=== PATIENT | male | born 1950 ===

== ENCOUNTER 2017-06-04 13:54 | Inpatient (IN) | payer MEDICARE ==
[~2017-06-04] VITALS: Ht 177.8 cm; Wt 95.0 kg
[2017-06-04] MEDS ORDERED: MAGNESIUM HYDROXIDE 2,400 MG/30 ML ORAL.SUSP. PO PRN (15:00)
[2017-06-04] MEDS ORDERED: METHYL SALICYLATE/MENTHOL TOPICAL OINTMENT 29GM TUBE. TP PRN (15:00)
[2017-06-04] MEDS ORDERED: FLU VACC QS2017-18 (36MOS+)/PF 0.5 ML SYRINGE. VAX IM ONE (15:30)
[2017-06-04 21:57] LABS: BASO % 1 % (0-3); EOS # 0.3 x10^3/uL (0.0-0.7); EOS % 4 % (0-3); HEMATOCRIT 42.6 % (39.0-53.0); HEMOGLOBIN 14.3 g/dL (13.0-17.5); LYMPH # 1.4 x10^3/uL (1.0-4.8); LYMPH % 17 % (24-48); MEAN CORPUSCULAR HEMOGLOBIN 28 pg (25-35); MEAN CORPUSCULAR HGB CONC 33 g/dL (31-37); MEAN CORPUSCULAR VOLUME 85 fL (79-100); MONO # 0.6 x10^3/uL (0.0-1.1); MONO % 7 % (0-9); NEUT # 6.2 x10^3uL (1.8-7.7); NEUT % 72 % (31-73); PLATELET COUNT 155 x10^3/uL (140-400); RED BLOOD COUNT 5.01 x10^6/uL (4.30-5.70); RED CELL DISTRIBUTION WIDTH 14.1 % (11.5-14.5); WHITE BLOOD COUNT 8.6 x10^3/uL (4.0-11.0)
[2017-06-04 22:10] LABS: ALBUMIN 3.3 g/dL (3.4-5.0); ALBUMIN/GLOBULIN RATIO 0.9 (1.0-1.7); CALCIUM 8.9 mg/dL (8.5-10.1); CREATININE 1.1 mg/dL (0.7-1.3); MAGNESIUM 1.7 mg/dL (1.8-2.4); POTASSIUM 4.5 mmol/L (3.5-5.1); TOTAL BILIRUBIN 0.5 mg/dL (0.2-1.0); TOTAL PROTEIN 6.8 g/dL (6.4-8.2)
[2017-06-04 23:14] VITALS: BP 139/57
[2017-06-05] MEDS ORDERED: OMEP20TA8 PO (00:52)
[2017-06-05] MEDS ORDERED: VERA240C2 PO (00:52)
[2017-06-05] MEDS ORDERED: ATORVASTATIN CA80 MG PO (00:52)
[2017-06-05] MEDS ORDERED: SAXA5TAB PO (00:52)
[2017-06-05] MEDS ORDERED: POTA10TA10 PO (00:52)
[2017-06-05] MEDS ORDERED: NICO1PAT21 TD (00:52)
[2017-06-05] MEDS ORDERED: ALBU2.5V14 NEB (00:52)
[2017-06-05] MEDS ORDERED: TAMS0.4C2 PO (00:52)
[2017-06-05] MEDS ORDERED: AMLO5TAB2 PO (00:52)
[2017-06-05] MEDS ORDERED: MEMA1CAP2 PO (00:52)
[2017-06-05] MEDS ORDERED: PARO40TA3 PO (00:52)
[2017-06-05] MEDS ORDERED: RAMI10CA PO (00:52)
[2017-06-05] MEDS ORDERED: [UNRECOGNIZED DRUG - OTHER] (00:52)
[2017-06-05] MEDS ORDERED: OXYB5TAB PO (00:52)
[2017-06-05] MEDS ORDERED: FLUT1DIS3 IH (00:52)
[2017-06-05] MEDS ORDERED: ASPI325T8 PO (00:52)
[2017-06-05] MEDS ORDERED: NON FORMULARY ITEM (Albuterol Sulfate (Albuterol Sulfate Conc Neb Soln) 2.5 MG) NEB PRN (01:00)
[2017-06-05] MEDS ORDERED: DEXTROSE 50% 25 GM / 50ML DISP.SYRIN. IV PRN (01:00)
[2017-06-05] MEDS ORDERED: DEXTROSE ORAL GEL 15 GM TUBE. PO PRN (01:00)
[2017-06-05] MEDS ORDERED: NICOTINE 21MG PATCH. TD PRN (01:00)
[2017-06-05] MEDS ORDERED: ALBUTEROL SULFATE 2.5 MG/3 ML NEBU. NEB PRN (01:45)
[2017-06-05 06:31] VITALS: BP_SYST 69
[2017-06-05 07:39] VITALS: BP 138/69
[2017-06-05] MEDS: ALBUTEROL SULFATE 2.5 MG/3 ML NEBU. NEB SCH ×4 (08:00→21:00)
[2017-06-05] MEDS: LINAGLIPTIN 5 MG TABLET PO SCH (08:50)
[2017-06-05] MEDS: PANTOPRAZOLE 40 MG TABLET. PO SCH (08:50)
[2017-06-05] MEDS: OXYBUTYNIN CHLORIDE 5 MG TABLET PO SCH (08:50)
[2017-06-05] MEDS: ASPIRIN 325 MG TABLET PO SCH ×2 (08:50→20:02)
[2017-06-05] MEDS: LISINOPRIL 20 MG TABLET PO SCH (08:50)
[2017-06-05] MEDS: TAMSULOSIN 0.4 MG CAP.ER.24H. PO SCH (08:51)
[2017-06-05] MEDS: MEMANTINE 5 MG TABLET. PO SCH ×2 (08:51→20:03)
[2017-06-05] MEDS: POTASSIUM CHLORIDE 10 MEQ TABLET.ER. PO SCH (08:51)
[2017-06-05] MEDS: DONEPEZIL HCL 5 MG TABLET. PO SCH ×2 (08:51→20:03)
[2017-06-05] MEDS: amLODIPine BESYLATE 5 MG TABLET PO SCH ×3 (08:52→20:06)
[2017-06-05] MEDS: VERAPAMIL SR 120 MG TABLET.ER. PO SCH (08:55)
[2017-06-05] MEDS ORDERED: NON FORMULARY ITEM (Fluticasone/Salmeterol (Advair 250-50 Diskus) 1 PUFF) IH SCH (09:00)
[2017-06-05] MEDS ORDERED: PARoxetine 20 MG TABLET PO SCH (09:00)
[2017-06-05] MEDS ORDERED: DONEPEZIL HCL PO SCH (09:00)
[2017-06-05] MEDS ORDERED: MEMANTINE HCL PO SCH (09:00)
[2017-06-05] MEDS ORDERED: NICOTINE 21MG PATCH. TD SCH (09:00)
[2017-06-05] MEDS: BUDESONIDE 0.5 MG/2 ML NEBU NEB SCH ×2 (11:11→21:00)
[2017-06-05 14:20] LABS: THYROID STIM HORMONE (TSH) 0.155 uIU/mL (0.358-3.740)
[2017-06-05 16:24] VITALS: BP 94/56
[2017-06-05 18:47] LABS: BACTERIA,URINE 0 /HPF (0-FEW); BILIRUBIN,URINE NEG (NEG); CLARITY,URINE CLEAR; COLOR,URINE AMBER; GLUCOSE,URINE NEG (NEG); HYALINE CASTS, URINE OCC /HPF; NITRITE,URINE NEG (NEG); RBC,URINE 0 /HPF (0-2); SQUAMOUS EPITHELIAL CELL,UR OCC /LPF; UROBILINOGEN,URINE 1 mg/dL (0.2 mg/dL)
--- NOTE | 2017-06-05 19:18 | PDOC ---
Exam Note: Hernandez Note: Please also refer to the separate dictated note~for this date of service dictated separately.~Patient seen individually. Discussed the patient with Nursing staff reviewed the chart.~Reviewed interim history and current functioning. Reviewed vital signs,~Labs/ Radiology~and current medications noted below. Continue current treatment with the changes noted in the dictated addendum note Assessment: Vital Signs: Vital Signs Date Time Temp Pulse Resp B/P (MAP) Pulse Ox O2 Delivery O2 Flow Rate FiO2 06/05/17 16:24 93 Room Air 06/05/17 16:24 97.9 78 20 94/56 (69) Labs: Laboratory Tests Test 06/04/17 21:46 06/05/17 07:54 06/05/17 18:10 White Blood Count 8.6 x10^3/uL (4.0-11.0) Red Blood Count 5.01 x10^6/uL (4.30-5.70) Hemoglobin 14.3 g/dL (13.0-17.5) Hematocrit 42.6 % (39.0-53.0) Mean Corpuscular Volume 85 fL (79-100) Mean Corpuscular Hemoglobin 28 pg (25-35) Mean Corpuscular Hemoglobin Concent 33 g/dL (31-37) Red Cell Distribution Width 14.1 % (11.5-14.5) Platelet Count 155 x10^3/uL (140-400) Neutrophils (%) (Auto) 72 % (31-73) Lymphocytes (%) (Auto) 17 % (24-48) L Monocytes (%) (Auto) 7 % (0-9) Eosinophils (%) (Auto) 4 % (0-3) H Basophils (%) (Auto) 1 % (0-3) Neutrophils # (Auto) 6.2 x10^3uL (1.8-7.7) Lymphocytes # (Auto) 1.4 x10^3/uL (1.0-4.8) Monocytes # (Auto) 0.6 x10^3/uL (0.0-1.1) Eosinophils # (Auto) 0.3 x10^3/uL (0.0-0.7) Basophils # (Auto) 0.0 x10^3/uL (0.0-0.2) Sodium Level 144 mmol/L (136-145) Potassium Level 4.5 mmol/L (3.5-5.1) Chloride Level 107 mmol/L (98-107) Carbon Dioxide Level 32 mmol/L (21-32) Anion Gap 5 (6-14) L Blood Urea Nitrogen 19 mg/dL (8-26) Creatinine 1.1 mg/dL (0.7-1.3) Estimated GFR (Cockcroft-Gault) 67.0 BUN/Creatinine Ratio 17 (6-20) Glucose Level 121 mg/dL (70-99) H Calcium Level 8.9 mg/dL (8.5-10.1) Magnesium Level 1.7 mg/dL (1.8-2.4) L Iron Level 38 ug/dL (65-175) L Total Iron Binding Capacity 239 ug/dL (250-450) L Iron Saturation 16 % (15-34) Total Bilirubin 0.5 mg/dL (0.2-1.0) Aspartate Amino Transferase (AST) 18 U/L (15-37) Alanine Aminotransferase (ALT) 25 U/L (16-63) Alkaline Phosphatase 84 U/L (46-116) Total Protein 6.8 g/dL (6.4-8.2) Albumin 3.3 g/dL (3.4-5.0) L Albumin/Globulin Ratio 0.9 (1.0-1.7) L Triglycerides Level 81 mg/dL (0-150) Cholesterol Level 112 mg/dL (0-200) LDL Cholesterol, Calculated 62 mg/dL (0-100) VLDL Cholesterol, Calculated 16 mg/dL (0-40) Non-HDL Cholesterol Calculated 78 mg/dL (0-129) HDL Cholesterol 34 mg/dL (40-60) L Cholesterol/HDL Ratio 3.0 Vitamin B12 Level 236 pg/mL (247-911) L 25-Hydroxy Vitamin D Total 6.6 ng/mL (30-100) L Thyroid Stimulating Hormone (TSH) 0.155 uIU/mL (0.358-3.740) Glucose (Fingerstick) 98 mg/dL (70-99) Urine Collection Type Unknown Urine Color [place] Urine Clarity Clear Urine pH 5.0 Urine Specific [place] >=1.030 Urine Protein 30 mg/dl (NEG-TRACE) Urine Glucose (UA) Neg mg/dL (NEG) Urine Ketones (Stick) 15 mg/dL (NEG) Urine Blood Neg (NEG) Urine Nitrite Neg (NEG) Urine Bilirubin Neg (NEG) Urine Urobilinogen Dipstick 1 mg/dL (0.2 mg/dL) Urine Leukocyte Esterase Neg (NEG) Urine RBC 0 /HPF (0-2) Urine WBC 1-4 /HPF (0-4) Urine Squamous Epithelial Cells Occ /LPF Urine Bacteria 0 /HPF (0-FEW) Urine Hyaline Casts Occ /HPF Urine Mucus Mod /LPF Current Medications: Meds: Current Medications Acetaminophen (Tylenol) 650 mg PRN Q6HRS PRN PO PAIN / TEMP; Start 06/04/17 at 15:00 Multi-Ingredient Ointment (Analgesic [place]) 1 any PRN QID PRN TP MUSCLE PAIN; Start 06/04/17 at 15:00 Al Hydroxide/Mg Hydroxide (Mylanta Plus Xs) 15 ml PRN AFTMEALHC PRN PO DYSPEPSIA; Start 06/04/17 at 15:00 Magnesium Hydroxide (Milk Of Magnesia) 2,400 mg PRN QHS PRN PO CONSTIPATION; Start 06/04/17 at 15:00 Nicotine (Nicoderm Cq 21mg) 1 patch DAILY TD ; Start 06/05/17 at 09:00; Stop at 09:00; Status DC Olanzapine (ZyPREXA ZYDIS) 2.5 mg PRN Q2HR PRN PO ANXIETY / AGITATION; Start at 15:30 Influenza Virus Vaccine Quadrival (Fluarix Quad 0319-6037 Syringe) 0.5 ml ONCE ONCE VAX IM Last administered on 06/05/17at 11:21; Start 06/04/17 at 15:30; Stop 06/04/17 at 15:36; Status DC Amlodipine Besylate (Norvasc) 5 mg DAILY PO Last administered on 06/05/17at 08: 52; Start 06/05/17 at 09:00 Aspirin (Siv[place]kmar Aspirin) 325 mg DAILY PO Last administered on 06/05/17at 08:50; Start 06/05/17 at 09:00 Nicotine (Nicoderm Cq 21mg) 1 patch PRN DAILY PRN TD NICOTINE W/D SYMPTOMS; Start 06/05/17 at 01:00 Tamsulosin HCl (Flomax) 0.4 mg DAILY PO Last administered on 06/05/17at 08:51; Start 06/05/17 at 09:00 Non-Formulary Medication 2.5 mg PRN Q12HR PRN NEB WHEEZING; Start 06/05/17 at 01:00; Status UNV Atorvastatin Calcium (Lipitor) 80 mg QHS PO ; Start 06/05/17 at 21:00 Non-Formulary Medication 1 puff BID IH ; Start 06/05/17 at 09:00; Status UNV Non-Formulary Medication 1 each DAILY PO ; Start 06/05/17 at 09:00; Stop at 09:00; Status DC Pantoprazole Sodium (Protonix) 40 mg DAILYAC PO Last administered on 06/05/17at 08:50; Start 06/05/17 at 07:30 Oxybutynin Chloride (Ditropan) 5 mg DAILY PO Last administered on 06/05/17at 08: 50; Start 06/05/17 at 09:00 Paroxetine HCl (Paxil) 40 mg DAILY PO Last administered on 06/05/17at 08:51; Start 06/05/17 at 09:00; Stop 06/05/17 at 18:43; Status DC Potassium Chloride (Klor-Con) 30 meq DAILY PO Last administered on 06/05/17at 08 :51; Start 06/05/17 at 09:00 Lisinopril (Prinivil) 20 mg DAILY PO Last administered on 06/05/17at 08:50; Start 06/05/17 at 09:00 Linagliptin (Tradjenta) 5 mg DAILY PO Last administered on 06/05/17at 08:50; Start 06/05/17 at 09:00 Verapamil HCl (Calan Sr) 120 mg DAILY PO Last administered on 06/05/17at 08:55; Start 06/05/17 at 09:00 Dextrose 12.5 gm PRN Q15MIN PRN IV hypoglycemia; Start 06/05/17 at 01:00 Glucose (Insta-Glucose) 15 gm PRN Q15MIN PRN PO LOW BLOOD SUGAR; Start at 01:00 Albuterol Sulfate (Ventolin) 2.5 mg PRN Q12HR PRN NEB WHEEZING; Start 06/05/17 at 01:45 Budesonide (Pulmicort) 0.5 mg RTBID NEB Last administered on 06/05/17at 11:11; Start 06/05/17 at 08:00 Albuterol Sulfate (Ventolin) 2.5 mg RTQID NEB Last administered on 06/05/17at 16 :24; Start 06/05/17 at 08:00 Memantine (Namenda) 5 mg BID PO Last administered on 06/05/17at 08:51; Start at 09:00 Donepezil HCl (Aricept) 5 mg BID PO Last administered on 06/05/17at 08:51; Start 06/05/17 at 09:00 Vitamin D (Vitamin D3) 50,000 unit WEEKLY PO ; Start 06/05/17 at 20:00 Cyanocobalamin (Vitamin B-12) 1,000 mcg WEEKLY IM ; Start 06/06/17 at 09:00 Quetiapine Fumarate (SEROquel) 25 mg QHS PO ; Start 06/05/17 at 21:00 Sertraline HCl (Zoloft) 50 mg DAILY PO ; Start 06/06/17 at 09:00 Active Scripts Active Reported Albuterol Sulfate Conc Neb Soln (Albuterol Sulfate) 2.5 Mg/0.5 Ml Vial.neb 2.5 Mg NEB PRN Q12HR PRN Namzaric 14 mg-10 mg Capsule (Memantine HCl/Donepezil HCl) 1 Each Cap.spr.24 1 Each PO DAILY [manzaric] Atorvastatin Calcium 80 Mg Tablet 80 Mg PO QHS NICODERM CQ 21mg (Nicotine) 1 Each Patch.td24 1 Patch TD PRN DAILY Omeprazole 20 Mg Tablet.dr 20 Mg PO DAILY Verapamil Er (Verapamil Hcl) 240 Mg Cap24h.pel 120 Mg PO DAILY Tamsulosin Hcl 0.4 Mg Cap.er.24h 0.4 Mg PO DAILY Onglyza (Saxagliptin Hcl) 5 Mg Tablet 2.5 Mg PO DAILY Ramipril 10 Mg Capsule 10 Mg PO DAILY Potassium Chloride 10 Meq Tablet.er 30 Meq PO DAILY Paroxetine Hcl 40 Mg Tablet 40 Mg PO DAILY Oxybutynin Chloride Er (Oxybutynin Chloride) 5 Mg Tab.er.24 5 Mg PO DAILY Advair 250-50 Diskus (Fluticasone/Salmeterol) 1 Each Disk.w.dev 1 Puff IH BID Aspirin 325 Mg Tablet 325 Mg PO Amlodipine Besylate 5 Mg Tablet 5 Mg PO DAILY I have reviewed the current psychotropics carefully including drug interactions. Risk benefit ratio favors no change other than as noted in my dictated progress note. BRAYAN GARNETT MD Jun 05, 2017 19:18
[2017-06-05] MEDS: CHOLECALCIFEROL (VITAMIN D3) 50,000 UNIT CAPSULE PO SCH (20:03)
[2017-06-05] MEDS: ATORVASTATIN CALCIUM 20 MG TABLET PO SCH (20:20)
[2017-06-05] MEDS ORDERED: QUEtiapine 25 MG TABLET. PO SCH (21:00)
[2017-06-05 21:11] LABS: T3 TOTAL 67 ng/dL (71-180); THYROXINE 4.5 ug/dL (4.5-12.0)
[2017-06-06 00:09] LABS: HEMOGLOBIN A1C 5.7 % (4.8-5.6)
[2017-06-06] MEDS: ALBUTEROL SULFATE 2.5 MG/3 ML NEBU. NEB SCH ×4 (06:00→20:00)
[2017-06-06 06:07] VITALS: BP 100/63
[2017-06-06] MEDS: LINAGLIPTIN 5 MG TABLET PO SCH (08:57)
[2017-06-06] MEDS: DONEPEZIL HCL 5 MG TABLET. PO SCH ×2 (08:57→19:40)
[2017-06-06] MEDS: POTASSIUM CHLORIDE 10 MEQ TABLET.ER. PO SCH (08:57)
[2017-06-06] MEDS: TAMSULOSIN 0.4 MG CAP.ER.24H. PO SCH (08:58)
[2017-06-06] MEDS: OXYBUTYNIN CHLORIDE 5 MG TABLET PO SCH (08:58)
[2017-06-06] MEDS: MEMANTINE 5 MG TABLET. PO SCH ×2 (08:58→19:40)
[2017-06-06] MEDS: PANTOPRAZOLE 40 MG TABLET. PO SCH (08:58)
[2017-06-06] MEDS: amLODIPine BESYLATE 5 MG TABLET PO SCH (09:00)
[2017-06-06] MEDS: LISINOPRIL 20 MG TABLET PO SCH (09:00)
[2017-06-06] MEDS: VERAPAMIL SR 120 MG TABLET.ER. PO SCH (09:00)
[2017-06-06 09:07] VITALS: BP 105/58
[2017-06-06] MEDS: SERTRALINE 50 MG TABLET. PO SCH (09:10)
[2017-06-06] MEDS: CYANOCOBALAMIN (VITAMIN B-12) 1,000 MCG/ML VIAL IM SCH (09:10)
--- NOTE | 2017-06-06 10:36 | PN ---
DATE: NO DICTATION MAN Lacho GARNETT MD DR: Braxton JOB#: [id number] / [id number]
[2017-06-06] MEDS: BUDESONIDE 0.5 MG/2 ML NEBU NEB SCH ×2 (11:38→20:00)
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
[2017-06-06 15:51] VITALS: BP 103/64
[2017-06-06] MEDS: ATORVASTATIN CALCIUM 20 MG TABLET PO SCH (19:42)
[2017-06-06] MEDS: QUEtiapine 50 MG TABLET. PO SCH (19:44)
--- NOTE | 2017-06-06 19:52 | PDOC ---
Exam Note: Hernandez Note: Please also refer to the separate dictated note~for this date of service dictated separately.~Patient seen individually. Discussed the patient with Nursing staff reviewed the chart.~Reviewed interim history and current functioning. Reviewed vital signs,~Labs/ Radiology~and current medications noted below. Continue current treatment with the changes noted in the dictated addendum note Assessment: Vital Signs: Vital Signs Date Time Temp Pulse Resp B/P (MAP) Pulse Ox O2 Delivery O2 Flow Rate FiO2 06/06/17 16:37 96 Room Air 06/06/17 15:51 98.8 67 16 103/64 (77) I&O Intake and Output 06/06/17 07:00 Intake Total 1900 ml Balance 1900 ml Intake Oral 1900 ml # Voids 2 Labs: Laboratory Tests Test 06/06/17 07:13 06/06/17 08:00 Free Thyroxine 0.85 ng/dL (0.76-1.46) Free Triiodothyronine (T3) pg/mL 2.17 pg/mL (2.18-3.98) L Glucose (Fingerstick) 93 mg/dL (70-99) Current Medications: Meds: Current Medications Acetaminophen (Tylenol) 650 mg PRN Q6HRS PRN PO PAIN / TEMP; Start 06/04/17 at 15:00 Multi-Ingredient Ointment (Analgesic [place]) 1 any PRN QID PRN TP MUSCLE PAIN; Start 06/04/17 at 15:00 Al Hydroxide/Mg Hydroxide (Mylanta Plus Xs) 15 ml PRN AFTMEALHC PRN PO DYSPEPSIA; Start 06/04/17 at 15:00 Magnesium Hydroxide (Milk Of Magnesia) 2,400 mg PRN QHS PRN PO CONSTIPATION; Start 06/04/17 at 15:00 Nicotine (Nicoderm Cq 21mg) 1 patch DAILY TD ; Start 06/05/17 at 09:00; Stop at 09:00; Status DC Olanzapine (ZyPREXA ZYDIS) 2.5 mg PRN Q2HR PRN PO ANXIETY / AGITATION Last administered on 06/06/17at 02:22; Start 06/04/17 at 15:30 Influenza Virus Vaccine Quadrival (Fluarix Quad [id number] Syringe) 0.5 ml ONCE ONCE VAX IM Last administered on 06/05/17at 11:21; Start 06/04/17 at 15:30; Stop 06/04/17 at 15:36; Status DC Amlodipine Besylate (Norvasc) 5 mg DAILY PO ; Start 06/05/17 at 09:00 Aspirin (Sivakumar Aspirin) 325 mg DAILY PO Last administered on 06/05/17at 20:02; Start 06/05/17 at 09:00 Nicotine (Nicoderm Cq 21mg) 1 patch PRN DAILY PRN TD NICOTINE W/D SYMPTOMS; Start 06/05/17 at 01:00 Tamsulosin HCl (Flomax) 0.4 mg DAILY PO Last administered on 06/06/17 08:58; Start 06/05/17 at 09:00 Non-Formulary Medication 2.5 mg PRN Q12HR PRN NEB WHEEZING; Start 06/05/17 at 01:00; Status UNV Atorvastatin Calcium (Lipitor) 80 mg QHS PO Last administered on 06/06/17at 19: 42; Start 06/05/17 at 21:00 Non-Formulary Medication 1 puff BID IH ; Start 06/05/17 at 09:00; Status UNV Non-Formulary Medication 1 each DAILY PO ; Start 06/05/17 at 09:00; Stop at 09:00; Status DC Pantoprazole Sodium (Protonix) 40 mg DAILYAC PO Last administered on 06/06/17 08:58; Start 06/05/17 at 07:30 Oxybutynin Chloride (Ditropan) 5 mg DAILY PO Last administered on 06/06/17 08: 58; Start 06/05/17 at 09:00 Paroxetine HCl (Paxil) 40 mg DAILY PO Last administered on 06/05/17at 08:51; Start 06/05/17 at 09:00; Stop 06/05/17 at 18:43; Status DC Potassium Chloride (Klor-Con) 30 meq DAILY PO Last administered on 06/06/17at 08 :57; Start 06/05/17 at 09:00 Lisinopril (Prinivil) 20 mg DAILY PO Last administered on 06/05/17at 08:50; Start 06/05/17 at 09:00 Linagliptin (Tradjenta) 5 mg DAILY PO Last administered on 06/06/17at 08:57; Start 06/05/17 at 09:00 Verapamil HCl (Calan Sr) 120 mg DAILY PO Last administered on 06/05/17at 08:55; Start 06/05/17 at 09:00 Dextrose 12.5 gm PRN Q15MIN PRN IV hypoglycemia; Start 06/05/17 at 01:00 Glucose (Insta-Glucose) 15 gm PRN Q15MIN PRN PO LOW BLOOD SUGAR; Start at 01:00 Albuterol Sulfate (Ventolin) 2.5 mg PRN Q12HR PRN NEB WHEEZING; Start 06/05/17 at 01:45 Budesonide (Pulmicort) 0.5 mg RTBID NEB Last administered on 06/06/17at 11:38; Start 06/05/17 at 08:00 Albuterol Sulfate (Ventolin) 2.5 mg RTQID NEB Last administered on 06/06/17at 16 :36; Start 06/05/17 at 08:00 Memantine (Namenda) 5 mg BID PO Last administered on 06/06/17at 19:40; Start at 09:00 Donepezil HCl (Aricept) 5 mg BID PO Last administered on 06/06/17 19:40; Start 06/05/17 at 09:00 Vitamin D (Vitamin D3) 50,000 unit WEEKLY PO Last administered on 06/05/17at 20: 03; Start 06/05/17 at 20:00 Cyanocobalamin (Vitamin B-12) 1,000 mcg WEEKLY IM Last administered on 09:10; Start 06/06/17 at 09:00 Quetiapine Fumarate (SEROquel) 25 mg QHS PO Last administered on 06/05/17at 20: 03; Start 06/05/17 at 21:00; Stop 06/06/17 at 18:42; Status DC Sertraline HCl (Zoloft) 50 mg DAILY PO Last administered on 06/06/17at 09:10; Start 06/06/17 at 09:00 Quetiapine Fumarate (SEROquel) 50 mg QHS PO Last administered on 06/06/17at 19: 44; Start 06/06/17 at 21:00 Active Scripts Active Reported Albuterol Sulfate Conc Neb Soln (Albuterol Sulfate) 2.5 Mg/0.5 Ml Vial.neb 2.5 Mg NEB PRN Q12HR PRN Namzaric 14 mg-10 mg Capsule (Memantine HCl/Donepezil HCl) 1 Each Cap.spr.24 1 Each PO DAILY [manzaric] Atorvastatin Calcium 80 Mg Tablet 80 Mg PO QHS NICODERM CQ 21mg (Nicotine) 1 Each Patch.td24 1 Patch TD PRN DAILY Omeprazole 20 Mg Tablet.dr 20 Mg PO DAILY Verapamil Er (Verapamil Hcl) 240 Mg Cap24h.pel 120 Mg PO DAILY Tamsulosin Hcl 0.4 Mg Cap.er.24h 0.4 Mg PO DAILY Onglyza (Saxagliptin Hcl) 5 Mg Tablet 2.5 Mg PO DAILY Ramipril 10 Mg Capsule 10 Mg PO DAILY Potassium Chloride 10 Meq Tablet.er 30 Meq PO DAILY Paroxetine Hcl 40 Mg Tablet 40 Mg PO DAILY Oxybutynin Chloride Er (Oxybutynin Chloride) 5 Mg Tab.er.24 5 Mg PO DAILY Advair 250-50 Diskus (Fluticasone/Salmeterol) 1 Each Disk.w.dev 1 Puff IH BID Aspirin 325 Mg Tablet 325 Mg PO Amlodipine Besylate 5 Mg Tablet 5 Mg PO DAILY I have reviewed the current psychotropics carefully including drug interactions. Risk benefit ratio favors no change other than as noted in my dictated progress note. Diagnosis: Problems: (1) Major neurocognitive disorder, due to vascular disease, with behavioral disturbance, mild (2) Impulse control disorder (3) Depression (4) Delusion (5) Anxiety disorder (6) Behavior problem BRAYAN GARNETT MD Jun 06, 2017 19:52
[2017-06-06 20:17] LABS: THYROXINE 4.9 ug/dL (4.5-12.0)
[2017-06-07 05:35] VITALS: BP 102/56
[2017-06-07] MEDS: ALBUTEROL SULFATE 2.5 MG/3 ML NEBU. NEB SCH ×4 (06:06→22:55)
[2017-06-07] MEDS: LINAGLIPTIN 5 MG TABLET PO SCH (08:44)
[2017-06-07] MEDS: DONEPEZIL HCL 5 MG TABLET. PO SCH ×2 (08:44→19:52)
[2017-06-07] MEDS: MEMANTINE 5 MG TABLET. PO SCH ×2 (08:44→19:52)
[2017-06-07] MEDS: POTASSIUM CHLORIDE 10 MEQ TABLET.ER. PO SCH (08:44)
[2017-06-07] MEDS: OXYBUTYNIN CHLORIDE 5 MG TABLET PO SCH (08:44)
[2017-06-07] MEDS: SERTRALINE 50 MG TABLET. PO SCH (08:45)
[2017-06-07] MEDS: PANTOPRAZOLE 40 MG TABLET. PO SCH (08:45)
[2017-06-07] MEDS: TAMSULOSIN 0.4 MG CAP.ER.24H. PO SCH (08:45)
[2017-06-07] MEDS: ASPIRIN 325 MG TABLET PO SCH (08:45)
[2017-06-07] MEDS: amLODIPine BESYLATE 5 MG TABLET PO SCH (08:46)
[2017-06-07] MEDS: LISINOPRIL 20 MG TABLET PO SCH (08:46)
[2017-06-07] MEDS: VERAPAMIL SR 120 MG TABLET.ER. PO SCH (08:46)
[2017-06-07] MEDS: BUDESONIDE 0.5 MG/2 ML NEBU NEB SCH ×2 (09:53→22:55)
[2017-06-07 15:40] VITALS: BP 106/65
[2017-06-07] MEDS: ATORVASTATIN CALCIUM 20 MG TABLET PO SCH (19:52)
[2017-06-07] MEDS: QUEtiapine 50 MG TABLET. PO SCH (19:52)
--- NOTE | 2017-06-07 20:04 | PDOC ---
Exam Note: Hernandez Note: Please also refer to the separate dictated note~for this date of service dictated separately.~Patient seen individually. Discussed the patient with Nursing staff reviewed the chart.~Reviewed interim history and current functioning. Reviewed vital signs,~Labs/ Radiology~and current medications noted below. Continue current treatment with the changes noted in the dictated addendum note Assessment: Vital Signs: Vital Signs Date Time Temp Pulse Resp B/P (MAP) Pulse Ox O2 Delivery O2 Flow Rate FiO2 06/07/17 15:48 93 Room Air 06/07/17 15:40 97.2 83 18 106/65 (79) I&O Intake and Output 06/07/17 07:00 Intake Total 720 ml Balance 720 ml Intake Oral 720 ml Labs: Laboratory Tests Test 06/07/17 07:15 Glucose (Fingerstick) 96 mg/dL (70-99) Current Medications: Meds: Current Medications Acetaminophen (Tylenol) 650 mg PRN Q6HRS PRN PO PAIN / TEMP; Start 06/04/17 at 15:00 Multi-Ingredient Ointment (Analgesic [place]) 1 any PRN QID PRN TP MUSCLE PAIN; Start 06/04/17 at 15:00 Al Hydroxide/Mg Hydroxide (Mylanta Plus Xs) 15 ml PRN AFTMEALHC PRN PO DYSPEPSIA; Start 06/04/17 at 15:00 Magnesium Hydroxide (Milk Of Magnesia) 2,400 mg PRN QHS PRN PO CONSTIPATION; Start 06/04/17 at 15:00 Nicotine (Nicoderm Cq 21mg) 1 patch DAILY TD ; Start 06/05/17 at 09:00; Stop at 09:00; Status DC Olanzapine (ZyPREXA ZYDIS) 2.5 mg PRN Q2HR PRN PO ANXIETY / AGITATION Last administered on 06/06/17at 02:22; Start 06/04/17 at 15:30 Influenza Virus Vaccine Quadrival (Fluarix Quad [id number] Syringe) 0.5 ml ONCE ONCE VAX IM Last administered on 06/05/17at 11:21; Start 06/04/17 at 15:30; Stop 06/04/17 at 15:36; Status DC Amlodipine Besylate (Norvasc) 5 mg DAILY PO ; Start 06/05/17 at 09:00 Aspirin (Sivakumar Aspirin) 325 mg DAILY PO Last administered on 06/07/17 08:45; Start 06/05/17 at 09:00 Nicotine (Nicoderm Cq 21mg) 1 patch PRN DAILY PRN TD NICOTINE W/D SYMPTOMS; Start 06/05/17 at 01:00 Tamsulosin HCl (Flomax) 0.4 mg DAILY PO Last administered on 06/07/17at 08:45; Start 06/05/17 at 09:00 Non-Formulary Medication 2.5 mg PRN Q12HR PRN NEB WHEEZING; Start 06/05/17 at 01:00; Status UNV Atorvastatin Calcium (Lipitor) 80 mg QHS PO Last administered on 06/07/17at 19:52 ; Start 06/05/17 at 21:00 Non-Formulary Medication 1 puff BID IH ; Start 06/05/17 at 09:00; Status UNV Non-Formulary Medication 1 each DAILY PO ; Start 06/05/17 at 09:00; Stop at 09:00; Status DC Pantoprazole Sodium (Protonix) 40 mg DAILYAC PO Last administered on 06/07/17at 08:45; Start 06/05/17 at 07:30 Oxybutynin Chloride (Ditropan) 5 mg DAILY PO Last administered on 06/07/17 08: 44; Start 06/05/17 at 09:00 Paroxetine HCl (Paxil) 40 mg DAILY PO Last administered on 06/05/17at 08:51; Start 06/05/17 at 09:00; Stop 06/05/17 at 18:43; Status DC Potassium Chloride (Klor-Con) 30 meq DAILY PO Last administered on 06/07/17at 08: 44; Start 06/05/17 at 09:00 Lisinopril (Prinivil) 20 mg DAILY PO Last administered on 06/05/17at 08:50; Start 06/05/17 at 09:00 Linagliptin (Tradjenta) 5 mg DAILY PO Last administered on 06/07/17 08:44; Start 06/05/17 at 09:00 Verapamil HCl (Calan Sr) 120 mg DAILY PO Last administered on 06/05/17at 08:55; Start 06/05/17 at 09:00 Dextrose 12.5 gm PRN Q15MIN PRN IV hypoglycemia; Start 06/05/17 at 01:00 Glucose (Insta-Glucose) 15 gm PRN Q15MIN PRN PO LOW BLOOD SUGAR; Start at 01:00 Albuterol Sulfate (Ventolin) 2.5 mg PRN Q12HR PRN NEB WHEEZING; Start 06/05/17 at 01:45 Budesonide (Pulmicort) 0.5 mg RTBID NEB Last administered on 06/07/17 09:53; Start 06/05/17 at 08:00 Albuterol Sulfate (Ventolin) 2.5 mg RTQID NEB Last administered on 06/07/17at 15: 47; Start 06/05/17 at 08:00 Memantine (Namenda) 5 mg BID PO Last administered on 06/07/17 19:52; Start at 09:00 Donepezil HCl (Aricept) 5 mg BID PO Last administered on 06/07/17 19:52; Start 06/05/17 at 09:00 Vitamin D (Vitamin D3) 50,000 unit WEEKLY PO Last administered on 06/05/17at 20: 03; Start 06/05/17 at 20:00 Cyanocobalamin (Vitamin B-12) 1,000 mcg WEEKLY IM Last administered on at 09:10; Start 06/06/17 at 09:00 Quetiapine Fumarate (SEROquel) 25 mg QHS PO Last administered on 06/05/17at 20: 03; Start 06/05/17 at 21:00; Stop 06/06/17 at 18:42; Status DC Sertraline HCl (Zoloft) 50 mg DAILY PO Last administered on 06/07/17at 08:45; Start 06/06/17 at 09:00 Quetiapine Fumarate (SEROquel) 50 mg QHS PO Last administered on 06/07/17 19:52 ; Start 06/06/17 at 21:00 Active Scripts Active Reported Albuterol Sulfate Conc Neb Soln (Albuterol Sulfate) 2.5 Mg/0.5 Ml Vial.neb 2.5 Mg NEB PRN Q12HR PRN Namzaric 14 mg-10 mg Capsule (Memantine HCl/Donepezil HCl) 1 Each Cap.spr.24 1 Each PO DAILY [manzaric] Atorvastatin Calcium 80 Mg Tablet 80 Mg PO QHS NICODERM CQ 21mg (Nicotine) 1 Each Patch.td24 1 Patch TD PRN DAILY Omeprazole 20 Mg Tablet.dr 20 Mg PO DAILY Verapamil Er (Verapamil Hcl) 240 Mg Cap24h.pel 120 Mg PO DAILY Tamsulosin Hcl 0.4 Mg Cap.er.24h 0.4 Mg PO DAILY Onglyza (Saxagliptin Hcl) 5 Mg Tablet 2.5 Mg PO DAILY Ramipril 10 Mg Capsule 10 Mg PO DAILY Potassium Chloride 10 Meq Tablet.er 30 Meq PO DAILY Paroxetine Hcl 40 Mg Tablet 40 Mg PO DAILY Oxybutynin Chloride Er (Oxybutynin Chloride) 5 Mg Tab.er.24 5 Mg PO DAILY Advair 250-50 Diskus (Fluticasone/Salmeterol) 1 Each Disk.w.dev 1 Puff IH BID Aspirin 325 Mg Tablet 325 Mg PO Amlodipine Besylate 5 Mg Tablet 5 Mg PO DAILY I have reviewed the current psychotropics carefully including drug interactions. Risk benefit ratio favors no change other than as noted in my dictated progress note. Diagnosis: Problems: (1) Major neurocognitive disorder, due to vascular disease, with behavioral disturbance, mild (2) Impulse control disorder (3) Depression (4) Delusion (5) Anxiety disorder (6) Behavior problem BRAYAN GARNETT MD Jun 07, 2017 20:04
[2017-06-08] MEDS: ALBUTEROL SULFATE 2.5 MG/3 ML NEBU. NEB SCH ×4 (05:51→20:22)
[2017-06-08 06:46] VITALS: BP 167/71
[2017-06-08] MEDS: DONEPEZIL HCL 5 MG TABLET. PO SCH ×2 (08:46→19:12)
[2017-06-08] MEDS: MEMANTINE 5 MG TABLET. PO SCH ×2 (08:46→19:12)
[2017-06-08] MEDS: POTASSIUM CHLORIDE 10 MEQ TABLET.ER. PO SCH (08:46)
[2017-06-08] MEDS: ASPIRIN 325 MG TABLET PO SCH (08:46)
[2017-06-08] MEDS: OXYBUTYNIN CHLORIDE 5 MG TABLET PO SCH (08:46)
[2017-06-08] MEDS: VERAPAMIL SR 120 MG TABLET.ER. PO SCH (08:47)
[2017-06-08] MEDS: LISINOPRIL 20 MG TABLET PO SCH (08:47)
[2017-06-08] MEDS: SERTRALINE 50 MG TABLET. PO SCH (08:47)
[2017-06-08] MEDS: PANTOPRAZOLE 40 MG TABLET. PO SCH (08:47)
[2017-06-08] MEDS: LINAGLIPTIN 5 MG TABLET PO SCH (08:47)
[2017-06-08] MEDS: amLODIPine BESYLATE 5 MG TABLET PO SCH (08:47)
[2017-06-08] MEDS: TAMSULOSIN 0.4 MG CAP.ER.24H. PO SCH (08:47)
[2017-06-08] MEDS: BUDESONIDE 0.5 MG/2 ML NEBU NEB SCH ×2 (10:17→20:22)
[2017-06-08 16:13] VITALS: BP 100/55
[2017-06-08] MEDS: ATORVASTATIN CALCIUM 20 MG TABLET PO SCH (19:11)
[2017-06-08] MEDS: QUEtiapine 50 MG TABLET. PO SCH (19:11)
[2017-06-08] MEDS: traZODone 50 MG TABLET. PO SCH (19:11)
[2017-06-08] MEDS: ACETAMINOPHEN 325 MG TABLET PO PRN (20:15)
[2017-06-08] MEDS: traZODone 50 MG TABLET. PO PRN (20:15)
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
--- NOTE | 2017-06-08 22:22 | PDOC ---
Exam Note: Hernandez Note: Please also refer to the separate dictated note~for this date of service dictated separately.~Patient seen individually. Discussed the patient with Nursing staff reviewed the chart.~Reviewed interim history and current functioning. Reviewed vital signs,~Labs/ Radiology~and current medications noted below. Continue current treatment with the changes noted in the dictated addendum note Assessment: Vital Signs: Vital Signs Date Time Temp Pulse Resp B/P (MAP) Pulse Ox O2 Delivery O2 Flow Rate FiO2 06/08/17 20:25 Room Air 06/08/17 20:20 95 06/08/17 16:13 98.6 83 20 100/55 (70) I&O Intake and Output 06/08/17 07:00 Intake Total 960 ml Balance 960 ml Intake Oral 960 ml Labs: Laboratory Tests Test 06/08/17 07:23 Glucose (Fingerstick) 97 mg/dL (70-99) Current Medications: Meds: Current Medications Acetaminophen (Tylenol) 650 mg PRN Q6HRS PRN PO PAIN / TEMP Last administered on 06/08/17at 20:15; Start 06/04/17 at 15:00 Multi-Ingredient Ointment (Analgesic [place]) 1 any PRN QID PRN TP MUSCLE PAIN; Start 06/04/17 at 15:00 Al Hydroxide/Mg Hydroxide (Mylanta Plus Xs) 15 ml PRN AFTMEALHC PRN PO DYSPEPSIA; Start 06/04/17 at 15:00 Magnesium Hydroxide (Milk Of Magnesia) 2,400 mg PRN QHS PRN PO CONSTIPATION; Start 06/04/17 at 15:00 Nicotine (Nicoderm Cq 21mg) 1 patch DAILY TD ; Start 06/05/17 at 09:00; Stop at 09:00; Status DC Olanzapine (ZyPREXA ZYDIS) 2.5 mg PRN Q2HR PRN PO ANXIETY / AGITATION Last administered on 06/08/17at 19:12; Start 06/04/17 at 15:30 Influenza Virus Vaccine Quadrival (Fluarix Quad [id number] Syringe) 0.5 ml ONCE ONCE VAX IM Last administered on 06/05/17at 11:21; Start 06/04/17 at 15:30; Stop 06/04/17 at 15:36; Status DC Amlodipine Besylate (Norvasc) 5 mg DAILY PO Last administered on 06/08/17 08:47 ; Start 06/05/17 at 09:00 Aspirin (Sivakumar Aspirin) 325 mg DAILY PO Last administered on 06/08/17 08:46; Start 06/05/17 at 09:00 Nicotine (Nicoderm Cq 21mg) 1 patch PRN DAILY PRN TD NICOTINE W/D SYMPTOMS; Start 06/05/17 at 01:00 Tamsulosin HCl (Flomax) 0.4 mg DAILY PO Last administered on 06/08/17 08:47; Start 06/05/17 at 09:00 Non-Formulary Medication 2.5 mg PRN Q12HR PRN NEB WHEEZING; Start 06/05/17 at 01:00; Status UNV Atorvastatin Calcium (Lipitor) 80 mg QHS PO Last administered on 06/08/17 19:11 ; Start 06/05/17 at 21:00 Non-Formulary Medication 1 puff BID IH ; Start 06/05/17 at 09:00; Status UNV Non-Formulary Medication 1 each DAILY PO ; Start 06/05/17 at 09:00; Stop at 09:00; Status DC Pantoprazole Sodium (Protonix) 40 mg DAILYAC PO Last administered on 06/08/17 08:47; Start 06/05/17 at 07:30 Oxybutynin Chloride (Ditropan) 5 mg DAILY PO Last administered on 06/08/17 08: 46; Start 06/05/17 at 09:00 Paroxetine HCl (Paxil) 40 mg DAILY PO Last administered on 06/05/17 08:51; Start 06/05/17 at 09:00; Stop 06/05/17 at 18:43; Status DC Potassium Chloride (Klor-Con) 30 meq DAILY PO Last administered on 06/08/17 08: 46; Start 06/05/17 at 09:00 Lisinopril (Prinivil) 20 mg DAILY PO Last administered on 06/08/17 08:47; Start 06/05/17 at 09:00 Linagliptin (Tradjenta) 5 mg DAILY PO Last administered on 06/08/17 08:47; Start 06/05/17 at 09:00 Verapamil HCl (Calan Sr) 120 mg DAILY PO Last administered on 06/08/17 08:47; Start 06/05/17 at 09:00 Dextrose 12.5 gm PRN Q15MIN PRN IV hypoglycemia; Start 06/05/17 at 01:00 Glucose (Insta-Glucose) 15 gm PRN Q15MIN PRN PO LOW BLOOD SUGAR; Start at 01:00 Albuterol Sulfate (Ventolin) 2.5 mg PRN Q12HR PRN NEB WHEEZING; Start 06/05/17 at 01:45 Budesonide (Pulmicort) 0.5 mg RTBID NEB Last administered on 06/08/17 20:22; Start 06/05/17 at 08:00 Albuterol Sulfate (Ventolin) 2.5 mg RTQID NEB Last administered on 06/08/17 20: 22; Start 06/05/17 at 08:00 Memantine (Namenda) 5 mg BID PO Last administered on 06/08/17 19:12; Start at 09:00 Donepezil HCl (Aricept) 5 mg BID PO Last administered on 06/08/17 19:12; Start 06/05/17 at 09:00 Vitamin D (Vitamin D3) 50,000 unit WEEKLY PO Last administered on 06/05/17 20: 03; Start 06/05/17 at 20:00 Cyanocobalamin (Vitamin B-12) 1,000 mcg WEEKLY IM Last administered on 09:10; Start 06/06/17 at 09:00 Quetiapine Fumarate (SEROquel) 25 mg QHS PO Last administered on 06/05/17at 20: 03; Start 06/05/17 at 21:00; Stop 06/06/17 at 18:42; Status DC Sertraline HCl (Zoloft) 50 mg DAILY PO Last administered on 06/08/17 08:47; Start 06/06/17 at 09:00 Quetiapine Fumarate (SEROquel) 50 mg QHS PO Last administered on 06/08/17 19:11 ; Start 06/06/17 at 21:00 Trazodone HCl (Desyrel) 50 mg QHS PO Last administered on 06/08/17 19:11; Start 06/08/17 at 21:00 Trazodone HCl (Desyrel) 50 mg PRN QHS PRN PO INSOMNIA Last administered on at 20:15; Start 06/08/17 at 18:45 Divalproex Sodium (Depakote Sprinkles) 125 mg TID@0900,1300,1700 PO ; Start 06/09 at 09:00 Active Scripts Active Reported Albuterol Sulfate Conc Neb Soln (Albuterol Sulfate) 2.5 Mg/0.5 Ml Vial.neb 2.5 Mg NEB PRN Q12HR PRN Namzaric 14 mg-10 mg Capsule (Memantine HCl/Donepezil HCl) 1 Each Cap.spr.24 1 Each PO DAILY [manzaric] Atorvastatin Calcium 80 Mg Tablet 80 Mg PO QHS NICODERM CQ 21mg (Nicotine) 1 Each Patch.td24 1 Patch TD PRN DAILY Omeprazole 20 Mg Tablet.dr 20 Mg PO DAILY Verapamil Er (Verapamil Hcl) 240 Mg Cap24h.pel 120 Mg PO DAILY Tamsulosin Hcl 0.4 Mg Cap.er.24h 0.4 Mg PO DAILY Onglyza (Saxagliptin Hcl) 5 Mg Tablet 2.5 Mg PO DAILY Ramipril 10 Mg Capsule 10 Mg PO DAILY Potassium Chloride 10 Meq Tablet.er 30 Meq PO DAILY Paroxetine Hcl 40 Mg Tablet 40 Mg PO DAILY Oxybutynin Chloride Er (Oxybutynin Chloride) 5 Mg Tab.er.24 5 Mg PO DAILY Advair 250-50 Diskus (Fluticasone/Salmeterol) 1 Each Disk.w.dev 1 Puff IH BID Aspirin 325 Mg Tablet 325 Mg PO Amlodipine Besylate 5 Mg Tablet 5 Mg PO DAILY I have reviewed the current psychotropics carefully including drug interactions. Risk benefit ratio favors no change other than as noted in my dictated progress note. Diagnosis: Problems: (1) Major neurocognitive disorder, due to vascular disease, with behavioral disturbance, mild (2) Impulse control disorder (3) Depression (4) Delusion (5) Anxiety disorder (6) Behavior problem BRAYAN GARNETT MD Jun 08, 2017 22:22
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
[2017-06-09] MEDS: ALBUTEROL SULFATE 2.5 MG/3 ML NEBU. NEB SCH ×4 (05:55→21:02)
[2017-06-09] MEDS: MEMANTINE 5 MG TABLET. PO SCH ×2 (08:03→20:25)
[2017-06-09] MEDS: TAMSULOSIN 0.4 MG CAP.ER.24H. PO SCH (08:04)
[2017-06-09] MEDS: LINAGLIPTIN 5 MG TABLET PO SCH (08:04)
[2017-06-09] MEDS: SERTRALINE 50 MG TABLET. PO SCH (08:05)
[2017-06-09] MEDS: POTASSIUM CHLORIDE 10 MEQ TABLET.ER. PO SCH (08:05)
[2017-06-09] MEDS: VERAPAMIL SR 120 MG TABLET.ER. PO SCH (08:05)
[2017-06-09] MEDS: ASPIRIN 325 MG TABLET PO SCH (08:05)
[2017-06-09] MEDS: amLODIPine BESYLATE 5 MG TABLET PO SCH ×2 (08:06→08:10)
[2017-06-09] MEDS: OXYBUTYNIN CHLORIDE 5 MG TABLET PO SCH (08:07)
[2017-06-09] MEDS: DONEPEZIL HCL 5 MG TABLET. PO SCH ×2 (08:07→20:25)
[2017-06-09] MEDS: PANTOPRAZOLE 40 MG TABLET. PO SCH (08:07)
[2017-06-09] MEDS: DIVALPROEX 125 MG CAP.SPRINK PO SCH ×4 (08:08→17:32)
[2017-06-09] MEDS: LISINOPRIL 20 MG TABLET PO SCH (08:11)
[2017-06-09 08:50] LABS: ALBUMIN 3.9 g/dL (3.4-5.0); CALCIUM 9.4 mg/dL (8.5-10.1); CREATININE 1.3 mg/dL (0.7-1.3); GFR 55.2; POTASSIUM 4.3 mmol/L (3.5-5.1); TOTAL BILIRUBIN 0.8 mg/dL (0.2-1.0); TOTAL PROTEIN 7.9 g/dL (6.4-8.2)
[2017-06-09 08:51] LABS: BASO % 0 % (0-3); EOS # 0.4 x10^3/uL (0.0-0.7); EOS % 5 % (0-3); HEMATOCRIT 45.7 % (39.0-53.0); HEMOGLOBIN 15.3 g/dL (13.0-17.5); LYMPH # 2.3 x10^3/uL (1.0-4.8); LYMPH % 26 % (24-48); MEAN CORPUSCULAR HEMOGLOBIN 29 pg (25-35); MEAN CORPUSCULAR HGB CONC 33 g/dL (31-37); MEAN CORPUSCULAR VOLUME 86 fL (79-100); MONO # 0.8 x10^3/uL (0.0-1.1); MONO % 9 % (0-9); NEUT # 5.5 x10^3uL (1.8-7.7); NEUT % 60 % (31-73); PLATELET COUNT 198 x10^3/uL (140-400); RED BLOOD COUNT 5.32 x10^6/uL (4.30-5.70); RED CELL DISTRIBUTION WIDTH 14.4 % (11.5-14.5); WHITE BLOOD COUNT 9.2 x10^3/uL (4.0-11.0)
[2017-06-09] MEDS: BUDESONIDE 0.5 MG/2 ML NEBU NEB SCH ×2 (10:15→21:02)
[2017-06-09 16:39] VITALS: BP 94/58
[2017-06-09] MEDS: ATORVASTATIN CALCIUM 20 MG TABLET PO SCH (20:25)
[2017-06-09] MEDS: traZODone 50 MG TABLET. PO SCH (20:25)
[2017-06-09] MEDS: QUEtiapine 50 MG TABLET. PO SCH (20:25)
--- NOTE | 2017-06-09 21:06 | PDOC ---
Exam Note: Hernandez Note: Please also refer to the separate dictated note~for this date of service dictated separately.~Patient seen individually. Discussed the patient with Nursing staff reviewed the chart.~Reviewed interim history and current functioning. Reviewed vital signs,~Labs/ Radiology~and current medications noted below. Continue current treatment with the changes noted in the dictated addendum note Assessment: Vital Signs: Vital Signs Date Time Temp Pulse Resp B/P (MAP) Pulse Ox O2 Delivery O2 Flow Rate FiO2 06/09/17 16:39 98.5 72 20 94/58 (70) 94 Room Air I&O Intake and Output 06/09/17 07:00 Intake Total 720 ml Balance 720 ml Intake Oral 720 ml Labs: Laboratory Tests Test 06/09/17 07:28 06/09/17 07:58 Glucose (Fingerstick) 97 mg/dL (70-99) White Blood Count 9.2 x10^3/uL (4.0-11.0) Red Blood Count 5.32 x10^6/uL (4.30-5.70) Hemoglobin 15.3 g/dL (13.0-17.5) Hematocrit 45.7 % (39.0-53.0) Mean Corpuscular Volume 86 fL (79-100) Mean Corpuscular Hemoglobin 29 pg (25-35) Mean Corpuscular Hemoglobin Concent 33 g/dL (31-37) Red Cell Distribution Width 14.4 % (11.5-14.5) Platelet Count 198 x10^3/uL (140-400) Neutrophils (%) (Auto) 60 % (31-73) Lymphocytes (%) (Auto) 26 % (24-48) Monocytes (%) (Auto) 9 % (0-9) Eosinophils (%) (Auto) 5 % (0-3) H Basophils (%) (Auto) 0 % (0-3) Neutrophils # (Auto) 5.5 x10^3uL (1.8-7.7) Lymphocytes # (Auto) 2.3 x10^3/uL (1.0-4.8) Monocytes # (Auto) 0.8 x10^3/uL (0.0-1.1) Eosinophils # (Auto) 0.4 x10^3/uL (0.0-0.7) Basophils # (Auto) 0.0 x10^3/uL (0.0-0.2) Sodium Level 143 mmol/L (136-145) Potassium Level 4.3 mmol/L (3.5-5.1) Chloride Level 105 mmol/L (98-107) Carbon Dioxide Level 30 mmol/L (21-32) Anion Gap 8 (6-14) Blood Urea Nitrogen 19 mg/dL (8-26) Creatinine 1.3 mg/dL (0.7-1.3) Estimated GFR (Cockcroft-Gault) 55.2 BUN/Creatinine Ratio 15 (6-20) Glucose Level 112 mg/dL (70-99) H Calcium Level 9.4 mg/dL (8.5-10.1) Magnesium Level 2.0 mg/dL (1.8-2.4) Total Bilirubin 0.8 mg/dL (0.2-1.0) Aspartate Amino Transferase (AST) 21 U/L (15-37) Alanine Aminotransferase (ALT) 27 U/L (16-63) Alkaline Phosphatase 90 U/L (46-116) Total Protein 7.9 g/dL (6.4-8.2) Albumin 3.9 g/dL (3.4-5.0) Albumin/Globulin Ratio 1.0 (1.0-1.7) Current Medications: Meds: Current Medications Acetaminophen (Tylenol) 650 mg PRN Q6HRS PRN PO PAIN / TEMP Last administered on 06/08/17at 20:15; Start 06/04/17 at 15:00 Multi-Ingredient Ointment (Analgesic [place]) 1 any PRN QID PRN TP MUSCLE PAIN; Start 06/04/17 at 15:00 Al Hydroxide/Mg Hydroxide (Mylanta Plus Xs) 15 ml PRN AFTMEALHC PRN PO DYSPEPSIA; Start 06/04/17 at 15:00 Magnesium Hydroxide (Milk Of Magnesia) 2,400 mg PRN QHS PRN PO CONSTIPATION; Start 06/04/17 at 15:00 Nicotine (Nicoderm Cq 21mg) 1 patch DAILY TD ; Start 06/05/17 at 09:00; Stop at 09:00; Status DC Olanzapine (ZyPREXA ZYDIS) 2.5 mg PRN Q2HR PRN PO ANXIETY / AGITATION Last administered on 06/08/17at 19:12; Start 06/04/17 at 15:30 Influenza Virus Vaccine Quadrival (Fluarix Quad [id number] Syringe) 0.5 ml ONCE ONCE VAX IM Last administered on 06/05/17at 11:21; Start 06/04/17 at 15:30; Stop 06/04/17 at 15:36; Status DC Amlodipine Besylate (Norvasc) 5 mg DAILY PO Last administered on 06/08/17 08:47 ; Start 06/05/17 at 09:00 Aspirin (Sivakumar Aspirin) 325 mg DAILY PO Last administered on 06/09/17 08:05; Start 06/05/17 at 09:00 Nicotine (Nicoderm Cq 21mg) 1 patch PRN DAILY PRN TD NICOTINE W/D SYMPTOMS; Start 06/05/17 at 01:00 Tamsulosin HCl (Flomax) 0.4 mg DAILY PO Last administered on 06/09/17 08:04; Start 06/05/17 at 09:00 Non-Formulary Medication 2.5 mg PRN Q12HR PRN NEB WHEEZING; Start 06/05/17 at 01:00; Status UNV Atorvastatin Calcium (Lipitor) 80 mg QHS PO Last administered on 06/09/17 20:25 ; Start 06/05/17 at 21:00 Non-Formulary Medication 1 puff BID IH ; Start 06/05/17 at 09:00; Status UNV Non-Formulary Medication 1 each DAILY PO ; Start 06/05/17 at 09:00; Stop at 09:00; Status DC Pantoprazole Sodium (Protonix) 40 mg DAILYAC PO Last administered on 06/09/17 08:07; Start 06/05/17 at 07:30 Oxybutynin Chloride (Ditropan) 5 mg DAILY PO Last administered on 06/09/17 08: 07; Start 06/05/17 at 09:00 Paroxetine HCl (Paxil) 40 mg DAILY PO Last administered on 06/05/17at 08:51; Start 06/05/17 at 09:00; Stop 06/05/17 at 18:43; Status DC Potassium Chloride (Klor-Con) 30 meq DAILY PO Last administered on 06/09/17 08: 05; Start 06/05/17 at 09:00 Lisinopril (Prinivil) 20 mg DAILY PO Last administered on 06/09/17 08:11; Start 06/05/17 at 09:00 Linagliptin (Tradjenta) 5 mg DAILY PO Last administered on 06/09/17 08:04; Start 06/05/17 at 09:00 Verapamil HCl (Calan Sr) 120 mg DAILY PO Last administered on 06/09/17at 08:05; Start 06/05/17 at 09:00 Dextrose 12.5 gm PRN Q15MIN PRN IV hypoglycemia; Start 06/05/17 at 01:00 Glucose (Insta-Glucose) 15 gm PRN Q15MIN PRN PO LOW BLOOD SUGAR; Start at 01:00 Albuterol Sulfate (Ventolin) 2.5 mg PRN Q12HR PRN NEB WHEEZING; Start 06/05/17 at 01:45 Budesonide (Pulmicort) 0.5 mg RTBID NEB Last administered on 06/09/17 10:15; Start 06/05/17 at 08:00 Albuterol Sulfate (Ventolin) 2.5 mg RTQID NEB Last administered on 06/09/17 15: 56; Start 06/05/17 at 08:00 Memantine (Namenda) 5 mg BID PO Last administered on 06/09/17 20:25; Start at 09:00 Donepezil HCl (Aricept) 5 mg BID PO Last administered on 06/09/17 20:25; Start 06/05/17 at 09:00 Vitamin D (Vitamin D3) 50,000 unit WEEKLY PO Last administered on 06/05/17at 20: 03; Start 06/05/17 at 20:00 Cyanocobalamin (Vitamin B-12) 1,000 mcg WEEKLY IM Last administered on at 09:10; Start 06/06/17 at 09:00 Quetiapine Fumarate (SEROquel) 25 mg QHS PO Last administered on 06/05/17at 20: 03; Start 06/05/17 at 21:00; Stop 06/06/17 at 18:42; Status DC Sertraline HCl (Zoloft) 50 mg DAILY PO Last administered on 06/09/17 08:05; Start 06/06/17 at 09:00 Quetiapine Fumarate (SEROquel) 50 mg QHS PO Last administered on 06/09/17at 20:25 ; Start 06/06/17 at 21:00 Trazodone HCl (Desyrel) 50 mg QHS PO Last administered on 06/09/17at 20:25; Start 06/08/17 at 21:00 Trazodone HCl (Desyrel) 50 mg PRN QHS PRN PO INSOMNIA Last administered on at 20:15; Start 06/08/17 at 18:45 Divalproex Sodium (Depakote Sprinkles) 125 mg TID@0900,1300,1700 PO Last administered on 06/09/17at 13:54; Start 06/09/17 at 09:00 Active Scripts Active Reported Albuterol Sulfate Conc Neb Soln (Albuterol Sulfate) 2.5 Mg/0.5 Ml Vial.neb 2.5 Mg NEB PRN Q12HR PRN Namzaric 14 mg-10 mg Capsule (Memantine HCl/Donepezil HCl) 1 Each Cap.spr.24 1 Each PO DAILY [manzaric] Atorvastatin Calcium 80 Mg Tablet 80 Mg PO QHS NICODERM CQ 21mg (Nicotine) 1 Each Patch.td24 1 Patch TD PRN DAILY Omeprazole 20 Mg Tablet.dr 20 Mg PO DAILY Verapamil Er (Verapamil Hcl) 240 Mg Cap24h.pel 120 Mg PO DAILY Tamsulosin Hcl 0.4 Mg Cap.er.24h 0.4 Mg PO DAILY Onglyza (Saxagliptin Hcl) 5 Mg Tablet 2.5 Mg PO DAILY Ramipril 10 Mg Capsule 10 Mg PO DAILY Potassium Chloride 10 Meq Tablet.er 30 Meq PO DAILY Paroxetine Hcl 40 Mg Tablet 40 Mg PO DAILY Oxybutynin Chloride Er (Oxybutynin Chloride) 5 Mg Tab.er.24 5 Mg PO DAILY Advair 250-50 Diskus (Fluticasone/Salmeterol) 1 Each Disk.w.dev 1 Puff IH BID Aspirin 325 Mg Tablet 325 Mg PO Amlodipine Besylate 5 Mg Tablet 5 Mg PO DAILY I have reviewed the current psychotropics carefully including drug interactions. Risk benefit ratio favors no change other than as noted in my dictated progress note. Diagnosis: Problems: (1) Major neurocognitive disorder, due to vascular disease, with behavioral disturbance, mild (2) Impulse control disorder (3) Depression (4) Delusion (5) Anxiety disorder (6) Behavior problem BRAYAN GARNETT MD Jun 09, 2017 21:06
[2017-06-10] MEDS: ALBUTEROL SULFATE 2.5 MG/3 ML NEBU. NEB SCH ×4 (06:01→21:09)
[2017-06-10 06:24] VITALS: BP 116/56
[2017-06-10] MEDS: ASPIRIN 325 MG TABLET PO SCH (07:35)
[2017-06-10] MEDS: PANTOPRAZOLE 40 MG TABLET. PO SCH (07:35)
[2017-06-10] MEDS: SERTRALINE 50 MG TABLET. PO SCH (07:35)
[2017-06-10] MEDS: LINAGLIPTIN 5 MG TABLET PO SCH (07:35)
[2017-06-10] MEDS: TAMSULOSIN 0.4 MG CAP.ER.24H. PO SCH (07:35)
[2017-06-10] MEDS: LISINOPRIL 20 MG TABLET PO SCH (07:35)
[2017-06-10] MEDS: VERAPAMIL SR 120 MG TABLET.ER. PO SCH (07:35)
[2017-06-10] MEDS: DONEPEZIL HCL 5 MG TABLET. PO SCH ×2 (07:36→19:58)
[2017-06-10] MEDS: MEMANTINE 5 MG TABLET. PO SCH ×2 (07:36→19:58)
[2017-06-10] MEDS: amLODIPine BESYLATE 5 MG TABLET PO SCH (07:36)
[2017-06-10] MEDS: DIVALPROEX 125 MG CAP.SPRINK PO SCH ×3 (07:36→16:59)
[2017-06-10] MEDS: POTASSIUM CHLORIDE 10 MEQ TABLET.ER. PO SCH (07:37)
[2017-06-10] MEDS: OXYBUTYNIN CHLORIDE 5 MG TABLET PO SCH (07:37)
[2017-06-10] MEDS: BUDESONIDE 0.5 MG/2 ML NEBU NEB SCH ×2 (10:13→21:09)
[2017-06-10 16:13] VITALS: BP 109/53
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
--- NOTE | 2017-06-10 18:48 | PN ---
DATE: 06/09/2017 PSYCHIATRIC PROGRESS NOTE This is a late entry for 06/09/2017, covers elements not covered in my initial note of 06/09/2017. SUBJECTIVE: I met with the patient the evening of 06/09/2017. The patient has been intermittently agitated, aggressive, posturing, threatening towards staff, compliant with medications on 06/09/2017, little bit calmer, slept in the day room. REVIEW OF SYSTEMS: No CV, , pulmonary, eye, ENT system symptoms on review. Reliability poor. MENTAL STATUS EXAM: Oriented to himself. Insight, judgment, recent and remote memory, attention, concentration, fund of knowledge poor, consistent with his diagnosis mentioned in my initial note. IMPRESSION: Major neurocognitive disorder, Alzheimer, vascular with depression, delusion, behavioral disturbance. Rest unchanged. PLAN: Continue psychotropics mentioned in my initial note. Check labs level on the Depakote. Adjust as clinically indicated. MAN Lacho GARNETT MD DR: LEROY/juliane JOB#: [id number] / [id number]
[2017-06-10] MEDS ORDERED: NICOTINE 14MG PATCH. TD ONE (19:15)
[2017-06-10] MEDS: QUEtiapine 50 MG TABLET. PO SCH (19:58)
[2017-06-10] MEDS: traZODone 50 MG TABLET. PO SCH ×2 (19:59→23:59)
[2017-06-10] MEDS: ATORVASTATIN CALCIUM 20 MG TABLET PO SCH (19:59)
--- NOTE | 2017-06-10 20:09 | PDOC ---
Exam Note: Hernandez Note: Please also refer to the separate dictated note~for this date of service dictated separately.~Patient seen individually. Discussed the patient with Nursing staff reviewed the chart.~Reviewed interim history and current functioning. Reviewed vital signs,~Labs/ Radiology~and current medications noted below. Continue current treatment with the changes noted in the dictated addendum note Assessment: Vital Signs: Vital Signs Date Time Temp Pulse Resp B/P (MAP) Pulse Ox O2 Delivery O2 Flow Rate FiO2 06/10/17 16:16 97 Room Air 06/10/17 16:13 97.2 68 20 109/53 (71) I&O Intake and Output 06/10/17 07:00 Intake Total 960 ml Balance 960 ml Intake Oral 960 ml # Bowel Movements 1 Labs: Laboratory Tests Test 06/10/17 07:58 Glucose (Fingerstick) 113 mg/dL (70-99) H Current Medications: Meds: Current Medications Acetaminophen (Tylenol) 650 mg PRN Q6HRS PRN PO PAIN / TEMP Last administered on 06/08/17at 20:15; Start 06/04/17 at 15:00 Multi-Ingredient Ointment (Analgesic [place]) 1 any PRN QID PRN TP MUSCLE PAIN; Start 06/04/17 at 15:00 Al Hydroxide/Mg Hydroxide (Mylanta Plus Xs) 15 ml PRN AFTMEALHC PRN PO DYSPEPSIA; Start 06/04/17 at 15:00 Magnesium Hydroxide (Milk Of Magnesia) 2,400 mg PRN QHS PRN PO CONSTIPATION; Start 06/04/17 at 15:00 Nicotine (Nicoderm Cq 21mg) 1 patch DAILY TD ; Start 06/05/17 at 09:00; Stop at 09:00; Status DC Olanzapine (ZyPREXA ZYDIS) 2.5 mg PRN Q2HR PRN PO ANXIETY / AGITATION Last administered on 06/08/17at 19:12; Start 06/04/17 at 15:30 Influenza Virus Vaccine Quadrival (Fluarix Quad [id number] Syringe) 0.5 ml ONCE ONCE VAX IM Last administered on 06/05/17at 11:21; Start 06/04/17 at 15:30; Stop 06/04/17 at 15:36; Status DC Amlodipine Besylate (Norvasc) 5 mg DAILY PO Last administered on 06/10/17 07:36 ; Start 06/05/17 at 09:00 Aspirin (Sivakumar Aspirin) 325 mg DAILY PO Last administered on 06/10/17 07:35; Start 06/05/17 at 09:00 Nicotine (Nicoderm Cq 21mg) 1 patch PRN DAILY PRN TD NICOTINE W/D SYMPTOMS; Start 06/05/17 at 01:00; Stop 06/10/17 at 19:12; Status DC Tamsulosin HCl (Flomax) 0.4 mg DAILY PO Last administered on 06/10/17 07:35; Start 06/05/17 at 09:00 Non-Formulary Medication 2.5 mg PRN Q12HR PRN NEB WHEEZING; Start 06/05/17 at 01:00; Status UNV Atorvastatin Calcium (Lipitor) 80 mg QHS PO Last administered on 06/10/17 19:59 ; Start 06/05/17 at 21:00 Non-Formulary Medication 1 puff BID IH ; Start 06/05/17 at 09:00; Status UNV Non-Formulary Medication 1 each DAILY PO ; Start 06/05/17 at 09:00; Stop at 09:00; Status DC Pantoprazole Sodium (Protonix) 40 mg DAILYAC PO Last administered on 06/10/17 07:35; Start 06/05/17 at 07:30 Oxybutynin Chloride (Ditropan) 5 mg DAILY PO Last administered on 06/10/17 07: 37; Start 06/05/17 at 09:00 Paroxetine HCl (Paxil) 40 mg DAILY PO Last administered on 06/05/17at 08:51; Start 06/05/17 at 09:00; Stop 06/05/17 at 18:43; Status DC Potassium Chloride (Klor-Con) 30 meq DAILY PO Last administered on 06/10/17 07: 37; Start 06/05/17 at 09:00 Lisinopril (Prinivil) 20 mg DAILY PO Last administered on 06/10/17 07:35; Start 06/05/17 at 09:00 Linagliptin (Tradjenta) 5 mg DAILY PO Last administered on 06/10/17 07:35; Start 06/05/17 at 09:00 Verapamil HCl (Calan Sr) 120 mg DAILY PO Last administered on 06/10/17 07:35; Start 06/05/17 at 09:00 Dextrose 12.5 gm PRN Q15MIN PRN IV hypoglycemia; Start 06/05/17 at 01:00 Glucose (Insta-Glucose) 15 gm PRN Q15MIN PRN PO LOW BLOOD SUGAR; Start at 01:00 Albuterol Sulfate (Ventolin) 2.5 mg PRN Q12HR PRN NEB WHEEZING; Start 06/05/17 at 01:45 Budesonide (Pulmicort) 0.5 mg RTBID NEB Last administered on 06/10/17 10:13; Start 06/05/17 at 08:00 Albuterol Sulfate (Ventolin) 2.5 mg RTQID NEB Last administered on 06/10/17 16: 16; Start 06/05/17 at 08:00 Memantine (Namenda) 5 mg BID PO Last administered on 06/10/17 19:58; Start at 09:00 Donepezil HCl (Aricept) 5 mg BID PO Last administered on 06/10/17 19:58; Start 06/05/17 at 09:00 Vitamin D (Vitamin D3) 50,000 unit WEEKLY PO Last administered on 06/05/17at 20: 03; Start 06/05/17 at 20:00 Cyanocobalamin (Vitamin B-12) 1,000 mcg WEEKLY IM Last administered on at 09:10; Start 06/06/17 at 09:00 Quetiapine Fumarate (SEROquel) 25 mg QHS PO Last administered on 06/05/17at 20: 03; Start 06/05/17 at 21:00; Stop 06/06/17 at 18:42; Status DC Sertraline HCl (Zoloft) 50 mg DAILY PO Last administered on 06/10/17 07:35; Start 06/06/17 at 09:00 Quetiapine Fumarate (SEROquel) 50 mg QHS PO Last administered on 06/10/17 19:58 ; Start 06/06/17 at 21:00 Trazodone HCl (Desyrel) 50 mg QHS PO Last administered on 06/10/17 19:59; Start 06/08/17 at 21:00 Trazodone HCl (Desyrel) 50 mg PRN QHS PRN PO INSOMNIA Last administered on at 20:15; Start 06/08/17 at 18:45 Divalproex Sodium (Depakote Sprinkles) 125 mg TID@0900,1300,1700 PO Last administered on 06/10/17at 16:59; Start 06/09/17 at 09:00 Nicotine (Nicoderm Cq 14mg) 1 patch DAILY TD ; Start 06/11/17 at 09:00 Nicotine (Nicoderm Cq 14mg) 1 patch ONCE ONCE TD Last administered on at 19:57; Start 06/10/17 at 19:15; Stop 06/10/17 at 19:26; Status DC Active Scripts Active Reported Albuterol Sulfate Conc Neb Soln (Albuterol Sulfate) 2.5 Mg/0.5 Ml Vial.neb 2.5 Mg NEB PRN Q12HR PRN Namzaric 14 mg-10 mg Capsule (Memantine HCl/Donepezil HCl) 1 Each Cap.spr.24 1 Each PO DAILY [manzaric] Atorvastatin Calcium 80 Mg Tablet 80 Mg PO QHS NICODERM CQ 21mg (Nicotine) 1 Each Patch.td24 1 Patch TD PRN DAILY Omeprazole 20 Mg Tablet.dr 20 Mg PO DAILY Verapamil Er (Verapamil Hcl) 240 Mg Cap24h.pel 120 Mg PO DAILY Tamsulosin Hcl 0.4 Mg Cap.er.24h 0.4 Mg PO DAILY Onglyza (Saxagliptin Hcl) 5 Mg Tablet 2.5 Mg PO DAILY Ramipril 10 Mg Capsule 10 Mg PO DAILY Potassium Chloride 10 Meq Tablet.er 30 Meq PO DAILY Paroxetine Hcl 40 Mg Tablet 40 Mg PO DAILY Oxybutynin Chloride Er (Oxybutynin Chloride) 5 Mg Tab.er.24 5 Mg PO DAILY Advair 250-50 Diskus (Fluticasone/Salmeterol) 1 Each Disk.w.dev 1 Puff IH BID Aspirin 325 Mg Tablet 325 Mg PO Amlodipine Besylate 5 Mg Tablet 5 Mg PO DAILY I have reviewed the current psychotropics carefully including drug interactions. Risk benefit ratio favors no change other than as noted in my dictated progress note. Diagnosis: Problems: (1) Major neurocognitive disorder, due to vascular disease, with behavioral disturbance, mild (2) Impulse control disorder (3) Depression (4) Delusion (5) Anxiety disorder (6) Behavior problem BRAYAN GARNETT MD Jun 10, 2017 20:09
[2017-06-11] MEDS: ALBUTEROL SULFATE 2.5 MG/3 ML NEBU. NEB SCH ×4 (05:31→21:20)
[2017-06-11 06:24] VITALS: BP 125/69
[2017-06-11] MEDS: OXYBUTYNIN CHLORIDE 5 MG TABLET PO SCH (07:57)
[2017-06-11] MEDS: LINAGLIPTIN 5 MG TABLET PO SCH (07:57)
[2017-06-11] MEDS: SERTRALINE 50 MG TABLET. PO SCH (07:57)
[2017-06-11] MEDS: DIVALPROEX 125 MG CAP.SPRINK PO SCH ×3 (07:58→16:48)
[2017-06-11] MEDS: PANTOPRAZOLE 40 MG TABLET. PO SCH (07:58)
[2017-06-11] MEDS: LISINOPRIL 20 MG TABLET PO SCH (07:58)
[2017-06-11] MEDS: MEMANTINE 5 MG TABLET. PO SCH ×2 (07:59→20:12)
[2017-06-11] MEDS: amLODIPine BESYLATE 5 MG TABLET PO SCH (07:59)
[2017-06-11] MEDS: DONEPEZIL HCL 5 MG TABLET. PO SCH ×2 (08:00→20:11)
[2017-06-11] MEDS: ASPIRIN 325 MG TABLET PO SCH (08:01)
[2017-06-11] MEDS: VERAPAMIL SR 120 MG TABLET.ER. PO SCH (08:01)
[2017-06-11] MEDS: POTASSIUM CHLORIDE 10 MEQ TABLET.ER. PO SCH (08:01)
[2017-06-11] MEDS: TAMSULOSIN 0.4 MG CAP.ER.24H. PO SCH (08:02)
[2017-06-11] MEDS: NICOTINE 14MG PATCH. TD SCH (08:02)
[2017-06-11 09:46] LABS: BASO # 0.1 x10^3/uL (0.0-0.2); BASO % 1 % (0-3); EOS # 0.4 x10^3/uL (0.0-0.7); EOS % 5 % (0-3); HEMATOCRIT 40.8 % (39.0-53.0); HEMOGLOBIN 13.4 g/dL (13.0-17.5); LYMPH # 1.9 x10^3/uL (1.0-4.8); LYMPH % 23 % (24-48); MEAN CORPUSCULAR HEMOGLOBIN 28 pg (25-35); MEAN CORPUSCULAR HGB CONC 33 g/dL (31-37); MEAN CORPUSCULAR VOLUME 86 fL (79-100); MONO # 0.6 x10^3/uL (0.0-1.1); MONO % 8 % (0-9); NEUT # 5.3 x10^3uL (1.8-7.7); NEUT % 64 % (31-73); PLATELET COUNT 172 x10^3/uL (140-400); RED BLOOD COUNT 4.77 x10^6/uL (4.30-5.70); RED CELL DISTRIBUTION WIDTH 14.3 % (11.5-14.5); WHITE BLOOD COUNT 8.3 x10^3/uL (4.0-11.0)
[2017-06-11 10:05] LABS: ALBUMIN 3.5 g/dL (3.4-5.0); ALBUMIN/GLOBULIN RATIO 0.9 (1.0-1.7); ALK PHOS 103 U/L (46-116); ALT (SGPT) 34 U/L (16-63); ANION GAP 7 (6-14); AST (SGOT) 21 U/L (15-37); BLOOD UREA NITROGEN 21 mg/dL (8-26); BUN/CREATININE RATIO 18 (6-20); CALCIUM 9.3 mg/dL (8.5-10.1); CARBON DIOXIDE 30 mmol/L (21-32); CHLORIDE 107 mmol/L (98-107); CREATININE 1.2 mg/dL (0.7-1.3); GFR 60.6; GLUCOSE 118 mg/dL (70-99); MAGNESIUM 1.8 mg/dL (1.8-2.4); POTASSIUM 4.7 mmol/L (3.5-5.1); SODIUM 144 mmol/L (136-145); TOTAL BILIRUBIN 0.4 mg/dL (0.2-1.0); TOTAL PROTEIN 7.3 g/dL (6.4-8.2); VAL ACID 17 mcg/mL (50-100)
[2017-06-11] MEDS: BUDESONIDE 0.5 MG/2 ML NEBU NEB SCH ×2 (11:54→21:19)
[2017-06-11] MEDS: MAG HYDROX/AL HYDROX/SIMETH 30 ML ORAL.SUSP PO PRN (12:03)
[2017-06-11 16:25] VITALS: BP 117/70
--- NOTE | 2017-06-11 19:58 | PDOC ---
Exam Note: Hernandez Note: Please also refer to the separate dictated note~for this date of service dictated separately.~Patient seen individually. Discussed the patient with Nursing staff reviewed the chart.~Reviewed interim history and current functioning. Reviewed vital signs,~Labs/ Radiology~and current medications noted below. Continue current treatment with the changes noted in the dictated addendum note Assessment: Vital Signs: Vital Signs Date Time Temp Pulse Resp B/P (MAP) Pulse Ox O2 Delivery O2 Flow Rate FiO2 06/11/17 16:25 98.4 88 17 117/70 (86) 94 06/11/17 16:22 Room Air I&O Intake and Output 06/11/17 07:00 Intake Total 1280 ml Balance 1280 ml Intake Oral 1280 ml # Voids 1 Labs: Laboratory Tests Test 06/11/17 07:32 06/11/17 09:15 Glucose (Fingerstick) 128 mg/dL (70-99) H White Blood Count 8.3 x10^3/uL (4.0-11.0) Red Blood Count 4.77 x10^6/uL (4.30-5.70) Hemoglobin 13.4 g/dL (13.0-17.5) Hematocrit 40.8 % (39.0-53.0) Mean Corpuscular Volume 86 fL (79-100) Mean Corpuscular Hemoglobin 28 pg (25-35) Mean Corpuscular Hemoglobin Concent 33 g/dL (31-37) Red Cell Distribution Width 14.3 % (11.5-14.5) Platelet Count 172 x10^3/uL (140-400) Neutrophils (%) (Auto) 64 % (31-73) Lymphocytes (%) (Auto) 23 % (24-48) L Monocytes (%) (Auto) 8 % (0-9) Eosinophils (%) (Auto) 5 % (0-3) H Basophils (%) (Auto) 1 % (0-3) Neutrophils # (Auto) 5.3 x10^3uL (1.8-7.7) Lymphocytes # (Auto) 1.9 x10^3/uL (1.0-4.8) Monocytes # (Auto) 0.6 x10^3/uL (0.0-1.1) Eosinophils # (Auto) 0.4 x10^3/uL (0.0-0.7) Basophils # (Auto) 0.1 x10^3/uL (0.0-0.2) Sodium Level 144 mmol/L (136-145) Potassium Level 4.7 mmol/L (3.5-5.1) Chloride Level 107 mmol/L (98-107) Carbon Dioxide Level 30 mmol/L (21-32) Anion Gap 7 (6-14) Blood Urea Nitrogen 21 mg/dL (8-26) Creatinine 1.2 mg/dL (0.7-1.3) Estimated GFR (Cockcroft-Gault) 60.6 BUN/Creatinine Ratio 18 (6-20) Glucose Level 118 mg/dL (70-99) H Calcium Level 9.3 mg/dL (8.5-10.1) Magnesium Level 1.8 mg/dL (1.8-2.4) Total Bilirubin 0.4 mg/dL (0.2-1.0) Aspartate Amino Transferase (AST) 21 U/L (15-37) Alanine Aminotransferase (ALT) 34 U/L (16-63) Alkaline Phosphatase 103 U/L (46-116) Total Protein 7.3 g/dL (6.4-8.2) Albumin 3.5 g/dL (3.4-5.0) Albumin/Globulin Ratio 0.9 (1.0-1.7) L Valproic Acid Level 17 mcg/mL (50-100) L Valproic Acid Last Dose Date 06/10/2017 Valproic Acid Last Dose Time 1700 Current Medications: Meds: Current Medications Acetaminophen (Tylenol) 650 mg PRN Q6HRS PRN PO PAIN / TEMP Last administered on 06/08/17at 20:15; Start 06/04/17 at 15:00 Multi-Ingredient Ointment (Analgesic [place]) 1 any PRN QID PRN TP MUSCLE PAIN; Start 06/04/17 at 15:00 Al Hydroxide/Mg Hydroxide (Mylanta Plus Xs) 15 ml PRN AFTMEALHC PRN PO DYSPEPSIA Last administered on 06/11/17at 12:03; Start 06/04/17 at 15:00 Magnesium Hydroxide (Milk Of Magnesia) 2,400 mg PRN QHS PRN PO CONSTIPATION; Start 06/04/17 at 15:00 Nicotine (Nicoderm Cq 21mg) 1 patch DAILY TD ; Start 06/05/17 at 09:00; Stop at 09:00; Status DC Olanzapine (ZyPREXA ZYDIS) 2.5 mg PRN Q2HR PRN PO ANXIETY / AGITATION Last administered on 06/11/17at 16:48; Start 06/04/17 at 15:30 Influenza Virus Vaccine Quadrival (Fluarix Quad [id number] Syringe) 0.5 ml ONCE ONCE VAX IM Last administered on 06/05/17at 11:21; Start 06/04/17 at 15:30; Stop 06/04/17 at 15:36; Status DC Amlodipine Besylate (Norvasc) 5 mg DAILY PO Last administered on 06/11/17at 07:59 ; Start 06/05/17 at 09:00 Aspirin (Sivakumar Aspirin) 325 mg DAILY PO Last administered on 06/11/17at 08:01; Start 06/05/17 at 09:00 Nicotine (Nicoderm Cq 21mg) 1 patch PRN DAILY PRN TD NICOTINE W/D SYMPTOMS; Start 06/05/17 at 01:00; Stop 06/10/17 at 19:12; Status DC Tamsulosin HCl (Flomax) 0.4 mg DAILY PO Last administered on 06/11/17at 08:02; Start 06/05/17 at 09:00 Non-Formulary Medication 2.5 mg PRN Q12HR PRN NEB WHEEZING; Start 06/05/17 at 01:00; Status UNV Atorvastatin Calcium (Lipitor) 80 mg QHS PO Last administered on 06/10/17at 19:59 ; Start 06/05/17 at 21:00 Non-Formulary Medication 1 puff BID IH ; Start 06/05/17 at 09:00; Status UNV Non-Formulary Medication 1 each DAILY PO ; Start 06/05/17 at 09:00; Stop at 09:00; Status DC Pantoprazole Sodium (Protonix) 40 mg DAILYAC PO Last administered on 06/11/17at 07:58; Start 06/05/17 at 07:30 Oxybutynin Chloride (Ditropan) 5 mg DAILY PO Last administered on 06/11/17at 07: 57; Start 06/05/17 at 09:00 Paroxetine HCl (Paxil) 40 mg DAILY PO Last administered on 06/05/17 08:51; Start 06/05/17 at 09:00; Stop 06/05/17 at 18:43; Status DC Potassium Chloride (Klor-Con) 30 meq DAILY PO Last administered on 06/11/17at 08: 01; Start 06/05/17 at 09:00 Lisinopril (Prinivil) 20 mg DAILY PO Last administered on 06/11/17 07:58; Start 06/05/17 at 09:00 Linagliptin (Tradjenta) 5 mg DAILY PO Last administered on 06/11/17 07:57; Start 06/05/17 at 09:00 Verapamil HCl (Calan Sr) 120 mg DAILY PO Last administered on 06/11/17 08:01; Start 06/05/17 at 09:00 Dextrose 12.5 gm PRN Q15MIN PRN IV hypoglycemia; Start 06/05/17 at 01:00 Glucose (Insta-Glucose) 15 gm PRN Q15MIN PRN PO LOW BLOOD SUGAR; Start at 01:00 Albuterol Sulfate (Ventolin) 2.5 mg PRN Q12HR PRN NEB WHEEZING; Start 06/05/17 at 01:45 Budesonide (Pulmicort) 0.5 mg RTBID NEB Last administered on 06/11/17 11:54; Start 06/05/17 at 08:00 Albuterol Sulfate (Ventolin) 2.5 mg RTQID NEB Last administered on 06/11/17 16: 22; Start 06/05/17 at 08:00 Memantine (Namenda) 5 mg BID PO Last administered on 06/11/17 07:59; Start at 09:00 Donepezil HCl (Aricept) 5 mg BID PO Last administered on 06/11/17 08:00; Start 06/05/17 at 09:00 Vitamin D (Vitamin D3) 50,000 unit WEEKLY PO Last administered on 06/05/17at 20: 03; Start 06/05/17 at 20:00 Cyanocobalamin (Vitamin B-12) 1,000 mcg WEEKLY IM Last administered on at 09:10; Start 06/06/17 at 09:00 Quetiapine Fumarate (SEROquel) 25 mg QHS PO Last administered on 06/05/17 20: 03; Start 06/05/17 at 21:00; Stop 06/06/17 at 18:42; Status DC Sertraline HCl (Zoloft) 50 mg DAILY PO Last administered on 06/11/17 07:57; Start 06/06/17 at 09:00 Quetiapine Fumarate (SEROquel) 50 mg QHS PO Last administered on 06/10/17 19:58 ; Start 06/06/17 at 21:00 Trazodone HCl (Desyrel) 50 mg QHS PO Last administered on 06/10/17 23:59; Start 06/08/17 at 21:00 Trazodone HCl (Desyrel) 50 mg PRN QHS PRN PO INSOMNIA Last administered on 20:15; Start 06/08/17 at 18:45 Divalproex Sodium (Depakote Sprinkles) 125 mg TID@0900,1300,1700 PO Last administered on 06/11/17 16:48; Start 06/09/17 at 09:00; Stop 06/11/17 at 18:15; Status DC Nicotine (Nicoderm Cq 14mg) 1 patch DAILY TD Last administered on 06/11/17 08: 02; Start 06/11/17 at 09:00 Nicotine (Nicoderm Cq 14mg) 1 patch ONCE ONCE TD Last administered on 19:57; Start 06/10/17 at 19:15; Stop 06/10/17 at 19:26; Status DC Divalproex Sodium (Depakote Sprinkles) 250 mg TID@0900,1300,1700 PO ; Start 06/12 at 09:00 Active Scripts Active Reported Albuterol Sulfate Conc Neb Soln (Albuterol Sulfate) 2.5 Mg/0.5 Ml Vial.neb 2.5 Mg NEB PRN Q12HR PRN Namzaric 14 mg-10 mg Capsule (Memantine HCl/Donepezil HCl) 1 Each Cap.spr.24 1 Each PO DAILY [manzaric] Atorvastatin Calcium 80 Mg Tablet 80 Mg PO QHS NICODERM CQ 21mg (Nicotine) 1 Each Patch.td24 1 Patch TD PRN DAILY Omeprazole 20 Mg Tablet.dr 20 Mg PO DAILY Verapamil Er (Verapamil Hcl) 240 Mg Cap24h.pel 120 Mg PO DAILY Tamsulosin Hcl 0.4 Mg Cap.er.24h 0.4 Mg PO DAILY Onglyza (Saxagliptin Hcl) 5 Mg Tablet 2.5 Mg PO DAILY Ramipril 10 Mg Capsule 10 Mg PO DAILY Potassium Chloride 10 Meq Tablet.er 30 Meq PO DAILY Paroxetine Hcl 40 Mg Tablet 40 Mg PO DAILY Oxybutynin Chloride Er (Oxybutynin Chloride) 5 Mg Tab.er.24 5 Mg PO DAILY Advair 250-50 Diskus (Fluticasone/Salmeterol) 1 Each Disk.w.dev 1 Puff IH BID Aspirin 325 Mg Tablet 325 Mg PO Amlodipine Besylate 5 Mg Tablet 5 Mg PO DAILY I have reviewed the current psychotropics carefully including drug interactions. Risk benefit ratio favors no change other than as noted in my dictated progress note. Diagnosis: Problems: (1) Major neurocognitive disorder, due to vascular disease, with behavioral disturbance, mild (2) Impulse control disorder (3) Depression (4) Delusion (5) Anxiety disorder (6) Behavior problem BRAYAN GARNETT MD Jun 11, 2017 19:58
[2017-06-11] MEDS: QUEtiapine 50 MG TABLET. PO SCH (20:11)
[2017-06-11] MEDS: ATORVASTATIN CALCIUM 20 MG TABLET PO SCH (20:11)
[2017-06-11] MEDS: traZODone 50 MG TABLET. PO PRN (20:16)
[2017-06-11] MEDS: ACETAMINOPHEN 325 MG TABLET PO PRN (20:35)
--- NOTE | 2017-06-12 00:38 | PN ---
DATE: 06/10/2017 PSYCHIATRIC PROGRESS NOTE This is a late entry for 06/10/2017, covers elements not covered in my initial note of 06/10/2017. SUBJECTIVE: I met with the patient evening of 06/10/2017. The patient has done reasonably well all day, but he gets very agitated when another demented patient is screaming on the unit then gets aggressive. He spent time in the dayroom, helpful with others. REVIEW OF SYSTEMS: No CV, , pulmonary, eye, ENT system symptoms on review. Reliability poor. MENTAL STATUS EXAM: Oriented to himself. Insight, judgment, recent and remote memory, attention, concentration, fund of knowledge poor, consistent with his diagnosis mentioned in my initial note. IMPRESSION: Major neurocognitive disorder, Alzheimer, vascular with depression, delusion, behavioral disturbance. PLAN: Check valproic acid level in the morning of 06/11/2017. Continue rest psychotropics per initial note. MAN Lacho GARNETT MD DR: LEROY/juliane JOB#: [id number] / [id number]
[2017-06-12] MEDS: ALBUTEROL SULFATE 2.5 MG/3 ML NEBU. NEB SCH ×4 (05:33→21:34)
[2017-06-12] MEDS: BUDESONIDE 0.5 MG/2 ML NEBU NEB SCH ×2 (08:00→21:34)
[2017-06-12] MEDS: DIVALPROEX 125 MG CAP.SPRINK PO SCH ×3 (09:00→17:06)
--- NOTE | 2017-06-12 09:22 | RAD ---
Thyroid sonography Clinical indications: Suppressed TSH and T3. Findings: The longitudinal and AP and transverse dimensions of the right lobe are 4.2 cm and 1.6 cm and 1.7 respectively. The longitudinal and AP and transverse dimensions of the left lobe are 3.9 cm and 1.2 cm and 1.7 cm respectively. The isthmus measures 0.6 cm in thickness. The thyroid gland is homogeneous. IMPRESSION: Normal thyroid sonogram.
[2017-06-12] MEDS: LINAGLIPTIN 5 MG TABLET PO SCH (12:07)
[2017-06-12] MEDS: PANTOPRAZOLE 40 MG TABLET. PO SCH (12:07)
[2017-06-12] MEDS: DONEPEZIL HCL 5 MG TABLET. PO SCH ×2 (12:07→20:09)
[2017-06-12] MEDS: MEMANTINE 5 MG TABLET. PO SCH ×2 (12:07→20:09)
[2017-06-12] MEDS: TAMSULOSIN 0.4 MG CAP.ER.24H. PO SCH (12:08)
[2017-06-12] MEDS: OXYBUTYNIN CHLORIDE 5 MG TABLET PO SCH (12:08)
[2017-06-12] MEDS: ASPIRIN 325 MG TABLET PO SCH (12:08)
[2017-06-12] MEDS: POTASSIUM CHLORIDE 10 MEQ TABLET.ER. PO SCH (12:08)
[2017-06-12] MEDS: NICOTINE 14MG PATCH. TD SCH (12:08)
[2017-06-12] MEDS: SERTRALINE 50 MG TABLET. PO SCH (12:09)
[2017-06-12] MEDS: CHOLECALCIFEROL (VITAMIN D3) 50,000 UNIT CAPSULE PO SCH (12:14)
[2017-06-12] MEDS: amLODIPine BESYLATE 5 MG TABLET PO SCH (12:19)
[2017-06-12] MEDS: LISINOPRIL 20 MG TABLET PO SCH (12:20)
[2017-06-12] MEDS: VERAPAMIL SR 120 MG TABLET.ER. PO SCH (12:21)
[2017-06-12 15:55] VITALS: BP 105/64
--- NOTE | 2017-06-12 19:54 | PDOC ---
Exam Note: Hernandez Note: Please also refer to the separate dictated note~for this date of service dictated separately.~Patient seen individually. Discussed the patient with Nursing staff reviewed the chart.~Reviewed interim history and current functioning. Reviewed vital signs,~Labs/ Radiology~and current medications noted below. Continue current treatment with the changes noted in the dictated addendum note Assessment: Vital Signs: Vital Signs Date Time Temp Pulse Resp B/P (MAP) Pulse Ox O2 Delivery O2 Flow Rate FiO2 06/12/17 15:55 97.7 69 16 105/64 (78) 95 06/12/17 15:52 Room Air I&O Intake and Output 06/12/17 07:00 Intake Total 1920 ml Balance 1920 ml Intake Oral 1920 ml # Voids 1 # Bowel Movements 2 Labs: Laboratory Tests Test 06/12/17 08:01 Glucose (Fingerstick) 106 mg/dL (70-99) H Current Medications: Meds: Current Medications Acetaminophen (Tylenol) 650 mg PRN Q6HRS PRN PO PAIN / TEMP Last administered on 06/08/17at 20:15; Start 06/04/17 at 15:00 Multi-Ingredient Ointment (Analgesic [place]) 1 any PRN QID PRN TP MUSCLE PAIN; Start 06/04/17 at 15:00 Al Hydroxide/Mg Hydroxide (Mylanta Plus Xs) 15 ml PRN AFTMEALHC PRN PO DYSPEPSIA Last administered on 06/11/17at 12:03; Start 06/04/17 at 15:00 Magnesium Hydroxide (Milk Of Magnesia) 2,400 mg PRN QHS PRN PO CONSTIPATION Last administered on 06/11/17at 20:27; Start 06/04/17 at 15:00 Nicotine (Nicoderm Cq 21mg) 1 patch DAILY TD ; Start 06/05/17 at 09:00; Stop at 09:00; Status DC Olanzapine (ZyPREXA ZYDIS) 2.5 mg PRN Q2HR PRN PO ANXIETY / AGITATION Last administered on 06/11/17at 20:42; Start 06/04/17 at 15:30 Influenza Virus Vaccine Quadrival (Fluarix Quad [id number] Syringe) 0.5 ml ONCE ONCE VAX IM Last administered on 06/05/17at 11:21; Start 06/04/17 at 15:30; Stop 06/04/17 at 15:36; Status DC Amlodipine Besylate (Norvasc) 5 mg DAILY PO Last administered on 06/12/17 12:19 ; Start 06/05/17 at 09:00 Aspirin (Sivakumar Aspirin) 325 mg DAILY PO Last administered on 06/12/17 12:08; Start 06/05/17 at 09:00 Nicotine (Nicoderm Cq 21mg) 1 patch PRN DAILY PRN TD NICOTINE W/D SYMPTOMS; Start 06/05/17 at 01:00; Stop 06/10/17 at 19:12; Status DC Tamsulosin HCl (Flomax) 0.4 mg DAILY PO Last administered on 06/12/17 12:08; Start 06/05/17 at 09:00 Non-Formulary Medication 2.5 mg PRN Q12HR PRN NEB WHEEZING; Start 06/05/17 at 01:00; Status UNV Atorvastatin Calcium (Lipitor) 80 mg QHS PO Last administered on 06/11/17at 20:11 ; Start 06/05/17 at 21:00 Non-Formulary Medication 1 puff BID IH ; Start 06/05/17 at 09:00; Status UNV Non-Formulary Medication 1 each DAILY PO ; Start 06/05/17 at 09:00; Stop at 09:00; Status DC Pantoprazole Sodium (Protonix) 40 mg DAILYAC PO Last administered on 06/12/17 12:07; Start 06/05/17 at 07:30 Oxybutynin Chloride (Ditropan) 5 mg DAILY PO Last administered on 06/12/17at 12: 08; Start 06/05/17 at 09:00 Paroxetine HCl (Paxil) 40 mg DAILY PO Last administered on 06/05/17at 08:51; Start 06/05/17 at 09:00; Stop 06/05/17 at 18:43; Status DC Potassium Chloride (Klor-Con) 30 meq DAILY PO Last administered on 06/12/17 12: 08; Start 06/05/17 at 09:00 Lisinopril (Prinivil) 20 mg DAILY PO Last administered on 06/12/17at 12:20; Start 06/05/17 at 09:00 Linagliptin (Tradjenta) 5 mg DAILY PO Last administered on 06/12/17 12:07; Start 06/05/17 at 09:00 Verapamil HCl (Calan Sr) 120 mg DAILY PO Last administered on 06/12/17 12:21; Start 06/05/17 at 09:00 Dextrose 12.5 gm PRN Q15MIN PRN IV hypoglycemia; Start 06/05/17 at 01:00 Glucose (Insta-Glucose) 15 gm PRN Q15MIN PRN PO LOW BLOOD SUGAR; Start at 01:00 Albuterol Sulfate (Ventolin) 2.5 mg PRN Q12HR PRN NEB WHEEZING; Start 06/05/17 at 01:45 Budesonide (Pulmicort) 0.5 mg RTBID NEB Last administered on 06/11/17 21:19; Start 06/05/17 at 08:00 Albuterol Sulfate (Ventolin) 2.5 mg RTQID NEB Last administered on 06/12/17 15: 50; Start 06/05/17 at 08:00 Memantine (Namenda) 5 mg BID PO Last administered on 06/12/17 12:07; Start at 09:00 Donepezil HCl (Aricept) 5 mg BID PO Last administered on 06/12/17 12:07; Start 06/05/17 at 09:00 Vitamin D (Vitamin D3) 50,000 unit WEEKLY PO Last administered on 06/12/17 12: 14; Start 06/05/17 at 20:00 Cyanocobalamin (Vitamin B-12) 1,000 mcg WEEKLY IM Last administered on at 09:10; Start 06/06/17 at 09:00 Quetiapine Fumarate (SEROquel) 25 mg QHS PO Last administered on 06/05/17at 20: 03; Start 06/05/17 at 21:00; Stop 06/06/17 at 18:42; Status DC Sertraline HCl (Zoloft) 50 mg DAILY PO Last administered on 06/12/17at 12:09; Start 06/06/17 at 09:00 Quetiapine Fumarate (SEROquel) 50 mg QHS PO Last administered on 06/11/17at 20:11 ; Start 06/06/17 at 21:00 Trazodone HCl (Desyrel) 50 mg QHS PO Last administered on 06/10/17at 23:59; Start 06/08/17 at 21:00 Trazodone HCl (Desyrel) 50 mg PRN QHS PRN PO INSOMNIA Last administered on at 20:16; Start 06/08/17 at 18:45 Divalproex Sodium (Depakote Sprinkles) 125 mg TID@0900,1300,1700 PO Last administered on 06/11/17at 16:48; Start 06/09/17 at 09:00; Stop 06/11/17 at 18:15; Status DC Nicotine (Nicoderm Cq 14mg) 1 patch DAILY TD Last administered on 06/12/17at 12: 08; Start 06/11/17 at 09:00 Nicotine (Nicoderm Cq 14mg) 1 patch ONCE ONCE TD Last administered on at 19:57; Start 06/10/17 at 19:15; Stop 06/10/17 at 19:26; Status DC Divalproex Sodium (Depakote Sprinkles) 250 mg TID@0900,1300,1700 PO Last administered on 06/12/17at 17:06; Start 06/12/17 at 09:00 Active Scripts Active Reported Albuterol Sulfate Conc Neb Soln (Albuterol Sulfate) 2.5 Mg/0.5 Ml Vial.neb 2.5 Mg NEB PRN Q12HR PRN Namzaric 14 mg-10 mg Capsule (Memantine HCl/Donepezil HCl) 1 Each Cap.spr.24 1 Each PO DAILY [manzaric] Atorvastatin Calcium 80 Mg Tablet 80 Mg PO QHS NICODERM CQ 21mg (Nicotine) 1 Each Patch.td24 1 Patch TD PRN DAILY Omeprazole 20 Mg Tablet.dr 20 Mg PO DAILY Verapamil Er (Verapamil Hcl) 240 Mg Cap24h.pel 120 Mg PO DAILY Tamsulosin Hcl 0.4 Mg Cap.er.24h 0.4 Mg PO DAILY Onglyza (Saxagliptin Hcl) 5 Mg Tablet 2.5 Mg PO DAILY Ramipril 10 Mg Capsule 10 Mg PO DAILY Potassium Chloride 10 Meq Tablet.er 30 Meq PO DAILY Paroxetine Hcl 40 Mg Tablet 40 Mg PO DAILY Oxybutynin Chloride Er (Oxybutynin Chloride) 5 Mg Tab.er.24 5 Mg PO DAILY Advair 250-50 Diskus (Fluticasone/Salmeterol) 1 Each Disk.w.dev 1 Puff IH BID Aspirin 325 Mg Tablet 325 Mg PO Amlodipine Besylate 5 Mg Tablet 5 Mg PO DAILY I have reviewed the current psychotropics carefully including drug interactions. Risk benefit ratio favors no change other than as noted in my dictated progress note. Diagnosis: Problems: (1) Major neurocognitive disorder, due to vascular disease, with behavioral disturbance, mild (2) Impulse control disorder (3) Depression (4) Delusion (5) Anxiety disorder (6) Behavior problem BRAYAN GARNETT MD Jun 12, 2017 19:54
[2017-06-12] MEDS: QUEtiapine 50 MG TABLET. PO SCH (20:09)
[2017-06-12] MEDS: ATORVASTATIN CALCIUM 20 MG TABLET PO SCH (20:09)
[2017-06-12] MEDS: traZODone 50 MG TABLET. PO SCH (20:09)
[2017-06-12] MEDS: ACETAMINOPHEN 325 MG TABLET PO PRN (20:13)
--- NOTE | 2017-06-12 20:55 | PN ---
DATE: 06/11/2017 PSYCHIATRIC PROGRESS NOTE This late entry 06/11/2017 covers elements not covered in my initial note 06/11/2017. SUBJECTIVE: Met with the patient in the evening of 06/11/2017. The patient remains confused, somewhat anxious, restless quarter p.r.n. at 5:00 p.m. Pacing back and forth in the day room, constantly asking why I am here. If there is loud noises or other demented patients, get loud and disruptive, he gets extremely angry and volatile. I met with him in his room. REVIEW OF SYSTEMS: No CV, , pulmonary, eye, ENT system symptoms on review. MENTAL STATUS EXAM: Oriented to himself. Insight, judgment, recent and remote memory, attention, concentration, fund of knowledge is poor, consistent with his diagnoses mentioned in my initial note. PLAN: Valproic acid level is subtherapeutic at 17. Increase Depakote from 125 three times a day to 250 three times a day. Check CBC, CMP, valproic acid level in 3 days. Attempt to reach a therapeutic level. Continue rest of the psychotropics mentioned in my initial note. MAN Lacho GARNETT MD DR: LEROY/juliane JOB#: [id number] / [id number]
[2017-06-13] MEDS: ALBUTEROL SULFATE 2.5 MG/3 ML NEBU. NEB SCH ×4 (05:46→21:32)
[2017-06-13 06:12] VITALS: BP 103/70
[2017-06-13] MEDS: NICOTINE 14MG PATCH. TD SCH (07:35)
[2017-06-13] MEDS: amLODIPine BESYLATE 5 MG TABLET PO SCH (07:35)
[2017-06-13] MEDS: DONEPEZIL HCL 5 MG TABLET. PO SCH ×2 (07:36→19:53)
[2017-06-13] MEDS: MEMANTINE 5 MG TABLET. PO SCH ×2 (07:36→19:53)
[2017-06-13] MEDS: LINAGLIPTIN 5 MG TABLET PO SCH (07:36)
[2017-06-13] MEDS: POTASSIUM CHLORIDE 10 MEQ TABLET.ER. PO SCH (07:36)
[2017-06-13] MEDS: TAMSULOSIN 0.4 MG CAP.ER.24H. PO SCH (07:36)
[2017-06-13] MEDS: PANTOPRAZOLE 40 MG TABLET. PO SCH (07:37)
[2017-06-13] MEDS: DIVALPROEX 125 MG CAP.SPRINK PO SCH ×3 (07:37→17:05)
[2017-06-13] MEDS: SERTRALINE 50 MG TABLET. PO SCH (07:37)
[2017-06-13] MEDS: ASPIRIN 325 MG TABLET PO SCH (07:37)
[2017-06-13] MEDS: LISINOPRIL 20 MG TABLET PO SCH (07:37)
[2017-06-13] MEDS: OXYBUTYNIN CHLORIDE 5 MG TABLET PO SCH (07:37)
[2017-06-13] MEDS: VERAPAMIL SR 120 MG TABLET.ER. PO SCH (07:39)
[2017-06-13] MEDS: CYANOCOBALAMIN (VITAMIN B-12) 1,000 MCG/ML VIAL IM SCH (07:40)
[2017-06-13] MEDS: BUDESONIDE 0.5 MG/2 ML NEBU NEB SCH ×2 (10:11→21:32)
[2017-06-13 16:21] VITALS: BP 94/59
--- NOTE | 2017-06-13 17:50 | PN ---
DATE: 06/12/2017 This is a late entry, 06/12/2017, covers the elements not covered in my initial note, 06/12/2017. SUBJECTIVE: I met with the patient in the evening of 06/12/2017. The patient slept 5-1/2 hours previous evening, somewhat withdrawn to the room, slept much of the day, not up till noon, more redirectable. REVIEW OF SYSTEMS: No CV, , pulmonary, eye, ENT system symptoms on review. Reliability poor. MENTAL STATUS EXAM: Oriented to himself. Insight, judgment, recent and remote memory, attention, concentration, fund of knowledge poor, consistent with his diagnosis mentioned in my initial note. IMPRESSION: Major neurocognitive disorder, Alzheimer, vascular with depression, delusion, behavioral disturbance. Rest unchanged. PLAN: Continue current psychotropics. Check valproic acid level 38, adjust to reach a therapeutic level. MAN Lacho GARNETT MD DR: LEROY/juliane JOB#: [id number] / [id number]
[2017-06-13] MEDS: ACETAMINOPHEN 325 MG TABLET PO PRN (17:51)
[2017-06-13] MEDS: QUEtiapine 50 MG TABLET. PO SCH (19:53)
[2017-06-13] MEDS: ATORVASTATIN CALCIUM 20 MG TABLET PO SCH (19:53)
[2017-06-13] MEDS: traZODone 50 MG TABLET. PO SCH (19:54)
--- NOTE | 2017-06-13 19:56 | PDOC ---
Exam Note: Hernandez Note: Please also refer to the separate dictated note~for this date of service dictated separately.~Patient seen individually. Discussed the patient with Nursing staff reviewed the chart.~Reviewed interim history and current functioning. Reviewed vital signs,~Labs/ Radiology~and current medications noted below. Continue current treatment with the changes noted in the dictated addendum note Assessment: Vital Signs: Vital Signs Date Time Temp Pulse Resp B/P (MAP) Pulse Ox O2 Delivery O2 Flow Rate FiO2 06/13/17 16:21 97.8 71 19 94/59 (71) 93 06/13/17 15:33 Room Air I&O Intake and Output 06/13/17 07:00 Intake Total 1080 ml Balance 1080 ml Intake Oral 1080 ml # Voids 2 Labs: Laboratory Tests Test 06/13/17 07:36 Glucose (Fingerstick) 94 mg/dL (70-99) Current Medications: Meds: Current Medications Acetaminophen (Tylenol) 650 mg PRN Q6HRS PRN PO PAIN / TEMP Last administered on 06/13/17at 17:51; Start 06/04/17 at 15:00 Multi-Ingredient Ointment (Analgesic [place]) 1 any PRN QID PRN TP MUSCLE PAIN; Start 06/04/17 at 15:00 Al Hydroxide/Mg Hydroxide (Mylanta Plus Xs) 15 ml PRN AFTMEALHC PRN PO DYSPEPSIA Last administered on 06/11/17at 12:03; Start 06/04/17 at 15:00 Magnesium Hydroxide (Milk Of Magnesia) 2,400 mg PRN QHS PRN PO CONSTIPATION Last administered on 06/11/17at 20:27; Start 06/04/17 at 15:00 Nicotine (Nicoderm Cq 21mg) 1 patch DAILY TD ; Start 06/05/17 at 09:00; Stop at 09:00; Status DC Olanzapine (ZyPREXA ZYDIS) 2.5 mg PRN Q2HR PRN PO ANXIETY / AGITATION Last administered on 06/13/17at 17:05; Start 06/04/17 at 15:30 Influenza Virus Vaccine Quadrival (Fluarix Quad [id number] Syringe) 0.5 ml ONCE ONCE VAX IM Last administered on 06/05/17at 11:21; Start 06/04/17 at 15:30; Stop 06/04/17 at 15:36; Status DC Amlodipine Besylate (Norvasc) 5 mg DAILY PO Last administered on 06/13/17 07:35 ; Start 06/05/17 at 09:00 Aspirin (Sivakumar Aspirin) 325 mg DAILY PO Last administered on 06/13/17 07:37; Start 06/05/17 at 09:00 Nicotine (Nicoderm Cq 21mg) 1 patch PRN DAILY PRN TD NICOTINE W/D SYMPTOMS; Start 06/05/17 at 01:00; Stop 06/10/17 at 19:12; Status DC Tamsulosin HCl (Flomax) 0.4 mg DAILY PO Last administered on 06/13/17 07:36; Start 06/05/17 at 09:00 Non-Formulary Medication 2.5 mg PRN Q12HR PRN NEB WHEEZING; Start 06/05/17 at 01:00; Status UNV Atorvastatin Calcium (Lipitor) 80 mg QHS PO Last administered on 06/13/17 19:53 ; Start 06/05/17 at 21:00 Non-Formulary Medication 1 puff BID IH ; Start 06/05/17 at 09:00; Status UNV Non-Formulary Medication 1 each DAILY PO ; Start 06/05/17 at 09:00; Stop at 09:00; Status DC Pantoprazole Sodium (Protonix) 40 mg DAILYAC PO Last administered on 06/13/17 07:37; Start 06/05/17 at 07:30 Oxybutynin Chloride (Ditropan) 5 mg DAILY PO Last administered on 06/13/17 07: 37; Start 06/05/17 at 09:00 Paroxetine HCl (Paxil) 40 mg DAILY PO Last administered on 06/05/17at 08:51; Start 06/05/17 at 09:00; Stop 06/05/17 at 18:43; Status DC Potassium Chloride (Klor-Con) 30 meq DAILY PO Last administered on 06/13/17 07: 36; Start 06/05/17 at 09:00 Lisinopril (Prinivil) 20 mg DAILY PO Last administered on 06/13/17 07:37; Start 06/05/17 at 09:00 Linagliptin (Tradjenta) 5 mg DAILY PO Last administered on 3/7/18at 07:36; Start 06/05/17 at 09:00 Verapamil HCl (Calan Sr) 120 mg DAILY PO Last administered on 06/13/17 07:39; Start 06/05/17 at 09:00 Dextrose 12.5 gm PRN Q15MIN PRN IV hypoglycemia; Start 06/05/17 at 01:00 Glucose (Insta-Glucose) 15 gm PRN Q15MIN PRN PO LOW BLOOD SUGAR; Start at 01:00 Albuterol Sulfate (Ventolin) 2.5 mg PRN Q12HR PRN NEB WHEEZING; Start 06/05/17 at 01:45 Budesonide (Pulmicort) 0.5 mg RTBID NEB Last administered on 06/13/17 10:11; Start 06/05/17 at 08:00 Albuterol Sulfate (Ventolin) 2.5 mg RTQID NEB Last administered on 06/13/17 15: 33; Start 06/05/17 at 08:00 Memantine (Namenda) 5 mg BID PO Last administered on 06/13/17 19:53; Start at 09:00 Donepezil HCl (Aricept) 5 mg BID PO Last administered on 06/13/17 19:53; Start 06/05/17 at 09:00 Vitamin D (Vitamin D3) 50,000 unit WEEKLY PO Last administered on 06/12/17 12: 14; Start 06/05/17 at 20:00 Cyanocobalamin (Vitamin B-12) 1,000 mcg WEEKLY IM Last administered on at 07:40; Start 06/06/17 at 09:00 Quetiapine Fumarate (SEROquel) 25 mg QHS PO Last administered on 06/05/17 20: 03; Start 06/05/17 at 21:00; Stop 06/06/17 at 18:42; Status DC Sertraline HCl (Zoloft) 50 mg DAILY PO Last administered on 06/13/17 07:37; Start 06/06/17 at 09:00 Quetiapine Fumarate (SEROquel) 50 mg QHS PO Last administered on 06/12/17 20:09 ; Start 06/06/17 at 21:00; Stop 06/13/17 at 18:45; Status DC Trazodone HCl (Desyrel) 50 mg QHS PO Last administered on 06/13/17 19:54; Start 06/08/17 at 21:00 Trazodone HCl (Desyrel) 50 mg PRN QHS PRN PO INSOMNIA Last administered on 20:16; Start 06/08/17 at 18:45 Divalproex Sodium (Depakote Sprinkles) 125 mg TID@0900,1300,1700 PO Last administered on 06/11/17 16:48; Start 06/09/17 at 09:00; Stop 06/11/17 at 18:15; Status DC Nicotine (Nicoderm Cq 14mg) 1 patch DAILY TD Last administered on 06/13/17at 07: 35; Start 06/11/17 at 09:00 Nicotine (Nicoderm Cq 14mg) 1 patch ONCE ONCE TD Last administered on at 19:57; Start 06/10/17 at 19:15; Stop 06/10/17 at 19:26; Status DC Divalproex Sodium (Depakote Sprinkles) 250 mg TID@0900,1300,1700 PO Last administered on 06/13/17at 17:05; Start 06/12/17 at 09:00 Quetiapine Fumarate (SEROquel) 75 mg QHS PO Last administered on 06/13/17at 19:53 ; Start 06/13/17 at 21:00 Active Scripts Active Reported Albuterol Sulfate Conc Neb Soln (Albuterol Sulfate) 2.5 Mg/0.5 Ml Vial.neb 2.5 Mg NEB PRN Q12HR PRN Namzaric 14 mg-10 mg Capsule (Memantine HCl/Donepezil HCl) 1 Each Cap.spr.24 1 Each PO DAILY [manzaric] Atorvastatin Calcium 80 Mg Tablet 80 Mg PO QHS NICODERM CQ 21mg (Nicotine) 1 Each Patch.td24 1 Patch TD PRN DAILY Omeprazole 20 Mg Tablet.dr 20 Mg PO DAILY Verapamil Er (Verapamil Hcl) 240 Mg Cap24h.pel 120 Mg PO DAILY Tamsulosin Hcl 0.4 Mg Cap.er.24h 0.4 Mg PO DAILY Onglyza (Saxagliptin Hcl) 5 Mg Tablet 2.5 Mg PO DAILY Ramipril 10 Mg Capsule 10 Mg PO DAILY Potassium Chloride 10 Meq Tablet.er 30 Meq PO DAILY Paroxetine Hcl 40 Mg Tablet 40 Mg PO DAILY Oxybutynin Chloride Er (Oxybutynin Chloride) 5 Mg Tab.er.24 5 Mg PO DAILY Advair 250-50 Diskus (Fluticasone/Salmeterol) 1 Each Disk.w.dev 1 Puff IH BID Aspirin 325 Mg Tablet 325 Mg PO Amlodipine Besylate 5 Mg Tablet 5 Mg PO DAILY I have reviewed the current psychotropics carefully including drug interactions. Risk benefit ratio favors no change other than as noted in my dictated progress note. Diagnosis: Problems: (1) Major neurocognitive disorder, due to vascular disease, with behavioral disturbance, mild (2) Impulse control disorder (3) Depression (4) Delusion (5) Anxiety disorder (6) Behavior problem BRAYAN GARNETT MD Jun 13, 2017 19:56
[2017-06-13] MEDS: traZODone 50 MG TABLET. PO PRN (21:30)
[2017-06-14] MEDS: ACETAMINOPHEN 325 MG TABLET PO PRN ×3 (01:34→18:50)
[2017-06-14 06:11] VITALS: BP 128/72
[2017-06-14] MEDS: ASPIRIN 325 MG TABLET PO SCH (07:44)
[2017-06-14] MEDS: NICOTINE 14MG PATCH. TD SCH (07:44)
[2017-06-14] MEDS: DIVALPROEX 125 MG CAP.SPRINK PO SCH ×3 (07:44→17:02)
[2017-06-14] MEDS: OXYBUTYNIN CHLORIDE 5 MG TABLET PO SCH (07:44)
[2017-06-14] MEDS: LINAGLIPTIN 5 MG TABLET PO SCH (07:44)
[2017-06-14] MEDS: POTASSIUM CHLORIDE 10 MEQ TABLET.ER. PO SCH (07:44)
[2017-06-14] MEDS: MEMANTINE 5 MG TABLET. PO SCH (07:45)
[2017-06-14] MEDS: SERTRALINE 50 MG TABLET. PO SCH (07:45)
[2017-06-14] MEDS: VERAPAMIL SR 120 MG TABLET.ER. PO SCH (07:45)
[2017-06-14] MEDS: amLODIPine BESYLATE 5 MG TABLET PO SCH (07:45)
[2017-06-14] MEDS: TAMSULOSIN 0.4 MG CAP.ER.24H. PO SCH (07:45)
[2017-06-14] MEDS: DONEPEZIL HCL 5 MG TABLET. PO SCH (07:45)
[2017-06-14] MEDS: PANTOPRAZOLE 40 MG TABLET. PO SCH (07:46)
[2017-06-14] MEDS: LISINOPRIL 20 MG TABLET PO SCH (07:46)
[2017-06-14 07:58] LABS: BASO % 1 % (0-3); EOS # 0.4 x10^3/uL (0.0-0.7); EOS % 5 % (0-3); HEMOGLOBIN 14.1 g/dL (13.0-17.5); LYMPH # 1.6 x10^3/uL (1.0-4.8); LYMPH % 20 % (24-48); MEAN CORPUSCULAR HEMOGLOBIN 29 pg (25-35); MEAN CORPUSCULAR HGB CONC 34 g/dL (31-37); MEAN CORPUSCULAR VOLUME 85 fL (79-100); MONO # 0.6 x10^3/uL (0.0-1.1); MONO % 8 % (0-9); NEUT # 5.4 x10^3uL (1.8-7.7); NEUT % 67 % (31-73); PLATELET COUNT 185 x10^3/uL (140-400); RED BLOOD COUNT 4.92 x10^6/uL (4.30-5.70); RED CELL DISTRIBUTION WIDTH 14.6 % (11.5-14.5); WHITE BLOOD COUNT 8.1 x10^3/uL (4.0-11.0)
[2017-06-14] MEDS: ALBUTEROL SULFATE 2.5 MG/3 ML NEBU. NEB SCH ×4 (08:00→21:14)
[2017-06-14 08:01] LABS: TOTAL PROTEIN 7.6 g/dL (6.4-8.2)
[2017-06-14 08:02] LABS: ALBUMIN 3.5 g/dL (3.4-5.0); ALBUMIN/GLOBULIN RATIO 0.9 (1.0-1.7); ALK PHOS 104 U/L (46-116); ALT (SGPT) 27 U/L (16-63); ANION GAP 5 (6-14); AST (SGOT) 15 U/L (15-37); BLOOD UREA NITROGEN 27 mg/dL (8-26); BUN/CREATININE RATIO 21 (6-20); CALCIUM 9.5 mg/dL (8.5-10.1); CARBON DIOXIDE 33 mmol/L (21-32); CHLORIDE 104 mmol/L (98-107); CREATININE 1.3 mg/dL (0.7-1.3); GFR 55.2; GLUCOSE 163 mg/dL (70-99); POTASSIUM 4.8 mmol/L (3.5-5.1); SODIUM 142 mmol/L (136-145); TOTAL BILIRUBIN 0.3 mg/dL (0.2-1.0); VAL ACID 35 mcg/mL (50-100)
[2017-06-14] MEDS: MAG HYDROX/AL HYDROX/SIMETH 30 ML ORAL.SUSP PO PRN (10:05)
[2017-06-14] MEDS: BUDESONIDE 0.5 MG/2 ML NEBU NEB SCH ×2 (11:23→21:14)
[2017-06-14] MEDS: QUEtiapine 25 MG TABLET. PO SCH (13:12)
[2017-06-14 16:18] VITALS: BP 97/63
[2017-06-14] MEDS: QUEtiapine 50 MG TABLET. PO SCH (19:55)
[2017-06-14] MEDS: ATORVASTATIN CALCIUM 20 MG TABLET PO SCH (19:55)
[2017-06-14] MEDS: traZODone 50 MG TABLET. PO SCH (19:56)
[2017-06-14] MEDS: MEMANTINE 10 MG TABLET. PO SCH (19:57)
--- NOTE | 2017-06-14 19:59 | PDOC ---
Exam Note: Hernandez Note: Please also refer to the separate dictated note~for this date of service dictated separately.~Patient seen individually. Discussed the patient with Nursing staff reviewed the chart.~Reviewed interim history and current functioning. Reviewed vital signs,~Labs/ Radiology~and current medications noted below. Continue current treatment with the changes noted in the dictated addendum note Assessment: Vital Signs: Vital Signs Date Time Temp Pulse Resp B/P (MAP) Pulse Ox O2 Delivery O2 Flow Rate FiO2 06/14/17 16:21 96 Room Air 06/14/17 16:18 97.3 111 20 97/63 (74) I&O Intake and Output 06/14/17 07:00 Intake Total 1320 ml Balance 1320 ml Intake Oral 1320 ml Labs: Laboratory Tests Test 06/14/17 07:07 06/14/17 07:26 Glucose (Fingerstick) 160 mg/dL (70-99) H White Blood Count 8.1 x10^3/uL (4.0-11.0) Red Blood Count 4.92 x10^6/uL (4.30-5.70) Hemoglobin 14.1 g/dL (13.0-17.5) Hematocrit 42.0 % (39.0-53.0) Mean Corpuscular Volume 85 fL (79-100) Mean Corpuscular Hemoglobin 29 pg (25-35) Mean Corpuscular Hemoglobin Concent 34 g/dL (31-37) Red Cell Distribution Width 14.6 % (11.5-14.5) H Platelet Count 185 x10^3/uL (140-400) Neutrophils (%) (Auto) 67 % (31-73) Lymphocytes (%) (Auto) 20 % (24-48) L Monocytes (%) (Auto) 8 % (0-9) Eosinophils (%) (Auto) 5 % (0-3) H Basophils (%) (Auto) 1 % (0-3) Neutrophils # (Auto) 5.4 x10^3uL (1.8-7.7) Lymphocytes # (Auto) 1.6 x10^3/uL (1.0-4.8) Monocytes # (Auto) 0.6 x10^3/uL (0.0-1.1) Eosinophils # (Auto) 0.4 x10^3/uL (0.0-0.7) Basophils # (Auto) 0.0 x10^3/uL (0.0-0.2) Sodium Level 142 mmol/L (136-145) Potassium Level 4.8 mmol/L (3.5-5.1) Chloride Level 104 mmol/L (98-107) Carbon Dioxide Level 33 mmol/L (21-32) H Anion Gap 5 (6-14) L Blood Urea Nitrogen 27 mg/dL (8-26) H Creatinine 1.3 mg/dL (0.7-1.3) Estimated GFR (Cockcroft-Gault) 55.2 BUN/Creatinine Ratio 21 (6-20) H Glucose Level 163 mg/dL (70-99) H Calcium Level 9.5 mg/dL (8.5-10.1) Total Bilirubin 0.3 mg/dL (0.2-1.0) Aspartate Amino Transferase (AST) 15 U/L (15-37) Alanine Aminotransferase (ALT) 27 U/L (16-63) Alkaline Phosphatase 104 U/L (46-116) Total Protein 7.6 g/dL (6.4-8.2) Albumin 3.5 g/dL (3.4-5.0) Albumin/Globulin Ratio 0.9 (1.0-1.7) L Valproic Acid Level 35 mcg/mL (50-100) L Valproic Acid Last Dose Date 06/13/2017 Valproic Acid Last Dose Time 2100 Current Medications: Meds: Current Medications Acetaminophen (Tylenol) 650 mg PRN Q6HRS PRN PO PAIN / TEMP Last administered on 06/14/17at 18:50; Start 06/04/17 at 15:00 Multi-Ingredient Ointment (Analgesic [place]) 1 any PRN QID PRN TP MUSCLE PAIN; Start 06/04/17 at 15:00 Al Hydroxide/Mg Hydroxide (Mylanta Plus Xs) 15 ml PRN AFTMEALHC PRN PO DYSPEPSIA Last administered on 06/14/17at 10:05; Start 06/04/17 at 15:00 Magnesium Hydroxide (Milk Of Magnesia) 2,400 mg PRN QHS PRN PO CONSTIPATION Last administered on 06/11/17at 20:27; Start 06/04/17 at 15:00 Nicotine (Nicoderm Cq 21mg) 1 patch DAILY TD ; Start 06/05/17 at 09:00; Stop at 09:00; Status DC Olanzapine (ZyPREXA ZYDIS) 2.5 mg PRN Q2HR PRN PO ANXIETY / AGITATION Last administered on 06/14/17 07:47; Start 06/04/17 at 15:30 Influenza Virus Vaccine Quadrival (Fluarix Quad [id number] Syringe) 0.5 ml ONCE ONCE VAX IM Last administered on 06/05/17at 11:21; Start 06/04/17 at 15:30; Stop 06/04/17 at 15:36; Status DC Amlodipine Besylate (Norvasc) 5 mg DAILY PO Last administered on 06/14/17 07:45 ; Start 06/05/17 at 09:00 Aspirin (Sivakumar Aspirin) 325 mg DAILY PO Last administered on 06/14/17 07:44; Start 06/05/17 at 09:00 Nicotine (Nicoderm Cq 21mg) 1 patch PRN DAILY PRN TD NICOTINE W/D SYMPTOMS; Start 06/05/17 at 01:00; Stop 06/10/17 at 19:12; Status DC Tamsulosin HCl (Flomax) 0.4 mg DAILY PO Last administered on 06/14/17 07:45; Start 06/05/17 at 09:00 Non-Formulary Medication 2.5 mg PRN Q12HR PRN NEB WHEEZING; Start 06/05/17 at 01:00; Status UNV Atorvastatin Calcium (Lipitor) 80 mg QHS PO Last administered on 06/13/17at 19:53 ; Start 06/05/17 at 21:00 Non-Formulary Medication 1 puff BID IH ; Start 06/05/17 at 09:00; Status UNV Non-Formulary Medication 1 each DAILY PO ; Start 06/05/17 at 09:00; Stop at 09:00; Status DC Pantoprazole Sodium (Protonix) 40 mg DAILYAC PO Last administered on 06/14/17 07:46; Start 06/05/17 at 07:30 Oxybutynin Chloride (Ditropan) 5 mg DAILY PO Last administered on 06/14/17at 07: 44; Start 06/05/17 at 09:00 Paroxetine HCl (Paxil) 40 mg DAILY PO Last administered on 06/05/17 08:51; Start 06/05/17 at 09:00; Stop 06/05/17 at 18:43; Status DC Potassium Chloride (Klor-Con) 30 meq DAILY PO Last administered on 06/14/17 07: 44; Start 06/05/17 at 09:00 Lisinopril (Prinivil) 20 mg DAILY PO Last administered on 06/14/17 07:46; Start 06/05/17 at 09:00 Linagliptin (Tradjenta) 5 mg DAILY PO Last administered on 06/14/17 07:44; Start 06/05/17 at 09:00 Verapamil HCl (Calan Sr) 120 mg DAILY PO Last administered on 06/14/17 07:45; Start 06/05/17 at 09:00 Dextrose 12.5 gm PRN Q15MIN PRN IV hypoglycemia; Start 06/05/17 at 01:00 Glucose (Insta-Glucose) 15 gm PRN Q15MIN PRN PO LOW BLOOD SUGAR; Start at 01:00 Albuterol Sulfate (Ventolin) 2.5 mg PRN Q12HR PRN NEB WHEEZING; Start 06/05/17 at 01:45 Budesonide (Pulmicort) 0.5 mg RTBID NEB Last administered on 06/14/17 11:23; Start 06/05/17 at 08:00 Albuterol Sulfate (Ventolin) 2.5 mg RTQID NEB Last administered on 06/14/17 16: 21; Start 06/05/17 at 08:00 Memantine (Namenda) 5 mg BID PO Last administered on 06/14/17 07:45; Start at 09:00; Stop 06/14/17 at 11:28; Status DC Donepezil HCl (Aricept) 5 mg BID PO Last administered on 06/14/17 07:45; Start 06/05/17 at 09:00; Stop 06/14/17 at 11:28; Status DC Vitamin D (Vitamin D3) 50,000 unit WEEKLY PO Last administered on 06/12/17 12: 14; Start 06/05/17 at 20:00 Cyanocobalamin (Vitamin B-12) 1,000 mcg WEEKLY IM Last administered on 07:40; Start 06/06/17 at 09:00 Quetiapine Fumarate (SEROquel) 25 mg QHS PO Last administered on 06/05/17 20: 03; Start 06/05/17 at 21:00; Stop 06/06/17 at 18:42; Status DC Sertraline HCl (Zoloft) 50 mg DAILY PO Last administered on 06/14/17 07:45; Start 06/06/17 at 09:00 Quetiapine Fumarate (SEROquel) 50 mg QHS PO Last administered on 06/12/17 20:09 ; Start 06/06/17 at 21:00; Stop 06/13/17 at 18:45; Status DC Trazodone HCl (Desyrel) 50 mg QHS PO Last administered on 06/13/17 19:54; Start 06/08/17 at 21:00 Trazodone HCl (Desyrel) 50 mg PRN QHS PRN PO INSOMNIA Last administered on 21:30; Start 06/08/17 at 18:45 Divalproex Sodium (Depakote Sprinkles) 125 mg TID@0900,1300,1700 PO Last administered on 06/11/17 16:48; Start 06/09/17 at 09:00; Stop 06/11/17 at 18:15; Status DC Nicotine (Nicoderm Cq 14mg) 1 patch DAILY TD Last administered on 06/14/17 07: 44; Start 06/11/17 at 09:00 Nicotine (Nicoderm Cq 14mg) 1 patch ONCE ONCE TD Last administered on 19:57; Start 06/10/17 at 19:15; Stop 06/10/17 at 19:26; Status DC Divalproex Sodium (Depakote Sprinkles) 250 mg TID@0900,1300,1700 PO Last administered on 06/14/17 07:44; Start 06/12/17 at 09:00; Stop 06/14/17 at 11:28; Status DC Quetiapine Fumarate (SEROquel) 75 mg QHS PO Last administered on 06/13/17 19:53 ; Start 06/13/17 at 21:00 Divalproex Sodium (Depakote Sprinkles) 375 mg TID@0900,1300,1700 PO Last administered on 06/14/17at 17:02; Start 06/14/17 at 13:00 Donepezil HCl (Aricept) 10 mg BID PO ; Start 06/14/17 at 21:00 Memantine (Namenda) 10 mg BID PO ; Start 06/14/17 at 21:00 Quetiapine Fumarate (SEROquel) 12.5 mg BID@0900,1300 PO Last administered on 06/14/17at 13:12; Start 06/14/17 at 13:00 Active Scripts Active Reported Albuterol Sulfate Conc Neb Soln (Albuterol Sulfate) 2.5 Mg/0.5 Ml Vial.neb 2.5 Mg NEB PRN Q12HR PRN Namzaric 14 mg-10 mg Capsule (Memantine HCl/Donepezil HCl) 1 Each Cap.spr.24 1 Each PO DAILY [manzaric] Atorvastatin Calcium 80 Mg Tablet 80 Mg PO QHS NICODERM CQ 21mg (Nicotine) 1 Each Patch.td24 1 Patch TD PRN DAILY Omeprazole 20 Mg Tablet.dr 20 Mg PO DAILY Verapamil Er (Verapamil Hcl) 240 Mg Cap24h.pel 120 Mg PO DAILY Tamsulosin Hcl 0.4 Mg Cap.er.24h 0.4 Mg PO DAILY Onglyza (Saxagliptin Hcl) 5 Mg Tablet 2.5 Mg PO DAILY Ramipril 10 Mg Capsule 10 Mg PO DAILY Potassium Chloride 10 Meq Tablet.er 30 Meq PO DAILY Paroxetine Hcl 40 Mg Tablet 40 Mg PO DAILY Oxybutynin Chloride Er (Oxybutynin Chloride) 5 Mg Tab.er.24 5 Mg PO DAILY Advair 250-50 Diskus (Fluticasone/Salmeterol) 1 Each Disk.w.dev 1 Puff IH BID Aspirin 325 Mg Tablet 325 Mg PO Amlodipine Besylate 5 Mg Tablet 5 Mg PO DAILY I have reviewed the current psychotropics carefully including drug interactions. Risk benefit ratio favors no change other than as noted in my dictated progress note. Diagnosis: Problems: (1) Major neurocognitive disorder, due to vascular disease, with behavioral disturbance, mild (2) Impulse control disorder (3) Depression (4) Delusion (5) Anxiety disorder (6) Behavior problem BRAYAN GARNETT MD Jun 14, 2017 19:59
[2017-06-14] MEDS: DONEPEZIL HCL 10 MG TABLET PO SCH (20:01)
[2017-06-14] MEDS: traZODone 50 MG TABLET. PO PRN (21:18)
[2017-06-15] MEDS: ALBUTEROL SULFATE 2.5 MG/3 ML NEBU. NEB SCH ×4 (05:52→21:11)
[2017-06-15 06:11] VITALS: BP 121/63
[2017-06-15] MEDS: QUEtiapine 25 MG TABLET. PO SCH ×2 (07:50→12:30)
[2017-06-15] MEDS: POTASSIUM CHLORIDE 10 MEQ TABLET.ER. PO SCH (07:51)
[2017-06-15] MEDS: VERAPAMIL SR 120 MG TABLET.ER. PO SCH (07:51)
[2017-06-15] MEDS: PANTOPRAZOLE 40 MG TABLET. PO SCH (07:52)
[2017-06-15] MEDS: amLODIPine BESYLATE 5 MG TABLET PO SCH (07:52)
[2017-06-15] MEDS: DONEPEZIL HCL 10 MG TABLET PO SCH ×2 (07:52→19:59)
[2017-06-15] MEDS: DIVALPROEX 125 MG CAP.SPRINK PO SCH ×3 (07:52→17:24)
[2017-06-15] MEDS: LINAGLIPTIN 5 MG TABLET PO SCH (07:53)
[2017-06-15] MEDS: OXYBUTYNIN CHLORIDE 5 MG TABLET PO SCH (07:53)
[2017-06-15] MEDS: SERTRALINE 50 MG TABLET. PO SCH (07:53)
[2017-06-15] MEDS: LISINOPRIL 20 MG TABLET PO SCH (07:53)
[2017-06-15] MEDS: MEMANTINE 10 MG TABLET. PO SCH ×2 (07:53→20:00)
[2017-06-15] MEDS: TAMSULOSIN 0.4 MG CAP.ER.24H. PO SCH (07:53)
[2017-06-15] MEDS: ASPIRIN 325 MG TABLET PO SCH (07:54)
[2017-06-15] MEDS: NICOTINE 14MG PATCH. TD SCH (07:54)
[2017-06-15] MEDS: BUDESONIDE 0.5 MG/2 ML NEBU NEB SCH ×2 (10:59→21:11)
[2017-06-15 16:28] VITALS: BP 130/60
--- NOTE | 2017-06-15 19:57 | PDOC ---
Exam Note: Hernandez Note: Please also refer to the separate dictated note~for this date of service dictated separately.~Patient seen individually. Discussed the patient with Nursing staff reviewed the chart.~Reviewed interim history and current functioning. Reviewed vital signs,~Labs/ Radiology~and current medications noted below. Continue current treatment with the changes noted in the dictated addendum note Assessment: Vital Signs: Vital Signs Date Time Temp Pulse Resp B/P (MAP) Pulse Ox O2 Delivery O2 Flow Rate FiO2 06/15/17 16:44 94 Room Air 06/15/17 16:28 97.3 103 19 130/60 (83) I&O Intake and Output 06/15/17 07:00 Intake Total 1560 ml Balance 1560 ml Intake Oral 1560 ml Labs: Laboratory Tests Test 06/15/17 07:29 Glucose (Fingerstick) 94 mg/dL (70-99) Current Medications: Meds: Current Medications Acetaminophen (Tylenol) 650 mg PRN Q6HRS PRN PO PAIN / TEMP Last administered on 06/14/17at 18:50; Start 06/04/17 at 15:00 Multi-Ingredient Ointment (Analgesic [place]) 1 any PRN QID PRN TP MUSCLE PAIN; Start 06/04/17 at 15:00 Al Hydroxide/Mg Hydroxide (Mylanta Plus Xs) 15 ml PRN AFTMEALHC PRN PO DYSPEPSIA Last administered on 06/14/17at 10:05; Start 06/04/17 at 15:00 Magnesium Hydroxide (Milk Of Magnesia) 2,400 mg PRN QHS PRN PO CONSTIPATION Last administered on 06/11/17at 20:27; Start 06/04/17 at 15:00 Nicotine (Nicoderm Cq 21mg) 1 patch DAILY TD ; Start 06/05/17 at 09:00; Stop at 09:00; Status DC Olanzapine (ZyPREXA ZYDIS) 2.5 mg PRN Q2HR PRN PO ANXIETY / AGITATION Last administered on 06/14/17at 21:18; Start 06/04/17 at 15:30 Influenza Virus Vaccine Quadrival (Fluarix Quad [id number] Syringe) 0.5 ml ONCE ONCE VAX IM Last administered on 06/05/17at 11:21; Start 06/04/17 at 15:30; Stop 06/04/17 at 15:36; Status DC Amlodipine Besylate (Norvasc) 5 mg DAILY PO Last administered on 06/15/17 07:52 ; Start 06/05/17 at 09:00 Aspirin (Sivakumar Aspirin) 325 mg DAILY PO Last administered on 06/15/17 07:54; Start 06/05/17 at 09:00 Nicotine (Nicoderm Cq 21mg) 1 patch PRN DAILY PRN TD NICOTINE W/D SYMPTOMS; Start 06/05/17 at 01:00; Stop 06/10/17 at 19:12; Status DC Tamsulosin HCl (Flomax) 0.4 mg DAILY PO Last administered on 06/15/17 07:53; Start 06/05/17 at 09:00 Non-Formulary Medication 2.5 mg PRN Q12HR PRN NEB WHEEZING; Start 06/05/17 at 01:00; Status UNV Atorvastatin Calcium (Lipitor) 80 mg QHS PO Last administered on 06/14/17 19:55 ; Start 06/05/17 at 21:00 Non-Formulary Medication 1 puff BID IH ; Start 06/05/17 at 09:00; Status UNV Non-Formulary Medication 1 each DAILY PO ; Start 06/05/17 at 09:00; Stop at 09:00; Status DC Pantoprazole Sodium (Protonix) 40 mg DAILYAC PO Last administered on 06/15/17 07:52; Start 06/05/17 at 07:30 Oxybutynin Chloride (Ditropan) 5 mg DAILY PO Last administered on 06/15/17 07: 53; Start 06/05/17 at 09:00 Paroxetine HCl (Paxil) 40 mg DAILY PO Last administered on 06/05/17at 08:51; Start 06/05/17 at 09:00; Stop 06/05/17 at 18:43; Status DC Potassium Chloride (Klor-Con) 30 meq DAILY PO Last administered on 06/15/17 07: 51; Start 06/05/17 at 09:00 Lisinopril (Prinivil) 20 mg DAILY PO Last administered on 06/15/17 07:53; Start 06/05/17 at 09:00 Linagliptin (Tradjenta) 5 mg DAILY PO Last administered on 3/9/18at 07:53; Start 06/05/17 at 09:00 Verapamil HCl (Calan Sr) 120 mg DAILY PO Last administered on 06/15/17 07:51; Start 06/05/17 at 09:00 Dextrose 12.5 gm PRN Q15MIN PRN IV hypoglycemia; Start 06/05/17 at 01:00 Glucose (Insta-Glucose) 15 gm PRN Q15MIN PRN PO LOW BLOOD SUGAR; Start at 01:00 Albuterol Sulfate (Ventolin) 2.5 mg PRN Q12HR PRN NEB WHEEZING; Start 06/05/17 at 01:45 Budesonide (Pulmicort) 0.5 mg RTBID NEB Last administered on 06/15/17 10:59; Start 06/05/17 at 08:00 Albuterol Sulfate (Ventolin) 2.5 mg RTQID NEB Last administered on 06/15/17 16: 44; Start 06/05/17 at 08:00 Memantine (Namenda) 5 mg BID PO Last administered on 06/14/17 07:45; Start at 09:00; Stop 06/14/17 at 11:28; Status DC Donepezil HCl (Aricept) 5 mg BID PO Last administered on 06/14/17 07:45; Start 06/05/17 at 09:00; Stop 06/14/17 at 11:28; Status DC Vitamin D (Vitamin D3) 50,000 unit WEEKLY PO Last administered on 06/12/17 12: 14; Start 06/05/17 at 20:00 Cyanocobalamin (Vitamin B-12) 1,000 mcg WEEKLY IM Last administered on 07:40; Start 06/06/17 at 09:00 Quetiapine Fumarate (SEROquel) 25 mg QHS PO Last administered on 06/05/17 20: 03; Start 06/05/17 at 21:00; Stop 06/06/17 at 18:42; Status DC Sertraline HCl (Zoloft) 50 mg DAILY PO Last administered on 06/15/17 07:53; Start 06/06/17 at 09:00 Quetiapine Fumarate (SEROquel) 50 mg QHS PO Last administered on 3/6/18at 20:09 ; Start 06/06/17 at 21:00; Stop 06/13/17 at 18:45; Status DC Trazodone HCl (Desyrel) 50 mg QHS PO Last administered on 06/14/17 19:56; Start 06/08/17 at 21:00 Trazodone HCl (Desyrel) 50 mg PRN QHS PRN PO INSOMNIA Last administered on 21:18; Start 06/08/17 at 18:45 Divalproex Sodium (Depakote Sprinkles) 125 mg TID@0900,1300,1700 PO Last administered on 06/11/17 16:48; Start 06/09/17 at 09:00; Stop 06/11/17 at 18:15; Status DC Nicotine (Nicoderm Cq 14mg) 1 patch DAILY TD Last administered on 06/15/17 07: 54; Start 06/11/17 at 09:00 Nicotine (Nicoderm Cq 14mg) 1 patch ONCE ONCE TD Last administered on 19:57; Start 06/10/17 at 19:15; Stop 06/10/17 at 19:26; Status DC Divalproex Sodium (Depakote Sprinkles) 250 mg TID@0900,1300,1700 PO Last administered on 06/14/17 07:44; Start 06/12/17 at 09:00; Stop 06/14/17 at 11:28; Status DC Quetiapine Fumarate (SEROquel) 75 mg QHS PO Last administered on 06/14/17 19:55 ; Start 06/13/17 at 21:00 Divalproex Sodium (Depakote Sprinkles) 375 mg TID@0900,1300,1700 PO Last administered on 06/15/17 17:24; Start 06/14/17 at 13:00 Donepezil HCl (Aricept) 10 mg BID PO Last administered on 06/15/17 07:52; Start 06/14/17 at 21:00 Memantine (Namenda) 10 mg BID PO Last administered on 06/15/17 07:53; Start 06/14/17 at 21:00 Quetiapine Fumarate (SEROquel) 12.5 mg BID@0900,1300 PO Last administered on 3/ 9/18at 12:30; Start 06/14/17 at 13:00; Stop 06/15/17 at 18:55; Status DC Quetiapine Fumarate (SEROquel) 25 mg BID@0900,1300 PO ; Start 06/16/17 at 09:00 Active Scripts Active Reported Albuterol Sulfate Conc Neb Soln (Albuterol Sulfate) 2.5 Mg/0.5 Ml Vial.neb 2.5 Mg NEB PRN Q12HR PRN Namzaric 14 mg-10 mg Capsule (Memantine HCl/Donepezil HCl) 1 Each Cap.spr.24 1 Each PO DAILY [manzaric] Atorvastatin Calcium 80 Mg Tablet 80 Mg PO QHS NICODERM CQ 21mg (Nicotine) 1 Each Patch.td24 1 Patch TD PRN DAILY Omeprazole 20 Mg Tablet.dr 20 Mg PO DAILY Verapamil Er (Verapamil Hcl) 240 Mg Cap24h.pel 120 Mg PO DAILY Tamsulosin Hcl 0.4 Mg Cap.er.24h 0.4 Mg PO DAILY Onglyza (Saxagliptin Hcl) 5 Mg Tablet 2.5 Mg PO DAILY Ramipril 10 Mg Capsule 10 Mg PO DAILY Potassium Chloride 10 Meq Tablet.er 30 Meq PO DAILY Paroxetine Hcl 40 Mg Tablet 40 Mg PO DAILY Oxybutynin Chloride Er (Oxybutynin Chloride) 5 Mg Tab.er.24 5 Mg PO DAILY Advair 250-50 Diskus (Fluticasone/Salmeterol) 1 Each Disk.w.dev 1 Puff IH BID Aspirin 325 Mg Tablet 325 Mg PO Amlodipine Besylate 5 Mg Tablet 5 Mg PO DAILY I have reviewed the current psychotropics carefully including drug interactions. Risk benefit ratio favors no change other than as noted in my dictated progress note. Diagnosis: Problems: (1) Major neurocognitive disorder, due to vascular disease, with behavioral disturbance, mild (2) Impulse control disorder (3) Depression (4) Delusion (5) Anxiety disorder (6) Behavior problem BRAYAN GARNETT MD Jun 15, 2017 19:57
[2017-06-15] MEDS: QUEtiapine 50 MG TABLET. PO SCH (19:59)
[2017-06-15] MEDS: traZODone 50 MG TABLET. PO SCH (19:59)
[2017-06-15] MEDS: ATORVASTATIN CALCIUM 20 MG TABLET PO SCH (20:00)
--- NOTE | 2017-06-15 20:44 | PN ---
DATE: 06/13/2017 PSYCHIATRIC PROGRESS NOTE This late entry 06/13/2017 covers elements, not covered in my initial note of 06/13/2017. I met with the patient evening of 06/13/2017. The patient slept 10 hours previous evening, remains confused, slept all the day previously, did spend more time in the day room on 06/13/2017. Around 2:00 p.m., he was getting agitated, obsessive, repetitive about wanting to go home, yelling at nursing staff, yelling at the window. Apparently, hallucinating, received Zyprexa p.r.n. with some help, quite obsessive. REVIEW OF SYSTEMS: No CV, , pulmonary, eye, ENT system symptoms on review. Reliability poor. MENTAL STATUS EXAM: Oriented to himself. Insight, judgment, recent and remote memory, attention, concentration, fund of knowledge poor, consistent with his diagnosis mentioned in my initial note. IMPRESSION: Major neurocognitive disorder, Alzheimer, vascular with depression, delusion, behavioral disturbance. Rest unchanged. PLAN: Increase Seroquel to 75 mg at bedtime. Continue rest unchanged. Valproic acid level is low. Depakote has been increased. Follow labs level. MAN Lacho GARNETT MD DR: LEROY/juliane JOB#: [id number] / [id number]
--- NOTE | 2017-06-15 23:16 | PN ---
DATE: 06/14/2017 This is a late entry for 06/14/2017 covers elements not covered in my initial note of 06/14/2017. SUBJECTIVE: I met with the patient in the evening of 06/14/2017 and staffed at treatment team meeting with the entire team in the morning of 06/14/2017. We reviewed the patient's history at length. Sleeping of average 5 hours, slept just one hour previous evening. Appetite 80%. We reviewed his history of aggression at home, prompting this admission where he injured the [id number] to where the [id number] dislocated his shoulder, gets agitated with loud peers, posturing towards staff members at times, agitated all day on 06/14/2017. Receives Zyprexa x 4 in 24 hours, rambling in his speech about beating up his , compliant with medications, in the evening more cooperative with this psychotropics. REVIEW OF SYSTEMS: No CV, , pulmonary, eye, ENT system symptoms on review. Reliability poor. MENTAL STATUS EXAM: Oriented to himself. Insight, judgment, recent and remote memory, attention, concentration, fund of knowledge poor, consistent with his diagnosis mentioned in my initial note. PLAN: Continue current psychotropics. He is quite noncompliant with meds and we will reduce the time it is administered. Change Aricept 5 b.i.d. to 10 mg a day, Namenda 5 mg b.i.d. to 10 mg twice a day, Seroquel 75 mg at bedtime. We will continue and we will add 12.5 mg at 09:00 a.m. and 01:00 p.m. Continue Zoloft. Change the Depakote from 250 mg t.i.d. to 375 mg t.i.d. since level is 35 on 06/14/2017, subtherapeutic. Adjust further as clinically indicated. BRAYAN GARNETT MD DR: LEROY/juliane JOB#: [id number] / [id number]
[2017-06-16] MEDS: ALBUTEROL SULFATE 2.5 MG/3 ML NEBU. NEB SCH ×4 (05:44→20:00)
[2017-06-16 07:06] VITALS: BP 94/55
[2017-06-16] MEDS: VERAPAMIL SR 120 MG TABLET.ER. PO SCH (09:00)
[2017-06-16] MEDS: amLODIPine BESYLATE 5 MG TABLET PO SCH (09:00)
[2017-06-16] MEDS: LISINOPRIL 20 MG TABLET PO SCH (09:00)
[2017-06-16] MEDS: TAMSULOSIN 0.4 MG CAP.ER.24H. PO SCH (09:09)
[2017-06-16] MEDS: OXYBUTYNIN CHLORIDE 5 MG TABLET PO SCH (09:09)
[2017-06-16] MEDS: LINAGLIPTIN 5 MG TABLET PO SCH (09:09)
[2017-06-16] MEDS: PANTOPRAZOLE 40 MG TABLET. PO SCH (09:09)
[2017-06-16] MEDS: DIVALPROEX 125 MG CAP.SPRINK PO SCH ×3 (09:10→16:32)
[2017-06-16] MEDS: DONEPEZIL HCL 10 MG TABLET PO SCH ×2 (09:10→19:11)
[2017-06-16] MEDS: NICOTINE 14MG PATCH. TD SCH (09:10)
[2017-06-16] MEDS: ASPIRIN 325 MG TABLET PO SCH (09:10)
[2017-06-16] MEDS: SERTRALINE 50 MG TABLET. PO SCH (09:10)
[2017-06-16] MEDS: POTASSIUM CHLORIDE 10 MEQ TABLET.ER. PO SCH (09:10)
[2017-06-16] MEDS: MEMANTINE 10 MG TABLET. PO SCH ×2 (09:10→19:11)
[2017-06-16] MEDS: QUEtiapine 25 MG TABLET. PO SCH ×2 (09:12→13:46)
[2017-06-16] MEDS: BUDESONIDE 0.5 MG/2 ML NEBU NEB SCH ×2 (10:19→20:00)
[2017-06-16 16:23] VITALS: BP 128/71
[2017-06-16] MEDS: ATORVASTATIN CALCIUM 20 MG TABLET PO SCH (19:10)
[2017-06-16] MEDS: traZODone 50 MG TABLET. PO SCH (19:11)
[2017-06-16] MEDS: QUEtiapine 50 MG TABLET. PO SCH (19:11)
--- NOTE | 2017-06-16 21:11 | PDOC ---
Exam Note: Hernandez Note: Please also refer to the separate dictated note~for this date of service dictated separately.~Patient seen individually. Discussed the patient with Nursing staff reviewed the chart.~Reviewed interim history and current functioning. Reviewed vital signs,~Labs/ Radiology~and current medications noted below. Continue current treatment with the changes noted in the dictated addendum note Assessment: Vital Signs: Vital Signs Date Time Temp Pulse Resp B/P (MAP) Pulse Ox O2 Delivery O2 Flow Rate FiO2 06/16/17 16:23 97.6 85 18 128/71 (90) 93 Room Air I&O Intake and Output 06/16/17 07:00 Intake Total 780 ml Balance 780 ml Intake Oral 780 ml # Bowel Movements 1 Labs: Laboratory Tests Test 06/16/17 08:03 Glucose (Fingerstick) 129 mg/dL (70-99) H Current Medications: Meds: Current Medications Acetaminophen (Tylenol) 650 mg PRN Q6HRS PRN PO PAIN / TEMP Last administered on 06/14/17at 18:50; Start 06/04/17 at 15:00 Multi-Ingredient Ointment (Analgesic [place]) 1 any PRN QID PRN TP MUSCLE PAIN; Start 06/04/17 at 15:00 Al Hydroxide/Mg Hydroxide (Mylanta Plus Xs) 15 ml PRN AFTMEALHC PRN PO DYSPEPSIA Last administered on 06/14/17at 10:05; Start 06/04/17 at 15:00 Magnesium Hydroxide (Milk Of Magnesia) 2,400 mg PRN QHS PRN PO CONSTIPATION Last administered on 06/11/17at 20:27; Start 06/04/17 at 15:00 Nicotine (Nicoderm Cq 21mg) 1 patch DAILY TD ; Start 06/05/17 at 09:00; Stop at 09:00; Status DC Olanzapine (ZyPREXA ZYDIS) 2.5 mg PRN Q2HR PRN PO ANXIETY / AGITATION Last administered on 06/16/17at 19:11; Start 06/04/17 at 15:30 Influenza Virus Vaccine Quadrival (Fluarix Quad [id number] Syringe) 0.5 ml ONCE ONCE VAX IM Last administered on 06/05/17at 11:21; Start 06/04/17 at 15:30; Stop 06/04/17 at 15:36; Status DC Amlodipine Besylate (Norvasc) 5 mg DAILY PO Last administered on 06/15/17 07:52 ; Start 06/05/17 at 09:00 Aspirin (Sivakumar Aspirin) 325 mg DAILY PO Last administered on 06/16/17 09:10; Start 06/05/17 at 09:00 Nicotine (Nicoderm Cq 21mg) 1 patch PRN DAILY PRN TD NICOTINE W/D SYMPTOMS; Start 06/05/17 at 01:00; Stop 06/10/17 at 19:12; Status DC Tamsulosin HCl (Flomax) 0.4 mg DAILY PO Last administered on 06/16/17 09:09; Start 06/05/17 at 09:00 Non-Formulary Medication 2.5 mg PRN Q12HR PRN NEB WHEEZING; Start 06/05/17 at 01:00; Status UNV Atorvastatin Calcium (Lipitor) 80 mg QHS PO Last administered on 06/16/17 19: 10; Start 06/05/17 at 21:00 Non-Formulary Medication 1 puff BID IH ; Start 06/05/17 at 09:00; Status UNV Non-Formulary Medication 1 each DAILY PO ; Start 06/05/17 at 09:00; Stop at 09:00; Status DC Pantoprazole Sodium (Protonix) 40 mg DAILYAC PO Last administered on 06/16/17 09:09; Start 06/05/17 at 07:30 Oxybutynin Chloride (Ditropan) 5 mg DAILY PO Last administered on 06/16/17 09: 09; Start 06/05/17 at 09:00 Paroxetine HCl (Paxil) 40 mg DAILY PO Last administered on 06/05/17at 08:51; Start 06/05/17 at 09:00; Stop 06/05/17 at 18:43; Status DC Potassium Chloride (Klor-Con) 30 meq DAILY PO Last administered on 06/16/17 09 :10; Start 06/05/17 at 09:00 Lisinopril (Prinivil) 20 mg DAILY PO Last administered on 06/15/17 07:53; Start 06/05/17 at 09:00 Linagliptin (Tradjenta) 5 mg DAILY PO Last administered on 06/16/17at 09:09; Start 06/05/17 at 09:00 Verapamil HCl (Calan Sr) 120 mg DAILY PO Last administered on 06/15/17 07:51; Start 06/05/17 at 09:00 Dextrose 12.5 gm PRN Q15MIN PRN IV hypoglycemia; Start 06/05/17 at 01:00 Glucose (Insta-Glucose) 15 gm PRN Q15MIN PRN PO LOW BLOOD SUGAR; Start at 01:00 Albuterol Sulfate (Ventolin) 2.5 mg PRN Q12HR PRN NEB WHEEZING; Start 06/05/17 at 01:45 Budesonide (Pulmicort) 0.5 mg RTBID NEB Last administered on 06/16/17 10:19; Start 06/05/17 at 08:00 Albuterol Sulfate (Ventolin) 2.5 mg RTQID NEB Last administered on 06/16/17 15 :33; Start 06/05/17 at 08:00 Memantine (Namenda) 5 mg BID PO Last administered on 06/14/17at 07:45; Start at 09:00; Stop 06/14/17 at 11:28; Status DC Donepezil HCl (Aricept) 5 mg BID PO Last administered on 06/14/17 07:45; Start 06/05/17 at 09:00; Stop 06/14/17 at 11:28; Status DC Vitamin D (Vitamin D3) 50,000 unit WEEKLY PO Last administered on 06/12/17 12: 14; Start 06/05/17 at 20:00 Cyanocobalamin (Vitamin B-12) 1,000 mcg WEEKLY IM Last administered on at 07:40; Start 06/06/17 at 09:00 Quetiapine Fumarate (SEROquel) 25 mg QHS PO Last administered on 06/05/17at 20: 03; Start 06/05/17 at 21:00; Stop 06/06/17 at 18:42; Status DC Sertraline HCl (Zoloft) 50 mg DAILY PO Last administered on 06/16/17 09:10; Start 06/06/17 at 09:00 Quetiapine Fumarate (SEROquel) 50 mg QHS PO Last administered on 06/12/17at 20:09 ; Start 06/06/17 at 21:00; Stop 06/13/17 at 18:45; Status DC Trazodone HCl (Desyrel) 50 mg QHS PO Last administered on 06/16/17 19:11; Start 06/08/17 at 21:00 Trazodone HCl (Desyrel) 50 mg PRN QHS PRN PO INSOMNIA Last administered on 21:18; Start 06/08/17 at 18:45 Divalproex Sodium (Depakote Sprinkles) 125 mg TID@0900,1300,1700 PO Last administered on 06/11/17 16:48; Start 06/09/17 at 09:00; Stop 06/11/17 at 18:15; Status DC Nicotine (Nicoderm Cq 14mg) 1 patch DAILY TD Last administered on 06/16/17 09: 10; Start 06/11/17 at 09:00 Nicotine (Nicoderm Cq 14mg) 1 patch ONCE ONCE TD Last administered on 19:57; Start 06/10/17 at 19:15; Stop 06/10/17 at 19:26; Status DC Divalproex Sodium (Depakote Sprinkles) 250 mg TID@0900,1300,1700 PO Last administered on 06/14/17 07:44; Start 06/12/17 at 09:00; Stop 06/14/17 at 11:28; Status DC Quetiapine Fumarate (SEROquel) 75 mg QHS PO Last administered on 06/16/17 19: 11; Start 06/13/17 at 21:00 Divalproex Sodium (Depakote Sprinkles) 375 mg TID@0900,1300,1700 PO Last administered on 06/16/17 16:32; Start 06/14/17 at 13:00 Donepezil HCl (Aricept) 10 mg BID PO Last administered on 06/16/17 19:11; Start 06/14/17 at 21:00 Memantine (Namenda) 10 mg BID PO Last administered on 06/16/17 19:11; Start at 21:00 Quetiapine Fumarate (SEROquel) 12.5 mg BID@0900,1300 PO Last administered on 3/ 9/18at 12:30; Start 06/14/17 at 13:00; Stop 06/15/17 at 18:55; Status DC Quetiapine Fumarate (SEROquel) 25 mg BID@0900,1300 PO Last administered on 06/16at 13:46; Start 06/16/17 at 09:00 Active Scripts Active Reported Albuterol Sulfate Conc Neb Soln (Albuterol Sulfate) 2.5 Mg/0.5 Ml Vial.neb 2.5 Mg NEB PRN Q12HR PRN Namzaric 14 mg-10 mg Capsule (Memantine HCl/Donepezil HCl) 1 Each Cap.spr.24 1 Each PO DAILY [manzaric] Atorvastatin Calcium 80 Mg Tablet 80 Mg PO QHS NICODERM CQ 21mg (Nicotine) 1 Each Patch.td24 1 Patch TD PRN DAILY Omeprazole 20 Mg Tablet.dr 20 Mg PO DAILY Verapamil Er (Verapamil Hcl) 240 Mg Cap24h.pel 120 Mg PO DAILY Tamsulosin Hcl 0.4 Mg Cap.er.24h 0.4 Mg PO DAILY Onglyza (Saxagliptin Hcl) 5 Mg Tablet 2.5 Mg PO DAILY Ramipril 10 Mg Capsule 10 Mg PO DAILY Potassium Chloride 10 Meq Tablet.er 30 Meq PO DAILY Paroxetine Hcl 40 Mg Tablet 40 Mg PO DAILY Oxybutynin Chloride Er (Oxybutynin Chloride) 5 Mg Tab.er.24 5 Mg PO DAILY Advair 250-50 Diskus (Fluticasone/Salmeterol) 1 Each Disk.w.dev 1 Puff IH BID Aspirin 325 Mg Tablet 325 Mg PO Amlodipine Besylate 5 Mg Tablet 5 Mg PO DAILY I have reviewed the current psychotropics carefully including drug interactions. Risk benefit ratio favors no change other than as noted in my dictated progress note. Diagnosis: Problems: (1) Major neurocognitive disorder, due to vascular disease, with behavioral disturbance, mild (2) Impulse control disorder (3) Depression (4) Delusion (5) Anxiety disorder (6) Behavior problem BRAYAN GARNETT MD Jun 16, 2017 21:11
[2017-06-16] MEDS: traZODone 50 MG TABLET. PO PRN (22:14)
[2017-06-16] MEDS: ACETAMINOPHEN 325 MG TABLET PO PRN (22:14)
[2017-06-17 07:28] LABS: BASO # 0.1 x10^3/uL (0.0-0.2); BASO % 1 % (0-3); EOS # 0.5 x10^3/uL (0.0-0.7); EOS % 7 % (0-3); HEMATOCRIT 40.6 % (39.0-53.0); HEMOGLOBIN 13.4 g/dL (13.0-17.5); LYMPH # 2.1 x10^3/uL (1.0-4.8); LYMPH % 29 % (24-48); MEAN CORPUSCULAR HEMOGLOBIN 29 pg (25-35); MEAN CORPUSCULAR HGB CONC 33 g/dL (31-37); MEAN CORPUSCULAR VOLUME 86 fL (79-100); MONO # 0.7 x10^3/uL (0.0-1.1); MONO % 10 % (0-9); NEUT % 54 % (31-73); PLATELET COUNT 171 x10^3/uL (140-400); RED CELL DISTRIBUTION WIDTH 14.6 % (11.5-14.5); WHITE BLOOD COUNT 7.4 x10^3/uL (4.0-11.0)
[2017-06-17 07:39] LABS: ALBUMIN/GLOBULIN RATIO 0.8 (1.0-1.7); ALK PHOS 87 U/L (46-116); ALT (SGPT) 25 U/L (16-63); ANION GAP 4 (6-14); AST (SGOT) 12 U/L (15-37); BLOOD UREA NITROGEN 22 mg/dL (8-26); BUN/CREATININE RATIO 17 (6-20); CALCIUM 8.9 mg/dL (8.5-10.1); CARBON DIOXIDE 31 mmol/L (21-32); CHLORIDE 106 mmol/L (98-107); CREATININE 1.3 mg/dL (0.7-1.3); GFR 55.2; GLUCOSE 206 mg/dL (70-99); POTASSIUM 5.5 mmol/L (3.5-5.1); SODIUM 141 mmol/L (136-145); TOTAL BILIRUBIN 0.3 mg/dL (0.2-1.0); TOTAL PROTEIN 6.6 g/dL (6.4-8.2)
[2017-06-17 07:41] LABS: VAL ACID 44 mcg/mL (50-100)
[2017-06-17] MEDS: NICOTINE 14MG PATCH. TD SCH (07:49)
[2017-06-17] MEDS: QUEtiapine 25 MG TABLET. PO SCH ×2 (07:49→13:56)
[2017-06-17] MEDS: LINAGLIPTIN 5 MG TABLET PO SCH (07:49)
[2017-06-17] MEDS: DONEPEZIL HCL 10 MG TABLET PO SCH ×2 (07:50→19:58)
[2017-06-17] MEDS: OXYBUTYNIN CHLORIDE 5 MG TABLET PO SCH (07:50)
[2017-06-17] MEDS: LISINOPRIL 20 MG TABLET PO SCH (07:50)
[2017-06-17] MEDS: TAMSULOSIN 0.4 MG CAP.ER.24H. PO SCH (07:51)
[2017-06-17] MEDS: amLODIPine BESYLATE 5 MG TABLET PO SCH (07:51)
[2017-06-17] MEDS: MEMANTINE 10 MG TABLET. PO SCH ×2 (07:51→19:59)
[2017-06-17] MEDS: DIVALPROEX 125 MG CAP.SPRINK PO SCH ×3 (07:51→17:07)
[2017-06-17] MEDS: ASPIRIN 325 MG TABLET PO SCH (07:51)
[2017-06-17] MEDS: VERAPAMIL SR 120 MG TABLET.ER. PO SCH (07:52)
[2017-06-17] MEDS: SERTRALINE 50 MG TABLET. PO SCH (07:52)
[2017-06-17] MEDS: PANTOPRAZOLE 40 MG TABLET. PO SCH (07:52)
[2017-06-17] MEDS: POTASSIUM CHLORIDE 10 MEQ TABLET.ER. PO SCH (07:55)
[2017-06-17] MEDS: BUDESONIDE 0.5 MG/2 ML NEBU NEB SCH ×2 (10:13→21:06)
[2017-06-17] MEDS: ALBUTEROL SULFATE 2.5 MG/3 ML NEBU. NEB SCH ×3 (10:14→21:05)
--- NOTE | 2017-06-17 14:36 | PN ---
DATE: 06/15/2017 This late entry, 06/15/2017, covers elements not covered in my initial note of 06/15/2017. SUBJECTIVE: I met with the patient the evening of 06/15/2017. The patient slept 7 hours previous evening, slept until 10:30 a.m. More agitated, anxious, talking about his , calmer during the day, then gets agitated in the evening. Continues to have mood lability and some paranoia. I met with him at length in his room. He is able to look out into surroundings, look out for the [facility], somewhat interactive. REVIEW OF SYSTEMS: No CV, , pulmonary, eye, ENT system symptoms on review. Reliability poor. MENTAL STATUS EXAM: Oriented to himself. Insight, judgment, recent and remote memory, attention, concentration, fund of knowledge poor, consistent with his diagnosis mentioned in my initial note. PLAN: Continue current psychotropics. Increase Seroquel from 12.5 mg b.i.d. to 25 mg b.i.d. Rest unchanged. MAN Lacho GARNETT MD DR: LEROY/juliane JOB#: [id number] / [id number]
[2017-06-17 16:18] VITALS: BP 100/64
--- NOTE | 2017-06-17 19:32 | PN ---
DATE: 06/16/2017 This late entry 06/16/2017 covers elements not covered in my initial note 06/16/2017. Met with the patient in the afternoon of 06/16/2017. Since this visit and prior to the dictation today, middle of last night, the patient became extremely agitated, aggressive, around midnight, security had to be called, a code brand was called. He was agitated, disruptive, aggressive. Received Zyprexa and then was better. Nursing staff report that he walks with the purpose, was making statements under his breath that he was going to "kill him." Nothing specific noted, then he was making rather profane statements "where is the M___ Fuck___" Very paranoid, psychotic per nursing observation. REVIEW OF SYSTEMS: No CV, , pulmonary, eye, ENT system symptoms on review. Reliability poor. MENTAL STATUS EXAM: Oriented to himself. Insight, judgment, recent and remote memory, attention, concentration, fund of knowledge poor, consistent with his diagnosis. IMPRESSION: Major neurocognitive disorder, Alzheimer, vascular with depression, delusion, behavioral disturbance. Rest unchanged. PLAN: Continue current psychotropics, Aricept, Namenda. Seroquel was increased along with Zoloft, Depakote, trazodone. Valproic acid level and labs to be repeated. Depakote adjusted thereafter to reach therapeutic. MAN Lacho GARNETT MD DR: LEROY/juliane JOB#: [id number] / [id number]
[2017-06-17] MEDS: ATORVASTATIN CALCIUM 20 MG TABLET PO SCH (19:58)
[2017-06-17] MEDS: traZODone 50 MG TABLET. PO SCH (19:59)
[2017-06-17] MEDS: QUEtiapine 50 MG TABLET. PO SCH (19:59)
--- NOTE | 2017-06-17 21:07 | PDOC ---
Exam Note: Hernandez Note: Please also refer to the separate dictated note~for this date of service dictated separately.~Patient seen individually. Discussed the patient with Nursing staff reviewed the chart.~Reviewed interim history and current functioning. Reviewed vital signs,~Labs/ Radiology~and current medications noted below. Continue current treatment with the changes noted in the dictated addendum note Assessment: Vital Signs: Vital Signs Date Time Temp Pulse Resp B/P (MAP) Pulse Ox O2 Delivery O2 Flow Rate FiO2 06/17/17 16:18 98.1 75 19 100/64 (76) 93 06/17/17 10:17 Room Air I&O Intake and Output 06/17/17 07:00 Intake Total 1120 ml Balance 1120 ml Intake Oral 1120 ml Labs: Laboratory Tests Test 06/17/17 06:37 06/17/17 08:01 White Blood Count 7.4 x10^3/uL (4.0-11.0) Red Blood Count 4.70 x10^6/uL (4.30-5.70) Hemoglobin 13.4 g/dL (13.0-17.5) Hematocrit 40.6 % (39.0-53.0) Mean Corpuscular Volume 86 fL (79-100) Mean Corpuscular Hemoglobin 29 pg (25-35) Mean Corpuscular Hemoglobin Concent 33 g/dL (31-37) Red Cell Distribution Width 14.6 % (11.5-14.5) H Platelet Count 171 x10^3/uL (140-400) Neutrophils (%) (Auto) 54 % (31-73) Lymphocytes (%) (Auto) 29 % (24-48) Monocytes (%) (Auto) 10 % (0-9) H Eosinophils (%) (Auto) 7 % (0-3) H Basophils (%) (Auto) 1 % (0-3) Neutrophils # (Auto) 4.0 x10^3uL (1.8-7.7) Lymphocytes # (Auto) 2.1 x10^3/uL (1.0-4.8) Monocytes # (Auto) 0.7 x10^3/uL (0.0-1.1) Eosinophils # (Auto) 0.5 x10^3/uL (0.0-0.7) Basophils # (Auto) 0.1 x10^3/uL (0.0-0.2) Sodium Level 141 mmol/L (136-145) Potassium Level 5.5 mmol/L (3.5-5.1) H Chloride Level 106 mmol/L (98-107) Carbon Dioxide Level 31 mmol/L (21-32) Anion Gap 4 (6-14) L Blood Urea Nitrogen 22 mg/dL (8-26) Creatinine 1.3 mg/dL (0.7-1.3) Estimated GFR (Cockcroft-Gault) 55.2 BUN/Creatinine Ratio 17 (6-20) Glucose Level 206 mg/dL (70-99) H Calcium Level 8.9 mg/dL (8.5-10.1) Total Bilirubin 0.3 mg/dL (0.2-1.0) Aspartate Amino Transferase (AST) 12 U/L (15-37) L Alanine Aminotransferase (ALT) 25 U/L (16-63) Alkaline Phosphatase 87 U/L (46-116) Total Protein 6.6 g/dL (6.4-8.2) Albumin 3.0 g/dL (3.4-5.0) L Albumin/Globulin Ratio 0.8 (1.0-1.7) L Valproic Acid Level 44 mcg/mL (50-100) L Valproic Acid Last Dose Date 06/16/17 Valproic Acid Last Dose Time 1700 Glucose (Fingerstick) 191 mg/dL (70-99) H Current Medications: Meds: Current Medications Acetaminophen (Tylenol) 650 mg PRN Q6HRS PRN PO PAIN / TEMP Last administered on 06/16/17at 22:14; Start 06/04/17 at 15:00 Multi-Ingredient Ointment (Analgesic [place]) 1 any PRN QID PRN TP MUSCLE PAIN; Start 06/04/17 at 15:00 Al Hydroxide/Mg Hydroxide (Mylanta Plus Xs) 15 ml PRN AFTMEALHC PRN PO DYSPEPSIA Last administered on 06/14/17at 10:05; Start 06/04/17 at 15:00 Magnesium Hydroxide (Milk Of Magnesia) 2,400 mg PRN QHS PRN PO CONSTIPATION Last administered on 06/11/17at 20:27; Start 06/04/17 at 15:00 Nicotine (Nicoderm Cq 21mg) 1 patch DAILY TD ; Start 06/05/17 at 09:00; Stop at 09:00; Status DC Olanzapine (ZyPREXA ZYDIS) 2.5 mg PRN Q2HR PRN PO ANXIETY / AGITATION Last administered on 06/16/17at 23:24; Start 06/04/17 at 15:30; Stop 06/17/17 at 18:20 ; Status DC Influenza Virus Vaccine Quadrival (Fluarix Quad [id number] Syringe) 0.5 ml ONCE ONCE VAX IM Last administered on 06/05/17at 11:21; Start 06/04/17 at 15:30; Stop 06/04/17 at 15:36; Status DC Amlodipine Besylate (Norvasc) 5 mg DAILY PO Last administered on 06/17/17at 07: 51; Start 06/05/17 at 09:00 Aspirin (Sivakumar Aspirin) 325 mg DAILY PO Last administered on 06/17/17at 07:51; Start 06/05/17 at 09:00 Nicotine (Nicoderm Cq 21mg) 1 patch PRN DAILY PRN TD NICOTINE W/D SYMPTOMS; Start 06/05/17 at 01:00; Stop 06/10/17 at 19:12; Status DC Tamsulosin HCl (Flomax) 0.4 mg DAILY PO Last administered on 06/17/17at 07:51; Start 06/05/17 at 09:00 Non-Formulary Medication 2.5 mg PRN Q12HR PRN NEB WHEEZING; Start 06/05/17 at 01:00; Status UNV Atorvastatin Calcium (Lipitor) 80 mg QHS PO Last administered on 06/17/17at 19: 58; Start 06/05/17 at 21:00 Non-Formulary Medication 1 puff BID IH ; Start 06/05/17 at 09:00; Status UNV Non-Formulary Medication 1 each DAILY PO ; Start 06/05/17 at 09:00; Stop at 09:00; Status DC Pantoprazole Sodium (Protonix) 40 mg DAILYAC PO Last administered on 06/17/17at 07:52; Start 06/05/17 at 07:30 Oxybutynin Chloride (Ditropan) 5 mg DAILY PO Last administered on 06/17/17at 07: 50; Start 06/05/17 at 09:00 Paroxetine HCl (Paxil) 40 mg DAILY PO Last administered on 06/05/17at 08:51; Start 06/05/17 at 09:00; Stop 06/05/17 at 18:43; Status DC Potassium Chloride (Klor-Con) 30 meq DAILY PO Last administered on 06/16/17at 09 :10; Start 06/05/17 at 09:00; Stop 06/17/17 at 10:10; Status DC Lisinopril (Prinivil) 20 mg DAILY PO Last administered on 06/17/17at 07:50; Start 06/05/17 at 09:00 Linagliptin (Tradjenta) 5 mg DAILY PO Last administered on 06/17/17 07:49; Start 06/05/17 at 09:00 Verapamil HCl (Calan Sr) 120 mg DAILY PO Last administered on 06/17/17at 07:52; Start 06/05/17 at 09:00 Dextrose 12.5 gm PRN Q15MIN PRN IV hypoglycemia; Start 06/05/17 at 01:00 Glucose (Insta-Glucose) 15 gm PRN Q15MIN PRN PO LOW BLOOD SUGAR; Start at 01:00 Albuterol Sulfate (Ventolin) 2.5 mg PRN Q12HR PRN NEB WHEEZING; Start 06/05/17 at 01:45 Budesonide (Pulmicort) 0.5 mg RTBID NEB Last administered on 06/17/17at 21:06; Start 06/05/17 at 08:00 Albuterol Sulfate (Ventolin) 2.5 mg RTQID NEB Last administered on 06/17/17at 21 :05; Start 06/05/17 at 08:00 Memantine (Namenda) 5 mg BID PO Last administered on 06/14/17at 07:45; Start at 09:00; Stop 06/14/17 at 11:28; Status DC Donepezil HCl (Aricept) 5 mg BID PO Last administered on 06/14/17at 07:45; Start 06/05/17 at 09:00; Stop 06/14/17 at 11:28; Status DC Vitamin D (Vitamin D3) 50,000 unit WEEKLY PO Last administered on 06/12/17at 12: 14; Start 06/05/17 at 20:00 Cyanocobalamin (Vitamin B-12) 1,000 mcg WEEKLY IM Last administered on 07:40; Start 06/06/17 at 09:00 Quetiapine Fumarate (SEROquel) 25 mg QHS PO Last administered on 06/05/17at 20: 03; Start 06/05/17 at 21:00; Stop 06/06/17 at 18:42; Status DC Sertraline HCl (Zoloft) 50 mg DAILY PO Last administered on 06/17/17 07:52; Start 06/06/17 at 09:00 Quetiapine Fumarate (SEROquel) 50 mg QHS PO Last administered on 06/12/17 20:09 ; Start 06/06/17 at 21:00; Stop 06/13/17 at 18:45; Status DC Trazodone HCl (Desyrel) 50 mg QHS PO Last administered on 06/17/17 19:59; Start 06/08/17 at 21:00 Trazodone HCl (Desyrel) 50 mg PRN QHS PRN PO INSOMNIA Last administered on 06/16 22:14; Start 06/08/17 at 18:45 Divalproex Sodium (Depakote Sprinkles) 125 mg TID@0900,1300,1700 PO Last administered on 06/11/17 16:48; Start 06/09/17 at 09:00; Stop 06/11/17 at 18:15; Status DC Nicotine (Nicoderm Cq 14mg) 1 patch DAILY TD Last administered on 06/17/17 07: 49; Start 06/11/17 at 09:00 Nicotine (Nicoderm Cq 14mg) 1 patch ONCE ONCE TD Last administered on 19:57; Start 06/10/17 at 19:15; Stop 06/10/17 at 19:26; Status DC Divalproex Sodium (Depakote Sprinkles) 250 mg TID@0900,1300,1700 PO Last administered on 06/14/17 07:44; Start 06/12/17 at 09:00; Stop 06/14/17 at 11:28; Status DC Quetiapine Fumarate (SEROquel) 75 mg QHS PO Last administered on 3/11/18at 19: 59; Start 06/13/17 at 21:00 Divalproex Sodium (Depakote Sprinkles) 375 mg TID@0900,1300,1700 PO Last administered on 06/17/17at 17:07; Start 06/14/17 at 13:00; Stop 06/17/17 at 18:20 ; Status DC Donepezil HCl (Aricept) 10 mg BID PO Last administered on 06/17/17at 19:58; Start 06/14/17 at 21:00 Memantine (Namenda) 10 mg BID PO Last administered on 06/17/17at 19:59; Start at 21:00 Quetiapine Fumarate (SEROquel) 12.5 mg BID@0900,1300 PO Last administered on 06/15/17at 12:30; Start 06/14/17 at 13:00; Stop 06/15/17 at 18:55; Status DC Quetiapine Fumarate (SEROquel) 25 mg BID@0900,1300 PO Last administered on 06/17at 13:56; Start 06/16/17 at 09:00 Divalproex Sodium (Depakote Sprinkles) 500 mg TID@0900,1300,1700 PO ; Start 03/26 at 09:00 Olanzapine (ZyPREXA ZYDIS) 5 mg PRN Q2HR PRN PO ANXIETY / AGITATION Last administered on 06/17/17at 20:14; Start 06/17/17 at 18:30 Hydroxyzine Pamoate (Vistaril) 25 mg PRN Q2HR PRN PO AGITATION/AGGRESSION; Start 06/17/17 at 19:15 Active Scripts Active Reported Albuterol Sulfate Conc Neb Soln (Albuterol Sulfate) 2.5 Mg/0.5 Ml Vial.neb 2.5 Mg NEB PRN Q12HR PRN Namzaric 14 mg-10 mg Capsule (Memantine HCl/Donepezil HCl) 1 Each Cap.spr.24 1 Each PO DAILY [manzaric] Atorvastatin Calcium 80 Mg Tablet 80 Mg PO QHS NICODERM CQ 21mg (Nicotine) 1 Each Patch.td24 1 Patch TD PRN DAILY Omeprazole 20 Mg Tablet.dr 20 Mg PO DAILY Verapamil Er (Verapamil Hcl) 240 Mg Cap24h.pel 120 Mg PO DAILY Tamsulosin Hcl 0.4 Mg Cap.er.24h 0.4 Mg PO DAILY Onglyza (Saxagliptin Hcl) 5 Mg Tablet 2.5 Mg PO DAILY Ramipril 10 Mg Capsule 10 Mg PO DAILY Potassium Chloride 10 Meq Tablet.er 30 Meq PO DAILY Paroxetine Hcl 40 Mg Tablet 40 Mg PO DAILY Oxybutynin Chloride Er (Oxybutynin Chloride) 5 Mg Tab.er.24 5 Mg PO DAILY Advair 250-50 Diskus (Fluticasone/Salmeterol) 1 Each Disk.w.dev 1 Puff IH BID Aspirin 325 Mg Tablet 325 Mg PO Amlodipine Besylate 5 Mg Tablet 5 Mg PO DAILY I have reviewed the current psychotropics carefully including drug interactions. Risk benefit ratio favors no change other than as noted in my dictated progress note. Diagnosis: Problems: (1) Major neurocognitive disorder, due to vascular disease, with behavioral disturbance, mild (2) Impulse control disorder (3) Depression (4) Delusion (5) Anxiety disorder (6) Behavior problem BRAYAN GARNETT MD Jun 17, 2017 21:07
[2017-06-18] MEDS: ALBUTEROL SULFATE 2.5 MG/3 ML NEBU. NEB SCH ×4 (05:57→20:31)
[2017-06-18 08:52] VITALS: BP 96/67
[2017-06-18] MEDS: ASPIRIN 325 MG TABLET PO SCH (08:53)
[2017-06-18] MEDS: MEMANTINE 10 MG TABLET. PO SCH ×2 (08:53→19:53)
[2017-06-18] MEDS: PANTOPRAZOLE 40 MG TABLET. PO SCH (08:53)
[2017-06-18] MEDS: OXYBUTYNIN CHLORIDE 5 MG TABLET PO SCH (08:53)
[2017-06-18] MEDS: TAMSULOSIN 0.4 MG CAP.ER.24H. PO SCH (08:53)
[2017-06-18] MEDS: QUEtiapine 25 MG TABLET. PO SCH ×2 (08:53→13:34)
[2017-06-18] MEDS: LINAGLIPTIN 5 MG TABLET PO SCH (08:53)
[2017-06-18] MEDS: SERTRALINE 50 MG TABLET. PO SCH (08:53)
[2017-06-18] MEDS: DONEPEZIL HCL 10 MG TABLET PO SCH ×2 (08:53→19:53)
[2017-06-18] MEDS: NICOTINE 14MG PATCH. TD SCH (08:54)
[2017-06-18] MEDS: amLODIPine BESYLATE 5 MG TABLET PO SCH (08:55)
[2017-06-18] MEDS: LISINOPRIL 20 MG TABLET PO SCH (08:55)
[2017-06-18] MEDS: VERAPAMIL SR 120 MG TABLET.ER. PO SCH (08:55)
[2017-06-18] MEDS: DIVALPROEX 125 MG CAP.SPRINK PO SCH ×3 (08:55→17:22)
[2017-06-18] MEDS: BUDESONIDE 0.5 MG/2 ML NEBU NEB SCH ×2 (11:35→20:31)
[2017-06-18 16:07] VITALS: BP 106/66
[2017-06-18] MEDS: QUEtiapine 50 MG TABLET. PO SCH (19:53)
[2017-06-18] MEDS: ATORVASTATIN CALCIUM 20 MG TABLET PO SCH (19:54)
[2017-06-18] MEDS: traZODone 50 MG TABLET. PO SCH (19:54)
[2017-06-18] MEDS: hydrOXYzine PAMOATE 25 MG CAPSULE PO PRN (19:55)
--- NOTE | 2017-06-18 20:31 | PDOC ---
Exam Note: Hernandez Note: Please also refer to the separate dictated note~for this date of service dictated separately.~Patient seen individually. Discussed the patient with Nursing staff reviewed the chart.~Reviewed interim history and current functioning. Reviewed vital signs,~Labs/ Radiology~and current medications noted below. Continue current treatment with the changes noted in the dictated addendum note Assessment: Vital Signs: Vital Signs Date Time Temp Pulse Resp B/P (MAP) Pulse Ox O2 Delivery O2 Flow Rate FiO2 06/18/17 16:26 95 Room Air 06/18/17 16:07 97.3 71 20 106/66 (79) I&O Intake and Output 06/18/17 07:00 Intake Total 960 ml Balance 960 ml Intake Oral 960 ml Labs: Laboratory Tests Test 06/18/17 07:34 Glucose (Fingerstick) 104 mg/dL (70-99) H Current Medications: Meds: Current Medications Acetaminophen (Tylenol) 650 mg PRN Q6HRS PRN PO PAIN / TEMP Last administered on 06/16/17at 22:14; Start 06/04/17 at 15:00 Multi-Ingredient Ointment (Analgesic [place]) 1 any PRN QID PRN TP MUSCLE PAIN; Start 06/04/17 at 15:00 Al Hydroxide/Mg Hydroxide (Mylanta Plus Xs) 15 ml PRN AFTMEALHC PRN PO DYSPEPSIA Last administered on 06/14/17at 10:05; Start 06/04/17 at 15:00 Magnesium Hydroxide (Milk Of Magnesia) 2,400 mg PRN QHS PRN PO CONSTIPATION Last administered on 06/11/17at 20:27; Start 06/04/17 at 15:00 Nicotine (Nicoderm Cq 21mg) 1 patch DAILY TD ; Start 06/05/17 at 09:00; Stop at 09:00; Status DC Olanzapine (ZyPREXA ZYDIS) 2.5 mg PRN Q2HR PRN PO ANXIETY / AGITATION Last administered on 06/16/17at 23:24; Start 06/04/17 at 15:30; Stop 06/17/17 at 18:20 ; Status DC Influenza Virus Vaccine Quadrival (Fluarix Quad 2983-2976 Syringe) 0.5 ml ONCE ONCE VAX IM Last administered on 06/05/17at 11:21; Start 06/04/17 at 15:30; Stop 06/04/17 at 15:36; Status DC Amlodipine Besylate (Norvasc) 5 mg DAILY PO Last administered on 06/17/17at 07: 51; Start 06/05/17 at 09:00 Aspirin (Sivakumar Aspirin) 325 mg DAILY PO Last administered on 06/18/17at 08:53; Start 06/05/17 at 09:00 Nicotine (Nicoderm Cq 21mg) 1 patch PRN DAILY PRN TD NICOTINE W/D SYMPTOMS; Start 06/05/17 at 01:00; Stop 06/10/17 at 19:12; Status DC Tamsulosin HCl (Flomax) 0.4 mg DAILY PO Last administered on 06/18/17 08:53; Start 06/05/17 at 09:00 Non-Formulary Medication 2.5 mg PRN Q12HR PRN NEB WHEEZING; Start 06/05/17 at 01:00; Status UNV Atorvastatin Calcium (Lipitor) 80 mg QHS PO Last administered on 06/18/17at 19: 54; Start 06/05/17 at 21:00 Non-Formulary Medication 1 puff BID IH ; Start 06/05/17 at 09:00; Status UNV Non-Formulary Medication 1 each DAILY PO ; Start 06/05/17 at 09:00; Stop at 09:00; Status DC Pantoprazole Sodium (Protonix) 40 mg DAILYAC PO Last administered on 06/18/17at 08:53; Start 06/05/17 at 07:30 Oxybutynin Chloride (Ditropan) 5 mg DAILY PO Last administered on 06/18/17at 08: 53; Start 06/05/17 at 09:00 Paroxetine HCl (Paxil) 40 mg DAILY PO Last administered on 06/05/17at 08:51; Start 06/05/17 at 09:00; Stop 06/05/17 at 18:43; Status DC Potassium Chloride (Klor-Con) 30 meq DAILY PO Last administered on 06/16/17at 09 :10; Start 06/05/17 at 09:00; Stop 06/17/17 at 10:10; Status DC Lisinopril (Prinivil) 20 mg DAILY PO Last administered on 06/17/17at 07:50; Start 06/05/17 at 09:00 Linagliptin (Tradjenta) 5 mg DAILY PO Last administered on 06/18/17 08:53; Start 06/05/17 at 09:00 Verapamil HCl (Calan Sr) 120 mg DAILY PO Last administered on 06/17/17at 07:52; Start 06/05/17 at 09:00 Dextrose 12.5 gm PRN Q15MIN PRN IV hypoglycemia; Start 06/05/17 at 01:00 Glucose (Insta-Glucose) 15 gm PRN Q15MIN PRN PO LOW BLOOD SUGAR; Start at 01:00 Albuterol Sulfate (Ventolin) 2.5 mg PRN Q12HR PRN NEB WHEEZING; Start 06/05/17 at 01:45 Budesonide (Pulmicort) 0.5 mg RTBID NEB Last administered on 06/18/17at 11:35; Start 06/05/17 at 08:00 Albuterol Sulfate (Ventolin) 2.5 mg RTQID NEB Last administered on 06/18/17 16 :26; Start 06/05/17 at 08:00 Memantine (Namenda) 5 mg BID PO Last administered on 06/14/17 07:45; Start at 09:00; Stop 06/14/17 at 11:28; Status DC Donepezil HCl (Aricept) 5 mg BID PO Last administered on 06/14/17 07:45; Start 06/05/17 at 09:00; Stop 06/14/17 at 11:28; Status DC Vitamin D (Vitamin D3) 50,000 unit WEEKLY PO Last administered on 06/12/17at 12: 14; Start 06/05/17 at 20:00 Cyanocobalamin (Vitamin B-12) 1,000 mcg WEEKLY IM Last administered on at 07:40; Start 06/06/17 at 09:00 Quetiapine Fumarate (SEROquel) 25 mg QHS PO Last administered on 06/05/17at 20: 03; Start 06/05/17 at 21:00; Stop 06/06/17 at 18:42; Status DC Sertraline HCl (Zoloft) 50 mg DAILY PO Last administered on 06/18/17 08:53; Start 06/06/17 at 09:00 Quetiapine Fumarate (SEROquel) 50 mg QHS PO Last administered on 06/12/17 20:09 ; Start 06/06/17 at 21:00; Stop 06/13/17 at 18:45; Status DC Trazodone HCl (Desyrel) 50 mg QHS PO Last administered on 06/18/17 19:54; Start 06/08/17 at 21:00 Trazodone HCl (Desyrel) 50 mg PRN QHS PRN PO INSOMNIA Last administered on 06/16 22:14; Start 06/08/17 at 18:45 Divalproex Sodium (Depakote Sprinkles) 125 mg TID@0900,1300,1700 PO Last administered on 06/11/17 16:48; Start 06/09/17 at 09:00; Stop 06/11/17 at 18:15; Status DC Nicotine (Nicoderm Cq 14mg) 1 patch DAILY TD Last administered on 06/18/17 08: 54; Start 06/11/17 at 09:00 Nicotine (Nicoderm Cq 14mg) 1 patch ONCE ONCE TD Last administered on 19:57; Start 06/10/17 at 19:15; Stop 06/10/17 at 19:26; Status DC Divalproex Sodium (Depakote Sprinkles) 250 mg TID@0900,1300,1700 PO Last administered on 06/14/17 07:44; Start 06/12/17 at 09:00; Stop 06/14/17 at 11:28; Status DC Quetiapine Fumarate (SEROquel) 75 mg QHS PO Last administered on 06/18/17 19: 53; Start 06/13/17 at 21:00 Divalproex Sodium (Depakote Sprinkles) 375 mg TID@0900,1300,1700 PO Last administered on 06/17/17 17:07; Start 06/14/17 at 13:00; Stop 06/17/17 at 18:20 ; Status DC Donepezil HCl (Aricept) 10 mg BID PO Last administered on 06/18/17 19:53; Start 06/14/17 at 21:00 Memantine (Namenda) 10 mg BID PO Last administered on 3/12/18at 19:53; Start at 21:00 Quetiapine Fumarate (SEROquel) 12.5 mg BID@0900,1300 PO Last administered on 06/15/17at 12:30; Start 06/14/17 at 13:00; Stop 06/15/17 at 18:55; Status DC Quetiapine Fumarate (SEROquel) 25 mg BID@0900,1300 PO Last administered on 06/18at 13:34; Start 06/16/17 at 09:00 Divalproex Sodium (Depakote Sprinkles) 500 mg TID@0900,1300,1700 PO Last administered on 06/18/17 17:22; Start 06/18/17 at 09:00 Olanzapine (ZyPREXA ZYDIS) 5 mg PRN Q2HR PRN PO ANXIETY / AGITATION Last administered on 06/18/17at 16:58; Start 06/17/17 at 18:30 Hydroxyzine Pamoate (Vistaril) 25 mg PRN Q2HR PRN PO AGITATION/AGGRESSION Last administered on 06/18/17at 19:55; Start 06/17/17 at 19:15 Active Scripts Active Reported Albuterol Sulfate Conc Neb Soln (Albuterol Sulfate) 2.5 Mg/0.5 Ml Vial.neb 2.5 Mg NEB PRN Q12HR PRN Namzaric 14 mg-10 mg Capsule (Memantine HCl/Donepezil HCl) 1 Each Cap.spr.24 1 Each PO DAILY [manzaric] Atorvastatin Calcium 80 Mg Tablet 80 Mg PO QHS NICODERM CQ 21mg (Nicotine) 1 Each Patch.td24 1 Patch TD PRN DAILY Omeprazole 20 Mg Tablet.dr 20 Mg PO DAILY Verapamil Er (Verapamil Hcl) 240 Mg Cap24h.pel 120 Mg PO DAILY Tamsulosin Hcl 0.4 Mg Cap.er.24h 0.4 Mg PO DAILY Onglyza (Saxagliptin Hcl) 5 Mg Tablet 2.5 Mg PO DAILY Ramipril 10 Mg Capsule 10 Mg PO DAILY Potassium Chloride 10 Meq Tablet.er 30 Meq PO DAILY Paroxetine Hcl 40 Mg Tablet 40 Mg PO DAILY Oxybutynin Chloride Er (Oxybutynin Chloride) 5 Mg Tab.er.24 5 Mg PO DAILY Advair 250-50 Diskus (Fluticasone/Salmeterol) 1 Each Disk.w.dev 1 Puff IH BID Aspirin 325 Mg Tablet 325 Mg PO Amlodipine Besylate 5 Mg Tablet 5 Mg PO DAILY I have reviewed the current psychotropics carefully including drug interactions. Risk benefit ratio favors no change other than as noted in my dictated progress note. Diagnosis: Problems: (1) Major neurocognitive disorder, due to vascular disease, with behavioral disturbance, mild (2) Impulse control disorder (3) Depression (4) Delusion (5) Anxiety disorder (6) Behavior problem BRAYAN GARNETT MD Jun 18, 2017 20:31
--- NOTE | 2017-06-18 21:52 | PN ---
DATE: 06/17/2017 PSYCHIATRIC PROGRESS NOTE This is a late entry for 06/17/2017, covers elements not covered in my initial note of 06/17/2017. SUBJECTIVE: I met with the patient the evening of 06/17/2017. Around 11:30 previous evening, [employer] was called since the patient was agitated, aggressive, quite volatile. Security had to be initiated. He is little better during the day. REVIEW OF SYSTEMS: No CV, , pulmonary, eye, ENT system symptoms on review. Reliability poor. MENTAL STATUS EXAM: Oriented to himself. Insight, judgment, recent and remote memory, attention, concentration, fund of knowledge poor, consistent with his diagnosis mentioned in my initial note. PLAN: Increase Zyprexa to 5 mg every 2 hours p.r.n. psychosis, agitation, max 20 mg in 24 hours. Start Atarax p.r.n. Valproic acid level subtherapeutic at 44. Increase Depakote to 500 mg 3 times a day. Check CBC, CMP, valproic acid level in 3 days. MAN Lacho GARNETT MD DR: LEROY/juliane JOB#: [id number] / [id number]
[2017-06-18] MEDS: traZODone 50 MG TABLET. PO PRN (22:14)
[2017-06-19] MEDS: ALBUTEROL SULFATE 2.5 MG/3 ML NEBU. NEB SCH ×4 (05:36→21:46)
[2017-06-19 06:01] VITALS: BP 107/67
[2017-06-19] MEDS: OXYBUTYNIN CHLORIDE 5 MG TABLET PO SCH (08:29)
[2017-06-19] MEDS: DONEPEZIL HCL 10 MG TABLET PO SCH ×2 (08:29→19:52)
[2017-06-19] MEDS: ASPIRIN 325 MG TABLET PO SCH (08:29)
[2017-06-19] MEDS: NICOTINE 14MG PATCH. TD SCH (08:29)
[2017-06-19] MEDS: LINAGLIPTIN 5 MG TABLET PO SCH (08:29)
[2017-06-19] MEDS: DIVALPROEX 125 MG CAP.SPRINK PO SCH ×3 (08:30→17:12)
[2017-06-19] MEDS: PANTOPRAZOLE 40 MG TABLET. PO SCH (08:30)
[2017-06-19] MEDS: MEMANTINE 10 MG TABLET. PO SCH ×2 (08:30→19:52)
[2017-06-19] MEDS: SERTRALINE 50 MG TABLET. PO SCH (08:30)
[2017-06-19] MEDS: QUEtiapine 25 MG TABLET. PO SCH ×2 (08:30→13:51)
[2017-06-19] MEDS: TAMSULOSIN 0.4 MG CAP.ER.24H. PO SCH (08:30)
[2017-06-19] MEDS: VERAPAMIL SR 120 MG TABLET.ER. PO SCH (08:34)
[2017-06-19] MEDS: amLODIPine BESYLATE 5 MG TABLET PO SCH (08:34)
[2017-06-19] MEDS: LISINOPRIL 20 MG TABLET PO SCH (08:35)
[2017-06-19] MEDS: CHOLECALCIFEROL (VITAMIN D3) 50,000 UNIT CAPSULE PO SCH (08:52)
[2017-06-19] MEDS: BUDESONIDE 0.5 MG/2 ML NEBU NEB SCH ×2 (09:55→21:46)
[2017-06-19 15:59] VITALS: BP 123/62
[2017-06-19] MEDS: traZODone 50 MG TABLET. PO SCH (19:52)
[2017-06-19] MEDS: ATORVASTATIN CALCIUM 20 MG TABLET PO SCH (19:52)
[2017-06-19] MEDS: QUEtiapine 50 MG TABLET. PO SCH (19:53)
--- NOTE | 2017-06-19 22:24 | PDOC ---
Exam Note: Hernandez Note: Please also refer to the separate dictated note~for this date of service dictated separately.~Patient seen individually. Discussed the patient with Nursing staff reviewed the chart.~Reviewed interim history and current functioning. Reviewed vital signs,~Labs/ Radiology~and current medications noted below. Continue current treatment with the changes noted in the dictated addendum note Assessment: Vital Signs: Vital Signs Date Time Temp Pulse Resp B/P (MAP) Pulse Ox O2 Delivery O2 Flow Rate FiO2 06/19/17 21:49 95 Room Air 06/19/17 15:59 97.3 80 18 123/62 (82) I&O Intake and Output 06/19/17 07:00 Intake Total 1560 ml Balance 1560 ml Intake Oral 1560 ml # Voids 2 # Bowel Movements 1 Current Medications: Meds: Current Medications Acetaminophen (Tylenol) 650 mg PRN Q6HRS PRN PO PAIN / TEMP Last administered on 06/16/17at 22:14; Start 06/04/17 at 15:00 Multi-Ingredient Ointment (Analgesic [place]) 1 any PRN QID PRN TP MUSCLE PAIN; Start 06/04/17 at 15:00 Al Hydroxide/Mg Hydroxide (Mylanta Plus Xs) 15 ml PRN AFTMEALHC PRN PO DYSPEPSIA Last administered on 06/14/17at 10:05; Start 06/04/17 at 15:00 Magnesium Hydroxide (Milk Of Magnesia) 2,400 mg PRN QHS PRN PO CONSTIPATION Last administered on 06/11/17at 20:27; Start 06/04/17 at 15:00 Nicotine (Nicoderm Cq 21mg) 1 patch DAILY TD ; Start 06/05/17 at 09:00; Stop at 09:00; Status DC Olanzapine (ZyPREXA ZYDIS) 2.5 mg PRN Q2HR PRN PO ANXIETY / AGITATION Last administered on 06/16/17at 23:24; Start 06/04/17 at 15:30; Stop 06/17/17 at 18:20 ; Status DC Influenza Virus Vaccine Quadrival (Fluarix Quad [id number] Syringe) 0.5 ml ONCE ONCE VAX IM Last administered on 06/05/17at 11:21; Start 06/04/17 at 15:30; Stop 06/04/17 at 15:36; Status DC Amlodipine Besylate (Norvasc) 5 mg DAILY PO Last administered on 06/19/17 08: 34; Start 06/05/17 at 09:00 Aspirin (Sivakumar Aspirin) 325 mg DAILY PO Last administered on 06/19/17at 08:29; Start 06/05/17 at 09:00 Nicotine (Nicoderm Cq 21mg) 1 patch PRN DAILY PRN TD NICOTINE W/D SYMPTOMS; Start 06/05/17 at 01:00; Stop 06/10/17 at 19:12; Status DC Tamsulosin HCl (Flomax) 0.4 mg DAILY PO Last administered on 06/19/17 08:30; Start 06/05/17 at 09:00 Non-Formulary Medication 2.5 mg PRN Q12HR PRN NEB WHEEZING; Start 06/05/17 at 01:00; Status UNV Atorvastatin Calcium (Lipitor) 80 mg QHS PO Last administered on 06/19/17at 19: 52; Start 06/05/17 at 21:00 Non-Formulary Medication 1 puff BID IH ; Start 06/05/17 at 09:00; Status UNV Non-Formulary Medication 1 each DAILY PO ; Start 06/05/17 at 09:00; Stop at 09:00; Status DC Pantoprazole Sodium (Protonix) 40 mg DAILYAC PO Last administered on 06/19/17 08:30; Start 06/05/17 at 07:30 Oxybutynin Chloride (Ditropan) 5 mg DAILY PO Last administered on 06/19/17at 08: 29; Start 06/05/17 at 09:00 Paroxetine HCl (Paxil) 40 mg DAILY PO Last administered on 06/05/17at 08:51; Start 06/05/17 at 09:00; Stop 06/05/17 at 18:43; Status DC Potassium Chloride (Klor-Con) 30 meq DAILY PO Last administered on 06/16/17at 09 :10; Start 06/05/17 at 09:00; Stop 06/17/17 at 10:10; Status DC Lisinopril (Prinivil) 20 mg DAILY PO Last administered on 06/19/17at 08:35; Start 06/05/17 at 09:00 Linagliptin (Tradjenta) 5 mg DAILY PO Last administered on 06/19/17 08:29; Start 06/05/17 at 09:00 Verapamil HCl (Calan Sr) 120 mg DAILY PO Last administered on 06/19/17 08:34; Start 06/05/17 at 09:00 Dextrose 12.5 gm PRN Q15MIN PRN IV hypoglycemia; Start 06/05/17 at 01:00 Glucose (Insta-Glucose) 15 gm PRN Q15MIN PRN PO LOW BLOOD SUGAR; Start at 01:00 Albuterol Sulfate (Ventolin) 2.5 mg PRN Q12HR PRN NEB WHEEZING; Start 06/05/17 at 01:45 Budesonide (Pulmicort) 0.5 mg RTBID NEB Last administered on 06/19/17 21:46; Start 06/05/17 at 08:00 Albuterol Sulfate (Ventolin) 2.5 mg RTQID NEB Last administered on 06/19/17 21 :46; Start 06/05/17 at 08:00 Memantine (Namenda) 5 mg BID PO Last administered on 06/14/17 07:45; Start at 09:00; Stop 06/14/17 at 11:28; Status DC Donepezil HCl (Aricept) 5 mg BID PO Last administered on 06/14/17 07:45; Start 06/05/17 at 09:00; Stop 06/14/17 at 11:28; Status DC Vitamin D (Vitamin D3) 50,000 unit WEEKLY PO Last administered on 06/19/17 08: 52; Start 06/05/17 at 20:00 Cyanocobalamin (Vitamin B-12) 1,000 mcg WEEKLY IM Last administered on 07:40; Start 06/06/17 at 09:00 Quetiapine Fumarate (SEROquel) 25 mg QHS PO Last administered on 06/05/17 20: 03; Start 06/05/17 at 21:00; Stop 06/06/17 at 18:42; Status DC Sertraline HCl (Zoloft) 50 mg DAILY PO Last administered on 06/19/17 08:30; Start 06/06/17 at 09:00 Quetiapine Fumarate (SEROquel) 50 mg QHS PO Last administered on 06/12/17 20:09 ; Start 06/06/17 at 21:00; Stop 06/13/17 at 18:45; Status DC Trazodone HCl (Desyrel) 50 mg QHS PO Last administered on 06/19/17 19:52; Start 06/08/17 at 21:00 Trazodone HCl (Desyrel) 50 mg PRN QHS PRN PO INSOMNIA Last administered on 06/18 22:14; Start 06/08/17 at 18:45 Divalproex Sodium (Depakote Sprinkles) 125 mg TID@0900,1300,1700 PO Last administered on 06/11/17 16:48; Start 06/09/17 at 09:00; Stop 06/11/17 at 18:15; Status DC Nicotine (Nicoderm Cq 14mg) 1 patch DAILY TD Last administered on 06/19/17 08: 29; Start 06/11/17 at 09:00 Nicotine (Nicoderm Cq 14mg) 1 patch ONCE ONCE TD Last administered on 19:57; Start 06/10/17 at 19:15; Stop 06/10/17 at 19:26; Status DC Divalproex Sodium (Depakote Sprinkles) 250 mg TID@0900,1300,1700 PO Last administered on 06/14/17 07:44; Start 06/12/17 at 09:00; Stop 06/14/17 at 11:28; Status DC Quetiapine Fumarate (SEROquel) 75 mg QHS PO Last administered on 06/19/17 19: 53; Start 06/13/17 at 21:00 Divalproex Sodium (Depakote Sprinkles) 375 mg TID@0900,1300,1700 PO Last administered on 06/17/17 17:07; Start 06/14/17 at 13:00; Stop 06/17/17 at 18:20 ; Status DC Donepezil HCl (Aricept) 10 mg BID PO Last administered on 06/19/17 19:52; Start 06/14/17 at 21:00 Memantine (Namenda) 10 mg BID PO Last administered on 06/19/17 19:52; Start at 21:00 Quetiapine Fumarate (SEROquel) 12.5 mg BID@0900,1300 PO Last administered on 06/15/17at 12:30; Start 06/14/17 at 13:00; Stop 06/15/17 at 18:55; Status DC Quetiapine Fumarate (SEROquel) 25 mg BID@0900,1300 PO Last administered on 06/19at 13:51; Start 06/16/17 at 09:00 Divalproex Sodium (Depakote Sprinkles) 500 mg TID@0900,1300,1700 PO Last administered on 06/19/17at 17:12; Start 06/18/17 at 09:00 Olanzapine (ZyPREXA ZYDIS) 5 mg PRN Q2HR PRN PO ANXIETY / AGITATION Last administered on 06/19/17at 17:44; Start 06/17/17 at 18:30 Hydroxyzine Pamoate (Vistaril) 25 mg PRN Q2HR PRN PO AGITATION/AGGRESSION Last administered on 06/18/17at 19:55; Start 06/17/17 at 19:15 Active Scripts Active Reported Albuterol Sulfate Conc Neb Soln (Albuterol Sulfate) 2.5 Mg/0.5 Ml Vial.neb 2.5 Mg NEB PRN Q12HR PRN Namzaric 14 mg-10 mg Capsule (Memantine HCl/Donepezil HCl) 1 Each Cap.spr.24 1 Each PO DAILY [manzaric] Atorvastatin Calcium 80 Mg Tablet 80 Mg PO QHS NICODERM CQ 21mg (Nicotine) 1 Each Patch.td24 1 Patch TD PRN DAILY Omeprazole 20 Mg Tablet.dr 20 Mg PO DAILY Verapamil Er (Verapamil Hcl) 240 Mg Cap24h.pel 120 Mg PO DAILY Tamsulosin Hcl 0.4 Mg Cap.er.24h 0.4 Mg PO DAILY Onglyza (Saxagliptin Hcl) 5 Mg Tablet 2.5 Mg PO DAILY Ramipril 10 Mg Capsule 10 Mg PO DAILY Potassium Chloride 10 Meq Tablet.er 30 Meq PO DAILY Paroxetine Hcl 40 Mg Tablet 40 Mg PO DAILY Oxybutynin Chloride Er (Oxybutynin Chloride) 5 Mg Tab.er.24 5 Mg PO DAILY Advair 250-50 Diskus (Fluticasone/Salmeterol) 1 Each Disk.w.dev 1 Puff IH BID Aspirin 325 Mg Tablet 325 Mg PO Amlodipine Besylate 5 Mg Tablet 5 Mg PO DAILY I have reviewed the current psychotropics carefully including drug interactions. Risk benefit ratio favors no change other than as noted in my dictated progress note. Diagnosis: Problems: (1) Major neurocognitive disorder, due to vascular disease, with behavioral disturbance, mild (2) Impulse control disorder (3) Depression (4) Delusion (5) Anxiety disorder (6) Behavior problem BRAYAN GARNETT MD Jun 19, 2017 22:24
--- NOTE | 2017-06-19 22:31 | PN ---
DATE: 06/18/2017 PSYCHIATRIC PROGRESS NOTE This is a late entry for 06/18/2017, covers elements not covered in my initial note of 06/18/2017. SUBJECTIVE: I met with the patient in the evening of 06/18/2017. The patient slept 8-1/2 hours previous evening. He had an episode at 5:00 p.m. when he was yelling at another patient, was rather loud, using profanities. When staff intervened, he charged physically at the staff, received Zyprexa, staff had to hold him and then he was calmer later. REVIEW OF SYSTEMS: No CV, , pulmonary, eye, ENT system symptoms on review. Reliability poor. MENTAL STATUS EXAM: Oriented to himself. Insight, judgment, recent and remote memory, attention, concentration, fund of knowledge poor, consistent with his diagnosis mentioned in my initial note. PLAN: Continue current psychotropics. Adjustments have been made with the Depakote. We will await the level on 06/20/2017 and change thereafter. BRAYAN GARNETT MD DR: LEROY/juliane JOB#: [id number] / [id number]
[2017-06-20] MEDS: ALBUTEROL SULFATE 2.5 MG/3 ML NEBU. NEB SCH ×4 (05:46→21:19)
[2017-06-20 06:06] VITALS: BP 104/68
[2017-06-20] MEDS: DONEPEZIL HCL 10 MG TABLET PO SCH ×2 (08:09→19:36)
[2017-06-20] MEDS: SERTRALINE 50 MG TABLET. PO SCH (08:09)
[2017-06-20] MEDS: MEMANTINE 10 MG TABLET. PO SCH ×2 (08:10→19:37)
[2017-06-20] MEDS: TAMSULOSIN 0.4 MG CAP.ER.24H. PO SCH (08:10)
[2017-06-20] MEDS: LINAGLIPTIN 5 MG TABLET PO SCH (08:10)
[2017-06-20] MEDS: QUEtiapine 25 MG TABLET. PO SCH ×2 (08:10→13:35)
[2017-06-20] MEDS: PANTOPRAZOLE 40 MG TABLET. PO SCH (08:10)
[2017-06-20] MEDS: ASPIRIN 325 MG TABLET PO SCH (08:10)
[2017-06-20] MEDS: amLODIPine BESYLATE 5 MG TABLET PO SCH (08:10)
[2017-06-20] MEDS: OXYBUTYNIN CHLORIDE 5 MG TABLET PO SCH (08:10)
[2017-06-20] MEDS: DIVALPROEX 125 MG CAP.SPRINK PO SCH ×3 (08:11→16:33)
[2017-06-20] MEDS: LISINOPRIL 20 MG TABLET PO SCH (08:11)
[2017-06-20] MEDS: NICOTINE 14MG PATCH. TD SCH (08:11)
[2017-06-20] MEDS: VERAPAMIL SR 120 MG TABLET.ER. PO SCH (08:12)
[2017-06-20] MEDS: CYANOCOBALAMIN (VITAMIN B-12) 1,000 MCG/ML VIAL IM SCH (08:14)
[2017-06-20] MEDS: BUDESONIDE 0.5 MG/2 ML NEBU NEB SCH ×2 (09:30→21:19)
[2017-06-20 09:37] LABS: BASO # 0.1 x10^3/uL (0.0-0.2); BASO % 1 % (0-3); EOS # 0.5 x10^3/uL (0.0-0.7); EOS % 6 % (0-3); HEMATOCRIT 45.5 % (39.0-53.0); HEMOGLOBIN 14.9 g/dL (13.0-17.5); LYMPH # 2.1 x10^3/uL (1.0-4.8); LYMPH % 26 % (24-48); MEAN CORPUSCULAR HEMOGLOBIN 28 pg (25-35); MEAN CORPUSCULAR HGB CONC 33 g/dL (31-37); MEAN CORPUSCULAR VOLUME 86 fL (79-100); MONO # 0.5 x10^3/uL (0.0-1.1); MONO % 7 % (0-9); NEUT # 4.7 x10^3uL (1.8-7.7); NEUT % 60 % (31-73); PLATELET COUNT 190 x10^3/uL (140-400); RED CELL DISTRIBUTION WIDTH 14.5 % (11.5-14.5); WHITE BLOOD COUNT 7.9 x10^3/uL (4.0-11.0)
[2017-06-20 09:49] LABS: ALBUMIN 3.3 g/dL (3.4-5.0); ALBUMIN/GLOBULIN RATIO 0.8 (1.0-1.7); ALK PHOS 76 U/L (46-116); ALT (SGPT) 40 U/L (16-63); ANION GAP 7 (6-14); AST (SGOT) 22 U/L (15-37); BLOOD UREA NITROGEN 30 mg/dL (8-26); BUN/CREATININE RATIO 19 (6-20); CALCIUM 8.5 mg/dL (8.5-10.1); CARBON DIOXIDE 30 mmol/L (21-32); CHLORIDE 104 mmol/L (98-107); CREATININE 1.6 mg/dL (0.7-1.3); GFR 43.5; GLUCOSE 155 mg/dL (70-99); POTASSIUM 4.6 mmol/L (3.5-5.1); SODIUM 141 mmol/L (136-145); TOTAL BILIRUBIN 0.3 mg/dL (0.2-1.0); TOTAL PROTEIN 7.4 g/dL (6.4-8.2)
[2017-06-20 09:53] LABS: VAL ACID 59 mcg/mL (50-100)
[2017-06-20 16:29] VITALS: BP 118/67
[2017-06-20] MEDS: hydrOXYzine PAMOATE 25 MG CAPSULE PO PRN (18:02)
[2017-06-20] MEDS: QUEtiapine 50 MG TABLET. PO SCH (19:35)
[2017-06-20] MEDS: traZODone 50 MG TABLET. PO SCH (19:36)
[2017-06-20] MEDS: ATORVASTATIN CALCIUM 20 MG TABLET PO SCH (19:37)
--- NOTE | 2017-06-20 20:47 | PDOC ---
Exam Note: Hernandez Note: Please also refer to the separate dictated note~for this date of service dictated separately.~Patient seen individually. Discussed the patient with Nursing staff reviewed the chart.~Reviewed interim history and current functioning. Reviewed vital signs,~Labs/ Radiology~and current medications noted below. Continue current treatment with the changes noted in the dictated addendum note Assessment: Vital Signs: Vital Signs Date Time Temp Pulse Resp B/P (MAP) Pulse Ox O2 Delivery O2 Flow Rate FiO2 06/20/17 16:29 97.3 73 19 118/67 (84) 96 06/20/17 15:33 Room Air I&O Intake and Output 06/20/17 07:00 Intake Total 1200 ml Balance 1200 ml Intake Oral 1200 ml # Voids 2 Labs: Laboratory Tests Test 06/20/17 07:11 06/20/17 09:24 Glucose (Fingerstick) 101 mg/dL (70-99) H White Blood Count 7.9 x10^3/uL (4.0-11.0) Red Blood Count 5.30 x10^6/uL (4.30-5.70) Hemoglobin 14.9 g/dL (13.0-17.5) Hematocrit 45.5 % (39.0-53.0) Mean Corpuscular Volume 86 fL (79-100) Mean Corpuscular Hemoglobin 28 pg (25-35) Mean Corpuscular Hemoglobin Concent 33 g/dL (31-37) Red Cell Distribution Width 14.5 % (11.5-14.5) Platelet Count 190 x10^3/uL (140-400) Neutrophils (%) (Auto) 60 % (31-73) Lymphocytes (%) (Auto) 26 % (24-48) Monocytes (%) (Auto) 7 % (0-9) Eosinophils (%) (Auto) 6 % (0-3) H Basophils (%) (Auto) 1 % (0-3) Neutrophils # (Auto) 4.7 x10^3uL (1.8-7.7) Lymphocytes # (Auto) 2.1 x10^3/uL (1.0-4.8) Monocytes # (Auto) 0.5 x10^3/uL (0.0-1.1) Eosinophils # (Auto) 0.5 x10^3/uL (0.0-0.7) Basophils # (Auto) 0.1 x10^3/uL (0.0-0.2) Sodium Level 141 mmol/L (136-145) Potassium Level 4.6 mmol/L (3.5-5.1) Chloride Level 104 mmol/L (98-107) Carbon Dioxide Level 30 mmol/L (21-32) Anion Gap 7 (6-14) Blood Urea Nitrogen 30 mg/dL (8-26) H Creatinine 1.6 mg/dL (0.7-1.3) H Estimated GFR (Cockcroft-Gault) 43.5 BUN/Creatinine Ratio 19 (6-20) Glucose Level 155 mg/dL (70-99) H Calcium Level 8.5 mg/dL (8.5-10.1) Total Bilirubin 0.3 mg/dL (0.2-1.0) Aspartate Amino Transferase (AST) 22 U/L (15-37) Alanine Aminotransferase (ALT) 40 U/L (16-63) Alkaline Phosphatase 76 U/L (46-116) Total Protein 7.4 g/dL (6.4-8.2) Albumin 3.3 g/dL (3.4-5.0) L Albumin/Globulin Ratio 0.8 (1.0-1.7) L Valproic Acid Level 59 mcg/mL (50-100) Valproic Acid Last Dose Date 06/19/17 Valproic Acid Last Dose Time 2100 Current Medications: Meds: Current Medications Acetaminophen (Tylenol) 650 mg PRN Q6HRS PRN PO PAIN / TEMP Last administered on 06/16/17at 22:14; Start 06/04/17 at 15:00 Multi-Ingredient Ointment (Analgesic [place]) 1 any PRN QID PRN TP MUSCLE PAIN; Start 06/04/17 at 15:00 Al Hydroxide/Mg Hydroxide (Mylanta Plus Xs) 15 ml PRN AFTMEALHC PRN PO DYSPEPSIA Last administered on 06/14/17at 10:05; Start 06/04/17 at 15:00 Magnesium Hydroxide (Milk Of Magnesia) 2,400 mg PRN QHS PRN PO CONSTIPATION Last administered on 06/11/17at 20:27; Start 06/04/17 at 15:00 Nicotine (Nicoderm Cq 21mg) 1 patch DAILY TD ; Start 06/05/17 at 09:00; Stop at 09:00; Status DC Olanzapine (ZyPREXA ZYDIS) 2.5 mg PRN Q2HR PRN PO ANXIETY / AGITATION Last administered on 06/16/17at 23:24; Start 06/04/17 at 15:30; Stop 06/17/17 at 18:20 ; Status DC Influenza Virus Vaccine Quadrival (Fluarix Quad 2841-1946 Syringe) 0.5 ml ONCE ONCE VAX IM Last administered on 06/05/17at 11:21; Start 06/04/17 at 15:30; Stop 06/04/17 at 15:36; Status DC Amlodipine Besylate (Norvasc) 5 mg DAILY PO Last administered on 06/20/17at 08: 10; Start 06/05/17 at 09:00 Aspirin (Sivakumar Aspirin) 325 mg DAILY PO Last administered on 06/20/17at 08:10; Start 06/05/17 at 09:00 Nicotine (Nicoderm Cq 21mg) 1 patch PRN DAILY PRN TD NICOTINE W/D SYMPTOMS; Start 06/05/17 at 01:00; Stop 06/10/17 at 19:12; Status DC Tamsulosin HCl (Flomax) 0.4 mg DAILY PO Last administered on 06/20/17at 08:10; Start 06/05/17 at 09:00 Non-Formulary Medication 2.5 mg PRN Q12HR PRN NEB WHEEZING; Start 06/05/17 at 01:00; Status UNV Atorvastatin Calcium (Lipitor) 80 mg QHS PO Last administered on 06/20/17at 19: 37; Start 06/05/17 at 21:00 Non-Formulary Medication 1 puff BID IH ; Start 06/05/17 at 09:00; Status UNV Non-Formulary Medication 1 each DAILY PO ; Start 06/05/17 at 09:00; Stop at 09:00; Status DC Pantoprazole Sodium (Protonix) 40 mg DAILYAC PO Last administered on 06/20/17at 08:10; Start 06/05/17 at 07:30 Oxybutynin Chloride (Ditropan) 5 mg DAILY PO Last administered on 06/20/17at 08: 10; Start 06/05/17 at 09:00 Paroxetine HCl (Paxil) 40 mg DAILY PO Last administered on 06/05/17 08:51; Start 06/05/17 at 09:00; Stop 06/05/17 at 18:43; Status DC Potassium Chloride (Klor-Con) 30 meq DAILY PO Last administered on 06/16/17 09 :10; Start 06/05/17 at 09:00; Stop 06/17/17 at 10:10; Status DC Lisinopril (Prinivil) 20 mg DAILY PO Last administered on 06/19/17 08:35; Start 06/05/17 at 09:00 Linagliptin (Tradjenta) 5 mg DAILY PO Last administered on 06/20/17 08:10; Start 06/05/17 at 09:00 Verapamil HCl (Calan Sr) 120 mg DAILY PO Last administered on 06/19/17 08:34; Start 06/05/17 at 09:00 Dextrose 12.5 gm PRN Q15MIN PRN IV hypoglycemia; Start 06/05/17 at 01:00 Glucose (Insta-Glucose) 15 gm PRN Q15MIN PRN PO LOW BLOOD SUGAR; Start at 01:00 Albuterol Sulfate (Ventolin) 2.5 mg PRN Q12HR PRN NEB WHEEZING; Start 06/05/17 at 01:45 Budesonide (Pulmicort) 0.5 mg RTBID NEB Last administered on 06/20/17at 09:30; Start 06/05/17 at 08:00 Albuterol Sulfate (Ventolin) 2.5 mg RTQID NEB Last administered on 06/20/17at 15 :32; Start 06/05/17 at 08:00 Memantine (Namenda) 5 mg BID PO Last administered on 06/14/17 07:45; Start at 09:00; Stop 06/14/17 at 11:28; Status DC Donepezil HCl (Aricept) 5 mg BID PO Last administered on 06/14/17 07:45; Start 06/05/17 at 09:00; Stop 06/14/17 at 11:28; Status DC Vitamin D (Vitamin D3) 50,000 unit WEEKLY PO Last administered on 06/19/17 08: 52; Start 06/05/17 at 20:00 Cyanocobalamin (Vitamin B-12) 1,000 mcg WEEKLY IM Last administered on 08:14; Start 06/06/17 at 09:00 Quetiapine Fumarate (SEROquel) 25 mg QHS PO Last administered on 06/05/17at 20: 03; Start 06/05/17 at 21:00; Stop 06/06/17 at 18:42; Status DC Sertraline HCl (Zoloft) 50 mg DAILY PO Last administered on 06/20/17at 08:09; Start 06/06/17 at 09:00; Stop 06/20/17 at 14:20; Status DC Quetiapine Fumarate (SEROquel) 50 mg QHS PO Last administered on 06/12/17at 20:09 ; Start 06/06/17 at 21:00; Stop 06/13/17 at 18:45; Status DC Trazodone HCl (Desyrel) 50 mg QHS PO Last administered on 06/20/17at 19:36; Start 06/08/17 at 21:00 Trazodone HCl (Desyrel) 50 mg PRN QHS PRN PO INSOMNIA Last administered on 06/18 22:14; Start 06/08/17 at 18:45 Divalproex Sodium (Depakote Sprinkles) 125 mg TID@0900,1300,1700 PO Last administered on 06/11/17 16:48; Start 06/09/17 at 09:00; Stop 06/11/17 at 18:15; Status DC Nicotine (Nicoderm Cq 14mg) 1 patch DAILY TD Last administered on 06/20/17at 08: 11; Start 06/11/17 at 09:00 Nicotine (Nicoderm Cq 14mg) 1 patch ONCE ONCE TD Last administered on at 19:57; Start 06/10/17 at 19:15; Stop 06/10/17 at 19:26; Status DC Divalproex Sodium (Depakote Sprinkles) 250 mg TID@0900,1300,1700 PO Last administered on 06/14/17at 07:44; Start 06/12/17 at 09:00; Stop 06/14/17 at 11:28; Status DC Quetiapine Fumarate (SEROquel) 75 mg QHS PO Last administered on 06/20/17 19: 35; Start 06/13/17 at 21:00 Divalproex Sodium (Depakote Sprinkles) 375 mg TID@0900,1300,1700 PO Last administered on 06/17/17at 17:07; Start 06/14/17 at 13:00; Stop 06/17/17 at 18:20 ; Status DC Donepezil HCl (Aricept) 10 mg BID PO Last administered on 06/20/17 19:36; Start 06/14/17 at 21:00 Memantine (Namenda) 10 mg BID PO Last administered on 06/20/17 19:37; Start at 21:00 Quetiapine Fumarate (SEROquel) 12.5 mg BID@0900,1300 PO Last administered on 12:30; Start 06/14/17 at 13:00; Stop 06/15/17 at 18:55; Status DC Quetiapine Fumarate (SEROquel) 25 mg BID@0900,1300 PO Last administered on 06/20at 13:35; Start 06/16/17 at 09:00 Divalproex Sodium (Depakote Sprinkles) 500 mg TID@0900,1300,1700 PO Last administered on 06/20/17 16:33; Start 06/18/17 at 09:00 Olanzapine (ZyPREXA ZYDIS) 5 mg PRN Q2HR PRN PO ANXIETY / AGITATION Last administered on 06/20/17 19:37; Start 06/17/17 at 18:30 Hydroxyzine Pamoate (Vistaril) 25 mg PRN Q2HR PRN PO AGITATION/AGGRESSION Last administered on 06/20/17 18:02; Start 06/17/17 at 19:15 Sertraline HCl (Zoloft) 75 mg DAILY PO ; Start 06/21/17 at 09:00 Active Scripts Active Reported Albuterol Sulfate Conc Neb Soln (Albuterol Sulfate) 2.5 Mg/0.5 Ml Vial.neb 2.5 Mg NEB PRN Q12HR PRN Namzaric 14 mg-10 mg Capsule (Memantine HCl/Donepezil HCl) 1 Each Cap.spr.24 1 Each PO DAILY [manzaric] Atorvastatin Calcium 80 Mg Tablet 80 Mg PO QHS NICODERM CQ 21mg (Nicotine) 1 Each Patch.td24 1 Patch TD PRN DAILY Omeprazole 20 Mg Tablet.dr 20 Mg PO DAILY Verapamil Er (Verapamil Hcl) 240 Mg Cap24h.pel 120 Mg PO DAILY Tamsulosin Hcl 0.4 Mg Cap.er.24h 0.4 Mg PO DAILY Onglyza (Saxagliptin Hcl) 5 Mg Tablet 2.5 Mg PO DAILY Ramipril 10 Mg Capsule 10 Mg PO DAILY Potassium Chloride 10 Meq Tablet.er 30 Meq PO DAILY Paroxetine Hcl 40 Mg Tablet 40 Mg PO DAILY Oxybutynin Chloride Er (Oxybutynin Chloride) 5 Mg Tab.er.24 5 Mg PO DAILY Advair 250-50 Diskus (Fluticasone/Salmeterol) 1 Each Disk.w.dev 1 Puff IH BID Aspirin 325 Mg Tablet 325 Mg PO Amlodipine Besylate 5 Mg Tablet 5 Mg PO DAILY I have reviewed the current psychotropics carefully including drug interactions. Risk benefit ratio favors no change other than as noted in my dictated progress note. Diagnosis: Problems: (1) Major neurocognitive disorder, due to vascular disease, with behavioral disturbance, mild (2) Impulse control disorder (3) Depression (4) Delusion (5) Anxiety disorder (6) Behavior problem BRAYAN GARNETT MD Jun 20, 2017 20:47
[2017-06-21 06:18] VITALS: BP 145/82
[2017-06-21] MEDS: NICOTINE 14MG PATCH. TD SCH (08:08)
[2017-06-21] MEDS: OXYBUTYNIN CHLORIDE 5 MG TABLET PO SCH (08:09)
[2017-06-21] MEDS: QUEtiapine 25 MG TABLET. PO SCH ×2 (08:09→13:01)
[2017-06-21] MEDS: LINAGLIPTIN 5 MG TABLET PO SCH (08:09)
[2017-06-21] MEDS: VERAPAMIL SR 120 MG TABLET.ER. PO SCH (08:09)
[2017-06-21] MEDS: DONEPEZIL HCL 10 MG TABLET PO SCH ×2 (08:09→20:36)
[2017-06-21] MEDS: MEMANTINE 10 MG TABLET. PO SCH ×2 (08:09→20:36)
[2017-06-21] MEDS: amLODIPine BESYLATE 5 MG TABLET PO SCH (08:10)
[2017-06-21] MEDS: PANTOPRAZOLE 40 MG TABLET. PO SCH (08:10)
[2017-06-21] MEDS: TAMSULOSIN 0.4 MG CAP.ER.24H. PO SCH (08:10)
[2017-06-21] MEDS: LISINOPRIL 20 MG TABLET PO SCH (08:10)
[2017-06-21] MEDS: ASPIRIN 325 MG TABLET PO SCH (08:10)
[2017-06-21] MEDS: DIVALPROEX 125 MG CAP.SPRINK PO SCH ×3 (08:11→16:24)
[2017-06-21] MEDS: SERTRALINE 50 MG TABLET. PO SCH (08:12)
[2017-06-21] MEDS: BUDESONIDE 0.5 MG/2 ML NEBU NEB SCH ×2 (10:14→21:53)
[2017-06-21] MEDS: ALBUTEROL SULFATE 2.5 MG/3 ML NEBU. NEB SCH ×3 (10:14→21:52)
[2017-06-21 16:28] VITALS: BP 90/60
--- NOTE | 2017-06-21 20:31 | PDOC ---
Exam Note: Hernandez Note: Please also refer to the separate dictated note~for this date of service dictated separately.~Patient seen individually. Discussed the patient with Nursing staff reviewed the chart.~Reviewed interim history and current functioning. Reviewed vital signs,~Labs/ Radiology~and current medications noted below. Continue current treatment with the changes noted in the dictated addendum note Assessment: Vital Signs: Vital Signs Date Time Temp Pulse Resp B/P (MAP) Pulse Ox O2 Delivery O2 Flow Rate FiO2 06/21/17 16:28 97.6 98 18 90/60 (70) 95 Room Air I&O Intake and Output 06/21/17 07:00 Intake Total 1200 ml Balance 1200 ml Intake Oral 1200 ml # Voids 1 Labs: Laboratory Tests Test 06/21/17 07:16 Glucose (Fingerstick) 174 mg/dL (70-99) H Current Medications: Meds: Current Medications Acetaminophen (Tylenol) 650 mg PRN Q6HRS PRN PO PAIN / TEMP Last administered on 06/16/17at 22:14; Start 06/04/17 at 15:00 Multi-Ingredient Ointment (Analgesic [place]) 1 any PRN QID PRN TP MUSCLE PAIN; Start 06/04/17 at 15:00 Al Hydroxide/Mg Hydroxide (Mylanta Plus Xs) 15 ml PRN AFTMEALHC PRN PO DYSPEPSIA Last administered on 06/14/17at 10:05; Start 06/04/17 at 15:00 Magnesium Hydroxide (Milk Of Magnesia) 2,400 mg PRN QHS PRN PO CONSTIPATION Last administered on 06/11/17at 20:27; Start 06/04/17 at 15:00 Nicotine (Nicoderm Cq 21mg) 1 patch DAILY TD ; Start 06/05/17 at 09:00; Stop at 09:00; Status DC Olanzapine (ZyPREXA ZYDIS) 2.5 mg PRN Q2HR PRN PO ANXIETY / AGITATION Last administered on 06/16/17at 23:24; Start 06/04/17 at 15:30; Stop 06/17/17 at 18:20 ; Status DC Influenza Virus Vaccine Quadrival (Fluarix Quad 0800-2606 Syringe) 0.5 ml ONCE ONCE VAX IM Last administered on 06/05/17at 11:21; Start 06/04/17 at 15:30; Stop 06/04/17 at 15:36; Status DC Amlodipine Besylate (Norvasc) 5 mg DAILY PO Last administered on 06/21/17 08: 10; Start 06/05/17 at 09:00 Aspirin (Sivakumar Aspirin) 325 mg DAILY PO Last administered on 06/21/17 08:10; Start 06/05/17 at 09:00 Nicotine (Nicoderm Cq 21mg) 1 patch PRN DAILY PRN TD NICOTINE W/D SYMPTOMS; Start 06/05/17 at 01:00; Stop 06/10/17 at 19:12; Status DC Tamsulosin HCl (Flomax) 0.4 mg DAILY PO Last administered on 06/21/17 08:10; Start 06/05/17 at 09:00 Non-Formulary Medication 2.5 mg PRN Q12HR PRN NEB WHEEZING; Start 06/05/17 at 01:00; Status UNV Atorvastatin Calcium (Lipitor) 80 mg QHS PO Last administered on 06/20/17at 19: 37; Start 06/05/17 at 21:00 Non-Formulary Medication 1 puff BID IH ; Start 06/05/17 at 09:00; Status UNV Non-Formulary Medication 1 each DAILY PO ; Start 06/05/17 at 09:00; Stop at 09:00; Status DC Pantoprazole Sodium (Protonix) 40 mg DAILYAC PO Last administered on 06/21/17 08:10; Start 06/05/17 at 07:30 Oxybutynin Chloride (Ditropan) 5 mg DAILY PO Last administered on 06/21/17at 08: 09; Start 06/05/17 at 09:00 Paroxetine HCl (Paxil) 40 mg DAILY PO Last administered on 06/05/17at 08:51; Start 06/05/17 at 09:00; Stop 06/05/17 at 18:43; Status DC Potassium Chloride (Klor-Con) 30 meq DAILY PO Last administered on 06/16/17at 09 :10; Start 06/05/17 at 09:00; Stop 06/17/17 at 10:10; Status DC Lisinopril (Prinivil) 20 mg DAILY PO Last administered on 06/21/17at 08:10; Start 06/05/17 at 09:00 Linagliptin (Tradjenta) 5 mg DAILY PO Last administered on 06/21/17 08:09; Start 06/05/17 at 09:00 Verapamil HCl (Calan Sr) 120 mg DAILY PO Last administered on 06/21/17at 08:09; Start 06/05/17 at 09:00 Dextrose 12.5 gm PRN Q15MIN PRN IV hypoglycemia; Start 06/05/17 at 01:00 Glucose (Insta-Glucose) 15 gm PRN Q15MIN PRN PO LOW BLOOD SUGAR; Start at 01:00 Albuterol Sulfate (Ventolin) 2.5 mg PRN Q12HR PRN NEB WHEEZING; Start 06/05/17 at 01:45 Budesonide (Pulmicort) 0.5 mg RTBID NEB Last administered on 06/21/17at 10:14; Start 06/05/17 at 08:00 Albuterol Sulfate (Ventolin) 2.5 mg RTQID NEB Last administered on 06/21/17at 14 :45; Start 06/05/17 at 08:00 Memantine (Namenda) 5 mg BID PO Last administered on 06/14/17 07:45; Start at 09:00; Stop 06/14/17 at 11:28; Status DC Donepezil HCl (Aricept) 5 mg BID PO Last administered on 06/14/17 07:45; Start 06/05/17 at 09:00; Stop 06/14/17 at 11:28; Status DC Vitamin D (Vitamin D3) 50,000 unit WEEKLY PO Last administered on 06/19/17at 08: 52; Start 06/05/17 at 20:00 Cyanocobalamin (Vitamin B-12) 1,000 mcg WEEKLY IM Last administered on at 08:14; Start 06/06/17 at 09:00 Quetiapine Fumarate (SEROquel) 25 mg QHS PO Last administered on 06/05/17at 20: 03; Start 06/05/17 at 21:00; Stop 06/06/17 at 18:42; Status DC Sertraline HCl (Zoloft) 50 mg DAILY PO Last administered on 06/20/17 08:09; Start 06/06/17 at 09:00; Stop 06/20/17 at 14:20; Status DC Quetiapine Fumarate (SEROquel) 50 mg QHS PO Last administered on 06/12/17 20:09 ; Start 06/06/17 at 21:00; Stop 06/13/17 at 18:45; Status DC Trazodone HCl (Desyrel) 50 mg QHS PO Last administered on 06/20/17 19:36; Start 06/08/17 at 21:00 Trazodone HCl (Desyrel) 50 mg PRN QHS PRN PO INSOMNIA Last administered on 06/18 22:14; Start 06/08/17 at 18:45 Divalproex Sodium (Depakote Sprinkles) 125 mg TID@0900,1300,1700 PO Last administered on 06/11/17 16:48; Start 06/09/17 at 09:00; Stop 06/11/17 at 18:15; Status DC Nicotine (Nicoderm Cq 14mg) 1 patch DAILY TD Last administered on 06/21/17 08: 08; Start 06/11/17 at 09:00 Nicotine (Nicoderm Cq 14mg) 1 patch ONCE ONCE TD Last administered on 19:57; Start 06/10/17 at 19:15; Stop 06/10/17 at 19:26; Status DC Divalproex Sodium (Depakote Sprinkles) 250 mg TID@0900,1300,1700 PO Last administered on 06/14/17at 07:44; Start 06/12/17 at 09:00; Stop 06/14/17 at 11:28; Status DC Quetiapine Fumarate (SEROquel) 75 mg QHS PO Last administered on 06/20/17 19: 35; Start 06/13/17 at 21:00 Divalproex Sodium (Depakote Sprinkles) 375 mg TID@0900,1300,1700 PO Last administered on 06/17/17at 17:07; Start 06/14/17 at 13:00; Stop 06/17/17 at 18:20 ; Status DC Donepezil HCl (Aricept) 10 mg BID PO Last administered on 06/21/17 08:09; Start 06/14/17 at 21:00 Memantine (Namenda) 10 mg BID PO Last administered on 06/21/17 08:09; Start at 21:00 Quetiapine Fumarate (SEROquel) 12.5 mg BID@0900,1300 PO Last administered on 06/15/17at 12:30; Start 06/14/17 at 13:00; Stop 06/15/17 at 18:55; Status DC Quetiapine Fumarate (SEROquel) 25 mg BID@0900,1300 PO Last administered on 06/21at 13:01; Start 06/16/17 at 09:00 Divalproex Sodium (Depakote Sprinkles) 500 mg TID@0900,1300,1700 PO Last administered on 06/21/17 08:11; Start 06/18/17 at 09:00; Stop 06/21/17 at 10:46 ; Status DC Olanzapine (ZyPREXA ZYDIS) 5 mg PRN Q2HR PRN PO ANXIETY / AGITATION Last administered on 06/20/17at 19:37; Start 06/17/17 at 18:30 Hydroxyzine Pamoate (Vistaril) 25 mg PRN Q2HR PRN PO AGITATION/AGGRESSION Last administered on 06/20/17at 18:02; Start 06/17/17 at 19:15 Sertraline HCl (Zoloft) 75 mg DAILY PO Last administered on 06/21/17at 08:12; Start 06/21/17 at 09:00 Divalproex Sodium (Depakote Sprinkles) 500 mg BID@0900,1300 PO Last administered on 06/21/17at 13:01; Start 06/21/17 at 13:00 Divalproex Sodium (Depakote Sprinkles) 750 mg DAILY@1700 PO Last administered on 06/21/17at 16:24; Start 06/21/17 at 17:00 Active Scripts Active Reported Albuterol Sulfate Conc Neb Soln (Albuterol Sulfate) 2.5 Mg/0.5 Ml Vial.neb 2.5 Mg NEB PRN Q12HR PRN Namzaric 14 mg-10 mg Capsule (Memantine HCl/Donepezil HCl) 1 Each Cap.spr.24 1 Each PO DAILY [manzaric] Atorvastatin Calcium 80 Mg Tablet 80 Mg PO QHS NICODERM CQ 21mg (Nicotine) 1 Each Patch.td24 1 Patch TD PRN DAILY Omeprazole 20 Mg Tablet.dr 20 Mg PO DAILY Verapamil Er (Verapamil Hcl) 240 Mg Cap24h.pel 120 Mg PO DAILY Tamsulosin Hcl 0.4 Mg Cap.er.24h 0.4 Mg PO DAILY Onglyza (Saxagliptin Hcl) 5 Mg Tablet 2.5 Mg PO DAILY Ramipril 10 Mg Capsule 10 Mg PO DAILY Potassium Chloride 10 Meq Tablet.er 30 Meq PO DAILY Paroxetine Hcl 40 Mg Tablet 40 Mg PO DAILY Oxybutynin Chloride Er (Oxybutynin Chloride) 5 Mg Tab.er.24 5 Mg PO DAILY Advair 250-50 Diskus (Fluticasone/Salmeterol) 1 Each Disk.w.dev 1 Puff IH BID Aspirin 325 Mg Tablet 325 Mg PO Amlodipine Besylate 5 Mg Tablet 5 Mg PO DAILY I have reviewed the current psychotropics carefully including drug interactions. Risk benefit ratio favors no change other than as noted in my dictated progress note. Diagnosis: Problems: (1) Major neurocognitive disorder, due to vascular disease, with behavioral disturbance, mild (2) Impulse control disorder (3) Depression (4) Delusion (5) Anxiety disorder (6) Behavior problem BRAYAN GARNETT MD Jun 21, 2017 20:31
[2017-06-21] MEDS: ATORVASTATIN CALCIUM 20 MG TABLET PO SCH (20:36)
[2017-06-21] MEDS: traZODone 50 MG TABLET. PO SCH (20:36)
[2017-06-21] MEDS: QUEtiapine 50 MG TABLET. PO SCH (20:36)
[2017-06-21] MEDS: traZODone 50 MG TABLET. PO PRN (22:27)
[2017-06-22] MEDS: ALBUTEROL SULFATE 2.5 MG/3 ML NEBU. NEB SCH ×5 (05:57→20:01)
[2017-06-22 06:05] VITALS: BP 110/68
[2017-06-22] MEDS: ASPIRIN 325 MG TABLET PO SCH (08:31)
[2017-06-22] MEDS: SERTRALINE 50 MG TABLET. PO SCH (08:31)
[2017-06-22] MEDS: DIVALPROEX 125 MG CAP.SPRINK PO SCH ×3 (08:31→17:15)
[2017-06-22] MEDS: DONEPEZIL HCL 10 MG TABLET PO SCH ×2 (08:31→19:26)
[2017-06-22] MEDS: LISINOPRIL 20 MG TABLET PO SCH (08:32)
[2017-06-22] MEDS: LINAGLIPTIN 5 MG TABLET PO SCH (08:32)
[2017-06-22] MEDS: OXYBUTYNIN CHLORIDE 5 MG TABLET PO SCH (08:33)
[2017-06-22] MEDS: QUEtiapine 25 MG TABLET. PO SCH ×2 (08:33→12:55)
[2017-06-22] MEDS: MEMANTINE 10 MG TABLET. PO SCH ×2 (08:33→19:26)
[2017-06-22] MEDS: amLODIPine BESYLATE 5 MG TABLET PO SCH (08:33)
[2017-06-22] MEDS: TAMSULOSIN 0.4 MG CAP.ER.24H. PO SCH (08:33)
[2017-06-22] MEDS: PANTOPRAZOLE 40 MG TABLET. PO SCH (08:33)
[2017-06-22] MEDS: NICOTINE 14MG PATCH. TD SCH (08:34)
[2017-06-22] MEDS: BUDESONIDE 0.5 MG/2 ML NEBU NEB SCH ×2 (09:17→20:01)
[2017-06-22] MEDS: VERAPAMIL SR 120 MG TABLET.ER. PO SCH (09:20)
[2017-06-22 16:03] VITALS: BP 108/63
[2017-06-22] MEDS: ATORVASTATIN CALCIUM 20 MG TABLET PO SCH (19:26)
[2017-06-22] MEDS: traZODone 50 MG TABLET. PO SCH (19:26)
[2017-06-22] MEDS: QUEtiapine 50 MG TABLET. PO SCH (19:27)
--- NOTE | 2017-06-22 20:36 | PDOC ---
Exam Note: Hernandez Note: Please also refer to the separate dictated note~for this date of service dictated separately.~Patient seen individually. Discussed the patient with Nursing staff reviewed the chart.~Reviewed interim history and current functioning. Reviewed vital signs,~Labs/ Radiology~and current medications noted below. Continue current treatment with the changes noted in the dictated addendum note Assessment: Vital Signs: Vital Signs Date Time Temp Pulse Resp B/P (MAP) Pulse Ox O2 Delivery O2 Flow Rate FiO2 06/22/17 20:05 Room Air 06/22/17 20:00 96 06/22/17 16:03 97.6 80 18 108/63 (78) I&O Intake and Output 06/22/17 07:00 Intake Total 1560 ml Balance 1560 ml Intake Oral 1560 ml # Voids 1 Labs: Laboratory Tests Test 06/22/17 07:38 Glucose (Fingerstick) 133 mg/dL (70-99) H Current Medications: Meds: Current Medications Acetaminophen (Tylenol) 650 mg PRN Q6HRS PRN PO PAIN / TEMP Last administered on 06/16/17at 22:14; Start 06/04/17 at 15:00 Multi-Ingredient Ointment (Analgesic [place]) 1 any PRN QID PRN TP MUSCLE PAIN; Start 06/04/17 at 15:00 Al Hydroxide/Mg Hydroxide (Mylanta Plus Xs) 15 ml PRN AFTMEALHC PRN PO DYSPEPSIA Last administered on 06/14/17at 10:05; Start 06/04/17 at 15:00 Magnesium Hydroxide (Milk Of Magnesia) 2,400 mg PRN QHS PRN PO CONSTIPATION Last administered on 06/11/17at 20:27; Start 06/04/17 at 15:00 Nicotine (Nicoderm Cq 21mg) 1 patch DAILY TD ; Start 06/05/17 at 09:00; Stop at 09:00; Status DC Olanzapine (ZyPREXA ZYDIS) 2.5 mg PRN Q2HR PRN PO ANXIETY / AGITATION Last administered on 06/16/17at 23:24; Start 06/04/17 at 15:30; Stop 06/17/17 at 18:20 ; Status DC Influenza Virus Vaccine Quadrival (Fluarix Quad 7503-1782 Syringe) 0.5 ml ONCE ONCE VAX IM Last administered on 06/05/17 11:21; Start 06/04/17 at 15:30; Stop 06/04/17 at 15:36; Status DC Amlodipine Besylate (Norvasc) 5 mg DAILY PO Last administered on 06/22/17 08: 33; Start 06/05/17 at 09:00 Aspirin (Sivakumar Aspirin) 325 mg DAILY PO Last administered on 06/22/17 08:31; Start 06/05/17 at 09:00 Nicotine (Nicoderm Cq 21mg) 1 patch PRN DAILY PRN TD NICOTINE W/D SYMPTOMS; Start 06/05/17 at 01:00; Stop 06/10/17 at 19:12; Status DC Tamsulosin HCl (Flomax) 0.4 mg DAILY PO Last administered on 06/22/17 08:33; Start 06/05/17 at 09:00 Non-Formulary Medication 2.5 mg PRN Q12HR PRN NEB WHEEZING; Start 06/05/17 at 01:00; Status UNV Atorvastatin Calcium (Lipitor) 80 mg QHS PO Last administered on 06/22/17 19: 26; Start 06/05/17 at 21:00 Non-Formulary Medication 1 puff BID IH ; Start 06/05/17 at 09:00; Status UNV Non-Formulary Medication 1 each DAILY PO ; Start 06/05/17 at 09:00; Stop at 09:00; Status DC Pantoprazole Sodium (Protonix) 40 mg DAILYAC PO Last administered on 06/22/17 08:33; Start 06/05/17 at 07:30 Oxybutynin Chloride (Ditropan) 5 mg DAILY PO Last administered on 06/22/17 08: 33; Start 06/05/17 at 09:00 Paroxetine HCl (Paxil) 40 mg DAILY PO Last administered on 06/05/17at 08:51; Start 06/05/17 at 09:00; Stop 06/05/17 at 18:43; Status DC Potassium Chloride (Klor-Con) 30 meq DAILY PO Last administered on 06/16/17at 09 :10; Start 06/05/17 at 09:00; Stop 06/17/17 at 10:10; Status DC Lisinopril (Prinivil) 20 mg DAILY PO Last administered on 06/22/17 08:32; Start 06/05/17 at 09:00 Linagliptin (Tradjenta) 5 mg DAILY PO Last administered on 06/22/17 08:32; Start 06/05/17 at 09:00 Verapamil HCl (Calan Sr) 120 mg DAILY PO Last administered on 06/21/17 08:09; Start 06/05/17 at 09:00 Dextrose 12.5 gm PRN Q15MIN PRN IV hypoglycemia; Start 06/05/17 at 01:00 Glucose (Insta-Glucose) 15 gm PRN Q15MIN PRN PO LOW BLOOD SUGAR; Start at 01:00 Albuterol Sulfate (Ventolin) 2.5 mg PRN Q12HR PRN NEB WHEEZING; Start 06/05/17 at 01:45 Budesonide (Pulmicort) 0.5 mg RTBID NEB Last administered on 06/22/17 20:01; Start 06/05/17 at 08:00 Albuterol Sulfate (Ventolin) 2.5 mg RTQID NEB Last administered on 06/22/17 20 :01; Start 06/05/17 at 08:00 Memantine (Namenda) 5 mg BID PO Last administered on 06/14/17 07:45; Start at 09:00; Stop 06/14/17 at 11:28; Status DC Donepezil HCl (Aricept) 5 mg BID PO Last administered on 06/14/17 07:45; Start 06/05/17 at 09:00; Stop 06/14/17 at 11:28; Status DC Vitamin D (Vitamin D3) 50,000 unit WEEKLY PO Last administered on 06/19/17at 08: 52; Start 06/05/17 at 20:00 Cyanocobalamin (Vitamin B-12) 1,000 mcg WEEKLY IM Last administered on 08:14; Start 06/06/17 at 09:00 Quetiapine Fumarate (SEROquel) 25 mg QHS PO Last administered on 06/05/17 20: 03; Start 06/05/17 at 21:00; Stop 06/06/17 at 18:42; Status DC Sertraline HCl (Zoloft) 50 mg DAILY PO Last administered on 06/20/17 08:09; Start 06/06/17 at 09:00; Stop 06/20/17 at 14:20; Status DC Quetiapine Fumarate (SEROquel) 50 mg QHS PO Last administered on 06/12/17 20:09 ; Start 06/06/17 at 21:00; Stop 06/13/17 at 18:45; Status DC Trazodone HCl (Desyrel) 50 mg QHS PO Last administered on 06/22/17 19:26; Start 06/08/17 at 21:00 Trazodone HCl (Desyrel) 50 mg PRN QHS PRN PO INSOMNIA Last administered on 06/21 22:27; Start 06/08/17 at 18:45 Divalproex Sodium (Depakote Sprinkles) 125 mg TID@0900,1300,1700 PO Last administered on 06/11/17 16:48; Start 06/09/17 at 09:00; Stop 06/11/17 at 18:15; Status DC Nicotine (Nicoderm Cq 14mg) 1 patch DAILY TD Last administered on 06/22/17 08: 34; Start 06/11/17 at 09:00 Nicotine (Nicoderm Cq 14mg) 1 patch ONCE ONCE TD Last administered on 19:57; Start 06/10/17 at 19:15; Stop 06/10/17 at 19:26; Status DC Divalproex Sodium (Depakote Sprinkles) 250 mg TID@0900,1300,1700 PO Last administered on 06/14/17 07:44; Start 06/12/17 at 09:00; Stop 06/14/17 at 11:28; Status DC Quetiapine Fumarate (SEROquel) 75 mg QHS PO Last administered on 06/22/17 19: 27; Start 06/13/17 at 21:00 Divalproex Sodium (Depakote Sprinkles) 375 mg TID@0900,1300,1700 PO Last administered on 06/17/17 17:07; Start 06/14/17 at 13:00; Stop 06/17/17 at 18:20 ; Status DC Donepezil HCl (Aricept) 10 mg BID PO Last administered on 3/16/18at 19:26; Start 06/14/17 at 21:00 Memantine (Namenda) 10 mg BID PO Last administered on 06/22/17 19:26; Start at 21:00 Quetiapine Fumarate (SEROquel) 12.5 mg BID@0900,1300 PO Last administered on 06/15/17at 12:30; Start 06/14/17 at 13:00; Stop 06/15/17 at 18:55; Status DC Quetiapine Fumarate (SEROquel) 25 mg BID@0900,1300 PO Last administered on 06/22at 12:55; Start 06/16/17 at 09:00 Divalproex Sodium (Depakote Sprinkles) 500 mg TID@0900,1300,1700 PO Last administered on 06/21/17at 08:11; Start 06/18/17 at 09:00; Stop 06/21/17 at 10:46 ; Status DC Olanzapine (ZyPREXA ZYDIS) 5 mg PRN Q2HR PRN PO ANXIETY / AGITATION Last administered on 06/22/17at 19:28; Start 06/17/17 at 18:30 Hydroxyzine Pamoate (Vistaril) 25 mg PRN Q2HR PRN PO AGITATION/AGGRESSION Last administered on 06/20/17at 18:02; Start 06/17/17 at 19:15 Sertraline HCl (Zoloft) 75 mg DAILY PO Last administered on 06/22/17at 08:31; Start 06/21/17 at 09:00 Divalproex Sodium (Depakote Sprinkles) 500 mg BID@0900,1300 PO Last administered on 06/22/17at 12:55; Start 06/21/17 at 13:00 Divalproex Sodium (Depakote Sprinkles) 750 mg DAILY@1700 PO Last administered on 06/22/17at 17:15; Start 06/21/17 at 17:00 Active Scripts Active Reported Albuterol Sulfate Conc Neb Soln (Albuterol Sulfate) 2.5 Mg/0.5 Ml Vial.neb 2.5 Mg NEB PRN Q12HR PRN Namzaric 14 mg-10 mg Capsule (Memantine HCl/Donepezil HCl) 1 Each Cap.spr.24 1 Each PO DAILY [manzaric] Atorvastatin Calcium 80 Mg Tablet 80 Mg PO QHS NICODERM CQ 21mg (Nicotine) 1 Each Patch.td24 1 Patch TD PRN DAILY Omeprazole 20 Mg Tablet.dr 20 Mg PO DAILY Verapamil Er (Verapamil Hcl) 240 Mg Cap24h.pel 120 Mg PO DAILY Tamsulosin Hcl 0.4 Mg Cap.er.24h 0.4 Mg PO DAILY Onglyza (Saxagliptin Hcl) 5 Mg Tablet 2.5 Mg PO DAILY Ramipril 10 Mg Capsule 10 Mg PO DAILY Potassium Chloride 10 Meq Tablet.er 30 Meq PO DAILY Paroxetine Hcl 40 Mg Tablet 40 Mg PO DAILY Oxybutynin Chloride Er (Oxybutynin Chloride) 5 Mg Tab.er.24 5 Mg PO DAILY Advair 250-50 Diskus (Fluticasone/Salmeterol) 1 Each Disk.w.dev 1 Puff IH BID Aspirin 325 Mg Tablet 325 Mg PO Amlodipine Besylate 5 Mg Tablet 5 Mg PO DAILY I have reviewed the current psychotropics carefully including drug interactions. Risk benefit ratio favors no change other than as noted in my dictated progress note. Diagnosis: Problems: (1) Major neurocognitive disorder, due to vascular disease, with behavioral disturbance, mild (2) Impulse control disorder (3) Depression (4) Delusion (5) Anxiety disorder (6) Behavior problem BRAYAN GARNETT MD Jun 22, 2017 20:36
--- NOTE | 2017-06-23 00:36 | PN ---
DATE: 06/20/2017 This is a late entry, 06/20/2017, covers the elements not covered in my initial note, 06/20/2017. SUBJECTIVE: I met with the patient in the evening of 06/20/2017. The patient slept 6 hours previous evening, did reasonably well previous night and less labile during the day on 06/20/2017. REVIEW OF SYSTEMS: No CV, , pulmonary, eye, ENT system symptoms on review. MENTAL STATUS EXAM: Oriented to himself. Insight, judgment, recent and remote memory, attention, concentration, fund of knowledge poor, consistent with his diagnosis mentioned in my initial note. PLAN: Continue current psychotropics, increase Zoloft to 75 mg a day, continue Depakote level therapeutic at 59. MAN Lacho GARNETT MD DR: LEROY/juliane JOB#: [id number] / [id number]
[2017-06-23] MEDS: ALBUTEROL SULFATE 2.5 MG/3 ML NEBU. NEB SCH ×4 (05:41→20:33)
[2017-06-23 06:09] VITALS: BP 113/59
[2017-06-23] MEDS: BUDESONIDE 0.5 MG/2 ML NEBU NEB SCH ×2 (08:00→20:33)
[2017-06-23] MEDS: amLODIPine BESYLATE 5 MG TABLET PO SCH (09:00)
[2017-06-23] MEDS: LISINOPRIL 20 MG TABLET PO SCH (09:00)
[2017-06-23] MEDS: VERAPAMIL SR 120 MG TABLET.ER. PO SCH (09:00)
[2017-06-23] MEDS: PANTOPRAZOLE 40 MG TABLET. PO SCH (09:34)
[2017-06-23] MEDS: ASPIRIN 325 MG TABLET PO SCH (09:34)
[2017-06-23] MEDS: DONEPEZIL HCL 10 MG TABLET PO SCH ×2 (09:34→19:24)
[2017-06-23] MEDS: TAMSULOSIN 0.4 MG CAP.ER.24H. PO SCH (09:35)
[2017-06-23] MEDS: OXYBUTYNIN CHLORIDE 5 MG TABLET PO SCH (09:35)
[2017-06-23] MEDS: LINAGLIPTIN 5 MG TABLET PO SCH (09:35)
[2017-06-23] MEDS: MEMANTINE 10 MG TABLET. PO SCH ×2 (09:35→19:24)
[2017-06-23] MEDS: QUEtiapine 25 MG TABLET. PO SCH ×2 (09:35→13:34)
[2017-06-23] MEDS: DIVALPROEX 125 MG CAP.SPRINK PO SCH ×3 (09:35→17:28)
[2017-06-23] MEDS: SERTRALINE 50 MG TABLET. PO SCH (09:36)
[2017-06-23] MEDS: NICOTINE 14MG PATCH. TD SCH (09:36)
[2017-06-23 12:37] VITALS: BP 122/60
[2017-06-23 15:59] VITALS: BP 135/81
[2017-06-23] MEDS: ACETAMINOPHEN 325 MG TABLET PO PRN (18:14)
[2017-06-23] MEDS: QUEtiapine 50 MG TABLET. PO SCH (19:24)
[2017-06-23] MEDS: ATORVASTATIN CALCIUM 20 MG TABLET PO SCH (19:24)
[2017-06-23] MEDS: traZODone 50 MG TABLET. PO SCH ×2 (19:24→23:31)
[2017-06-23] MEDS: hydrOXYzine PAMOATE 25 MG CAPSULE PO PRN (19:38)
--- NOTE | 2017-06-23 22:50 | PDOC ---
Exam Note: Hernandez Note: Please also refer to the separate dictated note~for this date of service dictated separately.~Patient seen individually. Discussed the patient with Nursing staff reviewed the chart.~Reviewed interim history and current functioning. Reviewed vital signs,~Labs/ Radiology~and current medications noted below. Continue current treatment with the changes noted in the dictated addendum note Assessment: Vital Signs: Vital Signs Date Time Temp Pulse Resp B/P (MAP) Pulse Ox O2 Delivery O2 Flow Rate FiO2 06/23/17 20:35 Room Air 06/23/17 20:32 96 06/23/17 15:59 97.5 83 18 135/81 (99) I&O Intake and Output 06/23/17 07:00 Intake Total 1110 ml Balance 1110 ml Intake Oral 1110 ml Labs: Laboratory Tests Test 06/23/17 07:06 Glucose (Fingerstick) 109 mg/dL (70-99) H Current Medications: Meds: Current Medications Acetaminophen (Tylenol) 650 mg PRN Q6HRS PRN PO PAIN / TEMP Last administered on 06/23/17at 18:14; Start 06/04/17 at 15:00 Multi-Ingredient Ointment (Analgesic [place]) 1 any PRN QID PRN TP MUSCLE PAIN; Start 06/04/17 at 15:00 Al Hydroxide/Mg Hydroxide (Mylanta Plus Xs) 15 ml PRN AFTMEALHC PRN PO DYSPEPSIA Last administered on 06/14/17at 10:05; Start 06/04/17 at 15:00 Magnesium Hydroxide (Milk Of Magnesia) 2,400 mg PRN QHS PRN PO CONSTIPATION Last administered on 06/11/17at 20:27; Start 06/04/17 at 15:00 Nicotine (Nicoderm Cq 21mg) 1 patch DAILY TD ; Start 06/05/17 at 09:00; Stop at 09:00; Status DC Olanzapine (ZyPREXA ZYDIS) 2.5 mg PRN Q2HR PRN PO ANXIETY / AGITATION Last administered on 06/16/17at 23:24; Start 06/04/17 at 15:30; Stop 06/17/17 at 18:20 ; Status DC Influenza Virus Vaccine Quadrival (Fluarix Quad 3620-4971 Syringe) 0.5 ml ONCE ONCE VAX IM Last administered on 06/05/17at 11:21; Start 06/04/17 at 15:30; Stop 06/04/17 at 15:36; Status DC Amlodipine Besylate (Norvasc) 5 mg DAILY PO Last administered on 06/22/17at 08: 33; Start 06/05/17 at 09:00 Aspirin (Sivakumar Aspirin) 325 mg DAILY PO Last administered on 06/23/17at 09:34; Start 06/05/17 at 09:00 Nicotine (Nicoderm Cq 21mg) 1 patch PRN DAILY PRN TD NICOTINE W/D SYMPTOMS; Start 06/05/17 at 01:00; Stop 06/10/17 at 19:12; Status DC Tamsulosin HCl (Flomax) 0.4 mg DAILY PO Last administered on 06/23/17at 09:35; Start 06/05/17 at 09:00 Non-Formulary Medication 2.5 mg PRN Q12HR PRN NEB WHEEZING; Start 06/05/17 at 01:00; Status UNV Atorvastatin Calcium (Lipitor) 80 mg QHS PO Last administered on 06/23/17at 19: 24; Start 06/05/17 at 21:00 Non-Formulary Medication 1 puff BID IH ; Start 06/05/17 at 09:00; Status UNV Non-Formulary Medication 1 each DAILY PO ; Start 06/05/17 at 09:00; Stop at 09:00; Status DC Pantoprazole Sodium (Protonix) 40 mg DAILYAC PO Last administered on 06/23/17 09:34; Start 06/05/17 at 07:30 Oxybutynin Chloride (Ditropan) 5 mg DAILY PO Last administered on 06/23/17at 09: 35; Start 06/05/17 at 09:00 Paroxetine HCl (Paxil) 40 mg DAILY PO Last administered on 06/05/17at 08:51; Start 06/05/17 at 09:00; Stop 06/05/17 at 18:43; Status DC Potassium Chloride (Klor-Con) 30 meq DAILY PO Last administered on 06/16/17at 09 :10; Start 06/05/17 at 09:00; Stop 06/17/17 at 10:10; Status DC Lisinopril (Prinivil) 20 mg DAILY PO Last administered on 06/22/17at 08:32; Start 06/05/17 at 09:00 Linagliptin (Tradjenta) 5 mg DAILY PO Last administered on 06/23/17 09:35; Start 06/05/17 at 09:00 Verapamil HCl (Calan Sr) 120 mg DAILY PO Last administered on 06/21/17at 08:09; Start 06/05/17 at 09:00 Dextrose 12.5 gm PRN Q15MIN PRN IV hypoglycemia; Start 06/05/17 at 01:00 Glucose (Insta-Glucose) 15 gm PRN Q15MIN PRN PO LOW BLOOD SUGAR; Start at 01:00 Albuterol Sulfate (Ventolin) 2.5 mg PRN Q12HR PRN NEB WHEEZING; Start 06/05/17 at 01:45 Budesonide (Pulmicort) 0.5 mg RTBID NEB Last administered on 06/23/17at 20:33; Start 06/05/17 at 08:00 Albuterol Sulfate (Ventolin) 2.5 mg RTQID NEB Last administered on 06/23/17 20 :33; Start 06/05/17 at 08:00 Memantine (Namenda) 5 mg BID PO Last administered on 06/14/17at 07:45; Start at 09:00; Stop 06/14/17 at 11:28; Status DC Donepezil HCl (Aricept) 5 mg BID PO Last administered on 06/14/17at 07:45; Start 06/05/17 at 09:00; Stop 06/14/17 at 11:28; Status DC Vitamin D (Vitamin D3) 50,000 unit WEEKLY PO Last administered on 06/19/17at 08: 52; Start 06/05/17 at 20:00 Cyanocobalamin (Vitamin B-12) 1,000 mcg WEEKLY IM Last administered on 08:14; Start 06/06/17 at 09:00 Quetiapine Fumarate (SEROquel) 25 mg QHS PO Last administered on 06/05/17at 20: 03; Start 06/05/17 at 21:00; Stop 06/06/17 at 18:42; Status DC Sertraline HCl (Zoloft) 50 mg DAILY PO Last administered on 06/20/17at 08:09; Start 06/06/17 at 09:00; Stop 06/20/17 at 14:20; Status DC Quetiapine Fumarate (SEROquel) 50 mg QHS PO Last administered on 06/12/17at 20:09 ; Start 06/06/17 at 21:00; Stop 06/13/17 at 18:45; Status DC Trazodone HCl (Desyrel) 50 mg QHS PO Last administered on 06/23/17 19:24; Start 06/08/17 at 21:00 Trazodone HCl (Desyrel) 50 mg PRN QHS PRN PO INSOMNIA Last administered on 06/21at 22:27; Start 06/08/17 at 18:45 Divalproex Sodium (Depakote Sprinkles) 125 mg TID@0900,1300,1700 PO Last administered on 06/11/17 16:48; Start 06/09/17 at 09:00; Stop 06/11/17 at 18:15; Status DC Nicotine (Nicoderm Cq 14mg) 1 patch DAILY TD Last administered on 06/23/17at 09: 36; Start 06/11/17 at 09:00 Nicotine (Nicoderm Cq 14mg) 1 patch ONCE ONCE TD Last administered on 19:57; Start 06/10/17 at 19:15; Stop 06/10/17 at 19:26; Status DC Divalproex Sodium (Depakote Sprinkles) 250 mg TID@0900,1300,1700 PO Last administered on 06/14/17at 07:44; Start 06/12/17 at 09:00; Stop 06/14/17 at 11:28; Status DC Quetiapine Fumarate (SEROquel) 75 mg QHS PO Last administered on 06/23/17 19: 24; Start 06/13/17 at 21:00 Divalproex Sodium (Depakote Sprinkles) 375 mg TID@0900,1300,1700 PO Last administered on 06/17/17at 17:07; Start 06/14/17 at 13:00; Stop 06/17/17 at 18:20 ; Status DC Donepezil HCl (Aricept) 10 mg BID PO Last administered on 06/23/17at 19:24; Start 06/14/17 at 21:00 Memantine (Namenda) 10 mg BID PO Last administered on 06/23/17at 19:24; Start at 21:00 Quetiapine Fumarate (SEROquel) 12.5 mg BID@0900,1300 PO Last administered on 06/15/17at 12:30; Start 06/14/17 at 13:00; Stop 06/15/17 at 18:55; Status DC Quetiapine Fumarate (SEROquel) 25 mg BID@0900,1300 PO Last administered on 06/23at 13:34; Start 06/16/17 at 09:00 Divalproex Sodium (Depakote Sprinkles) 500 mg TID@0900,1300,1700 PO Last administered on 06/21/17at 08:11; Start 06/18/17 at 09:00; Stop 06/21/17 at 10:46 ; Status DC Olanzapine (ZyPREXA ZYDIS) 5 mg PRN Q2HR PRN PO ANXIETY / AGITATION Last administered on 06/22/17at 19:28; Start 06/17/17 at 18:30 Hydroxyzine Pamoate (Vistaril) 25 mg PRN Q2HR PRN PO AGITATION/AGGRESSION Last administered on 06/23/17at 19:38; Start 06/17/17 at 19:15 Sertraline HCl (Zoloft) 75 mg DAILY PO Last administered on 06/23/17at 09:36; Start 06/21/17 at 09:00 Divalproex Sodium (Depakote Sprinkles) 500 mg BID@0900,1300 PO Last administered on 06/23/17at 13:35; Start 06/21/17 at 13:00 Divalproex Sodium (Depakote Sprinkles) 750 mg DAILY@1700 PO Last administered on 06/23/17at 17:28; Start 06/21/17 at 17:00 Active Scripts Active Reported Albuterol Sulfate Conc Neb Soln (Albuterol Sulfate) 2.5 Mg/0.5 Ml Vial.neb 2.5 Mg NEB PRN Q12HR PRN Namzaric 14 mg-10 mg Capsule (Memantine HCl/Donepezil HCl) 1 Each Cap.spr.24 1 Each PO DAILY [manzaric] Atorvastatin Calcium 80 Mg Tablet 80 Mg PO QHS NICODERM CQ 21mg (Nicotine) 1 Each Patch.td24 1 Patch TD PRN DAILY Omeprazole 20 Mg Tablet.dr 20 Mg PO DAILY Verapamil Er (Verapamil Hcl) 240 Mg Cap24h.pel 120 Mg PO DAILY Tamsulosin Hcl 0.4 Mg Cap.er.24h 0.4 Mg PO DAILY Onglyza (Saxagliptin Hcl) 5 Mg Tablet 2.5 Mg PO DAILY Ramipril 10 Mg Capsule 10 Mg PO DAILY Potassium Chloride 10 Meq Tablet.er 30 Meq PO DAILY Paroxetine Hcl 40 Mg Tablet 40 Mg PO DAILY Oxybutynin Chloride Er (Oxybutynin Chloride) 5 Mg Tab.er.24 5 Mg PO DAILY Advair 250-50 Diskus (Fluticasone/Salmeterol) 1 Each Disk.w.dev 1 Puff IH BID Aspirin 325 Mg Tablet 325 Mg PO Amlodipine Besylate 5 Mg Tablet 5 Mg PO DAILY I have reviewed the current psychotropics carefully including drug interactions. Risk benefit ratio favors no change other than as noted in my dictated progress note. Diagnosis: Problems: (1) Major neurocognitive disorder, due to vascular disease, with behavioral disturbance, mild (2) Impulse control disorder (3) Depression (4) Delusion (5) Anxiety disorder (6) Behavior problem BRAYAN GARNETT MD Jun 23, 2017 22:50
--- NOTE | 2017-06-23 23:28 | PN ---
DATE: 06/21/2017 PSYCHIATRIC PROGRESS NOTE This is a late entry for 06/21/2017, covers elements not covered in my initial note of 06/21/2017. SUBJECTIVE: The patient was staffed at a treatment team meeting with the entire team in the morning. Saw him individually in the evening. Appetite 90%, slept 4-3/4 hours, sleeps much during the day, withdrawn at times, Zoloft was increased and he is tolerating it. REVIEW OF SYSTEMS: No CV, , pulmonary, eye, ENT system symptoms on review. Reliability poor. MENTAL STATUS EXAM: Oriented to himself. Insight, judgment, recent and remote memory, attention, concentration, fund of knowledge poor, consistent with his diagnosis mentioned in my initial note. PLAN: Continue current psychotropics. Valproic acid level is 59. Even though is therapeutic, it is low therapeutic. We will increase Depakote from 500 three times a day to 500 twice a day and 750 mg at night. Check CBC, CMP, valproic acid level in 3 days. Adjust to reach a higher therapeutic level. MAN Lacho GARNETT MD DR: LEROY/juliane JOB#: [id number] / [id number]
[2017-06-24] MEDS: ALBUTEROL SULFATE 2.5 MG/3 ML NEBU. NEB SCH ×4 (05:46→21:21)
[2017-06-24 06:01] VITALS: BP 149/77
--- NOTE | 2017-06-24 06:27 | PN ---
DATE: 06/22/2017 PSYCHIATRIC PROGRESS NOTE This late entry 06/22/2017 covers elements, not covered in my initial note 06/22/2017. He met with the patient in the evening of 06/22/2017. The patient slept 4-3/4 hours previous evening, received bedtime trazodone at 8:30 p.m., compliant with medications, somewhat sedated during the day, but no aggression. REVIEW OF SYSTEMS: No CV, , pulmonary, eye, ENT system symptoms on review. Reliability poor. MENTAL STATUS EXAM: Oriented to himself. Insight, judgment, recent and remote memory, attention, concentration, fund of knowledge poor, consistent with his diagnosis mentioned in my initial note. PLAN: Continue current psychotropics. Valproic acid level therapeutic at 59. Adjust further as clinically indicated. MAN Lacho GARNETT MD DR: LEROY/juliane JOB#: [id number] / [id number]
[2017-06-24 08:18] LABS: BASO # 0.1 x10^3/uL (0.0-0.2); BASO % 1 % (0-3); EOS # 0.5 x10^3/uL (0.0-0.7); EOS % 7 % (0-3); HEMATOCRIT 41.7 % (39.0-53.0); HEMOGLOBIN 13.7 g/dL (13.0-17.5); LYMPH # 2.5 x10^3/uL (1.0-4.8); LYMPH % 31 % (24-48); MEAN CORPUSCULAR HEMOGLOBIN 28 pg (25-35); MEAN CORPUSCULAR HGB CONC 33 g/dL (31-37); MEAN CORPUSCULAR VOLUME 86 fL (79-100); MONO # 0.6 x10^3/uL (0.0-1.1); MONO % 8 % (0-9); NEUT # 4.4 x10^3uL (1.8-7.7); NEUT % 54 % (31-73); PLATELET COUNT 146 x10^3/uL (140-400); RED BLOOD COUNT 4.87 x10^6/uL (4.30-5.70); RED CELL DISTRIBUTION WIDTH 14.4 % (11.5-14.5); WHITE BLOOD COUNT 8.1 x10^3/uL (4.0-11.0)
[2017-06-24 08:27] LABS: ALBUMIN/GLOBULIN RATIO 0.8 (1.0-1.7); ALK PHOS 78 U/L (46-116); ALT (SGPT) 33 U/L (16-63); ANION GAP 4 (6-14); AST (SGOT) 17 U/L (15-37); BLOOD UREA NITROGEN 24 mg/dL (8-26); BUN/CREATININE RATIO 18 (6-20); CALCIUM 8.5 mg/dL (8.5-10.1); CARBON DIOXIDE 30 mmol/L (21-32); CHLORIDE 106 mmol/L (98-107); CREATININE 1.3 mg/dL (0.7-1.3); GFR 55.2; GLUCOSE 132 mg/dL (70-99); SODIUM 140 mmol/L (136-145); TOTAL BILIRUBIN 0.2 mg/dL (0.2-1.0); TOTAL PROTEIN 6.6 g/dL (6.4-8.2)
[2017-06-24 08:32] LABS: VAL ACID 54 mcg/mL (50-100)
[2017-06-24] MEDS: PANTOPRAZOLE 40 MG TABLET. PO SCH (10:19)
[2017-06-24] MEDS: TAMSULOSIN 0.4 MG CAP.ER.24H. PO SCH (10:19)
[2017-06-24] MEDS: DONEPEZIL HCL 10 MG TABLET PO SCH ×2 (10:20→21:08)
[2017-06-24] MEDS: LINAGLIPTIN 5 MG TABLET PO SCH (10:20)
[2017-06-24] MEDS: SERTRALINE 50 MG TABLET. PO SCH (10:20)
[2017-06-24] MEDS: OXYBUTYNIN CHLORIDE 5 MG TABLET PO SCH (10:21)
[2017-06-24] MEDS: LISINOPRIL 20 MG TABLET PO SCH (10:21)
[2017-06-24] MEDS: NICOTINE 14MG PATCH. TD SCH (10:21)
[2017-06-24] MEDS: MEMANTINE 10 MG TABLET. PO SCH ×2 (10:21→21:07)
[2017-06-24] MEDS: QUEtiapine 25 MG TABLET. PO SCH ×2 (10:21→12:33)
[2017-06-24] MEDS: ASPIRIN 325 MG TABLET PO SCH (10:23)
[2017-06-24] MEDS: VERAPAMIL SR 120 MG TABLET.ER. PO SCH (10:23)
[2017-06-24] MEDS: DIVALPROEX 125 MG CAP.SPRINK PO SCH ×3 (10:24→17:11)
[2017-06-24] MEDS: amLODIPine BESYLATE 5 MG TABLET PO SCH (10:24)
[2017-06-24] MEDS: BUDESONIDE 0.5 MG/2 ML NEBU NEB SCH ×2 (11:39→21:21)
[2017-06-24 16:06] VITALS: BP 106/62
--- NOTE | 2017-06-24 20:50 | PDOC ---
Exam Note: Hernandez Note: Please also refer to the separate dictated note~for this date of service dictated separately.~Patient seen individually. Discussed the patient with Nursing staff reviewed the chart.~Reviewed interim history and current functioning. Reviewed vital signs,~Labs/ Radiology~and current medications noted below. Continue current treatment with the changes noted in the dictated addendum note Assessment: Vital Signs: Vital Signs Date Time Temp Pulse Resp B/P (MAP) Pulse Ox O2 Delivery O2 Flow Rate FiO2 06/24/17 16:13 97 Room Air 06/24/17 16:06 98.3 84 18 106/62 (77) I&O Intake and Output 06/24/17 07:00 Intake Total 1360 ml Balance 1360 ml Intake Oral 1360 ml # Bowel Movements 1 Labs: Laboratory Tests Test 06/24/17 07:55 06/24/17 08:08 White Blood Count 8.1 x10^3/uL (4.0-11.0) Red Blood Count 4.87 x10^6/uL (4.30-5.70) Hemoglobin 13.7 g/dL (13.0-17.5) Hematocrit 41.7 % (39.0-53.0) Mean Corpuscular Volume 86 fL (79-100) Mean Corpuscular Hemoglobin 28 pg (25-35) Mean Corpuscular Hemoglobin Concent 33 g/dL (31-37) Red Cell Distribution Width 14.4 % (11.5-14.5) Platelet Count 146 x10^3/uL (140-400) Neutrophils (%) (Auto) 54 % (31-73) Lymphocytes (%) (Auto) 31 % (24-48) Monocytes (%) (Auto) 8 % (0-9) Eosinophils (%) (Auto) 7 % (0-3) H Basophils (%) (Auto) 1 % (0-3) Neutrophils # (Auto) 4.4 x10^3uL (1.8-7.7) Lymphocytes # (Auto) 2.5 x10^3/uL (1.0-4.8) Monocytes # (Auto) 0.6 x10^3/uL (0.0-1.1) Eosinophils # (Auto) 0.5 x10^3/uL (0.0-0.7) Basophils # (Auto) 0.1 x10^3/uL (0.0-0.2) Sodium Level 140 mmol/L (136-145) Potassium Level 5.0 mmol/L (3.5-5.1) Chloride Level 106 mmol/L (98-107) Carbon Dioxide Level 30 mmol/L (21-32) Anion Gap 4 (6-14) L Blood Urea Nitrogen 24 mg/dL (8-26) Creatinine 1.3 mg/dL (0.7-1.3) Estimated GFR (Cockcroft-Gault) 55.2 BUN/Creatinine Ratio 18 (6-20) Glucose Level 132 mg/dL (70-99) H Calcium Level 8.5 mg/dL (8.5-10.1) Total Bilirubin 0.2 mg/dL (0.2-1.0) Aspartate Amino Transferase (AST) 17 U/L (15-37) Alanine Aminotransferase (ALT) 33 U/L (16-63) Alkaline Phosphatase 78 U/L (46-116) Total Protein 6.6 g/dL (6.4-8.2) Albumin 3.0 g/dL (3.4-5.0) L Albumin/Globulin Ratio 0.8 (1.0-1.7) L Valproic Acid Level 54 mcg/mL (50-100) Valproic Acid Last Dose Date 06/23/17 Valproic Acid Last Dose Time 1700 Glucose (Fingerstick) 131 mg/dL (70-99) H Current Medications: Meds: Current Medications Acetaminophen (Tylenol) 650 mg PRN Q6HRS PRN PO PAIN / TEMP Last administered on 06/23/17at 18:14; Start 06/04/17 at 15:00 Multi-Ingredient Ointment (Analgesic [place]) 1 any PRN QID PRN TP MUSCLE PAIN; Start 06/04/17 at 15:00 Al Hydroxide/Mg Hydroxide (Mylanta Plus Xs) 15 ml PRN AFTMEALHC PRN PO DYSPEPSIA Last administered on 06/14/17at 10:05; Start 06/04/17 at 15:00 Magnesium Hydroxide (Milk Of Magnesia) 2,400 mg PRN QHS PRN PO CONSTIPATION Last administered on 06/11/17at 20:27; Start 06/04/17 at 15:00 Nicotine (Nicoderm Cq 21mg) 1 patch DAILY TD ; Start 06/05/17 at 09:00; Stop at 09:00; Status DC Olanzapine (ZyPREXA ZYDIS) 2.5 mg PRN Q2HR PRN PO ANXIETY / AGITATION Last administered on 06/16/17at 23:24; Start 06/04/17 at 15:30; Stop 06/17/17 at 18:20 ; Status DC Influenza Virus Vaccine Quadrival (Fluarix Quad [id number] Syringe) 0.5 ml ONCE ONCE VAX IM Last administered on 06/05/17at 11:21; Start 06/04/17 at 15:30; Stop 06/04/17 at 15:36; Status DC Amlodipine Besylate (Norvasc) 5 mg DAILY PO Last administered on 06/24/17at 10: 24; Start 06/05/17 at 09:00 Aspirin (Sivakumar Aspirin) 325 mg DAILY PO Last administered on 06/24/17at 10:23; Start 06/05/17 at 09:00 Nicotine (Nicoderm Cq 21mg) 1 patch PRN DAILY PRN TD NICOTINE W/D SYMPTOMS; Start 06/05/17 at 01:00; Stop 06/10/17 at 19:12; Status DC Tamsulosin HCl (Flomax) 0.4 mg DAILY PO Last administered on 06/24/17 10:19; Start 06/05/17 at 09:00 Non-Formulary Medication 2.5 mg PRN Q12HR PRN NEB WHEEZING; Start 06/05/17 at 01:00; Status UNV Atorvastatin Calcium (Lipitor) 80 mg QHS PO Last administered on 06/23/17at 19: 24; Start 06/05/17 at 21:00 Non-Formulary Medication 1 puff BID IH ; Start 06/05/17 at 09:00; Status UNV Non-Formulary Medication 1 each DAILY PO ; Start 06/05/17 at 09:00; Stop at 09:00; Status DC Pantoprazole Sodium (Protonix) 40 mg DAILYAC PO Last administered on 06/24/17at 10:19; Start 06/05/17 at 07:30 Oxybutynin Chloride (Ditropan) 5 mg DAILY PO Last administered on 06/24/17at 10: 21; Start 06/05/17 at 09:00 Paroxetine HCl (Paxil) 40 mg DAILY PO Last administered on 06/05/17at 08:51; Start 06/05/17 at 09:00; Stop 06/05/17 at 18:43; Status DC Potassium Chloride (Klor-Con) 30 meq DAILY PO Last administered on 06/16/17at 09 :10; Start 06/05/17 at 09:00; Stop 06/17/17 at 10:10; Status DC Lisinopril (Prinivil) 20 mg DAILY PO Last administered on 06/24/17at 10:21; Start 06/05/17 at 09:00 Linagliptin (Tradjenta) 5 mg DAILY PO Last administered on 06/24/17 10:20; Start 06/05/17 at 09:00 Verapamil HCl (Calan Sr) 120 mg DAILY PO Last administered on 06/24/17 10:23; Start 06/05/17 at 09:00 Dextrose 12.5 gm PRN Q15MIN PRN IV hypoglycemia; Start 06/05/17 at 01:00 Glucose (Insta-Glucose) 15 gm PRN Q15MIN PRN PO LOW BLOOD SUGAR; Start at 01:00 Albuterol Sulfate (Ventolin) 2.5 mg PRN Q12HR PRN NEB WHEEZING; Start 06/05/17 at 01:45 Budesonide (Pulmicort) 0.5 mg RTBID NEB Last administered on 06/24/17at 11:39; Start 06/05/17 at 08:00 Albuterol Sulfate (Ventolin) 2.5 mg RTQID NEB Last administered on 06/24/17at 16 :12; Start 06/05/17 at 08:00 Memantine (Namenda) 5 mg BID PO Last administered on 06/14/17at 07:45; Start at 09:00; Stop 06/14/17 at 11:28; Status DC Donepezil HCl (Aricept) 5 mg BID PO Last administered on 06/14/17 07:45; Start 06/05/17 at 09:00; Stop 06/14/17 at 11:28; Status DC Vitamin D (Vitamin D3) 50,000 unit WEEKLY PO Last administered on 06/19/17at 08: 52; Start 06/05/17 at 20:00 Cyanocobalamin (Vitamin B-12) 1,000 mcg WEEKLY IM Last administered on at 08:14; Start 06/06/17 at 09:00 Quetiapine Fumarate (SEROquel) 25 mg QHS PO Last administered on 06/05/17at 20: 03; Start 06/05/17 at 21:00; Stop 06/06/17 at 18:42; Status DC Sertraline HCl (Zoloft) 50 mg DAILY PO Last administered on 06/20/17at 08:09; Start 06/06/17 at 09:00; Stop 06/20/17 at 14:20; Status DC Quetiapine Fumarate (SEROquel) 50 mg QHS PO Last administered on 06/12/17at 20:09 ; Start 06/06/17 at 21:00; Stop 06/13/17 at 18:45; Status DC Trazodone HCl (Desyrel) 50 mg QHS PO Last administered on 06/23/17at 23:31; Start 06/08/17 at 21:00 Trazodone HCl (Desyrel) 50 mg PRN QHS PRN PO INSOMNIA Last administered on 06/21at 22:27; Start 06/08/17 at 18:45 Divalproex Sodium (Depakote Sprinkles) 125 mg TID@0900,1300,1700 PO Last administered on 06/11/17at 16:48; Start 06/09/17 at 09:00; Stop 06/11/17 at 18:15; Status DC Nicotine (Nicoderm Cq 14mg) 1 patch DAILY TD Last administered on 06/24/17at 10: 21; Start 06/11/17 at 09:00 Nicotine (Nicoderm Cq 14mg) 1 patch ONCE ONCE TD Last administered on at 19:57; Start 06/10/17 at 19:15; Stop 06/10/17 at 19:26; Status DC Divalproex Sodium (Depakote Sprinkles) 250 mg TID@0900,1300,1700 PO Last administered on 06/14/17at 07:44; Start 06/12/17 at 09:00; Stop 06/14/17 at 11:28; Status DC Quetiapine Fumarate (SEROquel) 75 mg QHS PO Last administered on 06/23/17 19: 24; Start 06/13/17 at 21:00 Divalproex Sodium (Depakote Sprinkles) 375 mg TID@0900,1300,1700 PO Last administered on 06/17/17at 17:07; Start 06/14/17 at 13:00; Stop 06/17/17 at 18:20 ; Status DC Donepezil HCl (Aricept) 10 mg BID PO Last administered on 06/24/17 10:20; Start 06/14/17 at 21:00 Memantine (Namenda) 10 mg BID PO Last administered on 06/24/17 10:21; Start at 21:00 Quetiapine Fumarate (SEROquel) 12.5 mg BID@0900,1300 PO Last administered on 06/15/17at 12:30; Start 06/14/17 at 13:00; Stop 06/15/17 at 18:55; Status DC Quetiapine Fumarate (SEROquel) 25 mg BID@0900,1300 PO Last administered on 06/24at 12:33; Start 06/16/17 at 09:00 Divalproex Sodium (Depakote Sprinkles) 500 mg TID@0900,1300,1700 PO Last administered on 06/21/17at 08:11; Start 06/18/17 at 09:00; Stop 06/21/17 at 10:46 ; Status DC Olanzapine (ZyPREXA ZYDIS) 5 mg PRN Q2HR PRN PO ANXIETY / AGITATION Last administered on 06/24/17at 18:33; Start 06/17/17 at 18:30 Hydroxyzine Pamoate (Vistaril) 25 mg PRN Q2HR PRN PO AGITATION/AGGRESSION Last administered on 06/23/17at 19:38; Start 06/17/17 at 19:15 Sertraline HCl (Zoloft) 75 mg DAILY PO Last administered on 06/24/17 10:20; Start 06/21/17 at 09:00 Divalproex Sodium (Depakote Sprinkles) 500 mg BID@0900,1300 PO Last administered on 06/24/17 12:33; Start 06/21/17 at 13:00 Divalproex Sodium (Depakote Sprinkles) 750 mg DAILY@1700 PO Last administered on 06/24/17at 17:11; Start 06/21/17 at 17:00 Active Scripts Active Reported Albuterol Sulfate Conc Neb Soln (Albuterol Sulfate) 2.5 Mg/0.5 Ml Vial.neb 2.5 Mg NEB PRN Q12HR PRN Namzaric 14 mg-10 mg Capsule (Memantine HCl/Donepezil HCl) 1 Each Cap.spr.24 1 Each PO DAILY [manzaric] Atorvastatin Calcium 80 Mg Tablet 80 Mg PO QHS NICODERM CQ 21mg (Nicotine) 1 Each Patch.td24 1 Patch TD PRN DAILY Omeprazole 20 Mg Tablet.dr 20 Mg PO DAILY Verapamil Er (Verapamil Hcl) 240 Mg Cap24h.pel 120 Mg PO DAILY Tamsulosin Hcl 0.4 Mg Cap.er.24h 0.4 Mg PO DAILY Onglyza (Saxagliptin Hcl) 5 Mg Tablet 2.5 Mg PO DAILY Ramipril 10 Mg Capsule 10 Mg PO DAILY Potassium Chloride 10 Meq Tablet.er 30 Meq PO DAILY Paroxetine Hcl 40 Mg Tablet 40 Mg PO DAILY Oxybutynin Chloride Er (Oxybutynin Chloride) 5 Mg Tab.er.24 5 Mg PO DAILY Advair 250-50 Diskus (Fluticasone/Salmeterol) 1 Each Disk.w.dev 1 Puff IH BID Aspirin 325 Mg Tablet 325 Mg PO Amlodipine Besylate 5 Mg Tablet 5 Mg PO DAILY I have reviewed the current psychotropics carefully including drug interactions. Risk benefit ratio favors no change other than as noted in my dictated progress note. Diagnosis: Problems: (1) Major neurocognitive disorder, due to vascular disease, with behavioral disturbance, mild (2) Impulse control disorder (3) Depression (4) Delusion (5) Anxiety disorder (6) Behavior problem BRAYAN GARNETT MD Jun 24, 2017 20:49
[2017-06-24] MEDS: QUEtiapine 50 MG TABLET. PO SCH (21:06)
[2017-06-24] MEDS: ATORVASTATIN CALCIUM 20 MG TABLET PO SCH (21:07)
[2017-06-24] MEDS: traZODone 50 MG TABLET. PO SCH (21:07)
--- NOTE | 2017-06-24 21:22 | PN ---
DATE: 06/23/2017 PSYCHIATRIC PROGRESS NOTE This late entry of date of service 06/23/2017 covers elements not covered in my initial note of 06/23/2017. I met with the patient evening of 06/23/2017. SUBJECTIVE: The patient refused to shower previous evening and had an accident during the day on 06/23/2017, somewhat sleepy, less rapid in his speech, less psychic in his behaviors, more insightful, short term memory remains impaired. REVIEW OF SYSTEMS: No CV, , pulmonary, eye system symptoms on review. Reliability is poor. MENTAL STATUS EXAM: Oriented to himself. Insight, judgment, recent and remote memory, attention, concentration, fund of knowledge poor, consistent with his diagnosis mentioned in my initial note. PLAN: Continue psychotropics mentioned in my initial note. MAN Lacho GARNETT MD DR: LEROY/juliane JOB#: [id number] / [id number]
[2017-06-25] MEDS: ALBUTEROL SULFATE 2.5 MG/3 ML NEBU. NEB SCH ×4 (06:06→21:45)
[2017-06-25 06:15] VITALS: BP 119/86
[2017-06-25] MEDS: BUDESONIDE 0.5 MG/2 ML NEBU NEB SCH ×2 (08:00→21:45)
[2017-06-25] MEDS: MEMANTINE 10 MG TABLET. PO SCH ×2 (08:20→19:20)
[2017-06-25] MEDS: ASPIRIN 325 MG TABLET PO SCH (08:20)
[2017-06-25] MEDS: LINAGLIPTIN 5 MG TABLET PO SCH (08:21)
[2017-06-25] MEDS: TAMSULOSIN 0.4 MG CAP.ER.24H. PO SCH (08:21)
[2017-06-25] MEDS: OXYBUTYNIN CHLORIDE 5 MG TABLET PO SCH (08:21)
[2017-06-25] MEDS: DONEPEZIL HCL 10 MG TABLET PO SCH ×2 (08:21→19:20)
[2017-06-25] MEDS: PANTOPRAZOLE 40 MG TABLET. PO SCH (08:21)
[2017-06-25] MEDS: QUEtiapine 25 MG TABLET. PO SCH ×2 (08:21→12:37)
[2017-06-25] MEDS: SERTRALINE 50 MG TABLET. PO SCH (08:22)
[2017-06-25] MEDS: amLODIPine BESYLATE 5 MG TABLET PO SCH (08:22)
[2017-06-25] MEDS: VERAPAMIL SR 120 MG TABLET.ER. PO SCH (08:22)
[2017-06-25] MEDS: DIVALPROEX 125 MG CAP.SPRINK PO SCH ×3 (08:23→17:00)
[2017-06-25] MEDS: LISINOPRIL 20 MG TABLET PO SCH (08:23)
[2017-06-25] MEDS: NICOTINE 14MG PATCH. TD SCH (08:23)
[2017-06-25 15:17] VITALS: BP 96/60
[2017-06-25] MEDS: QUEtiapine 50 MG TABLET. PO SCH (19:20)
[2017-06-25] MEDS: ATORVASTATIN CALCIUM 20 MG TABLET PO SCH (19:20)
[2017-06-25] MEDS: traZODone 50 MG TABLET. PO PRN ×2 (19:21→21:05)
--- NOTE | 2017-06-25 20:49 | PN ---
DATE: 06/24/2017 PSYCHIATRIC PROGRESS NOTE This is a late entry on 06/24/2017 covers elements not covered in my initial note on 06/24/2017. SUBJECTIVE: I met with the patient in the evening of 06/24/2017. The patient remains confused, compliant with medications, assessments, withdrawn to the room interact with peers at times, yelling to go home in the evening. REVIEW OF SYSTEMS: No CV, , pulmonary, eye, ENT system symptoms on review. Reliability poor. MENTAL STATUS EXAM: Oriented to himself. Insight, judgment, recent and remote memory, attention, concentration, fund of knowledge poor, consistent with his diagnosis mentioned in my initial note. PLAN: Continue current psychotropics. Valproic acid level is therapeutic, may need to increase Seroquel if agitation resurfaces. MAN Lacho GARNETT MD DR: LEROY/juliane JOB#: [id number] / [id number]
--- NOTE | 2017-06-25 20:58 | PDOC ---
Exam Note: Hernandez Note: Please also refer to the separate dictated note~for this date of service dictated separately.~Patient seen individually. Discussed the patient with Nursing staff reviewed the chart.~Reviewed interim history and current functioning. Reviewed vital signs,~Labs/ Radiology~and current medications noted below. Continue current treatment with the changes noted in the dictated addendum note Assessment: Vital Signs: Vital Signs Date Time Temp Pulse Resp B/P (MAP) Pulse Ox O2 Delivery O2 Flow Rate FiO2 06/25/17 16:24 97 Room Air 06/25/17 15:17 97.2 65 18 96/60 (72) I&O Intake and Output 06/25/17 07:00 Intake Total 1830 ml Balance 1830 ml Intake Oral 1830 ml # Bowel Movements 2 Labs: Laboratory Tests Test 06/25/17 07:20 Glucose (Fingerstick) 107 mg/dL (70-99) H Current Medications: Meds: Current Medications Acetaminophen (Tylenol) 650 mg PRN Q6HRS PRN PO PAIN / TEMP Last administered on 06/23/17at 18:14; Start 06/04/17 at 15:00 Multi-Ingredient Ointment (Analgesic [place]) 1 any PRN QID PRN TP MUSCLE PAIN; Start 06/04/17 at 15:00 Al Hydroxide/Mg Hydroxide (Mylanta Plus Xs) 15 ml PRN AFTMEALHC PRN PO DYSPEPSIA Last administered on 06/14/17at 10:05; Start 06/04/17 at 15:00 Magnesium Hydroxide (Milk Of Magnesia) 2,400 mg PRN QHS PRN PO CONSTIPATION Last administered on 06/11/17at 20:27; Start 06/04/17 at 15:00 Nicotine (Nicoderm Cq 21mg) 1 patch DAILY TD ; Start 06/05/17 at 09:00; Stop at 09:00; Status DC Olanzapine (ZyPREXA ZYDIS) 2.5 mg PRN Q2HR PRN PO ANXIETY / AGITATION Last administered on 06/16/17at 23:24; Start 06/04/17 at 15:30; Stop 06/17/17 at 18:20 ; Status DC Influenza Virus Vaccine Quadrival (Fluarix Quad [id number] Syringe) 0.5 ml ONCE ONCE VAX IM Last administered on 06/05/17at 11:21; Start 06/04/17 at 15:30; Stop 06/04/17 at 15:36; Status DC Amlodipine Besylate (Norvasc) 5 mg DAILY PO Last administered on 06/25/17at 08: 22; Start 06/05/17 at 09:00 Aspirin (Sivakumar Aspirin) 325 mg DAILY PO Last administered on 06/25/17at 08:20; Start 06/05/17 at 09:00 Nicotine (Nicoderm Cq 21mg) 1 patch PRN DAILY PRN TD NICOTINE W/D SYMPTOMS; Start 06/05/17 at 01:00; Stop 06/10/17 at 19:12; Status DC Tamsulosin HCl (Flomax) 0.4 mg DAILY PO Last administered on 06/25/17at 08:21; Start 06/05/17 at 09:00 Non-Formulary Medication 2.5 mg PRN Q12HR PRN NEB WHEEZING; Start 06/05/17 at 01:00; Status UNV Atorvastatin Calcium (Lipitor) 80 mg QHS PO Last administered on 06/25/17at 19: 20; Start 06/05/17 at 21:00 Non-Formulary Medication 1 puff BID IH ; Start 06/05/17 at 09:00; Status UNV Non-Formulary Medication 1 each DAILY PO ; Start 06/05/17 at 09:00; Stop at 09:00; Status DC Pantoprazole Sodium (Protonix) 40 mg DAILYAC PO Last administered on 06/25/17at 08:21; Start 06/05/17 at 07:30 Oxybutynin Chloride (Ditropan) 5 mg DAILY PO Last administered on 06/25/17at 08: 21; Start 06/05/17 at 09:00 Paroxetine HCl (Paxil) 40 mg DAILY PO Last administered on 06/05/17at 08:51; Start 06/05/17 at 09:00; Stop 06/05/17 at 18:43; Status DC Potassium Chloride (Klor-Con) 30 meq DAILY PO Last administered on 06/16/17at 09 :10; Start 06/05/17 at 09:00; Stop 06/17/17 at 10:10; Status DC Lisinopril (Prinivil) 20 mg DAILY PO Last administered on 06/25/17at 08:23; Start 06/05/17 at 09:00 Linagliptin (Tradjenta) 5 mg DAILY PO Last administered on 06/25/17 08:21; Start 06/05/17 at 09:00 Verapamil HCl (Calan Sr) 120 mg DAILY PO Last administered on 06/25/17 08:22; Start 06/05/17 at 09:00 Dextrose 12.5 gm PRN Q15MIN PRN IV hypoglycemia; Start 06/05/17 at 01:00 Glucose (Insta-Glucose) 15 gm PRN Q15MIN PRN PO LOW BLOOD SUGAR; Start at 01:00 Albuterol Sulfate (Ventolin) 2.5 mg PRN Q12HR PRN NEB WHEEZING; Start 06/05/17 at 01:45 Budesonide (Pulmicort) 0.5 mg RTBID NEB Last administered on 06/24/17 21:21; Start 06/05/17 at 08:00 Albuterol Sulfate (Ventolin) 2.5 mg RTQID NEB Last administered on 06/25/17at 16 :22; Start 06/05/17 at 08:00 Memantine (Namenda) 5 mg BID PO Last administered on 06/14/17 07:45; Start at 09:00; Stop 06/14/17 at 11:28; Status DC Donepezil HCl (Aricept) 5 mg BID PO Last administered on 06/14/17 07:45; Start 06/05/17 at 09:00; Stop 06/14/17 at 11:28; Status DC Vitamin D (Vitamin D3) 50,000 unit WEEKLY PO Last administered on 06/19/17at 08: 52; Start 06/05/17 at 20:00 Cyanocobalamin (Vitamin B-12) 1,000 mcg WEEKLY IM Last administered on 08:14; Start 06/06/17 at 09:00 Quetiapine Fumarate (SEROquel) 25 mg QHS PO Last administered on 06/05/17at 20: 03; Start 06/05/17 at 21:00; Stop 06/06/17 at 18:42; Status DC Sertraline HCl (Zoloft) 50 mg DAILY PO Last administered on 06/20/17at 08:09; Start 06/06/17 at 09:00; Stop 06/20/17 at 14:20; Status DC Quetiapine Fumarate (SEROquel) 50 mg QHS PO Last administered on 06/12/17at 20:09 ; Start 06/06/17 at 21:00; Stop 06/13/17 at 18:45; Status DC Trazodone HCl (Desyrel) 50 mg QHS PO Last administered on 06/24/17 21:07; Start 06/08/17 at 21:00 Trazodone HCl (Desyrel) 50 mg PRN QHS PRN PO INSOMNIA Last administered on 06/25 19:21; Start 06/08/17 at 18:45 Divalproex Sodium (Depakote Sprinkles) 125 mg TID@0900,1300,1700 PO Last administered on 06/11/17 16:48; Start 06/09/17 at 09:00; Stop 06/11/17 at 18:15; Status DC Nicotine (Nicoderm Cq 14mg) 1 patch DAILY TD Last administered on 06/25/17at 08: 23; Start 06/11/17 at 09:00 Nicotine (Nicoderm Cq 14mg) 1 patch ONCE ONCE TD Last administered on 19:57; Start 06/10/17 at 19:15; Stop 06/10/17 at 19:26; Status DC Divalproex Sodium (Depakote Sprinkles) 250 mg TID@0900,1300,1700 PO Last administered on 06/14/17at 07:44; Start 06/12/17 at 09:00; Stop 06/14/17 at 11:28; Status DC Quetiapine Fumarate (SEROquel) 75 mg QHS PO Last administered on 06/25/17 19: 20; Start 06/13/17 at 21:00 Divalproex Sodium (Depakote Sprinkles) 375 mg TID@0900,1300,1700 PO Last administered on 06/17/17at 17:07; Start 06/14/17 at 13:00; Stop 06/17/17 at 18:20 ; Status DC Donepezil HCl (Aricept) 10 mg BID PO Last administered on 06/25/17at 19:20; Start 06/14/17 at 21:00 Memantine (Namenda) 10 mg BID PO Last administered on 06/25/17at 19:20; Start at 21:00 Quetiapine Fumarate (SEROquel) 12.5 mg BID@0900,1300 PO Last administered on 06/15/17at 12:30; Start 06/14/17 at 13:00; Stop 06/15/17 at 18:55; Status DC Quetiapine Fumarate (SEROquel) 25 mg BID@0900,1300 PO Last administered on 06/25at 12:37; Start 06/16/17 at 09:00 Divalproex Sodium (Depakote Sprinkles) 500 mg TID@0900,1300,1700 PO Last administered on 06/21/17at 08:11; Start 06/18/17 at 09:00; Stop 06/21/17 at 10:46 ; Status DC Olanzapine (ZyPREXA ZYDIS) 5 mg PRN Q2HR PRN PO ANXIETY / AGITATION Last administered on 06/25/17at 20:02; Start 06/17/17 at 18:30 Hydroxyzine Pamoate (Vistaril) 25 mg PRN Q2HR PRN PO AGITATION/AGGRESSION Last administered on 06/23/17at 19:38; Start 06/17/17 at 19:15 Sertraline HCl (Zoloft) 75 mg DAILY PO Last administered on 06/25/17 08:22; Start 06/21/17 at 09:00 Divalproex Sodium (Depakote Sprinkles) 500 mg BID@0900,1300 PO Last administered on 06/25/17at 12:37; Start 06/21/17 at 13:00 Divalproex Sodium (Depakote Sprinkles) 750 mg DAILY@1700 PO Last administered on 06/25/17at 17:00; Start 06/21/17 at 17:00 Active Scripts Active Reported Albuterol Sulfate Conc Neb Soln (Albuterol Sulfate) 2.5 Mg/0.5 Ml Vial.neb 2.5 Mg NEB PRN Q12HR PRN Namzaric 14 mg-10 mg Capsule (Memantine HCl/Donepezil HCl) 1 Each Cap.spr.24 1 Each PO DAILY [manzaric] Atorvastatin Calcium 80 Mg Tablet 80 Mg PO QHS NICODERM CQ 21mg (Nicotine) 1 Each Patch.td24 1 Patch TD PRN DAILY Omeprazole 20 Mg Tablet.dr 20 Mg PO DAILY Verapamil Er (Verapamil Hcl) 240 Mg Cap24h.pel 120 Mg PO DAILY Tamsulosin Hcl 0.4 Mg Cap.er.24h 0.4 Mg PO DAILY Onglyza (Saxagliptin Hcl) 5 Mg Tablet 2.5 Mg PO DAILY Ramipril 10 Mg Capsule 10 Mg PO DAILY Potassium Chloride 10 Meq Tablet.er 30 Meq PO DAILY Paroxetine Hcl 40 Mg Tablet 40 Mg PO DAILY Oxybutynin Chloride Er (Oxybutynin Chloride) 5 Mg Tab.er.24 5 Mg PO DAILY Advair 250-50 Diskus (Fluticasone/Salmeterol) 1 Each Disk.w.dev 1 Puff IH BID Aspirin 325 Mg Tablet 325 Mg PO Amlodipine Besylate 5 Mg Tablet 5 Mg PO DAILY I have reviewed the current psychotropics carefully including drug interactions. Risk benefit ratio favors no change other than as noted in my dictated progress note. Diagnosis: Problems: (1) Major neurocognitive disorder, due to vascular disease, with behavioral disturbance, mild (2) Impulse control disorder (3) Depression (4) Delusion (5) Anxiety disorder (6) Behavior problem BRAYAN GARNETT MD Jun 25, 2017 20:58
[2017-06-26] MEDS: ALBUTEROL SULFATE 2.5 MG/3 ML NEBU. NEB SCH ×4 (06:08→22:35)
[2017-06-26] MEDS: PANTOPRAZOLE 40 MG TABLET. PO SCH (07:46)
[2017-06-26] MEDS: LISINOPRIL 20 MG TABLET PO SCH (09:00)
[2017-06-26] MEDS: amLODIPine BESYLATE 5 MG TABLET PO SCH (09:00)
[2017-06-26] MEDS: VERAPAMIL SR 120 MG TABLET.ER. PO SCH (09:00)
[2017-06-26] MEDS: CHOLECALCIFEROL (VITAMIN D3) 50,000 UNIT CAPSULE PO SCH (09:47)
[2017-06-26] MEDS: SERTRALINE 50 MG TABLET. PO SCH (09:48)
[2017-06-26] MEDS: QUEtiapine 25 MG TABLET. PO SCH ×2 (09:49→13:47)
[2017-06-26] MEDS: DIVALPROEX 125 MG CAP.SPRINK PO SCH ×3 (09:49→16:47)
[2017-06-26] MEDS: DONEPEZIL HCL 10 MG TABLET PO SCH ×2 (09:49→19:22)
[2017-06-26] MEDS: ASPIRIN 325 MG TABLET PO SCH (09:49)
[2017-06-26] MEDS: TAMSULOSIN 0.4 MG CAP.ER.24H. PO SCH (09:49)
[2017-06-26] MEDS: OXYBUTYNIN CHLORIDE 5 MG TABLET PO SCH (09:50)
[2017-06-26] MEDS: MEMANTINE 10 MG TABLET. PO SCH ×2 (09:50→19:22)
[2017-06-26] MEDS: NICOTINE 14MG PATCH. TD SCH (09:52)
[2017-06-26] MEDS: LINAGLIPTIN 5 MG TABLET PO SCH (09:54)
[2017-06-26 10:32] VITALS: BP 104/68
[2017-06-26] MEDS: BUDESONIDE 0.5 MG/2 ML NEBU NEB SCH ×2 (11:48→22:35)
[2017-06-26 15:52] VITALS: BP 120/69
--- NOTE | 2017-06-26 17:45 | PN ---
DATE: 06/25/2017 This is a late entry for 06/25/2017 and covers the elements not covered in my initial note of 06/25/2017. SUBJECTIVE: I met with the patient in the evening of 06/25/2017. The patient took his meds previous evening, slept 7 hours, compliant with his meds during the day, less labile. No overt aggression. REVIEW OF SYSTEMS: No CV, , pulmonary, eye, ENT system symptoms on review. Reliability poor. MENTAL STATUS EXAM: Oriented to himself. Insight, judgment, recent and remote memory, attention, concentration, fund of knowledge poor, consistent with his diagnosis mentioned in my initial note. IMPRESSION: Unchanged from initial note. PLAN: Continue current psychotropics. During the individual visit, we processed cognitive behavioral ways to help improve impulse control and ignore certain things rather than reacting to stimuli thrown at him by others, which might further instigate them to throw more similar stimuli if they he is reactive. He seemed to show an understanding for this. MAN Lacho GARNETT MD DR: LEROY/juliane JOB#: [id number] / [id number]
[2017-06-26] MEDS: traZODone 50 MG TABLET. PO SCH (19:22)
[2017-06-26] MEDS: ATORVASTATIN CALCIUM 20 MG TABLET PO SCH (19:22)
[2017-06-26] MEDS: QUEtiapine 50 MG TABLET. PO SCH (19:23)
--- NOTE | 2017-06-26 20:47 | PDOC ---
Exam Note: Hernandez Note: Please also refer to the separate dictated note~for this date of service dictated separately.~Patient seen individually. Discussed the patient with Nursing staff reviewed the chart.~Reviewed interim history and current functioning. Reviewed vital signs,~Labs/ Radiology~and current medications noted below. Continue current treatment with the changes noted in the dictated addendum note Assessment: Vital Signs: Vital Signs Date Time Temp Pulse Resp B/P (MAP) Pulse Ox O2 Delivery O2 Flow Rate FiO2 06/26/17 16:14 97 Room Air 06/26/17 15:52 97.6 77 16 120/69 (86) I&O Intake and Output 06/26/17 07:00 Intake Total 1020 ml Balance 1020 ml Intake Oral 1020 ml # Bowel Movements 1 Labs: Laboratory Tests Test 06/26/17 07:27 06/26/17 16:23 Glucose (Fingerstick) 86 mg/dL (70-99) 171 mg/dL (70-99) H Current Medications: Meds: Current Medications Acetaminophen (Tylenol) 650 mg PRN Q6HRS PRN PO PAIN / TEMP Last administered on 06/23/17at 18:14; Start 06/04/17 at 15:00 Multi-Ingredient Ointment (Analgesic [place]) 1 any PRN QID PRN TP MUSCLE PAIN; Start 06/04/17 at 15:00 Al Hydroxide/Mg Hydroxide (Mylanta Plus Xs) 15 ml PRN AFTMEALHC PRN PO DYSPEPSIA Last administered on 06/14/17at 10:05; Start 06/04/17 at 15:00 Magnesium Hydroxide (Milk Of Magnesia) 2,400 mg PRN QHS PRN PO CONSTIPATION Last administered on 06/11/17at 20:27; Start 06/04/17 at 15:00 Nicotine (Nicoderm Cq 21mg) 1 patch DAILY TD ; Start 06/05/17 at 09:00; Stop at 09:00; Status DC Olanzapine (ZyPREXA ZYDIS) 2.5 mg PRN Q2HR PRN PO ANXIETY / AGITATION Last administered on 06/16/17at 23:24; Start 06/04/17 at 15:30; Stop 06/17/17 at 18:20 ; Status DC Influenza Virus Vaccine Quadrival (Fluarix Quad 4022-1296 Syringe) 0.5 ml ONCE ONCE VAX IM Last administered on 06/05/17at 11:21; Start 06/04/17 at 15:30; Stop 06/04/17 at 15:36; Status DC Amlodipine Besylate (Norvasc) 5 mg DAILY PO Last administered on 06/26/17at 09: 00; Start 06/05/17 at 09:00 Aspirin (Sivakumar Aspirin) 325 mg DAILY PO Last administered on 06/26/17at 09:49; Start 06/05/17 at 09:00 Nicotine (Nicoderm Cq 21mg) 1 patch PRN DAILY PRN TD NICOTINE W/D SYMPTOMS; Start 06/05/17 at 01:00; Stop 06/10/17 at 19:12; Status DC Tamsulosin HCl (Flomax) 0.4 mg DAILY PO Last administered on 06/26/17at 09:49; Start 06/05/17 at 09:00 Non-Formulary Medication 2.5 mg PRN Q12HR PRN NEB WHEEZING; Start 06/05/17 at 01:00; Status UNV Atorvastatin Calcium (Lipitor) 80 mg QHS PO Last administered on 06/26/17at 19: 22; Start 06/05/17 at 21:00 Non-Formulary Medication 1 puff BID IH ; Start 06/05/17 at 09:00; Status UNV Non-Formulary Medication 1 each DAILY PO ; Start 06/05/17 at 09:00; Stop at 09:00; Status DC Pantoprazole Sodium (Protonix) 40 mg DAILYAC PO Last administered on 06/26/17at 07:46; Start 06/05/17 at 07:30 Oxybutynin Chloride (Ditropan) 5 mg DAILY PO Last administered on 06/26/17at 09: 50; Start 06/05/17 at 09:00 Paroxetine HCl (Paxil) 40 mg DAILY PO Last administered on 06/05/17at 08:51; Start 06/05/17 at 09:00; Stop 06/05/17 at 18:43; Status DC Potassium Chloride (Klor-Con) 30 meq DAILY PO Last administered on 06/16/17at 09 :10; Start 06/05/17 at 09:00; Stop 06/17/17 at 10:10; Status DC Lisinopril (Prinivil) 20 mg DAILY PO Last administered on 06/26/17 09:00; Start 06/05/17 at 09:00 Linagliptin (Tradjenta) 5 mg DAILY PO Last administered on 06/26/17at 09:54; Start 06/05/17 at 09:00 Verapamil HCl (Calan Sr) 120 mg DAILY PO Last administered on 06/26/17at 09:00; Start 06/05/17 at 09:00 Dextrose 12.5 gm PRN Q15MIN PRN IV hypoglycemia; Start 06/05/17 at 01:00 Glucose (Insta-Glucose) 15 gm PRN Q15MIN PRN PO LOW BLOOD SUGAR; Start at 01:00 Albuterol Sulfate (Ventolin) 2.5 mg PRN Q12HR PRN NEB WHEEZING; Start 06/05/17 at 01:45 Budesonide (Pulmicort) 0.5 mg RTBID NEB Last administered on 06/26/17at 11:48; Start 06/05/17 at 08:00 Albuterol Sulfate (Ventolin) 2.5 mg RTQID NEB Last administered on 06/26/17at 16 :13; Start 06/05/17 at 08:00 Memantine (Namenda) 5 mg BID PO Last administered on 06/14/17at 07:45; Start at 09:00; Stop 06/14/17 at 11:28; Status DC Donepezil HCl (Aricept) 5 mg BID PO Last administered on 06/14/17at 07:45; Start 06/05/17 at 09:00; Stop 06/14/17 at 11:28; Status DC Vitamin D (Vitamin D3) 50,000 unit WEEKLY PO Last administered on 06/26/17at 09: 47; Start 06/05/17 at 20:00 Cyanocobalamin (Vitamin B-12) 1,000 mcg WEEKLY IM Last administered on at 08:14; Start 06/06/17 at 09:00 Quetiapine Fumarate (SEROquel) 25 mg QHS PO Last administered on 06/05/17at 20: 03; Start 06/05/17 at 21:00; Stop 06/06/17 at 18:42; Status DC Sertraline HCl (Zoloft) 50 mg DAILY PO Last administered on 06/20/17 08:09; Start 06/06/17 at 09:00; Stop 06/20/17 at 14:20; Status DC Quetiapine Fumarate (SEROquel) 50 mg QHS PO Last administered on 06/12/17 20:09 ; Start 06/06/17 at 21:00; Stop 06/13/17 at 18:45; Status DC Trazodone HCl (Desyrel) 50 mg QHS PO Last administered on 06/26/17 19:22; Start 06/08/17 at 21:00 Trazodone HCl (Desyrel) 50 mg PRN QHS PRN PO INSOMNIA Last administered on 06/25 21:05; Start 06/08/17 at 18:45 Divalproex Sodium (Depakote Sprinkles) 125 mg TID@0900,1300,1700 PO Last administered on 06/11/17 16:48; Start 06/09/17 at 09:00; Stop 06/11/17 at 18:15; Status DC Nicotine (Nicoderm Cq 14mg) 1 patch DAILY TD Last administered on 06/26/17 09: 52; Start 06/11/17 at 09:00 Nicotine (Nicoderm Cq 14mg) 1 patch ONCE ONCE TD Last administered on 19:57; Start 06/10/17 at 19:15; Stop 06/10/17 at 19:26; Status DC Divalproex Sodium (Depakote Sprinkles) 250 mg TID@0900,1300,1700 PO Last administered on 06/14/17at 07:44; Start 06/12/17 at 09:00; Stop 06/14/17 at 11:28; Status DC Quetiapine Fumarate (SEROquel) 75 mg QHS PO Last administered on 06/26/17 19: 23; Start 06/13/17 at 21:00 Divalproex Sodium (Depakote Sprinkles) 375 mg TID@0900,1300,1700 PO Last administered on 06/17/17at 17:07; Start 06/14/17 at 13:00; Stop 06/17/17 at 18:20 ; Status DC Donepezil HCl (Aricept) 10 mg BID PO Last administered on 06/26/17 19:22; Start 06/14/17 at 21:00 Memantine (Namenda) 10 mg BID PO Last administered on 06/26/17 19:22; Start at 21:00 Quetiapine Fumarate (SEROquel) 12.5 mg BID@0900,1300 PO Last administered on 12:30; Start 06/14/17 at 13:00; Stop 06/15/17 at 18:55; Status DC Quetiapine Fumarate (SEROquel) 25 mg BID@0900,1300 PO Last administered on 06/26 13:47; Start 06/16/17 at 09:00 Divalproex Sodium (Depakote Sprinkles) 500 mg TID@0900,1300,1700 PO Last administered on 06/21/17 08:11; Start 06/18/17 at 09:00; Stop 06/21/17 at 10:46 ; Status DC Olanzapine (ZyPREXA ZYDIS) 5 mg PRN Q2HR PRN PO ANXIETY / AGITATION Last administered on 06/25/17at 20:02; Start 06/17/17 at 18:30 Hydroxyzine Pamoate (Vistaril) 25 mg PRN Q2HR PRN PO AGITATION/AGGRESSION Last administered on 06/23/17at 19:38; Start 06/17/17 at 19:15 Sertraline HCl (Zoloft) 75 mg DAILY PO Last administered on 06/26/17 09:48; Start 06/21/17 at 09:00 Divalproex Sodium (Depakote Sprinkles) 500 mg BID@0900,1300 PO Last administered on 06/26/17at 13:47; Start 06/21/17 at 13:00 Divalproex Sodium (Depakote Sprinkles) 750 mg DAILY@1700 PO Last administered on 06/26/17 16:47; Start 06/21/17 at 17:00 Active Scripts Active Reported Albuterol Sulfate Conc Neb Soln (Albuterol Sulfate) 2.5 Mg/0.5 Ml Vial.neb 2.5 Mg NEB PRN Q12HR PRN Namzaric 14 mg-10 mg Capsule (Memantine HCl/Donepezil HCl) 1 Each Cap.spr.24 1 Each PO DAILY [manzaric] Atorvastatin Calcium 80 Mg Tablet 80 Mg PO QHS NICODERM CQ 21mg (Nicotine) 1 Each Patch.td24 1 Patch TD PRN DAILY Omeprazole 20 Mg Tablet.dr 20 Mg PO DAILY Verapamil Er (Verapamil Hcl) 240 Mg Cap24h.pel 120 Mg PO DAILY Tamsulosin Hcl 0.4 Mg Cap.er.24h 0.4 Mg PO DAILY Onglyza (Saxagliptin Hcl) 5 Mg Tablet 2.5 Mg PO DAILY Ramipril 10 Mg Capsule 10 Mg PO DAILY Potassium Chloride 10 Meq Tablet.er 30 Meq PO DAILY Paroxetine Hcl 40 Mg Tablet 40 Mg PO DAILY Oxybutynin Chloride Er (Oxybutynin Chloride) 5 Mg Tab.er.24 5 Mg PO DAILY Advair 250-50 Diskus (Fluticasone/Salmeterol) 1 Each Disk.w.dev 1 Puff IH BID Aspirin 325 Mg Tablet 325 Mg PO Amlodipine Besylate 5 Mg Tablet 5 Mg PO DAILY I have reviewed the current psychotropics carefully including drug interactions. Risk benefit ratio favors no change other than as noted in my dictated progress note. Diagnosis: Problems: (1) Major neurocognitive disorder, due to vascular disease, with behavioral disturbance, mild (2) Impulse control disorder (3) Depression (4) Delusion (5) Anxiety disorder (6) Behavior problem BRAYAN GARNETT MD Jun 26, 2017 20:47
[2017-06-27 05:49] VITALS: BP 139/66
[2017-06-27 05:51] VITALS: BP 129/58
[2017-06-27] MEDS: ALBUTEROL SULFATE 2.5 MG/3 ML NEBU. NEB SCH ×4 (06:04→21:27)
[2017-06-27] MEDS: ASPIRIN 325 MG TABLET PO SCH (08:58)
[2017-06-27] MEDS: NICOTINE 14MG PATCH. TD SCH (08:58)
[2017-06-27] MEDS: PANTOPRAZOLE 40 MG TABLET. PO SCH (08:58)
[2017-06-27] MEDS: LISINOPRIL 20 MG TABLET PO SCH (08:58)
[2017-06-27] MEDS: DONEPEZIL HCL 10 MG TABLET PO SCH ×2 (08:58→19:27)
[2017-06-27] MEDS: OXYBUTYNIN CHLORIDE 5 MG TABLET PO SCH (08:59)
[2017-06-27] MEDS: TAMSULOSIN 0.4 MG CAP.ER.24H. PO SCH (08:59)
[2017-06-27] MEDS: SERTRALINE 50 MG TABLET. PO SCH (08:59)
[2017-06-27] MEDS: MEMANTINE 10 MG TABLET. PO SCH ×2 (08:59→19:27)
[2017-06-27] MEDS: DIVALPROEX 125 MG CAP.SPRINK PO SCH ×3 (08:59→17:34)
[2017-06-27] MEDS: QUEtiapine 25 MG TABLET. PO SCH ×2 (08:59→13:57)
[2017-06-27] MEDS: amLODIPine BESYLATE 5 MG TABLET PO SCH (08:59)
[2017-06-27] MEDS: LINAGLIPTIN 5 MG TABLET PO SCH (08:59)
[2017-06-27] MEDS: CYANOCOBALAMIN (VITAMIN B-12) 1,000 MCG/ML VIAL IM SCH (09:00)
[2017-06-27] MEDS: VERAPAMIL SR 120 MG TABLET.ER. PO SCH (09:01)
[2017-06-27] MEDS: BUDESONIDE 0.5 MG/2 ML NEBU NEB SCH ×2 (11:14→21:27)
[2017-06-27] MEDS: SIMETHICONE 80 MG TAB.CHEW PO PRN (13:57)
[2017-06-27 15:56] VITALS: BP 161/64
[2017-06-27] MEDS: QUEtiapine 50 MG TABLET. PO SCH (19:27)
[2017-06-27] MEDS: traZODone 50 MG TABLET. PO SCH (19:27)
[2017-06-27] MEDS: ATORVASTATIN CALCIUM 20 MG TABLET PO SCH (19:27)
--- NOTE | 2017-06-27 19:38 | PN ---
DATE: 06/26/2017 This late entry 06/26/2017 covers elements not covered in my initial note 06/26/2017. Met with the patient in the evening of 06/26/2017. The patient slept 8 hours previous evening, compliant with his medications, somewhat isolative in the morning. Later on, he was more interactive, talking to staff, interacting, all of which is an improvement. He thought he was in [place], unaware of the year, needed trazodone previous night x 2. Slept 8 hours. REVIEW OF SYSTEMS: No CV, , pulmonary, eye, ENT system symptoms on review. Reliability poor. MENTAL STATUS EXAM: Oriented to himself. Insight, judgment, recent and remote memory, attention, concentration, fund of knowledge poor, consistent with his diagnosis mentioned in my initial note. PLAN: Continue current psychotropics. Adjust further as clinically indicated as noted in my initial note. BRAYAN GARNETT MD DR: LEROY/juliane JOB#: [id number] / [id number]
--- NOTE | 2017-06-27 20:56 | PDOC ---
Exam Note: Hernandez Note: Please also refer to the separate dictated note~for this date of service dictated separately.~Patient seen individually. Discussed the patient with Nursing staff reviewed the chart.~Reviewed interim history and current functioning. Reviewed vital signs,~Labs/ Radiology~and current medications noted below. Continue current treatment with the changes noted in the dictated addendum note Assessment: Vital Signs: Vital Signs Date Time Temp Pulse Resp B/P (MAP) Pulse Ox O2 Delivery O2 Flow Rate FiO2 06/27/17 16:14 96 Room Air 06/27/17 15:56 97.1 97 20 161/64 (96) I&O Intake and Output 06/27/17 07:00 Intake Total 1300 ml Balance 1300 ml Intake Oral 1300 ml Labs: Laboratory Tests Test 06/27/17 08:13 Glucose (Fingerstick) 167 mg/dL (70-99) H Current Medications: Meds: Current Medications Acetaminophen (Tylenol) 650 mg PRN Q6HRS PRN PO PAIN / TEMP Last administered on 06/23/17at 18:14; Start 06/04/17 at 15:00 Multi-Ingredient Ointment (Analgesic [place]) 1 any PRN QID PRN TP MUSCLE PAIN; Start 06/04/17 at 15:00 Al Hydroxide/Mg Hydroxide (Mylanta Plus Xs) 15 ml PRN AFTMEALHC PRN PO DYSPEPSIA Last administered on 06/14/17at 10:05; Start 06/04/17 at 15:00 Magnesium Hydroxide (Milk Of Magnesia) 2,400 mg PRN QHS PRN PO CONSTIPATION Last administered on 06/11/17at 20:27; Start 06/04/17 at 15:00 Nicotine (Nicoderm Cq 21mg) 1 patch DAILY TD ; Start 06/05/17 at 09:00; Stop at 09:00; Status DC Olanzapine (ZyPREXA ZYDIS) 2.5 mg PRN Q2HR PRN PO ANXIETY / AGITATION Last administered on 06/16/17at 23:24; Start 06/04/17 at 15:30; Stop 06/17/17 at 18:20 ; Status DC Influenza Virus Vaccine Quadrival (Fluarix Quad [id number] Syringe) 0.5 ml ONCE ONCE VAX IM Last administered on 06/05/17at 11:21; Start 06/04/17 at 15:30; Stop 06/04/17 at 15:36; Status DC Amlodipine Besylate (Norvasc) 5 mg DAILY PO Last administered on 06/27/17at 08: 59; Start 06/05/17 at 09:00 Aspirin (Sivakumar Aspirin) 325 mg DAILY PO Last administered on 06/27/17at 08:58; Start 06/05/17 at 09:00 Nicotine (Nicoderm Cq 21mg) 1 patch PRN DAILY PRN TD NICOTINE W/D SYMPTOMS; Start 06/05/17 at 01:00; Stop 06/10/17 at 19:12; Status DC Tamsulosin HCl (Flomax) 0.4 mg DAILY PO Last administered on 06/27/17at 08:59; Start 06/05/17 at 09:00 Non-Formulary Medication 2.5 mg PRN Q12HR PRN NEB WHEEZING; Start 06/05/17 at 01:00; Status UNV Atorvastatin Calcium (Lipitor) 80 mg QHS PO Last administered on 06/27/17at 19: 27; Start 06/05/17 at 21:00 Non-Formulary Medication 1 puff BID IH ; Start 06/05/17 at 09:00; Status UNV Non-Formulary Medication 1 each DAILY PO ; Start 06/05/17 at 09:00; Stop at 09:00; Status DC Pantoprazole Sodium (Protonix) 40 mg DAILYAC PO Last administered on 06/27/17at 08:58; Start 06/05/17 at 07:30 Oxybutynin Chloride (Ditropan) 5 mg DAILY PO Last administered on 06/27/17at 08: 59; Start 06/05/17 at 09:00 Paroxetine HCl (Paxil) 40 mg DAILY PO Last administered on 06/05/17at 08:51; Start 06/05/17 at 09:00; Stop 06/05/17 at 18:43; Status DC Potassium Chloride (Klor-Con) 30 meq DAILY PO Last administered on 06/16/17at 09 :10; Start 06/05/17 at 09:00; Stop 06/17/17 at 10:10; Status DC Lisinopril (Prinivil) 20 mg DAILY PO Last administered on 06/27/17at 08:58; Start 06/05/17 at 09:00 Linagliptin (Tradjenta) 5 mg DAILY PO Last administered on 06/27/17at 08:59; Start 06/05/17 at 09:00 Verapamil HCl (Calan Sr) 120 mg DAILY PO Last administered on 06/27/17at 09:01; Start 06/05/17 at 09:00 Dextrose 12.5 gm PRN Q15MIN PRN IV hypoglycemia; Start 06/05/17 at 01:00 Glucose (Insta-Glucose) 15 gm PRN Q15MIN PRN PO LOW BLOOD SUGAR; Start at 01:00 Albuterol Sulfate (Ventolin) 2.5 mg PRN Q12HR PRN NEB WHEEZING; Start 06/05/17 at 01:45 Budesonide (Pulmicort) 0.5 mg RTBID NEB Last administered on 06/27/17at 11:14; Start 06/05/17 at 08:00 Albuterol Sulfate (Ventolin) 2.5 mg RTQID NEB Last administered on 06/27/17at 16 :12; Start 06/05/17 at 08:00 Memantine (Namenda) 5 mg BID PO Last administered on 06/14/17at 07:45; Start at 09:00; Stop 06/14/17 at 11:28; Status DC Donepezil HCl (Aricept) 5 mg BID PO Last administered on 06/14/17at 07:45; Start 06/05/17 at 09:00; Stop 06/14/17 at 11:28; Status DC Vitamin D (Vitamin D3) 50,000 unit WEEKLY PO Last administered on 06/26/17at 09: 47; Start 06/05/17 at 20:00 Cyanocobalamin (Vitamin B-12) 1,000 mcg WEEKLY IM Last administered on at 09:00; Start 06/06/17 at 09:00 Quetiapine Fumarate (SEROquel) 25 mg QHS PO Last administered on 06/05/17at 20: 03; Start 06/05/17 at 21:00; Stop 06/06/17 at 18:42; Status DC Sertraline HCl (Zoloft) 50 mg DAILY PO Last administered on 06/20/17at 08:09; Start 06/06/17 at 09:00; Stop 06/20/17 at 14:20; Status DC Quetiapine Fumarate (SEROquel) 50 mg QHS PO Last administered on 06/12/17 20:09 ; Start 06/06/17 at 21:00; Stop 06/13/17 at 18:45; Status DC Trazodone HCl (Desyrel) 50 mg QHS PO Last administered on 06/27/17 19:27; Start 06/08/17 at 21:00 Trazodone HCl (Desyrel) 50 mg PRN QHS PRN PO INSOMNIA Last administered on 06/25 21:05; Start 06/08/17 at 18:45 Divalproex Sodium (Depakote Sprinkles) 125 mg TID@0900,1300,1700 PO Last administered on 06/11/17 16:48; Start 06/09/17 at 09:00; Stop 06/11/17 at 18:15; Status DC Nicotine (Nicoderm Cq 14mg) 1 patch DAILY TD Last administered on 06/27/17at 08: 58; Start 06/11/17 at 09:00 Nicotine (Nicoderm Cq 14mg) 1 patch ONCE ONCE TD Last administered on 19:57; Start 06/10/17 at 19:15; Stop 06/10/17 at 19:26; Status DC Divalproex Sodium (Depakote Sprinkles) 250 mg TID@0900,1300,1700 PO Last administered on 06/14/17at 07:44; Start 06/12/17 at 09:00; Stop 06/14/17 at 11:28; Status DC Quetiapine Fumarate (SEROquel) 75 mg QHS PO Last administered on 06/27/17 19: 27; Start 06/13/17 at 21:00 Divalproex Sodium (Depakote Sprinkles) 375 mg TID@0900,1300,1700 PO Last administered on 06/17/17at 17:07; Start 06/14/17 at 13:00; Stop 06/17/17 at 18:20 ; Status DC Donepezil HCl (Aricept) 10 mg BID PO Last administered on 06/27/17 19:27; Start 06/14/17 at 21:00 Memantine (Namenda) 10 mg BID PO Last administered on 06/27/17 19:27; Start at 21:00 Quetiapine Fumarate (SEROquel) 12.5 mg BID@0900,1300 PO Last administered on 06/15/17at 12:30; Start 06/14/17 at 13:00; Stop 06/15/17 at 18:55; Status DC Quetiapine Fumarate (SEROquel) 25 mg BID@0900,1300 PO Last administered on 06/27 13:57; Start 06/16/17 at 09:00 Divalproex Sodium (Depakote Sprinkles) 500 mg TID@0900,1300,1700 PO Last administered on 06/21/17at 08:11; Start 06/18/17 at 09:00; Stop 06/21/17 at 10:46 ; Status DC Olanzapine (ZyPREXA ZYDIS) 5 mg PRN Q2HR PRN PO ANXIETY / AGITATION Last administered on 06/27/17at 18:28; Start 06/17/17 at 18:30 Hydroxyzine Pamoate (Vistaril) 25 mg PRN Q2HR PRN PO AGITATION/AGGRESSION Last administered on 06/23/17 19:38; Start 06/17/17 at 19:15 Sertraline HCl (Zoloft) 75 mg DAILY PO Last administered on 06/27/17at 08:59; Start 06/21/17 at 09:00 Divalproex Sodium (Depakote Sprinkles) 500 mg BID@0900,1300 PO Last administered on 06/27/17 13:57; Start 06/21/17 at 13:00 Divalproex Sodium (Depakote Sprinkles) 750 mg DAILY@1700 PO Last administered on 06/27/17at 17:34; Start 06/21/17 at 17:00 Simethicone (Gas-X) 80 mg PRN AFTMEALHC PRN PO GAS / BLOATING Last administered on 06/27/17 13:57; Start 06/27/17 at 11:45 Active Scripts Active Reported Albuterol Sulfate Conc Neb Soln (Albuterol Sulfate) 2.5 Mg/0.5 Ml Vial.neb 2.5 Mg NEB PRN Q12HR PRN Namzaric 14 mg-10 mg Capsule (Memantine HCl/Donepezil HCl) 1 Each Cap.spr.24 1 Each PO DAILY [manzaric] Atorvastatin Calcium 80 Mg Tablet 80 Mg PO QHS NICODERM CQ 21mg (Nicotine) 1 Each Patch.td24 1 Patch TD PRN DAILY Omeprazole 20 Mg Tablet.dr 20 Mg PO DAILY Verapamil Er (Verapamil Hcl) 240 Mg Cap24h.pel 120 Mg PO DAILY Tamsulosin Hcl 0.4 Mg Cap.er.24h 0.4 Mg PO DAILY Onglyza (Saxagliptin Hcl) 5 Mg Tablet 2.5 Mg PO DAILY Ramipril 10 Mg Capsule 10 Mg PO DAILY Potassium Chloride 10 Meq Tablet.er 30 Meq PO DAILY Paroxetine Hcl 40 Mg Tablet 40 Mg PO DAILY Oxybutynin Chloride Er (Oxybutynin Chloride) 5 Mg Tab.er.24 5 Mg PO DAILY Advair 250-50 Diskus (Fluticasone/Salmeterol) 1 Each Disk.w.dev 1 Puff IH BID Aspirin 325 Mg Tablet 325 Mg PO Amlodipine Besylate 5 Mg Tablet 5 Mg PO DAILY I have reviewed the current psychotropics carefully including drug interactions. Risk benefit ratio favors no change other than as noted in my dictated progress note. Diagnosis: Problems: (1) Major neurocognitive disorder, due to vascular disease, with behavioral disturbance, mild (2) Impulse control disorder (3) Depression (4) Delusion (5) Anxiety disorder (6) Behavior problem BRAYAN GARNETT MD Jun 27, 2017 20:56
[2017-06-28 05:53] VITALS: BP 115/56
[2017-06-28] MEDS: ALBUTEROL SULFATE 2.5 MG/3 ML NEBU. NEB SCH ×4 (05:56→21:25)
[2017-06-28] MEDS: BUDESONIDE 0.5 MG/2 ML NEBU NEB SCH ×2 (08:00→21:25)
[2017-06-28] MEDS: VERAPAMIL SR 120 MG TABLET.ER. PO SCH (09:00)
[2017-06-28] MEDS: LISINOPRIL 20 MG TABLET PO SCH (09:00)
[2017-06-28] MEDS: TAMSULOSIN 0.4 MG CAP.ER.24H. PO SCH (09:45)
[2017-06-28] MEDS: ASPIRIN 325 MG TABLET PO SCH (09:45)
[2017-06-28] MEDS: QUEtiapine 25 MG TABLET. PO SCH ×2 (09:45→13:59)
[2017-06-28] MEDS: PANTOPRAZOLE 40 MG TABLET. PO SCH (09:45)
[2017-06-28] MEDS: MEMANTINE 10 MG TABLET. PO SCH ×2 (09:45→20:32)
[2017-06-28] MEDS: DONEPEZIL HCL 10 MG TABLET PO SCH ×2 (09:45→20:32)
[2017-06-28] MEDS: LINAGLIPTIN 5 MG TABLET PO SCH (09:45)
[2017-06-28] MEDS: OXYBUTYNIN CHLORIDE 5 MG TABLET PO SCH (09:45)
[2017-06-28] MEDS: amLODIPine BESYLATE 5 MG TABLET PO SCH (09:48)
[2017-06-28] MEDS: DIVALPROEX 125 MG CAP.SPRINK PO SCH ×3 (09:48→16:59)
[2017-06-28] MEDS: NICOTINE 14MG PATCH. TD SCH (09:48)
[2017-06-28] MEDS: SERTRALINE 50 MG TABLET. PO SCH (09:50)
[2017-06-28 16:03] VITALS: BP 113/73
[2017-06-28] MEDS: ATORVASTATIN CALCIUM 20 MG TABLET PO SCH (20:32)
[2017-06-28] MEDS: traZODone 50 MG TABLET. PO SCH (20:32)
[2017-06-28] MEDS: QUEtiapine 50 MG TABLET. PO SCH (20:32)
--- NOTE | 2017-06-28 20:58 | PDOC ---
Exam Note: Hernandez Note: Please also refer to the separate dictated note~for this date of service dictated separately.~Patient seen individually. Discussed the patient with Nursing staff reviewed the chart.~Reviewed interim history and current functioning. Reviewed vital signs,~Labs/ Radiology~and current medications noted below. Continue current treatment with the changes noted in the dictated addendum note Assessment: Vital Signs: Vital Signs Date Time Temp Pulse Resp B/P (MAP) Pulse Ox O2 Delivery O2 Flow Rate FiO2 06/28/17 16:03 97.2 77 20 113/73 (86) 92 06/28/17 15:43 Room Air I&O Intake and Output 06/28/17 07:00 Intake Total 1080 ml Balance 1080 ml Intake Oral 1080 ml Labs: Laboratory Tests Test 06/28/17 07:58 Glucose (Fingerstick) 85 mg/dL (70-99) Current Medications: Meds: Current Medications Acetaminophen (Tylenol) 650 mg PRN Q6HRS PRN PO PAIN / TEMP Last administered on 06/23/17at 18:14; Start 06/04/17 at 15:00 Multi-Ingredient Ointment (Analgesic [place]) 1 any PRN QID PRN TP MUSCLE PAIN; Start 06/04/17 at 15:00 Al Hydroxide/Mg Hydroxide (Mylanta Plus Xs) 15 ml PRN AFTMEALHC PRN PO DYSPEPSIA Last administered on 06/14/17at 10:05; Start 06/04/17 at 15:00 Magnesium Hydroxide (Milk Of Magnesia) 2,400 mg PRN QHS PRN PO CONSTIPATION Last administered on 06/11/17at 20:27; Start 06/04/17 at 15:00 Nicotine (Nicoderm Cq 21mg) 1 patch DAILY TD ; Start 06/05/17 at 09:00; Stop at 09:00; Status DC Olanzapine (ZyPREXA ZYDIS) 2.5 mg PRN Q2HR PRN PO ANXIETY / AGITATION Last administered on 06/16/17at 23:24; Start 06/04/17 at 15:30; Stop 06/17/17 at 18:20 ; Status DC Influenza Virus Vaccine Quadrival (Fluarix Quad [id number] Syringe) 0.5 ml ONCE ONCE VAX IM Last administered on 06/05/17at 11:21; Start 06/04/17 at 15:30; Stop 06/04/17 at 15:36; Status DC Amlodipine Besylate (Norvasc) 5 mg DAILY PO Last administered on 06/28/17at 09: 48; Start 06/05/17 at 09:00 Aspirin (Sivakumar Aspirin) 325 mg DAILY PO Last administered on 06/28/17at 09:45; Start 06/05/17 at 09:00 Nicotine (Nicoderm Cq 21mg) 1 patch PRN DAILY PRN TD NICOTINE W/D SYMPTOMS; Start 06/05/17 at 01:00; Stop 06/10/17 at 19:12; Status DC Tamsulosin HCl (Flomax) 0.4 mg DAILY PO Last administered on 06/28/17 09:45; Start 06/05/17 at 09:00 Non-Formulary Medication 2.5 mg PRN Q12HR PRN NEB WHEEZING; Start 06/05/17 at 01:00; Status UNV Atorvastatin Calcium (Lipitor) 80 mg QHS PO Last administered on 06/28/17at 20: 32; Start 06/05/17 at 21:00 Non-Formulary Medication 1 puff BID IH ; Start 06/05/17 at 09:00; Status UNV Non-Formulary Medication 1 each DAILY PO ; Start 06/05/17 at 09:00; Stop at 09:00; Status DC Pantoprazole Sodium (Protonix) 40 mg DAILYAC PO Last administered on 06/28/17at 09:45; Start 06/05/17 at 07:30 Oxybutynin Chloride (Ditropan) 5 mg DAILY PO Last administered on 06/28/17at 09: 45; Start 06/05/17 at 09:00 Paroxetine HCl (Paxil) 40 mg DAILY PO Last administered on 06/05/17at 08:51; Start 06/05/17 at 09:00; Stop 06/05/17 at 18:43; Status DC Potassium Chloride (Klor-Con) 30 meq DAILY PO Last administered on 06/16/17at 09 :10; Start 06/05/17 at 09:00; Stop 06/17/17 at 10:10; Status DC Lisinopril (Prinivil) 20 mg DAILY PO Last administered on 06/27/17at 08:58; Start 06/05/17 at 09:00 Linagliptin (Tradjenta) 5 mg DAILY PO Last administered on 06/28/17 09:45; Start 06/05/17 at 09:00 Verapamil HCl (Calan Sr) 120 mg DAILY PO Last administered on 06/27/17at 09:01; Start 06/05/17 at 09:00 Dextrose 12.5 gm PRN Q15MIN PRN IV hypoglycemia; Start 06/05/17 at 01:00 Glucose (Insta-Glucose) 15 gm PRN Q15MIN PRN PO LOW BLOOD SUGAR; Start at 01:00 Albuterol Sulfate (Ventolin) 2.5 mg PRN Q12HR PRN NEB WHEEZING; Start 06/05/17 at 01:45 Budesonide (Pulmicort) 0.5 mg RTBID NEB Last administered on 06/27/17at 21:27; Start 06/05/17 at 08:00 Albuterol Sulfate (Ventolin) 2.5 mg RTQID NEB Last administered on 06/28/17at 15 :43; Start 06/05/17 at 08:00 Memantine (Namenda) 5 mg BID PO Last administered on 06/14/17 07:45; Start at 09:00; Stop 06/14/17 at 11:28; Status DC Donepezil HCl (Aricept) 5 mg BID PO Last administered on 06/14/17 07:45; Start 06/05/17 at 09:00; Stop 06/14/17 at 11:28; Status DC Vitamin D (Vitamin D3) 50,000 unit WEEKLY PO Last administered on 06/26/17at 09: 47; Start 06/05/17 at 20:00 Cyanocobalamin (Vitamin B-12) 1,000 mcg WEEKLY IM Last administered on at 09:00; Start 06/06/17 at 09:00 Quetiapine Fumarate (SEROquel) 25 mg QHS PO Last administered on 06/05/17at 20: 03; Start 06/05/17 at 21:00; Stop 06/06/17 at 18:42; Status DC Sertraline HCl (Zoloft) 50 mg DAILY PO Last administered on 06/20/17at 08:09; Start 06/06/17 at 09:00; Stop 06/20/17 at 14:20; Status DC Quetiapine Fumarate (SEROquel) 50 mg QHS PO Last administered on 06/12/17 20:09 ; Start 06/06/17 at 21:00; Stop 06/13/17 at 18:45; Status DC Trazodone HCl (Desyrel) 50 mg QHS PO Last administered on 06/28/17 20:32; Start 06/08/17 at 21:00 Trazodone HCl (Desyrel) 50 mg PRN QHS PRN PO INSOMNIA Last administered on 06/25 21:05; Start 06/08/17 at 18:45 Divalproex Sodium (Depakote Sprinkles) 125 mg TID@0900,1300,1700 PO Last administered on 06/11/17 16:48; Start 06/09/17 at 09:00; Stop 06/11/17 at 18:15; Status DC Nicotine (Nicoderm Cq 14mg) 1 patch DAILY TD Last administered on 06/28/17 09: 48; Start 06/11/17 at 09:00 Nicotine (Nicoderm Cq 14mg) 1 patch ONCE ONCE TD Last administered on 19:57; Start 06/10/17 at 19:15; Stop 06/10/17 at 19:26; Status DC Divalproex Sodium (Depakote Sprinkles) 250 mg TID@0900,1300,1700 PO Last administered on 06/14/17at 07:44; Start 06/12/17 at 09:00; Stop 06/14/17 at 11:28; Status DC Quetiapine Fumarate (SEROquel) 75 mg QHS PO Last administered on 06/28/17 20: 32; Start 06/13/17 at 21:00 Divalproex Sodium (Depakote Sprinkles) 375 mg TID@0900,1300,1700 PO Last administered on 06/17/17 17:07; Start 06/14/17 at 13:00; Stop 06/17/17 at 18:20 ; Status DC Donepezil HCl (Aricept) 10 mg BID PO Last administered on 06/28/17 20:32; Start 06/14/17 at 21:00 Memantine (Namenda) 10 mg BID PO Last administered on 06/28/17 20:32; Start at 21:00 Quetiapine Fumarate (SEROquel) 12.5 mg BID@0900,1300 PO Last administered on 06/15/17at 12:30; Start 06/14/17 at 13:00; Stop 06/15/17 at 18:55; Status DC Quetiapine Fumarate (SEROquel) 25 mg BID@0900,1300 PO Last administered on 06/28 13:59; Start 06/16/17 at 09:00 Divalproex Sodium (Depakote Sprinkles) 500 mg TID@0900,1300,1700 PO Last administered on 06/21/17at 08:11; Start 06/18/17 at 09:00; Stop 06/21/17 at 10:46 ; Status DC Olanzapine (ZyPREXA ZYDIS) 5 mg PRN Q2HR PRN PO ANXIETY / AGITATION Last administered on 06/27/17at 18:28; Start 06/17/17 at 18:30 Hydroxyzine Pamoate (Vistaril) 25 mg PRN Q2HR PRN PO AGITATION/AGGRESSION Last administered on 06/23/17at 19:38; Start 06/17/17 at 19:15 Sertraline HCl (Zoloft) 75 mg DAILY PO Last administered on 06/28/17at 09:50; Start 06/21/17 at 09:00 Divalproex Sodium (Depakote Sprinkles) 500 mg BID@0900,1300 PO Last administered on 06/28/17 13:59; Start 06/21/17 at 13:00 Divalproex Sodium (Depakote Sprinkles) 750 mg DAILY@1700 PO Last administered on 06/28/17 16:59; Start 06/21/17 at 17:00 Simethicone (Gas-X) 80 mg PRN AFTMEALHC PRN PO GAS / BLOATING Last administered on 06/27/17at 13:57; Start 06/27/17 at 11:45 Active Scripts Active Reported Albuterol Sulfate Conc Neb Soln (Albuterol Sulfate) 2.5 Mg/0.5 Ml Vial.neb 2.5 Mg NEB PRN Q12HR PRN Namzaric 14 mg-10 mg Capsule (Memantine HCl/Donepezil HCl) 1 Each Cap.spr.24 1 Each PO DAILY [manzaric] Atorvastatin Calcium 80 Mg Tablet 80 Mg PO QHS NICODERM CQ 21mg (Nicotine) 1 Each Patch.td24 1 Patch TD PRN DAILY Omeprazole 20 Mg Tablet.dr 20 Mg PO DAILY Verapamil Er (Verapamil Hcl) 240 Mg Cap24h.pel 120 Mg PO DAILY Tamsulosin Hcl 0.4 Mg Cap.er.24h 0.4 Mg PO DAILY Onglyza (Saxagliptin Hcl) 5 Mg Tablet 2.5 Mg PO DAILY Ramipril 10 Mg Capsule 10 Mg PO DAILY Potassium Chloride 10 Meq Tablet.er 30 Meq PO DAILY Paroxetine Hcl 40 Mg Tablet 40 Mg PO DAILY Oxybutynin Chloride Er (Oxybutynin Chloride) 5 Mg Tab.er.24 5 Mg PO DAILY Advair 250-50 Diskus (Fluticasone/Salmeterol) 1 Each Disk.w.dev 1 Puff IH BID Aspirin 325 Mg Tablet 325 Mg PO Amlodipine Besylate 5 Mg Tablet 5 Mg PO DAILY I have reviewed the current psychotropics carefully including drug interactions. Risk benefit ratio favors no change other than as noted in my dictated progress note. Diagnosis: Problems: (1) Major neurocognitive disorder, due to vascular disease, with behavioral disturbance, mild (2) Impulse control disorder (3) Depression (4) Delusion (5) Anxiety disorder (6) Behavior problem BRAYAN GARNETT MD Jun 28, 2017 20:58
[2017-06-29] MEDS: traZODone 50 MG TABLET. PO PRN (00:51)
[2017-06-29 05:52] VITALS: BP 128/52
[2017-06-29] MEDS: ALBUTEROL SULFATE 2.5 MG/3 ML NEBU. NEB SCH ×4 (06:05→20:08)
[2017-06-29] MEDS: BUDESONIDE 0.5 MG/2 ML NEBU NEB SCH ×2 (08:00→20:08)
[2017-06-29] MEDS: NICOTINE 14MG PATCH. TD SCH (08:56)
[2017-06-29] MEDS: DIVALPROEX 125 MG CAP.SPRINK PO SCH ×3 (08:57→16:31)
[2017-06-29] MEDS: ASPIRIN 325 MG TABLET PO SCH (08:57)
[2017-06-29] MEDS: amLODIPine BESYLATE 5 MG TABLET PO SCH (08:57)
[2017-06-29] MEDS: QUEtiapine 25 MG TABLET. PO SCH ×2 (08:57→14:53)
[2017-06-29] MEDS: OXYBUTYNIN CHLORIDE 5 MG TABLET PO SCH (08:57)
[2017-06-29] MEDS: TAMSULOSIN 0.4 MG CAP.ER.24H. PO SCH (08:57)
[2017-06-29] MEDS: DONEPEZIL HCL 10 MG TABLET PO SCH ×2 (08:57→19:29)
[2017-06-29] MEDS: SERTRALINE 50 MG TABLET. PO SCH (08:58)
[2017-06-29] MEDS: LINAGLIPTIN 5 MG TABLET PO SCH (08:58)
[2017-06-29] MEDS: LISINOPRIL 20 MG TABLET PO SCH (08:58)
[2017-06-29] MEDS: VERAPAMIL SR 120 MG TABLET.ER. PO SCH (08:58)
[2017-06-29] MEDS: PANTOPRAZOLE 40 MG TABLET. PO SCH (08:58)
[2017-06-29] MEDS: MEMANTINE 10 MG TABLET. PO SCH ×2 (08:59→19:29)
--- NOTE | 2017-06-29 10:14 | PN ---
DATE: 06/27/2017 This is a late entry for 06/27/2017 and covers elements not covered in my initial note of 06/27/2017. SUBJECTIVE: The patient was seen individually evening of 06/27/2017. He remains confused, forgetful, quite labile at times very agitated before dinner, then calmer after this. No PRNs were given. road builder, per nursing report, he was playing possum, refusing to interact, withdrawn to his room. REVIEW OF SYSTEMS: Ambulation, unsteady gait at times. No CV, , pulmonary, eye, ENT system symptoms on review. Reliability poor. MENTAL STATUS EXAM: Oriented to himself. Insight, judgment, recent and remote memory, attention, concentration, fund of knowledge poor, consistent with his diagnosis as mentioned in my initial note. PLAN: Continue current psychotropics as mentioned in my initial note. Adjust as indicated. MAN Lacho GARNETT MD DR: LEROY/juliane JOB#: [id number] / [id number]
--- NOTE | 2017-06-29 13:06 | PN ---
DATE: 06/28/2017 This late entry 06/28/2017 covers elements not covered in my initial note of 06/28/2017. I met with the patient in the evening of 06/28/2017, the patient was staffed at treatment team meeting with the entire team morning of 06/28/2017. He scores a 0 on the SLUMS scale. Slept 6-1/2 hours. He has been less agitated, aggressive, very forgetful. REVIEW OF SYSTEMS: No CV, , pulmonary, eye, ENT system symptoms on review. Reliability poor. MENTAL STATUS EXAM: Oriented to himself. Insight, judgment, recent and remote memory, attention, concentration, fund of knowledge poor, consistent with his diagnosis mentioned in my initial note. IMPRESSION: Major neurocognitive disorder, Alzheimer, vascular with delusion, depression, behavioral disturbance. Rest unchanged. PLAN: Continue current psychotropics mentioned in my initial note. Valproic acid level therapeutic at 54. BRAYAN GARNETT MD DR: LEROY/juliane JOB#: [id number] / [id number]
[2017-06-29 16:12] VITALS: BP 139/63
[2017-06-29] MEDS: traZODone 50 MG TABLET. PO SCH (19:29)
[2017-06-29] MEDS: ATORVASTATIN CALCIUM 20 MG TABLET PO SCH (19:29)
[2017-06-29] MEDS: QUEtiapine 50 MG TABLET. PO SCH (19:29)
--- NOTE | 2017-06-29 21:00 | PDOC ---
Exam Note: Hrenandez Note: Please also refer to the separate dictated note~for this date of service dictated separately.~Patient seen individually. Discussed the patient with Nursing staff reviewed the chart.~Reviewed interim history and current functioning. Reviewed vital signs,~Labs/ Radiology~and current medications noted below. Continue current treatment with the changes noted in the dictated addendum note Assessment: Vital Signs: Vital Signs Date Time Temp Pulse Resp B/P (MAP) Pulse Ox O2 Delivery O2 Flow Rate FiO2 06/29/17 20:13 Room Air 06/29/17 20:10 96 06/29/17 16:12 97.5 66 20 139/63 (88) I&O Intake and Output 06/29/17 07:00 Intake Total 1200 ml Balance 1200 ml Intake Oral 1200 ml # Bowel Movements 1 Labs: Laboratory Tests Test 06/29/17 08:10 Glucose (Fingerstick) 94 mg/dL (70-99) Current Medications: Meds: Current Medications Acetaminophen (Tylenol) 650 mg PRN Q6HRS PRN PO PAIN / TEMP Last administered on 06/23/17at 18:14; Start 06/04/17 at 15:00 Multi-Ingredient Ointment (Analgesic [place]) 1 any PRN QID PRN TP MUSCLE PAIN; Start 06/04/17 at 15:00 Al Hydroxide/Mg Hydroxide (Mylanta Plus Xs) 15 ml PRN AFTMEALHC PRN PO DYSPEPSIA Last administered on 06/14/17at 10:05; Start 06/04/17 at 15:00 Magnesium Hydroxide (Milk Of Magnesia) 2,400 mg PRN QHS PRN PO CONSTIPATION Last administered on 06/11/17at 20:27; Start 06/04/17 at 15:00 Nicotine (Nicoderm Cq 21mg) 1 patch DAILY TD ; Start 06/05/17 at 09:00; Stop at 09:00; Status DC Olanzapine (ZyPREXA ZYDIS) 2.5 mg PRN Q2HR PRN PO ANXIETY / AGITATION Last administered on 06/16/17at 23:24; Start 06/04/17 at 15:30; Stop 06/17/17 at 18:20 ; Status DC Influenza Virus Vaccine Quadrival (Fluarix Quad [id number] Syringe) 0.5 ml ONCE ONCE VAX IM Last administered on 2/27/18at 11:21; Start 06/04/17 at 15:30; Stop 06/04/17 at 15:36; Status DC Amlodipine Besylate (Norvasc) 5 mg DAILY PO Last administered on 06/29/17 08: 57; Start 06/05/17 at 09:00 Aspirin (Sivakumar Aspirin) 325 mg DAILY PO Last administered on 06/29/17 08:57; Start 06/05/17 at 09:00 Nicotine (Nicoderm Cq 21mg) 1 patch PRN DAILY PRN TD NICOTINE W/D SYMPTOMS; Start 06/05/17 at 01:00; Stop 06/10/17 at 19:12; Status DC Tamsulosin HCl (Flomax) 0.4 mg DAILY PO Last administered on 06/29/17 08:57; Start 06/05/17 at 09:00 Non-Formulary Medication 2.5 mg PRN Q12HR PRN NEB WHEEZING; Start 06/05/17 at 01:00; Status UNV Atorvastatin Calcium (Lipitor) 80 mg QHS PO Last administered on 06/29/17 19: 29; Start 06/05/17 at 21:00 Non-Formulary Medication 1 puff BID IH ; Start 06/05/17 at 09:00; Status UNV Non-Formulary Medication 1 each DAILY PO ; Start 06/05/17 at 09:00; Stop at 09:00; Status DC Pantoprazole Sodium (Protonix) 40 mg DAILYAC PO Last administered on 06/29/17 08:58; Start 06/05/17 at 07:30 Oxybutynin Chloride (Ditropan) 5 mg DAILY PO Last administered on 06/29/17 08: 57; Start 06/05/17 at 09:00 Paroxetine HCl (Paxil) 40 mg DAILY PO Last administered on 06/05/17 08:51; Start 06/05/17 at 09:00; Stop 06/05/17 at 18:43; Status DC Potassium Chloride (Klor-Con) 30 meq DAILY PO Last administered on 06/16/17at 09 :10; Start 06/05/17 at 09:00; Stop 06/17/17 at 10:10; Status DC Lisinopril (Prinivil) 20 mg DAILY PO Last administered on 3/21/18at 08:58; Start 06/05/17 at 09:00 Linagliptin (Tradjenta) 5 mg DAILY PO Last administered on 06/29/17 08:58; Start 06/05/17 at 09:00 Verapamil HCl (Calan Sr) 120 mg DAILY PO Last administered on 06/27/17 09:01; Start 06/05/17 at 09:00 Dextrose 12.5 gm PRN Q15MIN PRN IV hypoglycemia; Start 06/05/17 at 01:00 Glucose (Insta-Glucose) 15 gm PRN Q15MIN PRN PO LOW BLOOD SUGAR; Start at 01:00 Albuterol Sulfate (Ventolin) 2.5 mg PRN Q12HR PRN NEB WHEEZING; Start 06/05/17 at 01:45 Budesonide (Pulmicort) 0.5 mg RTBID NEB Last administered on 06/29/17at 20:08; Start 06/05/17 at 08:00 Albuterol Sulfate (Ventolin) 2.5 mg RTQID NEB Last administered on 06/29/17 20 :08; Start 06/05/17 at 08:00 Memantine (Namenda) 5 mg BID PO Last administered on 06/14/17 07:45; Start at 09:00; Stop 06/14/17 at 11:28; Status DC Donepezil HCl (Aricept) 5 mg BID PO Last administered on 06/14/17 07:45; Start 06/05/17 at 09:00; Stop 06/14/17 at 11:28; Status DC Vitamin D (Vitamin D3) 50,000 unit WEEKLY PO Last administered on 06/26/17at 09: 47; Start 06/05/17 at 20:00 Cyanocobalamin (Vitamin B-12) 1,000 mcg WEEKLY IM Last administered on 09:00; Start 06/06/17 at 09:00 Quetiapine Fumarate (SEROquel) 25 mg QHS PO Last administered on 06/05/17at 20: 03; Start 06/05/17 at 21:00; Stop 06/06/17 at 18:42; Status DC Sertraline HCl (Zoloft) 50 mg DAILY PO Last administered on 06/20/17at 08:09; Start 06/06/17 at 09:00; Stop 06/20/17 at 14:20; Status DC Quetiapine Fumarate (SEROquel) 50 mg QHS PO Last administered on 06/12/17at 20:09 ; Start 06/06/17 at 21:00; Stop 06/13/17 at 18:45; Status DC Trazodone HCl (Desyrel) 50 mg QHS PO Last administered on 06/29/17 19:29; Start 06/08/17 at 21:00 Trazodone HCl (Desyrel) 50 mg PRN QHS PRN PO INSOMNIA Last administered on 06/29 00:51; Start 06/08/17 at 18:45 Divalproex Sodium (Depakote Sprinkles) 125 mg TID@0900,1300,1700 PO Last administered on 06/11/17 16:48; Start 06/09/17 at 09:00; Stop 06/11/17 at 18:15; Status DC Nicotine (Nicoderm Cq 14mg) 1 patch DAILY TD Last administered on 06/29/17 08: 56; Start 06/11/17 at 09:00 Nicotine (Nicoderm Cq 14mg) 1 patch ONCE ONCE TD Last administered on 19:57; Start 06/10/17 at 19:15; Stop 06/10/17 at 19:26; Status DC Divalproex Sodium (Depakote Sprinkles) 250 mg TID@0900,1300,1700 PO Last administered on 06/14/17at 07:44; Start 06/12/17 at 09:00; Stop 06/14/17 at 11:28; Status DC Quetiapine Fumarate (SEROquel) 75 mg QHS PO Last administered on 06/29/17 19: 29; Start 06/13/17 at 21:00 Divalproex Sodium (Depakote Sprinkles) 375 mg TID@0900,1300,1700 PO Last administered on 06/17/17 17:07; Start 06/14/17 at 13:00; Stop 06/17/17 at 18:20 ; Status DC Donepezil HCl (Aricept) 10 mg BID PO Last administered on 06/29/17 19:29; Start 06/14/17 at 21:00 Memantine (Namenda) 10 mg BID PO Last administered on 06/29/17 19:29; Start at 21:00 Quetiapine Fumarate (SEROquel) 12.5 mg BID@0900,1300 PO Last administered on 06/15/17at 12:30; Start 06/14/17 at 13:00; Stop 06/15/17 at 18:55; Status DC Quetiapine Fumarate (SEROquel) 25 mg BID@0900,1300 PO Last administered on 06/29 14:53; Start 06/16/17 at 09:00; Stop 06/29/17 at 17:50; Status DC Divalproex Sodium (Depakote Sprinkles) 500 mg TID@0900,1300,1700 PO Last administered on 06/21/17 08:11; Start 06/18/17 at 09:00; Stop 06/21/17 at 10:46 ; Status DC Olanzapine (ZyPREXA ZYDIS) 5 mg PRN Q2HR PRN PO ANXIETY / AGITATION Last administered on 06/29/17 14:53; Start 06/17/17 at 18:30 Hydroxyzine Pamoate (Vistaril) 25 mg PRN Q2HR PRN PO AGITATION/AGGRESSION Last administered on 06/23/17 19:38; Start 06/17/17 at 19:15 Sertraline HCl (Zoloft) 75 mg DAILY PO Last administered on 06/29/17 08:58; Start 06/21/17 at 09:00 Divalproex Sodium (Depakote Sprinkles) 500 mg BID@0900,1300 PO Last administered on 06/29/17 14:53; Start 06/21/17 at 13:00 Divalproex Sodium (Depakote Sprinkles) 750 mg DAILY@1700 PO Last administered on 06/29/17 16:31; Start 06/21/17 at 17:00 Simethicone (Gas-X) 80 mg PRN AFTMEALHC PRN PO GAS / BLOATING Last administered on 06/27/17 13:57; Start 06/27/17 at 11:45 Quetiapine Fumarate (SEROquel) 25 mg TID@0900,1300,1500 PO ; Start 06/30/17 at 09:00 Active Scripts Active Reported Albuterol Sulfate Conc Neb Soln (Albuterol Sulfate) 2.5 Mg/0.5 Ml Vial.neb 2.5 Mg NEB PRN Q12HR PRN Namzaric 14 mg-10 mg Capsule (Memantine HCl/Donepezil HCl) 1 Each Cap.spr.24 1 Each PO DAILY [manzaric] Atorvastatin Calcium 80 Mg Tablet 80 Mg PO QHS NICODERM CQ 21mg (Nicotine) 1 Each Patch.td24 1 Patch TD PRN DAILY Omeprazole 20 Mg Tablet.dr 20 Mg PO DAILY Verapamil Er (Verapamil Hcl) 240 Mg Cap24h.pel 120 Mg PO DAILY Tamsulosin Hcl 0.4 Mg Cap.er.24h 0.4 Mg PO DAILY Onglyza (Saxagliptin Hcl) 5 Mg Tablet 2.5 Mg PO DAILY Ramipril 10 Mg Capsule 10 Mg PO DAILY Potassium Chloride 10 Meq Tablet.er 30 Meq PO DAILY Paroxetine Hcl 40 Mg Tablet 40 Mg PO DAILY Oxybutynin Chloride Er (Oxybutynin Chloride) 5 Mg Tab.er.24 5 Mg PO DAILY Advair 250-50 Diskus (Fluticasone/Salmeterol) 1 Each Disk.w.dev 1 Puff IH BID Aspirin 325 Mg Tablet 325 Mg PO Amlodipine Besylate 5 Mg Tablet 5 Mg PO DAILY I have reviewed the current psychotropics carefully including drug interactions. Risk benefit ratio favors no change other than as noted in my dictated progress note. Diagnosis: Problems: (1) Major neurocognitive disorder, due to vascular disease, with behavioral disturbance, mild (2) Impulse control disorder (3) Depression (4) Delusion (5) Anxiety disorder (6) Behavior problem BRAYAN GARNETT MD Jun 29, 2017 21:00
[2017-06-30 05:49] VITALS: BP 120/74
[2017-06-30] MEDS: ALBUTEROL SULFATE 2.5 MG/3 ML NEBU. NEB SCH ×4 (06:06→21:45)
[2017-06-30] MEDS: DONEPEZIL HCL 10 MG TABLET PO SCH ×2 (07:34→19:29)
[2017-06-30] MEDS: amLODIPine BESYLATE 5 MG TABLET PO SCH (07:34)
[2017-06-30] MEDS: DIVALPROEX 125 MG CAP.SPRINK PO SCH ×3 (07:34→16:56)
[2017-06-30] MEDS: ASPIRIN 325 MG TABLET PO SCH (07:34)
[2017-06-30] MEDS: OXYBUTYNIN CHLORIDE 5 MG TABLET PO SCH (07:34)
[2017-06-30] MEDS: PANTOPRAZOLE 40 MG TABLET. PO SCH (07:35)
[2017-06-30] MEDS: SERTRALINE 50 MG TABLET. PO SCH (07:35)
[2017-06-30] MEDS: MEMANTINE 10 MG TABLET. PO SCH ×2 (07:35→19:28)
[2017-06-30] MEDS: LISINOPRIL 20 MG TABLET PO SCH (07:35)
[2017-06-30] MEDS: TAMSULOSIN 0.4 MG CAP.ER.24H. PO SCH (07:35)
[2017-06-30] MEDS: LINAGLIPTIN 5 MG TABLET PO SCH (07:35)
[2017-06-30] MEDS: NICOTINE 14MG PATCH. TD SCH (07:36)
[2017-06-30] MEDS: VERAPAMIL SR 120 MG TABLET.ER. PO SCH (07:41)
[2017-06-30] MEDS: QUEtiapine 25 MG TABLET. PO SCH ×3 (07:41→14:57)
[2017-06-30 09:14] LABS: BASO # 0.1 x10^3/uL (0.0-0.2); BASO % 1 % (0-3); EOS # 0.6 x10^3/uL (0.0-0.7); EOS % 6 % (0-3); HEMATOCRIT 46.9 % (39.0-53.0); HEMOGLOBIN 15.3 g/dL (13.0-17.5); LYMPH # 2.5 x10^3/uL (1.0-4.8); LYMPH % 26 % (24-48); MEAN CORPUSCULAR HEMOGLOBIN 28 pg (25-35); MEAN CORPUSCULAR HGB CONC 33 g/dL (31-37); MEAN CORPUSCULAR VOLUME 87 fL (79-100); MONO # 0.8 x10^3/uL (0.0-1.1); MONO % 8 % (0-9); NEUT # 5.7 x10^3uL (1.8-7.7); NEUT % 59 % (31-73); PLATELET COUNT 150 x10^3/uL (140-400); RED BLOOD COUNT 5.42 x10^6/uL (4.30-5.70); RED CELL DISTRIBUTION WIDTH 14.7 % (11.5-14.5); WHITE BLOOD COUNT 9.6 x10^3/uL (4.0-11.0)
[2017-06-30 09:30] LABS: ALBUMIN 3.5 g/dL (3.4-5.0); ALBUMIN/GLOBULIN RATIO 0.9 (1.0-1.7); CALCIUM 9.5 mg/dL (8.5-10.1); CREATININE 1.5 mg/dL (0.7-1.3); GFR 46.8; POTASSIUM 4.3 mmol/L (3.5-5.1); TOTAL BILIRUBIN 0.3 mg/dL (0.2-1.0); TOTAL PROTEIN 7.6 g/dL (6.4-8.2)
[2017-06-30] MEDS: BUDESONIDE 0.5 MG/2 ML NEBU NEB SCH ×2 (10:36→21:47)
[2017-06-30 16:03] VITALS: BP 106/62
[2017-06-30] MEDS: QUEtiapine 50 MG TABLET. PO SCH (19:28)
[2017-06-30] MEDS: traZODone 50 MG TABLET. PO SCH (19:28)
[2017-06-30] MEDS: ATORVASTATIN CALCIUM 20 MG TABLET PO SCH (19:28)
--- NOTE | 2017-06-30 20:25 | PN ---
DATE: 06/29/2017 PSYCHIATRIC PROGRESS NOTE This late entry for 06/29/2017 covers the elements not covered in my initial note of 06/29/2017. SUBJECTIVE: Met with the patient in the evening of 06/29/2017. Between 3 and 6 p.m. per nursing report, the patient gets more agitated, needing a p.r.n. We will add Seroquel 25 mg at 3 p.m. He is wanting double portion of meals and discussed this with nursing staff. REVIEW OF SYSTEMS: No CV, , pulmonary, eye, ENT system symptoms on review. Reliability is poor. MENTAL STATUS EXAM: Oriented to himself. Insight, judgment, recent and remote memory, attention, concentration, fund of knowledge is poor, consistent with his diagnosis mentioned in my initial note. PLAN: Continue current psychotropics, add Seroquel as noted. Rest unchanged from initial note. MAN Lacho GARNETT MD DR: LEROY/juliane JOB#: [id number] / [id number]
--- NOTE | 2017-06-30 22:03 | PDOC ---
Exam Note: Hernandez Note: Please also refer to the separate dictated note~for this date of service dictated separately.~Patient seen individually. Discussed the patient with Nursing staff reviewed the chart.~Reviewed interim history and current functioning. Reviewed vital signs,~Labs/ Radiology~and current medications noted below. Continue current treatment with the changes noted in the dictated addendum note Assessment: Vital Signs: Vital Signs Date Time Temp Pulse Resp B/P (MAP) Pulse Ox O2 Delivery O2 Flow Rate FiO2 06/30/17 21:25 96 Room Air 06/30/17 16:03 97.8 76 18 106/62 (77) I&O Intake and Output 06/30/17 07:00 Intake Total 1080 ml Balance 1080 ml Intake Oral 1080 ml Labs: Laboratory Tests Test 06/30/17 07:35 06/30/17 08:59 Glucose (Fingerstick) 91 mg/dL (70-99) White Blood Count 9.6 x10^3/uL (4.0-11.0) Red Blood Count 5.42 x10^6/uL (4.30-5.70) Hemoglobin 15.3 g/dL (13.0-17.5) Hematocrit 46.9 % (39.0-53.0) Mean Corpuscular Volume 87 fL (79-100) Mean Corpuscular Hemoglobin 28 pg (25-35) Mean Corpuscular Hemoglobin Concent 33 g/dL (31-37) Red Cell Distribution Width 14.7 % (11.5-14.5) H Platelet Count 150 x10^3/uL (140-400) Neutrophils (%) (Auto) 59 % (31-73) Lymphocytes (%) (Auto) 26 % (24-48) Monocytes (%) (Auto) 8 % (0-9) Eosinophils (%) (Auto) 6 % (0-3) H Basophils (%) (Auto) 1 % (0-3) Neutrophils # (Auto) 5.7 x10^3uL (1.8-7.7) Lymphocytes # (Auto) 2.5 x10^3/uL (1.0-4.8) Monocytes # (Auto) 0.8 x10^3/uL (0.0-1.1) Eosinophils # (Auto) 0.6 x10^3/uL (0.0-0.7) Basophils # (Auto) 0.1 x10^3/uL (0.0-0.2) Sodium Level 142 mmol/L (136-145) Potassium Level 4.3 mmol/L (3.5-5.1) Chloride Level 102 mmol/L (98-107) Carbon Dioxide Level 34 mmol/L (21-32) H Anion Gap 6 (6-14) Blood Urea Nitrogen 22 mg/dL (8-26) Creatinine 1.5 mg/dL (0.7-1.3) H Estimated GFR (Cockcroft-Gault) 46.8 BUN/Creatinine Ratio 15 (6-20) Glucose Level 142 mg/dL (70-99) H Calcium Level 9.5 mg/dL (8.5-10.1) Total Bilirubin 0.3 mg/dL (0.2-1.0) Aspartate Amino Transferase (AST) 16 U/L (15-37) Alanine Aminotransferase (ALT) 30 U/L (16-63) Alkaline Phosphatase 78 U/L (46-116) Total Protein 7.6 g/dL (6.4-8.2) Albumin 3.5 g/dL (3.4-5.0) Albumin/Globulin Ratio 0.9 (1.0-1.7) L Current Medications: Meds: Current Medications Acetaminophen (Tylenol) 650 mg PRN Q6HRS PRN PO PAIN / TEMP Last administered on 06/23/17at 18:14; Start 06/04/17 at 15:00 Multi-Ingredient Ointment (Analgesic [place]) 1 any PRN QID PRN TP MUSCLE PAIN; Start 06/04/17 at 15:00 Al Hydroxide/Mg Hydroxide (Mylanta Plus Xs) 15 ml PRN AFTMEALHC PRN PO DYSPEPSIA Last administered on 06/14/17at 10:05; Start 06/04/17 at 15:00 Magnesium Hydroxide (Milk Of Magnesia) 2,400 mg PRN QHS PRN PO CONSTIPATION Last administered on 06/11/17at 20:27; Start 06/04/17 at 15:00 Nicotine (Nicoderm Cq 21mg) 1 patch DAILY TD ; Start 06/05/17 at 09:00; Stop at 09:00; Status DC Olanzapine (ZyPREXA ZYDIS) 2.5 mg PRN Q2HR PRN PO ANXIETY / AGITATION Last administered on 06/16/17 23:24; Start 06/04/17 at 15:30; Stop 06/17/17 at 18:20 ; Status DC Influenza Virus Vaccine Quadrival (Fluarix Quad 7430-0830 Syringe) 0.5 ml ONCE ONCE VAX IM Last administered on 06/05/17 11:21; Start 06/04/17 at 15:30; Stop 06/04/17 at 15:36; Status DC Amlodipine Besylate (Norvasc) 5 mg DAILY PO Last administered on 06/30/17 07: 34; Start 06/05/17 at 09:00 Aspirin (Sivakumar Aspirin) 325 mg DAILY PO Last administered on 06/30/17 07:34; Start 06/05/17 at 09:00 Nicotine (Nicoderm Cq 21mg) 1 patch PRN DAILY PRN TD NICOTINE W/D SYMPTOMS; Start 06/05/17 at 01:00; Stop 06/10/17 at 19:12; Status DC Tamsulosin HCl (Flomax) 0.4 mg DAILY PO Last administered on 06/30/17at 07:35; Start 06/05/17 at 09:00 Non-Formulary Medication 2.5 mg PRN Q12HR PRN NEB WHEEZING; Start 06/05/17 at 01:00; Status UNV Atorvastatin Calcium (Lipitor) 80 mg QHS PO Last administered on 06/30/17 19: 28; Start 06/05/17 at 21:00 Non-Formulary Medication 1 puff BID IH ; Start 06/05/17 at 09:00; Status UNV Non-Formulary Medication 1 each DAILY PO ; Start 06/05/17 at 09:00; Stop at 09:00; Status DC Pantoprazole Sodium (Protonix) 40 mg DAILYAC PO Last administered on 06/30/17 07:35; Start 06/05/17 at 07:30 Oxybutynin Chloride (Ditropan) 5 mg DAILY PO Last administered on 06/30/17 07: 34; Start 06/05/17 at 09:00 Paroxetine HCl (Paxil) 40 mg DAILY PO Last administered on 06/05/17at 08:51; Start 06/05/17 at 09:00; Stop 06/05/17 at 18:43; Status DC Potassium Chloride (Klor-Con) 30 meq DAILY PO Last administered on 06/16/17 09 :10; Start 06/05/17 at 09:00; Stop 06/17/17 at 10:10; Status DC Lisinopril (Prinivil) 20 mg DAILY PO Last administered on 06/30/17 07:35; Start 06/05/17 at 09:00 Linagliptin (Tradjenta) 5 mg DAILY PO Last administered on 06/30/17 07:35; Start 06/05/17 at 09:00 Verapamil HCl (Calan Sr) 120 mg DAILY PO Last administered on 06/30/17 07:41; Start 06/05/17 at 09:00 Dextrose 12.5 gm PRN Q15MIN PRN IV hypoglycemia; Start 06/05/17 at 01:00 Glucose (Insta-Glucose) 15 gm PRN Q15MIN PRN PO LOW BLOOD SUGAR; Start at 01:00 Albuterol Sulfate (Ventolin) 2.5 mg PRN Q12HR PRN NEB WHEEZING; Start 06/05/17 at 01:45 Budesonide (Pulmicort) 0.5 mg RTBID NEB Last administered on 06/30/17 21:47; Start 06/05/17 at 08:00 Albuterol Sulfate (Ventolin) 2.5 mg RTQID NEB Last administered on 06/30/17 21 :45; Start 06/05/17 at 08:00 Memantine (Namenda) 5 mg BID PO Last administered on 06/14/17 07:45; Start at 09:00; Stop 06/14/17 at 11:28; Status DC Donepezil HCl (Aricept) 5 mg BID PO Last administered on 06/14/17 07:45; Start 06/05/17 at 09:00; Stop 06/14/17 at 11:28; Status DC Vitamin D (Vitamin D3) 50,000 unit WEEKLY PO Last administered on 06/26/17at 09: 47; Start 06/05/17 at 20:00 Cyanocobalamin (Vitamin B-12) 1,000 mcg WEEKLY IM Last administered on at 09:00; Start 06/06/17 at 09:00 Quetiapine Fumarate (SEROquel) 25 mg QHS PO Last administered on 06/05/17at 20: 03; Start 06/05/17 at 21:00; Stop 06/06/17 at 18:42; Status DC Sertraline HCl (Zoloft) 50 mg DAILY PO Last administered on 06/20/17at 08:09; Start 06/06/17 at 09:00; Stop 06/20/17 at 14:20; Status DC Quetiapine Fumarate (SEROquel) 50 mg QHS PO Last administered on 06/12/17at 20:09 ; Start 06/06/17 at 21:00; Stop 06/13/17 at 18:45; Status DC Trazodone HCl (Desyrel) 50 mg QHS PO Last administered on 06/30/17 19:28; Start 06/08/17 at 21:00 Trazodone HCl (Desyrel) 50 mg PRN QHS PRN PO INSOMNIA Last administered on 06/29at 00:51; Start 06/08/17 at 18:45 Divalproex Sodium (Depakote Sprinkles) 125 mg TID@0900,1300,1700 PO Last administered on 06/11/17 16:48; Start 06/09/17 at 09:00; Stop 06/11/17 at 18:15; Status DC Nicotine (Nicoderm Cq 14mg) 1 patch DAILY TD Last administered on 06/30/17 07: 36; Start 06/11/17 at 09:00 Nicotine (Nicoderm Cq 14mg) 1 patch ONCE ONCE TD Last administered on 19:57; Start 06/10/17 at 19:15; Stop 06/10/17 at 19:26; Status DC Divalproex Sodium (Depakote Sprinkles) 250 mg TID@0900,1300,1700 PO Last administered on 06/14/17at 07:44; Start 06/12/17 at 09:00; Stop 06/14/17 at 11:28; Status DC Quetiapine Fumarate (SEROquel) 75 mg QHS PO Last administered on 06/30/17 19: 28; Start 06/13/17 at 21:00 Divalproex Sodium (Depakote Sprinkles) 375 mg TID@0900,1300,1700 PO Last administered on 06/17/17 17:07; Start 06/14/17 at 13:00; Stop 06/17/17 at 18:20 ; Status DC Donepezil HCl (Aricept) 10 mg BID PO Last administered on 06/30/17 19:29; Start 06/14/17 at 21:00 Memantine (Namenda) 10 mg BID PO Last administered on 06/30/17 19:28; Start at 21:00 Quetiapine Fumarate (SEROquel) 12.5 mg BID@0900,1300 PO Last administered on 06/15/17at 12:30; Start 06/14/17 at 13:00; Stop 06/15/17 at 18:55; Status DC Quetiapine Fumarate (SEROquel) 25 mg BID@0900,1300 PO Last administered on 06/29at 14:53; Start 06/16/17 at 09:00; Stop 06/29/17 at 17:50; Status DC Divalproex Sodium (Depakote Sprinkles) 500 mg TID@0900,1300,1700 PO Last administered on 06/21/17at 08:11; Start 06/18/17 at 09:00; Stop 06/21/17 at 10:46 ; Status DC Olanzapine (ZyPREXA ZYDIS) 5 mg PRN Q2HR PRN PO ANXIETY / AGITATION Last administered on 06/29/17at 14:53; Start 06/17/17 at 18:30 Hydroxyzine Pamoate (Vistaril) 25 mg PRN Q2HR PRN PO AGITATION/AGGRESSION Last administered on 06/23/17at 19:38; Start 06/17/17 at 19:15 Sertraline HCl (Zoloft) 75 mg DAILY PO Last administered on 06/30/17 07:35; Start 06/21/17 at 09:00 Divalproex Sodium (Depakote Sprinkles) 500 mg BID@0900,1300 PO Last administered on 06/30/17at 12:48; Start 06/21/17 at 13:00 Divalproex Sodium (Depakote Sprinkles) 750 mg DAILY@1700 PO Last administered on 06/30/17at 16:56; Start 06/21/17 at 17:00 Simethicone (Gas-X) 80 mg PRN AFTMEALHC PRN PO GAS / BLOATING Last administered on 06/27/17at 13:57; Start 06/27/17 at 11:45 Quetiapine Fumarate (SEROquel) 25 mg TID@0900,1300,1500 PO Last administered on 06/30/17at 14:57; Start 06/30/17 at 09:00 Active Scripts Active Reported Albuterol Sulfate Conc Neb Soln (Albuterol Sulfate) 2.5 Mg/0.5 Ml Vial.neb 2.5 Mg NEB PRN Q12HR PRN Namzaric 14 mg-10 mg Capsule (Memantine HCl/Donepezil HCl) 1 Each Cap.spr.24 1 Each PO DAILY [manzaric] Atorvastatin Calcium 80 Mg Tablet 80 Mg PO QHS NICODERM CQ 21mg (Nicotine) 1 Each Patch.td24 1 Patch TD PRN DAILY Omeprazole 20 Mg Tablet.dr 20 Mg PO DAILY Verapamil Er (Verapamil Hcl) 240 Mg Cap24h.pel 120 Mg PO DAILY Tamsulosin Hcl 0.4 Mg Cap.er.24h 0.4 Mg PO DAILY Onglyza (Saxagliptin Hcl) 5 Mg Tablet 2.5 Mg PO DAILY Ramipril 10 Mg Capsule 10 Mg PO DAILY Potassium Chloride 10 Meq Tablet.er 30 Meq PO DAILY Paroxetine Hcl 40 Mg Tablet 40 Mg PO DAILY Oxybutynin Chloride Er (Oxybutynin Chloride) 5 Mg Tab.er.24 5 Mg PO DAILY Advair 250-50 Diskus (Fluticasone/Salmeterol) 1 Each Disk.w.dev 1 Puff IH BID Aspirin 325 Mg Tablet 325 Mg PO Amlodipine Besylate 5 Mg Tablet 5 Mg PO DAILY I have reviewed the current psychotropics carefully including drug interactions. Risk benefit ratio favors no change other than as noted in my dictated progress note. Diagnosis: Problems: (1) Major neurocognitive disorder, due to vascular disease, with behavioral disturbance, mild (2) Impulse control disorder (3) Depression (4) Delusion (5) Anxiety disorder (6) Behavior problem BRAYAN GARNETT MD Jun 30, 2017 22:02
[2017-07-01 05:52] VITALS: BP 99/47
[2017-07-01] MEDS: ALBUTEROL SULFATE 2.5 MG/3 ML NEBU. NEB SCH ×4 (05:54→21:29)
[2017-07-01 06:35] VITALS: BP 91/58
[2017-07-01] MEDS: DIVALPROEX 125 MG CAP.SPRINK PO SCH ×3 (07:25→15:58)
[2017-07-01] MEDS: MEMANTINE 10 MG TABLET. PO SCH ×2 (07:25→19:14)
[2017-07-01] MEDS: SERTRALINE 50 MG TABLET. PO SCH (07:26)
[2017-07-01] MEDS: LISINOPRIL 20 MG TABLET PO SCH (07:26)
[2017-07-01] MEDS: LINAGLIPTIN 5 MG TABLET PO SCH (07:27)
[2017-07-01] MEDS: NICOTINE 14MG PATCH. TD SCH (07:27)
[2017-07-01] MEDS: DONEPEZIL HCL 10 MG TABLET PO SCH ×2 (07:27→19:14)
[2017-07-01] MEDS: OXYBUTYNIN CHLORIDE 5 MG TABLET PO SCH (07:27)
[2017-07-01] MEDS: QUEtiapine 25 MG TABLET. PO SCH ×3 (07:27→15:56)
[2017-07-01] MEDS: ASPIRIN 325 MG TABLET PO SCH (07:27)
[2017-07-01] MEDS: TAMSULOSIN 0.4 MG CAP.ER.24H. PO SCH (07:27)
[2017-07-01] MEDS: VERAPAMIL SR 120 MG TABLET.ER. PO SCH (07:28)
[2017-07-01] MEDS: amLODIPine BESYLATE 5 MG TABLET PO SCH (07:28)
[2017-07-01] MEDS: PANTOPRAZOLE 40 MG TABLET. PO SCH (07:32)
[2017-07-01] MEDS: BUDESONIDE 0.5 MG/2 ML NEBU NEB SCH ×2 (10:33→21:29)
[2017-07-01 16:09] VITALS: BP 103/56
[2017-07-01] MEDS: ATORVASTATIN CALCIUM 20 MG TABLET PO SCH (19:14)
[2017-07-01] MEDS: traZODone 50 MG TABLET. PO SCH (19:14)
[2017-07-01] MEDS: QUEtiapine 50 MG TABLET. PO SCH (19:14)
--- NOTE | 2017-07-01 21:01 | PDOC ---
Exam Note: Hernandez Note: Please also refer to the separate dictated note~for this date of service dictated separately.~Patient seen individually. Discussed the patient with Nursing staff reviewed the chart.~Reviewed interim history and current functioning. Reviewed vital signs,~Labs/ Radiology~and current medications noted below. Continue current treatment with the changes noted in the dictated addendum note Assessment: Vital Signs: Vital Signs Date Time Temp Pulse Resp B/P (MAP) Pulse Ox O2 Delivery O2 Flow Rate FiO2 07/01/17 16:18 97 Room Air 07/01/17 16:09 98.2 73 20 103/56 (72) I&O Intake and Output 07/01/17 07:00 Intake Total 960 ml Balance 960 ml Intake Oral 960 ml Labs: Laboratory Tests Test 07/01/17 07:29 Glucose (Fingerstick) 77 mg/dL (70-99) Current Medications: Meds: Current Medications Acetaminophen (Tylenol) 650 mg PRN Q6HRS PRN PO PAIN / TEMP Last administered on 06/23/17at 18:14; Start 06/04/17 at 15:00 Multi-Ingredient Ointment (Analgesic [place]) 1 any PRN QID PRN TP MUSCLE PAIN; Start 06/04/17 at 15:00 Al Hydroxide/Mg Hydroxide (Mylanta Plus Xs) 15 ml PRN AFTMEALHC PRN PO DYSPEPSIA Last administered on 06/14/17at 10:05; Start 06/04/17 at 15:00 Magnesium Hydroxide (Milk Of Magnesia) 2,400 mg PRN QHS PRN PO CONSTIPATION Last administered on 06/11/17at 20:27; Start 06/04/17 at 15:00 Nicotine (Nicoderm Cq 21mg) 1 patch DAILY TD ; Start 06/05/17 at 09:00; Stop at 09:00; Status DC Olanzapine (ZyPREXA ZYDIS) 2.5 mg PRN Q2HR PRN PO ANXIETY / AGITATION Last administered on 06/16/17at 23:24; Start 06/04/17 at 15:30; Stop 06/17/17 at 18:20 ; Status DC Influenza Virus Vaccine Quadrival (Fluarix Quad 0450-6624 Syringe) 0.5 ml ONCE ONCE VAX IM Last administered on 06/05/17at 11:21; Start 06/04/17 at 15:30; Stop 06/04/17 at 15:36; Status DC Amlodipine Besylate (Norvasc) 5 mg DAILY PO Last administered on 06/30/17at 07: 34; Start 06/05/17 at 09:00 Aspirin (Sivakumar Aspirin) 325 mg DAILY PO Last administered on 07/01/17 07:27; Start 06/05/17 at 09:00 Nicotine (Nicoderm Cq 21mg) 1 patch PRN DAILY PRN TD NICOTINE W/D SYMPTOMS; Start 06/05/17 at 01:00; Stop 06/10/17 at 19:12; Status DC Tamsulosin HCl (Flomax) 0.4 mg DAILY PO Last administered on 07/01/17 07:27; Start 06/05/17 at 09:00 Non-Formulary Medication 2.5 mg PRN Q12HR PRN NEB WHEEZING; Start 06/05/17 at 01:00; Status UNV Atorvastatin Calcium (Lipitor) 80 mg QHS PO Last administered on 07/01/17at 19: 14; Start 06/05/17 at 21:00 Non-Formulary Medication 1 puff BID IH ; Start 06/05/17 at 09:00; Status UNV Non-Formulary Medication 1 each DAILY PO ; Start 06/05/17 at 09:00; Stop at 09:00; Status DC Pantoprazole Sodium (Protonix) 40 mg DAILYAC PO Last administered on 07/01/17at 07:32; Start 06/05/17 at 07:30 Oxybutynin Chloride (Ditropan) 5 mg DAILY PO Last administered on 07/01/17at 07: 27; Start 06/05/17 at 09:00 Paroxetine HCl (Paxil) 40 mg DAILY PO Last administered on 06/05/17at 08:51; Start 06/05/17 at 09:00; Stop 06/05/17 at 18:43; Status DC Potassium Chloride (Klor-Con) 30 meq DAILY PO Last administered on 06/16/17at 09 :10; Start 06/05/17 at 09:00; Stop 06/17/17 at 10:10; Status DC Lisinopril (Prinivil) 20 mg DAILY PO Last administered on 06/30/17at 07:35; Start 06/05/17 at 09:00 Linagliptin (Tradjenta) 5 mg DAILY PO Last administered on 07/01/17 07:27; Start 06/05/17 at 09:00 Verapamil HCl (Calan Sr) 120 mg DAILY PO Last administered on 07/01/17 07:28; Start 06/05/17 at 09:00 Dextrose 12.5 gm PRN Q15MIN PRN IV hypoglycemia; Start 06/05/17 at 01:00 Glucose (Insta-Glucose) 15 gm PRN Q15MIN PRN PO LOW BLOOD SUGAR; Start at 01:00 Albuterol Sulfate (Ventolin) 2.5 mg PRN Q12HR PRN NEB WHEEZING; Start 06/05/17 at 01:45 Budesonide (Pulmicort) 0.5 mg RTBID NEB Last administered on 07/01/17at 10:33; Start 06/05/17 at 08:00 Albuterol Sulfate (Ventolin) 2.5 mg RTQID NEB Last administered on 07/01/17 16 :17; Start 06/05/17 at 08:00 Memantine (Namenda) 5 mg BID PO Last administered on 06/14/17at 07:45; Start at 09:00; Stop 06/14/17 at 11:28; Status DC Donepezil HCl (Aricept) 5 mg BID PO Last administered on 06/14/17 07:45; Start 06/05/17 at 09:00; Stop 06/14/17 at 11:28; Status DC Vitamin D (Vitamin D3) 50,000 unit WEEKLY PO Last administered on 06/26/17at 09: 47; Start 06/05/17 at 20:00 Cyanocobalamin (Vitamin B-12) 1,000 mcg WEEKLY IM Last administered on at 09:00; Start 06/06/17 at 09:00 Quetiapine Fumarate (SEROquel) 25 mg QHS PO Last administered on 06/05/17at 20: 03; Start 06/05/17 at 21:00; Stop 06/06/17 at 18:42; Status DC Sertraline HCl (Zoloft) 50 mg DAILY PO Last administered on 06/20/17at 08:09; Start 06/06/17 at 09:00; Stop 06/20/17 at 14:20; Status DC Quetiapine Fumarate (SEROquel) 50 mg QHS PO Last administered on 06/12/17 20:09 ; Start 06/06/17 at 21:00; Stop 06/13/17 at 18:45; Status DC Trazodone HCl (Desyrel) 50 mg QHS PO Last administered on 07/01/17 19:14; Start 06/08/17 at 21:00 Trazodone HCl (Desyrel) 50 mg PRN QHS PRN PO INSOMNIA Last administered on 06/29 00:51; Start 06/08/17 at 18:45 Divalproex Sodium (Depakote Sprinkles) 125 mg TID@0900,1300,1700 PO Last administered on 06/11/17 16:48; Start 06/09/17 at 09:00; Stop 06/11/17 at 18:15; Status DC Nicotine (Nicoderm Cq 14mg) 1 patch DAILY TD Last administered on 07/01/17 07: 27; Start 06/11/17 at 09:00 Nicotine (Nicoderm Cq 14mg) 1 patch ONCE ONCE TD Last administered on 19:57; Start 06/10/17 at 19:15; Stop 06/10/17 at 19:26; Status DC Divalproex Sodium (Depakote Sprinkles) 250 mg TID@0900,1300,1700 PO Last administered on 06/14/17at 07:44; Start 06/12/17 at 09:00; Stop 06/14/17 at 11:28; Status DC Quetiapine Fumarate (SEROquel) 75 mg QHS PO Last administered on 07/01/17 19: 14; Start 06/13/17 at 21:00 Divalproex Sodium (Depakote Sprinkles) 375 mg TID@0900,1300,1700 PO Last administered on 06/17/17 17:07; Start 06/14/17 at 13:00; Stop 06/17/17 at 18:20 ; Status DC Donepezil HCl (Aricept) 10 mg BID PO Last administered on 07/01/17 19:14; Start 06/14/17 at 21:00 Memantine (Namenda) 10 mg BID PO Last administered on 07/01/17 19:14; Start at 21:00 Quetiapine Fumarate (SEROquel) 12.5 mg BID@0900,1300 PO Last administered on 06/15/17at 12:30; Start 06/14/17 at 13:00; Stop 06/15/17 at 18:55; Status DC Quetiapine Fumarate (SEROquel) 25 mg BID@0900,1300 PO Last administered on 06/29at 14:53; Start 06/16/17 at 09:00; Stop 06/29/17 at 17:50; Status DC Divalproex Sodium (Depakote Sprinkles) 500 mg TID@0900,1300,1700 PO Last administered on 06/21/17at 08:11; Start 06/18/17 at 09:00; Stop 06/21/17 at 10:46 ; Status DC Olanzapine (ZyPREXA ZYDIS) 5 mg PRN Q2HR PRN PO ANXIETY / AGITATION Last administered on 07/01/17 19:16; Start 06/17/17 at 18:30 Hydroxyzine Pamoate (Vistaril) 25 mg PRN Q2HR PRN PO AGITATION/AGGRESSION Last administered on 06/23/17 19:38; Start 06/17/17 at 19:15 Sertraline HCl (Zoloft) 75 mg DAILY PO Last administered on 07/01/17 07:26; Start 06/21/17 at 09:00 Divalproex Sodium (Depakote Sprinkles) 500 mg BID@0900,1300 PO Last administered on 07/01/17 12:27; Start 06/21/17 at 13:00 Divalproex Sodium (Depakote Sprinkles) 750 mg DAILY@1700 PO Last administered on 07/01/17 15:58; Start 06/21/17 at 17:00 Simethicone (Gas-X) 80 mg PRN AFTMEALHC PRN PO GAS / BLOATING Last administered on 06/27/17 13:57; Start 06/27/17 at 11:45 Quetiapine Fumarate (SEROquel) 25 mg TID@0900,1300,1500 PO Last administered on 3/25/18at 15:56; Start 06/30/17 at 09:00 Active Scripts Active Reported Albuterol Sulfate Conc Neb Soln (Albuterol Sulfate) 2.5 Mg/0.5 Ml Vial.neb 2.5 Mg NEB PRN Q12HR PRN Namzaric 14 mg-10 mg Capsule (Memantine HCl/Donepezil HCl) 1 Each Cap.spr.24 1 Each PO DAILY [manzaric] Atorvastatin Calcium 80 Mg Tablet 80 Mg PO QHS NICODERM CQ 21mg (Nicotine) 1 Each Patch.td24 1 Patch TD PRN DAILY Omeprazole 20 Mg Tablet.dr 20 Mg PO DAILY Verapamil Er (Verapamil Hcl) 240 Mg Cap24h.pel 120 Mg PO DAILY Tamsulosin Hcl 0.4 Mg Cap.er.24h 0.4 Mg PO DAILY Onglyza (Saxagliptin Hcl) 5 Mg Tablet 2.5 Mg PO DAILY Ramipril 10 Mg Capsule 10 Mg PO DAILY Potassium Chloride 10 Meq Tablet.er 30 Meq PO DAILY Paroxetine Hcl 40 Mg Tablet 40 Mg PO DAILY Oxybutynin Chloride Er (Oxybutynin Chloride) 5 Mg Tab.er.24 5 Mg PO DAILY Advair 250-50 Diskus (Fluticasone/Salmeterol) 1 Each Disk.w.dev 1 Puff IH BID Aspirin 325 Mg Tablet 325 Mg PO Amlodipine Besylate 5 Mg Tablet 5 Mg PO DAILY I have reviewed the current psychotropics carefully including drug interactions. Risk benefit ratio favors no change other than as noted in my dictated progress note. Diagnosis: Problems: (1) Major neurocognitive disorder, due to vascular disease, with behavioral disturbance, mild (2) Impulse control disorder (3) Depression (4) Delusion (5) Anxiety disorder (6) Behavior problem BRAYAN GARNETT MD Jul 01, 2017 21:01
[2017-07-02] MEDS: ALBUTEROL SULFATE 2.5 MG/3 ML NEBU. NEB SCH ×4 (05:06→20:00)
[2017-07-02 06:03] VITALS: BP 116/66
[2017-07-02] MEDS: PANTOPRAZOLE 40 MG TABLET. PO SCH (07:25)
[2017-07-02] MEDS: BUDESONIDE 0.5 MG/2 ML NEBU NEB SCH ×2 (08:00→20:00)
[2017-07-02] MEDS: OXYBUTYNIN CHLORIDE 5 MG TABLET PO SCH (09:27)
[2017-07-02] MEDS: LINAGLIPTIN 5 MG TABLET PO SCH (09:27)
[2017-07-02] MEDS: NICOTINE 14MG PATCH. TD SCH (09:27)
[2017-07-02] MEDS: LISINOPRIL 20 MG TABLET PO SCH (09:27)
[2017-07-02] MEDS: SERTRALINE 50 MG TABLET. PO SCH (09:29)
[2017-07-02] MEDS: MEMANTINE 10 MG TABLET. PO SCH ×2 (09:29→20:08)
[2017-07-02] MEDS: ASPIRIN 325 MG TABLET PO SCH (09:30)
[2017-07-02] MEDS: amLODIPine BESYLATE 5 MG TABLET PO SCH (09:30)
[2017-07-02] MEDS: DIVALPROEX 125 MG CAP.SPRINK PO SCH ×3 (09:30→17:18)
[2017-07-02] MEDS: TAMSULOSIN 0.4 MG CAP.ER.24H. PO SCH (09:30)
[2017-07-02] MEDS: QUEtiapine 25 MG TABLET. PO SCH ×3 (09:30→15:07)
[2017-07-02] MEDS: DONEPEZIL HCL 10 MG TABLET PO SCH ×2 (09:30→20:08)
[2017-07-02] MEDS: VERAPAMIL SR 120 MG TABLET.ER. PO SCH (09:32)
[2017-07-02 16:08] VITALS: BP 112/62
[2017-07-02] MEDS: traZODone 50 MG TABLET. PO SCH (20:08)
[2017-07-02] MEDS: ATORVASTATIN CALCIUM 20 MG TABLET PO SCH (20:08)
[2017-07-02] MEDS: QUEtiapine 100 MG TABLET. PO SCH (20:10)
--- NOTE | 2017-07-02 20:58 | PDOC ---
Exam Note: Hernandez Note: Please also refer to the separate dictated note~for this date of service dictated separately.~Patient seen individually. Discussed the patient with Nursing staff reviewed the chart.~Reviewed interim history and current functioning. Reviewed vital signs,~Labs/ Radiology~and current medications noted below. Continue current treatment with the changes noted in the dictated addendum note Assessment: Vital Signs: Vital Signs Date Time Temp Pulse Resp B/P (MAP) Pulse Ox O2 Delivery O2 Flow Rate FiO2 07/02/17 16:08 97.6 67 20 112/62 (79) 100 07/02/17 16:05 Room Air I&O Intake and Output 07/02/17 07:00 Intake Total 1205 ml Balance 1205 ml Intake Oral 1205 ml Labs: Laboratory Tests Test 07/02/17 07:41 Glucose (Fingerstick) 123 mg/dL (70-99) H Current Medications: Meds: Current Medications Acetaminophen (Tylenol) 650 mg PRN Q6HRS PRN PO PAIN / TEMP Last administered on 06/23/17at 18:14; Start 06/04/17 at 15:00 Multi-Ingredient Ointment (Analgesic Waldo) 1 any PRN QID PRN TP MUSCLE PAIN; Start 06/04/17 at 15:00 Al Hydroxide/Mg Hydroxide (Mylanta Plus Xs) 15 ml PRN AFTMEALHC PRN PO DYSPEPSIA Last administered on 06/14/17at 10:05; Start 06/04/17 at 15:00 Magnesium Hydroxide (Milk Of Magnesia) 2,400 mg PRN QHS PRN PO CONSTIPATION Last administered on 06/11/17at 20:27; Start 06/04/17 at 15:00 Nicotine (Nicoderm Cq 21mg) 1 patch DAILY TD ; Start 06/05/17 at 09:00; Stop at 09:00; Status DC Olanzapine (ZyPREXA ZYDIS) 2.5 mg PRN Q2HR PRN PO ANXIETY / AGITATION Last administered on 06/16/17at 23:24; Start 06/04/17 at 15:30; Stop 06/17/17 at 18:20 ; Status DC Influenza Virus Vaccine Quadrival (Fluarix Quad [id number] Syringe) 0.5 ml ONCE ONCE VAX IM Last administered on 06/05/17at 11:21; Start 06/04/17 at 15:30; Stop 06/04/17 at 15:36; Status DC Amlodipine Besylate (Norvasc) 5 mg DAILY PO Last administered on 07/02/17at 09: 30; Start 06/05/17 at 09:00 Aspirin (Sivakumar Aspirin) 325 mg DAILY PO Last administered on 07/02/17at 09:30; Start 06/05/17 at 09:00 Nicotine (Nicoderm Cq 21mg) 1 patch PRN DAILY PRN TD NICOTINE W/D SYMPTOMS; Start 06/05/17 at 01:00; Stop 06/10/17 at 19:12; Status DC Tamsulosin HCl (Flomax) 0.4 mg DAILY PO Last administered on 07/02/17at 09:30; Start 06/05/17 at 09:00 Non-Formulary Medication 2.5 mg PRN Q12HR PRN NEB WHEEZING; Start 06/05/17 at 01:00; Status UNV Atorvastatin Calcium (Lipitor) 80 mg QHS PO Last administered on 07/02/17at 20: 08; Start 06/05/17 at 21:00 Non-Formulary Medication 1 puff BID IH ; Start 06/05/17 at 09:00; Status UNV Non-Formulary Medication 1 each DAILY PO ; Start 06/05/17 at 09:00; Stop at 09:00; Status DC Pantoprazole Sodium (Protonix) 40 mg DAILYAC PO Last administered on 07/02/17at 07:25; Start 06/05/17 at 07:30 Oxybutynin Chloride (Ditropan) 5 mg DAILY PO Last administered on 07/02/17at 09: 27; Start 06/05/17 at 09:00 Paroxetine HCl (Paxil) 40 mg DAILY PO Last administered on 06/05/17at 08:51; Start 06/05/17 at 09:00; Stop 06/05/17 at 18:43; Status DC Potassium Chloride (Klor-Con) 30 meq DAILY PO Last administered on 06/16/17at 09 :10; Start 06/05/17 at 09:00; Stop 06/17/17 at 10:10; Status DC Lisinopril (Prinivil) 20 mg DAILY PO Last administered on 07/02/17at 09:27; Start 06/05/17 at 09:00 Linagliptin (Tradjenta) 5 mg DAILY PO Last administered on 07/02/17 09:27; Start 06/05/17 at 09:00 Verapamil HCl (Calan Sr) 120 mg DAILY PO Last administered on 07/02/17at 09:32; Start 06/05/17 at 09:00 Dextrose 12.5 gm PRN Q15MIN PRN IV hypoglycemia; Start 06/05/17 at 01:00 Glucose (Insta-Glucose) 15 gm PRN Q15MIN PRN PO LOW BLOOD SUGAR; Start at 01:00 Albuterol Sulfate (Ventolin) 2.5 mg PRN Q12HR PRN NEB WHEEZING; Start 06/05/17 at 01:45 Budesonide (Pulmicort) 0.5 mg RTBID NEB Last administered on 07/01/17at 21:29; Start 06/05/17 at 08:00 Albuterol Sulfate (Ventolin) 2.5 mg RTQID NEB Last administered on 07/02/17at 16 :05; Start 06/05/17 at 08:00 Memantine (Namenda) 5 mg BID PO Last administered on 06/14/17at 07:45; Start at 09:00; Stop 06/14/17 at 11:28; Status DC Donepezil HCl (Aricept) 5 mg BID PO Last administered on 06/14/17 07:45; Start 06/05/17 at 09:00; Stop 06/14/17 at 11:28; Status DC Vitamin D (Vitamin D3) 50,000 unit WEEKLY PO Last administered on 06/26/17at 09: 47; Start 06/05/17 at 20:00 Cyanocobalamin (Vitamin B-12) 1,000 mcg WEEKLY IM Last administered on at 09:00; Start 06/06/17 at 09:00 Quetiapine Fumarate (SEROquel) 25 mg QHS PO Last administered on 06/05/17at 20: 03; Start 06/05/17 at 21:00; Stop 06/06/17 at 18:42; Status DC Sertraline HCl (Zoloft) 50 mg DAILY PO Last administered on 06/20/17at 08:09; Start 06/06/17 at 09:00; Stop 06/20/17 at 14:20; Status DC Quetiapine Fumarate (SEROquel) 50 mg QHS PO Last administered on 06/12/17 20:09 ; Start 06/06/17 at 21:00; Stop 06/13/17 at 18:45; Status DC Trazodone HCl (Desyrel) 50 mg QHS PO Last administered on 07/02/17 20:08; Start 06/08/17 at 21:00 Trazodone HCl (Desyrel) 50 mg PRN QHS PRN PO INSOMNIA Last administered on 06/29at 00:51; Start 06/08/17 at 18:45 Divalproex Sodium (Depakote Sprinkles) 125 mg TID@0900,1300,1700 PO Last administered on 06/11/17 16:48; Start 06/09/17 at 09:00; Stop 06/11/17 at 18:15; Status DC Nicotine (Nicoderm Cq 14mg) 1 patch DAILY TD Last administered on 07/02/17at 09: 27; Start 06/11/17 at 09:00 Nicotine (Nicoderm Cq 14mg) 1 patch ONCE ONCE TD Last administered on 19:57; Start 06/10/17 at 19:15; Stop 06/10/17 at 19:26; Status DC Divalproex Sodium (Depakote Sprinkles) 250 mg TID@0900,1300,1700 PO Last administered on 06/14/17at 07:44; Start 06/12/17 at 09:00; Stop 06/14/17 at 11:28; Status DC Quetiapine Fumarate (SEROquel) 75 mg QHS PO Last administered on 07/01/17at 19: 14; Start 06/13/17 at 21:00; Stop 07/02/17 at 16:58; Status DC Divalproex Sodium (Depakote Sprinkles) 375 mg TID@0900,1300,1700 PO Last administered on 06/17/17at 17:07; Start 06/14/17 at 13:00; Stop 06/17/17 at 18:20 ; Status DC Donepezil HCl (Aricept) 10 mg BID PO Last administered on 07/02/17at 20:08; Start 06/14/17 at 21:00 Memantine (Namenda) 10 mg BID PO Last administered on 07/02/17at 20:08; Start at 21:00 Quetiapine Fumarate (SEROquel) 12.5 mg BID@0900,1300 PO Last administered on 06/15/17at 12:30; Start 06/14/17 at 13:00; Stop 06/15/17 at 18:55; Status DC Quetiapine Fumarate (SEROquel) 25 mg BID@0900,1300 PO Last administered on 06/29at 14:53; Start 06/16/17 at 09:00; Stop 06/29/17 at 17:50; Status DC Divalproex Sodium (Depakote Sprinkles) 500 mg TID@0900,1300,1700 PO Last administered on 06/21/17at 08:11; Start 06/18/17 at 09:00; Stop 06/21/17 at 10:46 ; Status DC Olanzapine (ZyPREXA ZYDIS) 5 mg PRN Q2HR PRN PO ANXIETY / AGITATION Last administered on 07/02/17 07:25; Start 06/17/17 at 18:30 Hydroxyzine Pamoate (Vistaril) 25 mg PRN Q2HR PRN PO AGITATION/AGGRESSION Last administered on 06/23/17at 19:38; Start 06/17/17 at 19:15 Sertraline HCl (Zoloft) 75 mg DAILY PO Last administered on 07/02/17 09:29; Start 06/21/17 at 09:00 Divalproex Sodium (Depakote Sprinkles) 500 mg BID@0900,1300 PO Last administered on 07/02/17 13:20; Start 06/21/17 at 13:00 Divalproex Sodium (Depakote Sprinkles) 750 mg DAILY@1700 PO Last administered on 07/02/17 17:18; Start 06/21/17 at 17:00 Simethicone (Gas-X) 80 mg PRN AFTMEALHC PRN PO GAS / BLOATING Last administered on 06/27/17at 13:57; Start 06/27/17 at 11:45 Quetiapine Fumarate (SEROquel) 25 mg TID@0900,1300,1500 PO Last administered on 07/02/17at 15:07; Start 06/30/17 at 09:00; Stop 07/02/17 at 16:58; Status DC Quetiapine Fumarate (SEROquel) 100 mg QHS PO Last administered on 07/02/17at 20: 10; Start 07/02/17 at 21:00 Quetiapine Fumarate (SEROquel) 37.5 mg BID@0900,1500 PO ; Start 07/03/17 at 09: 00 Quetiapine Fumarate (SEROquel) 25 mg 1300 PO ; Start 07/03/17 at 13:00 Active Scripts Active Reported Albuterol Sulfate Conc Neb Soln (Albuterol Sulfate) 2.5 Mg/0.5 Ml Vial.neb 2.5 Mg NEB PRN Q12HR PRN Namzaric 14 mg-10 mg Capsule (Memantine HCl/Donepezil HCl) 1 Each Cap.spr.24 1 Each PO DAILY [manzaric] Atorvastatin Calcium 80 Mg Tablet 80 Mg PO QHS NICODERM CQ 21mg (Nicotine) 1 Each Patch.td24 1 Patch TD PRN DAILY Omeprazole 20 Mg Tablet.dr 20 Mg PO DAILY Verapamil Er (Verapamil Hcl) 240 Mg Cap24h.pel 120 Mg PO DAILY Tamsulosin Hcl 0.4 Mg Cap.er.24h 0.4 Mg PO DAILY Onglyza (Saxagliptin Hcl) 5 Mg Tablet 2.5 Mg PO DAILY Ramipril 10 Mg Capsule 10 Mg PO DAILY Potassium Chloride 10 Meq Tablet.er 30 Meq PO DAILY Paroxetine Hcl 40 Mg Tablet 40 Mg PO DAILY Oxybutynin Chloride Er (Oxybutynin Chloride) 5 Mg Tab.er.24 5 Mg PO DAILY Advair 250-50 Diskus (Fluticasone/Salmeterol) 1 Each Disk.w.dev 1 Puff IH BID Aspirin 325 Mg Tablet 325 Mg PO Amlodipine Besylate 5 Mg Tablet 5 Mg PO DAILY I have reviewed the current psychotropics carefully including drug interactions. Risk benefit ratio favors no change other than as noted in my dictated progress note. Diagnosis: Problems: (1) Major neurocognitive disorder, due to vascular disease, with behavioral disturbance, mild (2) Impulse control disorder (3) Depression (4) Delusion (5) Anxiety disorder (6) Behavior problem BRAYAN GARNETT MD Jul 02, 2017 20:58
--- NOTE | 2017-07-02 22:46 | PN ---
DATE: 06/30/2017 This is a late entry for 06/30/2017 and covers elements not covered in my initial note of 06/30/2017. I met with the patient the evening of 06/30/2017. The patient is compliant with his medications, somewhat withdrawn, slept 6-3/4 hours previous evening. REVIEW OF SYSTEMS: No CV, , pulmonary, eye, ENT system symptoms on review. Reliability poor. He is irritable at times. MENTAL STATUS EXAM: Oriented to himself. Insight, judgment, recent and remote memory, attention, concentration, fund of knowledge poor, consistent with his diagnosis as mentioned in my initial note. IMPRESSION: Major neurocognitive disorder, Alzheimer, vascular with delusion, depression, behavioral disturbance. Rest unchanged. PLAN: Continue current psychotropics. Valproic acid level therapeutic at 54. If mood lability resurfaces, we will increase the Seroquel. MAN Lacho GARNETT MD DR: LEROY/juliane JOB#: [id number] / [id number]
--- NOTE | 2017-07-02 23:31 | PN ---
DATE: 07/01/2017 This is a late entry, 07/01/2017, covers the elements not covered in my initial note, 07/01/2017. SUBJECTIVE: I met with the patient in the evening of 07/01/2017. The patient has been somewhat anxious, labile at times, just received Zyprexa at shift change, was yelling at the staff, putting his hands in his pants, somewhat inappropriately, sexually did redirect. REVIEW OF SYSTEMS: No CV, , pulmonary, eye, ENT system symptoms on review. Reliability poor. MENTAL STATUS EXAM: Oriented to himself. Insight, judgment, recent and remote memory, attention, concentration, fund of knowledge poor, consistent with his diagnosis as mentioned in my initial note. IMPRESSION: Major neurocognitive disorder, Alzheimer, vascular with delusion, depression, behavioral disturbance. Rest unchanged. PLAN: Continue current psychotropics. Valproic acid therapeutic at 54. Seroquel is 75 mg at bedtime. We will increase this to 100 mg at bedtime and add another 12.5 mg at 9 a.m. and 3 p.m. to his current 25 mg 3 times a day at 0900, 1300, and 1500. Adjust further as clinically indicated. MAN Lacho GARNETT MD DR: LEROY/juliane JOB#: [id number] / [id number]
[2017-07-03] MEDS: ALBUTEROL SULFATE 2.5 MG/3 ML NEBU. NEB SCH ×4 (05:34→22:18)
[2017-07-03 06:04] VITALS: BP 108/63
[2017-07-03] MEDS: DIVALPROEX 125 MG CAP.SPRINK PO SCH ×3 (08:25→16:34)
[2017-07-03] MEDS: NICOTINE 14MG PATCH. TD SCH (08:25)
[2017-07-03] MEDS: TAMSULOSIN 0.4 MG CAP.ER.24H. PO SCH (08:25)
[2017-07-03] MEDS: LISINOPRIL 20 MG TABLET PO SCH (08:26)
[2017-07-03] MEDS: amLODIPine BESYLATE 5 MG TABLET PO SCH (08:26)
[2017-07-03] MEDS: DONEPEZIL HCL 10 MG TABLET PO SCH ×2 (08:26→20:09)
[2017-07-03] MEDS: OXYBUTYNIN CHLORIDE 5 MG TABLET PO SCH (08:26)
[2017-07-03] MEDS: LINAGLIPTIN 5 MG TABLET PO SCH (08:26)
[2017-07-03] MEDS: CHOLECALCIFEROL (VITAMIN D3) 50,000 UNIT CAPSULE PO SCH (08:26)
[2017-07-03] MEDS: SERTRALINE 50 MG TABLET. PO SCH (08:27)
[2017-07-03] MEDS: MEMANTINE 10 MG TABLET. PO SCH ×2 (08:27→20:10)
[2017-07-03] MEDS: PANTOPRAZOLE 40 MG TABLET. PO SCH (08:27)
[2017-07-03] MEDS: VERAPAMIL SR 120 MG TABLET.ER. PO SCH (08:28)
[2017-07-03] MEDS: ASPIRIN 325 MG TABLET PO SCH (08:29)
[2017-07-03] MEDS: QUEtiapine 25 MG TABLET. PO SCH ×3 (08:30→14:25)
[2017-07-03] MEDS: BUDESONIDE 0.5 MG/2 ML NEBU NEB SCH ×2 (10:17→22:18)
[2017-07-03 16:09] VITALS: BP 114/60
--- NOTE | 2017-07-03 20:07 | PN ---
DATE: 07/02/2017 This is a late entry for 07/02/2017 and covers the elements not covered in my initial note of 07/02/2017. SUBJECTIVE: I met with the patient in the evening of 07/02/2017. The patient slept 5-1/2 hours previous evening. Previous evening, he was watching a TV show "naked and afraid." When staff realized this was inappropriate, they switched it off and he was somewhat agitated. Prior to this, he had his hands in his pants, agitated, somewhat withdrawn all day. REVIEW OF SYSTEMS: No CV, , pulmonary, eye system symptoms on review. MENTAL STATUS EXAM: Oriented to himself. Insight, judgment, recent and remote memory, attention, concentration, fund of knowledge poor, consistent with his diagnosis mentioned in my initial note. IMPRESSION: Major neurocognitive disorder, Alzheimer, vascular with delusion, depression, behavioral disturbance. Rest unchanged. PLAN: Continue psychotropics mentioned in my initial note for now. Valproic acid level is therapeutic at 54. Seroquel was increased on 07/02/2017. MAN Lacho GARNETT MD DR: LEROY/juliane JOB#: [id number] / [id number]
[2017-07-03] MEDS: traZODone 50 MG TABLET. PO SCH (20:09)
[2017-07-03] MEDS: QUEtiapine 100 MG TABLET. PO SCH (20:10)
[2017-07-03] MEDS: ATORVASTATIN CALCIUM 20 MG TABLET PO SCH (20:10)
--- NOTE | 2017-07-03 20:51 | PDOC ---
Exam Note: Hernandez Note: Please also refer to the separate dictated note~for this date of service dictated separately.~Patient seen individually. Discussed the patient with Nursing staff reviewed the chart.~Reviewed interim history and current functioning. Reviewed vital signs,~Labs/ Radiology~and current medications noted below. Continue current treatment with the changes noted in the dictated addendum note Assessment: Vital Signs: Vital Signs Date Time Temp Pulse Resp B/P (MAP) Pulse Ox O2 Delivery O2 Flow Rate FiO2 07/03/17 16:09 97.3 62 18 114/60 (78) 96 07/03/17 15:17 Room Air I&O Intake and Output 07/03/17 07:00 Intake Total 960 ml Balance 960 ml Intake Oral 960 ml Labs: Laboratory Tests Test 07/03/17 07:35 Glucose (Fingerstick) 99 mg/dL (70-99) Current Medications: Meds: Current Medications Acetaminophen (Tylenol) 650 mg PRN Q6HRS PRN PO PAIN / TEMP Last administered on 06/23/17at 18:14; Start 06/04/17 at 15:00 Multi-Ingredient Ointment (Analgesic Catlett) 1 any PRN QID PRN TP MUSCLE PAIN; Start 06/04/17 at 15:00 Al Hydroxide/Mg Hydroxide (Mylanta Plus Xs) 15 ml PRN AFTMEALHC PRN PO DYSPEPSIA Last administered on 06/14/17at 10:05; Start 06/04/17 at 15:00 Magnesium Hydroxide (Milk Of Magnesia) 2,400 mg PRN QHS PRN PO CONSTIPATION Last administered on 06/11/17at 20:27; Start 06/04/17 at 15:00 Nicotine (Nicoderm Cq 21mg) 1 patch DAILY TD ; Start 06/05/17 at 09:00; Stop at 09:00; Status DC Olanzapine (ZyPREXA ZYDIS) 2.5 mg PRN Q2HR PRN PO ANXIETY / AGITATION Last administered on 06/16/17at 23:24; Start 06/04/17 at 15:30; Stop 06/17/17 at 18:20 ; Status DC Influenza Virus Vaccine Quadrival (Fluarix Quad [id number] Syringe) 0.5 ml ONCE ONCE VAX IM Last administered on 06/05/17at 11:21; Start 06/04/17 at 15:30; Stop 06/04/17 at 15:36; Status DC Amlodipine Besylate (Norvasc) 5 mg DAILY PO Last administered on 07/03/17at 08: 26; Start 06/05/17 at 09:00 Aspirin (Sivakumar Aspirin) 325 mg DAILY PO Last administered on 07/03/17at 08:29; Start 06/05/17 at 09:00 Nicotine (Nicoderm Cq 21mg) 1 patch PRN DAILY PRN TD NICOTINE W/D SYMPTOMS; Start 06/05/17 at 01:00; Stop 06/10/17 at 19:12; Status DC Tamsulosin HCl (Flomax) 0.4 mg DAILY PO Last administered on 07/03/17at 08:25; Start 06/05/17 at 09:00 Non-Formulary Medication 2.5 mg PRN Q12HR PRN NEB WHEEZING; Start 06/05/17 at 01:00; Status UNV Atorvastatin Calcium (Lipitor) 80 mg QHS PO Last administered on 07/03/17at 20: 10; Start 06/05/17 at 21:00 Non-Formulary Medication 1 puff BID IH ; Start 06/05/17 at 09:00; Status UNV Non-Formulary Medication 1 each DAILY PO ; Start 06/05/17 at 09:00; Stop at 09:00; Status DC Pantoprazole Sodium (Protonix) 40 mg DAILYAC PO Last administered on 07/03/17at 08:27; Start 06/05/17 at 07:30 Oxybutynin Chloride (Ditropan) 5 mg DAILY PO Last administered on 07/03/17at 08: 26; Start 06/05/17 at 09:00 Paroxetine HCl (Paxil) 40 mg DAILY PO Last administered on 06/05/17at 08:51; Start 06/05/17 at 09:00; Stop 06/05/17 at 18:43; Status DC Potassium Chloride (Klor-Con) 30 meq DAILY PO Last administered on 06/16/17at 09 :10; Start 06/05/17 at 09:00; Stop 06/17/17 at 10:10; Status DC Lisinopril (Prinivil) 20 mg DAILY PO Last administered on 07/03/17at 08:26; Start 06/05/17 at 09:00 Linagliptin (Tradjenta) 5 mg DAILY PO Last administered on 07/03/17 08:26; Start 06/05/17 at 09:00 Verapamil HCl (Calan Sr) 120 mg DAILY PO Last administered on 07/03/17at 08:28; Start 06/05/17 at 09:00 Dextrose 12.5 gm PRN Q15MIN PRN IV hypoglycemia; Start 06/05/17 at 01:00 Glucose (Insta-Glucose) 15 gm PRN Q15MIN PRN PO LOW BLOOD SUGAR; Start at 01:00 Albuterol Sulfate (Ventolin) 2.5 mg PRN Q12HR PRN NEB WHEEZING; Start 06/05/17 at 01:45 Budesonide (Pulmicort) 0.5 mg RTBID NEB Last administered on 07/03/17at 10:17; Start 06/05/17 at 08:00 Albuterol Sulfate (Ventolin) 2.5 mg RTQID NEB Last administered on 07/03/17at 15 :16; Start 06/05/17 at 08:00 Memantine (Namenda) 5 mg BID PO Last administered on 06/14/17at 07:45; Start at 09:00; Stop 06/14/17 at 11:28; Status DC Donepezil HCl (Aricept) 5 mg BID PO Last administered on 06/14/17at 07:45; Start 06/05/17 at 09:00; Stop 06/14/17 at 11:28; Status DC Vitamin D (Vitamin D3) 50,000 unit WEEKLY PO Last administered on 07/03/17at 08: 26; Start 06/05/17 at 20:00 Cyanocobalamin (Vitamin B-12) 1,000 mcg WEEKLY IM Last administered on at 09:00; Start 06/06/17 at 09:00 Quetiapine Fumarate (SEROquel) 25 mg QHS PO Last administered on 06/05/17at 20: 03; Start 06/05/17 at 21:00; Stop 06/06/17 at 18:42; Status DC Sertraline HCl (Zoloft) 50 mg DAILY PO Last administered on 06/20/17at 08:09; Start 06/06/17 at 09:00; Stop 06/20/17 at 14:20; Status DC Quetiapine Fumarate (SEROquel) 50 mg QHS PO Last administered on 06/12/17 20:09 ; Start 06/06/17 at 21:00; Stop 06/13/17 at 18:45; Status DC Trazodone HCl (Desyrel) 50 mg QHS PO Last administered on 07/03/17 20:09; Start 06/08/17 at 21:00 Trazodone HCl (Desyrel) 50 mg PRN QHS PRN PO INSOMNIA Last administered on 06/29at 00:51; Start 06/08/17 at 18:45 Divalproex Sodium (Depakote Sprinkles) 125 mg TID@0900,1300,1700 PO Last administered on 06/11/17 16:48; Start 06/09/17 at 09:00; Stop 06/11/17 at 18:15; Status DC Nicotine (Nicoderm Cq 14mg) 1 patch DAILY TD Last administered on 07/03/17at 08: 25; Start 06/11/17 at 09:00 Nicotine (Nicoderm Cq 14mg) 1 patch ONCE ONCE TD Last administered on 19:57; Start 06/10/17 at 19:15; Stop 06/10/17 at 19:26; Status DC Divalproex Sodium (Depakote Sprinkles) 250 mg TID@0900,1300,1700 PO Last administered on 06/14/17at 07:44; Start 06/12/17 at 09:00; Stop 06/14/17 at 11:28; Status DC Quetiapine Fumarate (SEROquel) 75 mg QHS PO Last administered on 07/01/17 19: 14; Start 06/13/17 at 21:00; Stop 07/02/17 at 16:58; Status DC Divalproex Sodium (Depakote Sprinkles) 375 mg TID@0900,1300,1700 PO Last administered on 06/17/17at 17:07; Start 06/14/17 at 13:00; Stop 06/17/17 at 18:20 ; Status DC Donepezil HCl (Aricept) 10 mg BID PO Last administered on 07/03/17at 20:09; Start 06/14/17 at 21:00 Memantine (Namenda) 10 mg BID PO Last administered on 07/03/17at 20:10; Start at 21:00 Quetiapine Fumarate (SEROquel) 12.5 mg BID@0900,1300 PO Last administered on 06/15/17at 12:30; Start 06/14/17 at 13:00; Stop 06/15/17 at 18:55; Status DC Quetiapine Fumarate (SEROquel) 25 mg BID@0900,1300 PO Last administered on 06/29at 14:53; Start 06/16/17 at 09:00; Stop 06/29/17 at 17:50; Status DC Divalproex Sodium (Depakote Sprinkles) 500 mg TID@0900,1300,1700 PO Last administered on 06/21/17at 08:11; Start 06/18/17 at 09:00; Stop 06/21/17 at 10:46 ; Status DC Olanzapine (ZyPREXA ZYDIS) 5 mg PRN Q2HR PRN PO ANXIETY / AGITATION Last administered on 07/02/17 07:25; Start 06/17/17 at 18:30 Hydroxyzine Pamoate (Vistaril) 25 mg PRN Q2HR PRN PO AGITATION/AGGRESSION Last administered on 06/23/17at 19:38; Start 06/17/17 at 19:15 Sertraline HCl (Zoloft) 75 mg DAILY PO Last administered on 07/03/17 08:27; Start 06/21/17 at 09:00 Divalproex Sodium (Depakote Sprinkles) 500 mg BID@0900,1300 PO Last administered on 07/03/17 12:26; Start 06/21/17 at 13:00 Divalproex Sodium (Depakote Sprinkles) 750 mg DAILY@1700 PO Last administered on 07/03/17at 16:34; Start 06/21/17 at 17:00 Simethicone (Gas-X) 80 mg PRN AFTMEALHC PRN PO GAS / BLOATING Last administered on 06/27/17at 13:57; Start 06/27/17 at 11:45 Quetiapine Fumarate (SEROquel) 25 mg TID@0900,1300,1500 PO Last administered on 07/02/17at 15:07; Start 06/30/17 at 09:00; Stop 07/02/17 at 16:58; Status DC Quetiapine Fumarate (SEROquel) 100 mg QHS PO Last administered on 07/03/17at 20: 10; Start 07/02/17 at 21:00 Quetiapine Fumarate (SEROquel) 37.5 mg BID@0900,1500 PO Last administered on at 14:25; Start 07/03/17 at 09:00 Quetiapine Fumarate (SEROquel) 25 mg 1300 PO Last administered on 07/03/17at 12: 27; Start 07/03/17 at 13:00 Active Scripts Active Reported Albuterol Sulfate Conc Neb Soln (Albuterol Sulfate) 2.5 Mg/0.5 Ml Vial.neb 2.5 Mg NEB PRN Q12HR PRN Namzaric 14 mg-10 mg Capsule (Memantine HCl/Donepezil HCl) 1 Each Cap.spr.24 1 Each PO DAILY [manzaric] Atorvastatin Calcium 80 Mg Tablet 80 Mg PO QHS NICODERM CQ 21mg (Nicotine) 1 Each Patch.td24 1 Patch TD PRN DAILY Omeprazole 20 Mg Tablet.dr 20 Mg PO DAILY Verapamil Er (Verapamil Hcl) 240 Mg Cap24h.pel 120 Mg PO DAILY Tamsulosin Hcl 0.4 Mg Cap.er.24h 0.4 Mg PO DAILY Onglyza (Saxagliptin Hcl) 5 Mg Tablet 2.5 Mg PO DAILY Ramipril 10 Mg Capsule 10 Mg PO DAILY Potassium Chloride 10 Meq Tablet.er 30 Meq PO DAILY Paroxetine Hcl 40 Mg Tablet 40 Mg PO DAILY Oxybutynin Chloride Er (Oxybutynin Chloride) 5 Mg Tab.er.24 5 Mg PO DAILY Advair 250-50 Diskus (Fluticasone/Salmeterol) 1 Each Disk.w.dev 1 Puff IH BID Aspirin 325 Mg Tablet 325 Mg PO Amlodipine Besylate 5 Mg Tablet 5 Mg PO DAILY I have reviewed the current psychotropics carefully including drug interactions. Risk benefit ratio favors no change other than as noted in my dictated progress note. Diagnosis: Problems: (1) Major neurocognitive disorder, due to vascular disease, with behavioral disturbance, mild (2) Impulse control disorder (3) Depression (4) Delusion (5) Anxiety disorder (6) Behavior problem BRAYAN GARNETT MD Jul 03, 2017 20:51
[2017-07-04] MEDS: ALBUTEROL SULFATE 2.5 MG/3 ML NEBU. NEB SCH ×4 (05:54→22:34)
[2017-07-04 06:02] VITALS: BP 106/58
[2017-07-04] MEDS: BUDESONIDE 0.5 MG/2 ML NEBU NEB SCH ×2 (10:00→22:34)
[2017-07-04] MEDS: DIVALPROEX 125 MG CAP.SPRINK PO SCH ×3 (10:16→17:22)
[2017-07-04] MEDS: NICOTINE 14MG PATCH. TD SCH (10:16)
[2017-07-04] MEDS: LINAGLIPTIN 5 MG TABLET PO SCH (10:16)
[2017-07-04] MEDS: QUEtiapine 25 MG TABLET. PO SCH ×3 (10:17→15:06)
[2017-07-04] MEDS: ASPIRIN 325 MG TABLET PO SCH (10:17)
[2017-07-04] MEDS: PANTOPRAZOLE 40 MG TABLET. PO SCH (10:17)
[2017-07-04] MEDS: SERTRALINE 50 MG TABLET. PO SCH (10:17)
[2017-07-04] MEDS: amLODIPine BESYLATE 5 MG TABLET PO SCH (10:18)
[2017-07-04] MEDS: LISINOPRIL 20 MG TABLET PO SCH (10:18)
[2017-07-04] MEDS: MEMANTINE 10 MG TABLET. PO SCH ×2 (10:18→19:18)
[2017-07-04] MEDS: DONEPEZIL HCL 10 MG TABLET PO SCH ×2 (10:18→19:17)
[2017-07-04] MEDS: OXYBUTYNIN CHLORIDE 5 MG TABLET PO SCH (10:19)
[2017-07-04] MEDS: TAMSULOSIN 0.4 MG CAP.ER.24H. PO SCH (10:19)
[2017-07-04] MEDS: VERAPAMIL SR 120 MG TABLET.ER. PO SCH (10:20)
[2017-07-04 16:28] VITALS: BP_SYST 101; BP_SYST 111; BP_DIAS 41; BP_DIAS 56
[2017-07-04 16:29] VITALS: BP_SYST 105; BP_SYST 93; BP_DIAS 48
--- NOTE | 2017-07-04 16:30 | EKG ---
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
[2017-07-04 17:28] LABS: BASO % 1 % (0-3); EOS # 0.4 x10^3/uL (0.0-0.7); EOS % 5 % (0-3); HEMATOCRIT 43.7 % (39.0-53.0); HEMOGLOBIN 14.3 g/dL (13.0-17.5); LYMPH # 1.5 x10^3/uL (1.0-4.8); LYMPH % 17 % (24-48); MEAN CORPUSCULAR HEMOGLOBIN 28 pg (25-35); MEAN CORPUSCULAR HGB CONC 33 g/dL (31-37); MEAN CORPUSCULAR VOLUME 86 fL (79-100); MONO # 0.8 x10^3/uL (0.0-1.1); MONO % 9 % (0-9); NEUT # 6.2 x10^3uL (1.8-7.7); NEUT % 69 % (31-73); PLATELET COUNT 126 x10^3/uL (140-400); RED BLOOD COUNT 5.06 x10^6/uL (4.30-5.70); RED CELL DISTRIBUTION WIDTH 14.9 % (11.5-14.5); WHITE BLOOD COUNT 8.9 x10^3/uL (4.0-11.0)
[2017-07-04 18:01] LABS: ALBUMIN 3.4 g/dL (3.4-5.0); ALBUMIN/GLOBULIN RATIO 0.9 (1.0-1.7); CREATININE 1.5 mg/dL (0.7-1.3); GFR 46.8; POTASSIUM 5.2 mmol/L (3.5-5.1); TOTAL BILIRUBIN 0.2 mg/dL (0.2-1.0); TOTAL PROTEIN 7.3 g/dL (6.4-8.2)
[2017-07-04] MEDS: ATORVASTATIN CALCIUM 20 MG TABLET PO SCH (19:17)
[2017-07-04] MEDS: traZODone 50 MG TABLET. PO SCH (19:17)
[2017-07-04] MEDS: QUEtiapine 100 MG TABLET. PO SCH (19:18)
[2017-07-04] MEDS: traZODone 50 MG TABLET. PO PRN (20:36)
--- NOTE | 2017-07-04 20:59 | PDOC ---
Exam Note: Hernandez Note: Please also refer to the separate dictated note~for this date of service dictated separately.~Patient seen individually. Discussed the patient with Nursing staff reviewed the chart.~Reviewed interim history and current functioning. Reviewed vital signs,~Labs/ Radiology~and current medications noted below. Continue current treatment with the changes noted in the dictated addendum note Assessment: Vital Signs: Vital Signs Date Time Temp Pulse Resp B/P (MAP) Pulse Ox O2 Delivery O2 Flow Rate FiO2 07/04/17 16:29 76 105/48 (67) 07/04/17 16:28 98.2 17 92 07/04/17 15:36 Room Air I&O Intake and Output 07/04/17 07:00 Intake Total 1200 ml Balance 1200 ml Intake Oral 1200 ml # Bowel Movements 1 Labs: Laboratory Tests Test 07/04/17 07:06 07/04/17 16:01 07/04/17 17:15 Glucose (Fingerstick) 61 mg/dL (70-99) L 124 mg/dL (70-99) H White Blood Count 8.9 x10^3/uL (4.0-11.0) Red Blood Count 5.06 x10^6/uL (4.30-5.70) Hemoglobin 14.3 g/dL (13.0-17.5) Hematocrit 43.7 % (39.0-53.0) Mean Corpuscular Volume 86 fL (79-100) Mean Corpuscular Hemoglobin 28 pg (25-35) Mean Corpuscular Hemoglobin Concent 33 g/dL (31-37) Red Cell Distribution Width 14.9 % (11.5-14.5) H Platelet Count 126 x10^3/uL (140-400) L Neutrophils (%) (Auto) 69 % (31-73) Lymphocytes (%) (Auto) 17 % (24-48) L Monocytes (%) (Auto) 9 % (0-9) Eosinophils (%) (Auto) 5 % (0-3) H Basophils (%) (Auto) 1 % (0-3) Neutrophils # (Auto) 6.2 x10^3uL (1.8-7.7) Lymphocytes # (Auto) 1.5 x10^3/uL (1.0-4.8) Monocytes # (Auto) 0.8 x10^3/uL (0.0-1.1) Eosinophils # (Auto) 0.4 x10^3/uL (0.0-0.7) Basophils # (Auto) 0.0 x10^3/uL (0.0-0.2) Sodium Level 143 mmol/L (136-145) Potassium Level 5.2 mmol/L (3.5-5.1) H Chloride Level 104 mmol/L (98-107) Carbon Dioxide Level 33 mmol/L (21-32) H Anion Gap 6 (6-14) Blood Urea Nitrogen 31 mg/dL (8-26) H Creatinine 1.5 mg/dL (0.7-1.3) H Estimated GFR (Cockcroft-Gault) 46.8 BUN/Creatinine Ratio 21 (6-20) H Glucose Level 147 mg/dL (70-99) H Calcium Level 9.0 mg/dL (8.5-10.1) Total Bilirubin 0.2 mg/dL (0.2-1.0) Aspartate Amino Transferase (AST) 13 U/L (15-37) L Alanine Aminotransferase (ALT) 23 U/L (16-63) Alkaline Phosphatase 84 U/L (46-116) Total Protein 7.3 g/dL (6.4-8.2) Albumin 3.4 g/dL (3.4-5.0) Albumin/Globulin Ratio 0.9 (1.0-1.7) L Current Medications: Meds: Current Medications Acetaminophen (Tylenol) 650 mg PRN Q6HRS PRN PO PAIN / TEMP Last administered on 06/23/17at 18:14; Start 06/04/17 at 15:00 Multi-Ingredient Ointment (Analgesic [place]) 1 any PRN QID PRN TP MUSCLE PAIN; Start 06/04/17 at 15:00 Al Hydroxide/Mg Hydroxide (Mylanta Plus Xs) 15 ml PRN AFTMEALHC PRN PO DYSPEPSIA Last administered on 06/14/17at 10:05; Start 06/04/17 at 15:00 Magnesium Hydroxide (Milk Of Magnesia) 2,400 mg PRN QHS PRN PO CONSTIPATION Last administered on 06/11/17at 20:27; Start 06/04/17 at 15:00 Nicotine (Nicoderm Cq 21mg) 1 patch DAILY TD ; Start 06/05/17 at 09:00; Stop at 09:00; Status DC Olanzapine (ZyPREXA ZYDIS) 2.5 mg PRN Q2HR PRN PO ANXIETY / AGITATION Last administered on 06/16/17at 23:24; Start 06/04/17 at 15:30; Stop 06/17/17 at 18:20 ; Status DC Influenza Virus Vaccine Quadrival (Fluarix Quad [id number] Syringe) 0.5 ml ONCE ONCE VAX IM Last administered on 06/05/17at 11:21; Start 06/04/17 at 15:30; Stop 06/04/17 at 15:36; Status DC Amlodipine Besylate (Norvasc) 5 mg DAILY PO Last administered on 07/04/17at 10: 18; Start 06/05/17 at 09:00; Stop 07/04/17 at 16:35; Status DC Aspirin (Sivakumar Aspirin) 325 mg DAILY PO Last administered on 07/04/17at 10:17; Start 06/05/17 at 09:00 Nicotine (Nicoderm Cq 21mg) 1 patch PRN DAILY PRN TD NICOTINE W/D SYMPTOMS; Start 06/05/17 at 01:00; Stop 06/10/17 at 19:12; Status DC Tamsulosin HCl (Flomax) 0.4 mg DAILY PO Last administered on 07/04/17at 10:19; Start 06/05/17 at 09:00 Non-Formulary Medication 2.5 mg PRN Q12HR PRN NEB WHEEZING; Start 06/05/17 at 01:00; Status UNV Atorvastatin Calcium (Lipitor) 80 mg QHS PO Last administered on 07/04/17at 19: 17; Start 06/05/17 at 21:00 Non-Formulary Medication 1 puff BID IH ; Start 06/05/17 at 09:00; Status UNV Non-Formulary Medication 1 each DAILY PO ; Start 06/05/17 at 09:00; Stop at 09:00; Status DC Pantoprazole Sodium (Protonix) 40 mg DAILYAC PO Last administered on 07/04/17at 10:17; Start 06/05/17 at 07:30 Oxybutynin Chloride (Ditropan) 5 mg DAILY PO Last administered on 07/04/17at 10: 19; Start 06/05/17 at 09:00 Paroxetine HCl (Paxil) 40 mg DAILY PO Last administered on 06/05/17at 08:51; Start 06/05/17 at 09:00; Stop 06/05/17 at 18:43; Status DC Potassium Chloride (Klor-Con) 30 meq DAILY PO Last administered on 06/16/17at 09 :10; Start 06/05/17 at 09:00; Stop 06/17/17 at 10:10; Status DC Lisinopril (Prinivil) 20 mg DAILY PO Last administered on 07/04/17at 10:18; Start 06/05/17 at 09:00; Stop 07/04/17 at 16:35; Status DC Linagliptin (Tradjenta) 5 mg DAILY PO Last administered on 07/04/17at 10:16; Start 06/05/17 at 09:00 Verapamil HCl (Calan Sr) 120 mg DAILY PO Last administered on 07/04/17at 10:20; Start 06/05/17 at 09:00 Dextrose 12.5 gm PRN Q15MIN PRN IV hypoglycemia; Start 06/05/17 at 01:00 Glucose (Insta-Glucose) 15 gm PRN Q15MIN PRN PO LOW BLOOD SUGAR; Start at 01:00 Albuterol Sulfate (Ventolin) 2.5 mg PRN Q12HR PRN NEB WHEEZING; Start 06/05/17 at 01:45 Budesonide (Pulmicort) 0.5 mg RTBID NEB Last administered on 07/04/17at 10:00; Start 06/05/17 at 08:00 Albuterol Sulfate (Ventolin) 2.5 mg RTQID NEB Last administered on 07/04/17at 15 :36; Start 06/05/17 at 08:00 Memantine (Namenda) 5 mg BID PO Last administered on 06/14/17at 07:45; Start at 09:00; Stop 06/14/17 at 11:28; Status DC Donepezil HCl (Aricept) 5 mg BID PO Last administered on 06/14/17at 07:45; Start 06/05/17 at 09:00; Stop 06/14/17 at 11:28; Status DC Vitamin D (Vitamin D3) 50,000 unit WEEKLY PO Last administered on 07/03/17 08: 26; Start 06/05/17 at 20:00 Cyanocobalamin (Vitamin B-12) 1,000 mcg WEEKLY IM Last administered on 09:00; Start 06/06/17 at 09:00; Stop 07/04/17 at 10:15; Status DC Quetiapine Fumarate (SEROquel) 25 mg QHS PO Last administered on 06/05/17 20: 03; Start 06/05/17 at 21:00; Stop 06/06/17 at 18:42; Status DC Sertraline HCl (Zoloft) 50 mg DAILY PO Last administered on 06/20/17 08:09; Start 06/06/17 at 09:00; Stop 06/20/17 at 14:20; Status DC Quetiapine Fumarate (SEROquel) 50 mg QHS PO Last administered on 06/12/17 20:09 ; Start 06/06/17 at 21:00; Stop 06/13/17 at 18:45; Status DC Trazodone HCl (Desyrel) 50 mg QHS PO Last administered on 07/04/17 19:17; Start 06/08/17 at 21:00 Trazodone HCl (Desyrel) 50 mg PRN QHS PRN PO INSOMNIA Last administered on 07/04 20:36; Start 06/08/17 at 18:45 Divalproex Sodium (Depakote Sprinkles) 125 mg TID@0900,1300,1700 PO Last administered on 06/11/17 16:48; Start 06/09/17 at 09:00; Stop 06/11/17 at 18:15; Status DC Nicotine (Nicoderm Cq 14mg) 1 patch DAILY TD Last administered on 07/04/17 10: 16; Start 06/11/17 at 09:00 Nicotine (Nicoderm Cq 14mg) 1 patch ONCE ONCE TD Last administered on 19:57; Start 06/10/17 at 19:15; Stop 06/10/17 at 19:26; Status DC Divalproex Sodium (Depakote Sprinkles) 250 mg TID@0900,1300,1700 PO Last administered on 06/14/17 07:44; Start 06/12/17 at 09:00; Stop 06/14/17 at 11:28; Status DC Quetiapine Fumarate (SEROquel) 75 mg QHS PO Last administered on 07/01/17 19: 14; Start 06/13/17 at 21:00; Stop 07/02/17 at 16:58; Status DC Divalproex Sodium (Depakote Sprinkles) 375 mg TID@0900,1300,1700 PO Last administered on 06/17/17 17:07; Start 06/14/17 at 13:00; Stop 06/17/17 at 18:20 ; Status DC Donepezil HCl (Aricept) 10 mg BID PO Last administered on 07/04/17 19:17; Start 06/14/17 at 21:00 Memantine (Namenda) 10 mg BID PO Last administered on 07/04/17 19:18; Start at 21:00 Quetiapine Fumarate (SEROquel) 12.5 mg BID@0900,1300 PO Last administered on 06/15/17at 12:30; Start 06/14/17 at 13:00; Stop 06/15/17 at 18:55; Status DC Quetiapine Fumarate (SEROquel) 25 mg BID@0900,1300 PO Last administered on 06/29at 14:53; Start 06/16/17 at 09:00; Stop 06/29/17 at 17:50; Status DC Divalproex Sodium (Depakote Sprinkles) 500 mg TID@0900,1300,1700 PO Last administered on 06/21/17at 08:11; Start 06/18/17 at 09:00; Stop 06/21/17 at 10:46 ; Status DC Olanzapine (ZyPREXA ZYDIS) 5 mg PRN Q2HR PRN PO ANXIETY / AGITATION Last administered on 07/04/17 20:06; Start 06/17/17 at 18:30 Hydroxyzine Pamoate (Vistaril) 25 mg PRN Q2HR PRN PO AGITATION/AGGRESSION Last administered on 06/23/17at 19:38; Start 06/17/17 at 19:15 Sertraline HCl (Zoloft) 75 mg DAILY PO Last administered on 3/28/18at 10:17; Start 06/21/17 at 09:00 Divalproex Sodium (Depakote Sprinkles) 500 mg BID@0900,1300 PO Last administered on 07/04/17 13:43; Start 06/21/17 at 13:00 Divalproex Sodium (Depakote Sprinkles) 750 mg DAILY@1700 PO Last administered on 07/04/17 17:22; Start 06/21/17 at 17:00 Simethicone (Gas-X) 80 mg PRN AFTMEALHC PRN PO GAS / BLOATING Last administered on 06/27/17 13:57; Start 06/27/17 at 11:45 Quetiapine Fumarate (SEROquel) 25 mg TID@0900,1300,1500 PO Last administered on 07/02/17at 15:07; Start 06/30/17 at 09:00; Stop 07/02/17 at 16:58; Status DC Quetiapine Fumarate (SEROquel) 100 mg QHS PO Last administered on 07/04/17 19: 18; Start 07/02/17 at 21:00 Quetiapine Fumarate (SEROquel) 37.5 mg BID@0900,1500 PO Last administered on 15:06; Start 07/03/17 at 09:00 Quetiapine Fumarate (SEROquel) 25 mg 1300 PO Last administered on 07/04/17 13: 43; Start 07/03/17 at 13:00 Cyanocobalamin (Vitamin B-12) 1,000 mcg QMONTH IM ; Start 07/28/17 at 09:00 Lisinopril (Prinivil) 10 mg DAILY PO ; Start 07/05/17 at 09:00 Active Scripts Active Reported Albuterol Sulfate Conc Neb Soln (Albuterol Sulfate) 2.5 Mg/0.5 Ml Vial.neb 2.5 Mg NEB PRN Q12HR PRN Namzaric 14 mg-10 mg Capsule (Memantine HCl/Donepezil HCl) 1 Each Cap.spr.24 1 Each PO DAILY [manzaric] Atorvastatin Calcium 80 Mg Tablet 80 Mg PO QHS NICODERM CQ 21mg (Nicotine) 1 Each Patch.td24 1 Patch TD PRN DAILY Omeprazole 20 Mg Tablet.dr 20 Mg PO DAILY Verapamil Er (Verapamil Hcl) 240 Mg Cap24h.pel 120 Mg PO DAILY Tamsulosin Hcl 0.4 Mg Cap.er.24h 0.4 Mg PO DAILY Onglyza (Saxagliptin Hcl) 5 Mg Tablet 2.5 Mg PO DAILY Ramipril 10 Mg Capsule 10 Mg PO DAILY Potassium Chloride 10 Meq Tablet.er 30 Meq PO DAILY Paroxetine Hcl 40 Mg Tablet 40 Mg PO DAILY Oxybutynin Chloride Er (Oxybutynin Chloride) 5 Mg Tab.er.24 5 Mg PO DAILY Advair 250-50 Diskus (Fluticasone/Salmeterol) 1 Each Disk.w.dev 1 Puff IH BID Aspirin 325 Mg Tablet 325 Mg PO Amlodipine Besylate 5 Mg Tablet 5 Mg PO DAILY I have reviewed the current psychotropics carefully including drug interactions. Risk benefit ratio favors no change other than as noted in my dictated progress note. Diagnosis: Problems: (1) Major neurocognitive disorder, due to vascular disease, with behavioral disturbance, mild (2) Impulse control disorder (3) Depression (4) Delusion (5) Anxiety disorder (6) Behavior problem BRAYAN GARNETT MD Jul 04, 2017 20:59
--- NOTE | 2017-07-04 21:43 | PN ---
DATE: 07/03/2017 PSYCHIATRIC PROGRESS NOTE This is a late entry of 07/03/2017 covers elements not covered in my initial note of 07/03/2017. I met with the patient evening of 07/03/2017. The patient slept 9-3/4 hours previous evening and has had a better day. He has been more accommodative to some of the other demented patients, who were agitated. He has participated in art therapy again, an improvement for him. REVIEW OF SYSTEMS: No CV, , pulmonary, eye, ENT system symptoms on review. Reliability poor. MENTAL STATUS EXAM: Oriented to himself. Insight, judgment, recent and remote memory, attention, concentration, fund of knowledge poor, consistent with his diagnosis mentioned in my initial note. IMPRESSION: Major neurocognitive disorder, Alzheimer, vascular with delusion, depression, behavioral disturbance. Rest unchanged. PLAN: Continue psychotropics mentioned in my initial note. Seroquel was increased to the day before. We will make further adjustments as clinically indicated. MAN Lacho GARNETT MD DR: LEROY/juliane JOB#: [id number] / [id number]
[2017-07-05] MEDS: ALBUTEROL SULFATE 2.5 MG/3 ML NEBU. NEB SCH ×4 (05:50→21:18)
[2017-07-05 08:00] VITALS: BP 100/57
[2017-07-05] MEDS: BUDESONIDE 0.5 MG/2 ML NEBU NEB SCH ×2 (11:04→21:18)
[2017-07-05] MEDS: SERTRALINE 50 MG TABLET. PO SCH (11:22)
[2017-07-05] MEDS: OXYBUTYNIN CHLORIDE 5 MG TABLET PO SCH (11:22)
[2017-07-05] MEDS: LINAGLIPTIN 5 MG TABLET PO SCH (11:23)
[2017-07-05] MEDS: ASPIRIN 325 MG TABLET PO SCH (11:23)
[2017-07-05] MEDS: DONEPEZIL HCL 10 MG TABLET PO SCH ×2 (11:23→19:46)
[2017-07-05] MEDS: TAMSULOSIN 0.4 MG CAP.ER.24H. PO SCH (11:23)
[2017-07-05] MEDS: PANTOPRAZOLE 40 MG TABLET. PO SCH (11:23)
[2017-07-05] MEDS: QUEtiapine 25 MG TABLET. PO SCH ×2 (11:24→12:49)
[2017-07-05] MEDS: DIVALPROEX 125 MG CAP.SPRINK PO SCH ×3 (11:25→17:15)
[2017-07-05] MEDS: MEMANTINE 10 MG TABLET. PO SCH ×2 (11:25→19:46)
[2017-07-05] MEDS: NICOTINE 14MG PATCH. TD SCH (11:25)
[2017-07-05] MEDS: LISINOPRIL 10 MG TABLET PO SCH (11:27)
[2017-07-05] MEDS: VERAPAMIL SR 120 MG TABLET.ER. PO SCH (11:28)
[2017-07-05] MEDS: QUEtiapine 50 MG TABLET. PO SCH (15:12)
[2017-07-05 16:02] VITALS: BP 100/65
[2017-07-05] MEDS: traZODone 50 MG TABLET. PO SCH (19:46)
[2017-07-05] MEDS: QUEtiapine 100 MG TABLET. PO SCH (19:46)
[2017-07-05] MEDS: ATORVASTATIN CALCIUM 20 MG TABLET PO SCH (19:46)
[2017-07-05 19:48] VITALS: BP 108/64
--- NOTE | 2017-07-05 20:51 | PDOC ---
Exam Note: Hernandez Note: Please also refer to the separate dictated note~for this date of service dictated separately.~Patient seen individually. Discussed the patient with Nursing staff reviewed the chart.~Reviewed interim history and current functioning. Reviewed vital signs,~Labs/ Radiology~and current medications noted below. Continue current treatment with the changes noted in the dictated addendum note Assessment: Vital Signs: Vital Signs Date Time Temp Pulse Resp B/P (MAP) Pulse Ox O2 Delivery O2 Flow Rate FiO2 07/05/17 20:49 97 Room Air 07/05/17 19:48 67 18 108/64 (79) 07/05/17 16:02 96.7 I&O Intake and Output 07/05/17 07:00 Intake Total 600 ml Balance 600 ml Intake Oral 600 ml Labs: Laboratory Tests Test 07/05/17 07:34 Glucose (Fingerstick) 112 mg/dL (70-99) H Current Medications: Meds: Current Medications Acetaminophen (Tylenol) 650 mg PRN Q6HRS PRN PO PAIN / TEMP Last administered on 06/23/17at 18:14; Start 06/04/17 at 15:00 Multi-Ingredient Ointment (Analgesic [place]) 1 any PRN QID PRN TP MUSCLE PAIN; Start 06/04/17 at 15:00 Al Hydroxide/Mg Hydroxide (Mylanta Plus Xs) 15 ml PRN AFTMEALHC PRN PO DYSPEPSIA Last administered on 06/14/17at 10:05; Start 06/04/17 at 15:00 Magnesium Hydroxide (Milk Of Magnesia) 2,400 mg PRN QHS PRN PO CONSTIPATION Last administered on 06/11/17at 20:27; Start 06/04/17 at 15:00 Nicotine (Nicoderm Cq 21mg) 1 patch DAILY TD ; Start 06/05/17 at 09:00; Stop at 09:00; Status DC Olanzapine (ZyPREXA ZYDIS) 2.5 mg PRN Q2HR PRN PO ANXIETY / AGITATION Last administered on 06/16/17at 23:24; Start 06/04/17 at 15:30; Stop 06/17/17 at 18:20 ; Status DC Influenza Virus Vaccine Quadrival (Fluarix Quad [id number] Syringe) 0.5 ml ONCE ONCE VAX IM Last administered on 06/05/17at 11:21; Start 06/04/17 at 15:30; Stop 06/04/17 at 15:36; Status DC Amlodipine Besylate (Norvasc) 5 mg DAILY PO Last administered on 07/04/17at 10: 18; Start 06/05/17 at 09:00; Stop 07/04/17 at 16:35; Status DC Aspirin (Sivakumar Aspirin) 325 mg DAILY PO Last administered on 07/05/17 11:23; Start 06/05/17 at 09:00 Nicotine (Nicoderm Cq 21mg) 1 patch PRN DAILY PRN TD NICOTINE W/D SYMPTOMS; Start 06/05/17 at 01:00; Stop 06/10/17 at 19:12; Status DC Tamsulosin HCl (Flomax) 0.4 mg DAILY PO Last administered on 07/05/17 11:23; Start 06/05/17 at 09:00 Non-Formulary Medication 2.5 mg PRN Q12HR PRN NEB WHEEZING; Start 06/05/17 at 01:00; Status UNV Atorvastatin Calcium (Lipitor) 80 mg QHS PO Last administered on 07/05/17at 19: 46; Start 06/05/17 at 21:00 Non-Formulary Medication 1 puff BID IH ; Start 06/05/17 at 09:00; Status UNV Non-Formulary Medication 1 each DAILY PO ; Start 06/05/17 at 09:00; Stop at 09:00; Status DC Pantoprazole Sodium (Protonix) 40 mg DAILYAC PO Last administered on 07/05/17at 11:23; Start 06/05/17 at 07:30 Oxybutynin Chloride (Ditropan) 5 mg DAILY PO Last administered on 07/05/17at 11: 22; Start 06/05/17 at 09:00 Paroxetine HCl (Paxil) 40 mg DAILY PO Last administered on 06/05/17at 08:51; Start 06/05/17 at 09:00; Stop 06/05/17 at 18:43; Status DC Potassium Chloride (Klor-Con) 30 meq DAILY PO Last administered on 06/16/17at 09 :10; Start 06/05/17 at 09:00; Stop 06/17/17 at 10:10; Status DC Lisinopril (Prinivil) 20 mg DAILY PO Last administered on 07/04/17at 10:18; Start 06/05/17 at 09:00; Stop 07/04/17 at 16:35; Status DC Linagliptin (Tradjenta) 5 mg DAILY PO Last administered on 07/05/17at 11:23; Start 06/05/17 at 09:00 Verapamil HCl (Calan Sr) 120 mg DAILY PO Last administered on 07/05/17at 11:28; Start 06/05/17 at 09:00 Dextrose 12.5 gm PRN Q15MIN PRN IV hypoglycemia; Start 06/05/17 at 01:00 Glucose (Insta-Glucose) 15 gm PRN Q15MIN PRN PO LOW BLOOD SUGAR; Start at 01:00 Albuterol Sulfate (Ventolin) 2.5 mg PRN Q12HR PRN NEB WHEEZING; Start 06/05/17 at 01:45 Budesonide (Pulmicort) 0.5 mg RTBID NEB Last administered on 07/05/17at 11:04; Start 06/05/17 at 08:00 Albuterol Sulfate (Ventolin) 2.5 mg RTQID NEB Last administered on 07/05/17at 16 :22; Start 06/05/17 at 08:00 Memantine (Namenda) 5 mg BID PO Last administered on 06/14/17at 07:45; Start at 09:00; Stop 06/14/17 at 11:28; Status DC Donepezil HCl (Aricept) 5 mg BID PO Last administered on 06/14/17at 07:45; Start 06/05/17 at 09:00; Stop 06/14/17 at 11:28; Status DC Vitamin D (Vitamin D3) 50,000 unit WEEKLY PO Last administered on 07/03/17at 08: 26; Start 06/05/17 at 20:00 Cyanocobalamin (Vitamin B-12) 1,000 mcg WEEKLY IM Last administered on at 09:00; Start 06/06/17 at 09:00; Stop 07/04/17 at 10:15; Status DC Quetiapine Fumarate (SEROquel) 25 mg QHS PO Last administered on 06/05/17at 20: 03; Start 06/05/17 at 21:00; Stop 06/06/17 at 18:42; Status DC Sertraline HCl (Zoloft) 50 mg DAILY PO Last administered on 06/20/17 08:09; Start 06/06/17 at 09:00; Stop 06/20/17 at 14:20; Status DC Quetiapine Fumarate (SEROquel) 50 mg QHS PO Last administered on 06/12/17 20:09 ; Start 06/06/17 at 21:00; Stop 06/13/17 at 18:45; Status DC Trazodone HCl (Desyrel) 50 mg QHS PO Last administered on 07/05/17 19:46; Start 06/08/17 at 21:00 Trazodone HCl (Desyrel) 50 mg PRN QHS PRN PO INSOMNIA Last administered on 07/04at 20:36; Start 06/08/17 at 18:45 Divalproex Sodium (Depakote Sprinkles) 125 mg TID@0900,1300,1700 PO Last administered on 06/11/17 16:48; Start 06/09/17 at 09:00; Stop 06/11/17 at 18:15; Status DC Nicotine (Nicoderm Cq 14mg) 1 patch DAILY TD Last administered on 07/05/17 11: 25; Start 06/11/17 at 09:00 Nicotine (Nicoderm Cq 14mg) 1 patch ONCE ONCE TD Last administered on 19:57; Start 06/10/17 at 19:15; Stop 06/10/17 at 19:26; Status DC Divalproex Sodium (Depakote Sprinkles) 250 mg TID@0900,1300,1700 PO Last administered on 06/14/17at 07:44; Start 06/12/17 at 09:00; Stop 06/14/17 at 11:28; Status DC Quetiapine Fumarate (SEROquel) 75 mg QHS PO Last administered on 07/01/17 19: 14; Start 06/13/17 at 21:00; Stop 07/02/17 at 16:58; Status DC Divalproex Sodium (Depakote Sprinkles) 375 mg TID@0900,1300,1700 PO Last administered on 06/17/17 17:07; Start 06/14/17 at 13:00; Stop 06/17/17 at 18:20 ; Status DC Donepezil HCl (Aricept) 10 mg BID PO Last administered on 07/05/17 19:46; Start 06/14/17 at 21:00 Memantine (Namenda) 10 mg BID PO Last administered on 07/05/17 19:46; Start at 21:00 Quetiapine Fumarate (SEROquel) 12.5 mg BID@0900,1300 PO Last administered on 06/15/17at 12:30; Start 06/14/17 at 13:00; Stop 06/15/17 at 18:55; Status DC Quetiapine Fumarate (SEROquel) 25 mg BID@0900,1300 PO Last administered on 06/29 14:53; Start 06/16/17 at 09:00; Stop 06/29/17 at 17:50; Status DC Divalproex Sodium (Depakote Sprinkles) 500 mg TID@0900,1300,1700 PO Last administered on 06/21/17at 08:11; Start 06/18/17 at 09:00; Stop 06/21/17 at 10:46 ; Status DC Olanzapine (ZyPREXA ZYDIS) 5 mg PRN Q2HR PRN PO ANXIETY / AGITATION Last administered on 07/04/17 20:06; Start 06/17/17 at 18:30 Hydroxyzine Pamoate (Vistaril) 25 mg PRN Q2HR PRN PO AGITATION/AGGRESSION Last administered on 06/23/17at 19:38; Start 06/17/17 at 19:15 Sertraline HCl (Zoloft) 75 mg DAILY PO Last administered on 07/05/17 11:22; Start 06/21/17 at 09:00 Divalproex Sodium (Depakote Sprinkles) 500 mg BID@0900,1300 PO Last administered on 07/05/17 11:25; Start 06/21/17 at 13:00 Divalproex Sodium (Depakote Sprinkles) 750 mg DAILY@1700 PO Last administered on 07/05/17 17:15; Start 06/21/17 at 17:00 Simethicone (Gas-X) 80 mg PRN AFTMEALHC PRN PO GAS / BLOATING Last administered on 06/27/17at 13:57; Start 06/27/17 at 11:45 Quetiapine Fumarate (SEROquel) 25 mg TID@0900,1300,1500 PO Last administered on 07/02/17at 15:07; Start 06/30/17 at 09:00; Stop 07/02/17 at 16:58; Status DC Quetiapine Fumarate (SEROquel) 100 mg QHS PO Last administered on 07/05/17at 19: 46; Start 07/02/17 at 21:00 Quetiapine Fumarate (SEROquel) 37.5 mg BID@0900,1500 PO Last administered on at 11:24; Start 07/03/17 at 09:00; Stop 07/05/17 at 11:01; Status DC Quetiapine Fumarate (SEROquel) 25 mg 1300 PO Last administered on 07/04/17at 13: 43; Start 07/03/17 at 13:00 Cyanocobalamin (Vitamin B-12) 1,000 mcg QMONTH IM ; Start 07/28/17 at 09:00 Lisinopril (Prinivil) 10 mg DAILY PO Last administered on 07/05/17at 11:27; Start 07/05/17 at 09:00 Quetiapine Fumarate (SEROquel) 50 mg BID@0900,1500 PO Last administered on 07/05at 15:12; Start 07/05/17 at 15:00 Active Scripts Active Reported Albuterol Sulfate Conc Neb Soln (Albuterol Sulfate) 2.5 Mg/0.5 Ml Vial.neb 2.5 Mg NEB PRN Q12HR PRN Namzaric 14 mg-10 mg Capsule (Memantine HCl/Donepezil HCl) 1 Each Cap.spr.24 1 Each PO DAILY [manzaric] Atorvastatin Calcium 80 Mg Tablet 80 Mg PO QHS NICODERM CQ 21mg (Nicotine) 1 Each Patch.td24 1 Patch TD PRN DAILY Omeprazole 20 Mg Tablet.dr 20 Mg PO DAILY Verapamil Er (Verapamil Hcl) 240 Mg Cap24h.pel 120 Mg PO DAILY Tamsulosin Hcl 0.4 Mg Cap.er.24h 0.4 Mg PO DAILY Onglyza (Saxagliptin Hcl) 5 Mg Tablet 2.5 Mg PO DAILY Ramipril 10 Mg Capsule 10 Mg PO DAILY Potassium Chloride 10 Meq Tablet.er 30 Meq PO DAILY Paroxetine Hcl 40 Mg Tablet 40 Mg PO DAILY Oxybutynin Chloride Er (Oxybutynin Chloride) 5 Mg Tab.er.24 5 Mg PO DAILY Advair 250-50 Diskus (Fluticasone/Salmeterol) 1 Each Disk.w.dev 1 Puff IH BID Aspirin 325 Mg Tablet 325 Mg PO Amlodipine Besylate 5 Mg Tablet 5 Mg PO DAILY I have reviewed the current psychotropics carefully including drug interactions. Risk benefit ratio favors no change other than as noted in my dictated progress note. Diagnosis: Problems: (1) Major neurocognitive disorder, due to vascular disease, with behavioral disturbance, mild (2) Impulse control disorder (3) Depression (4) Delusion (5) Anxiety disorder (6) Behavior problem BRAYAN GARNETT MD Jul 05, 2017 20:51
[2017-07-06] MEDS: ALBUTEROL SULFATE 2.5 MG/3 ML NEBU. NEB SCH ×4 (05:53→20:28)
[2017-07-06 06:08] VITALS: BP 113/66
[2017-07-06] MEDS: TAMSULOSIN 0.4 MG CAP.ER.24H. PO SCH (08:16)
[2017-07-06] MEDS: LINAGLIPTIN 5 MG TABLET PO SCH (08:16)
[2017-07-06] MEDS: DIVALPROEX 125 MG CAP.SPRINK PO SCH ×3 (08:17→16:54)
[2017-07-06] MEDS: ASPIRIN 325 MG TABLET PO SCH (08:17)
[2017-07-06] MEDS: PANTOPRAZOLE 40 MG TABLET. PO SCH (08:17)
[2017-07-06] MEDS: SERTRALINE 50 MG TABLET. PO SCH (08:17)
[2017-07-06] MEDS: MEMANTINE 10 MG TABLET. PO SCH ×2 (08:17→19:52)
[2017-07-06] MEDS: LISINOPRIL 10 MG TABLET PO SCH (08:18)
[2017-07-06] MEDS: DONEPEZIL HCL 10 MG TABLET PO SCH ×2 (08:18→19:52)
[2017-07-06] MEDS: VERAPAMIL SR 120 MG TABLET.ER. PO SCH (08:18)
[2017-07-06] MEDS: NICOTINE 14MG PATCH. TD SCH (08:19)
[2017-07-06] MEDS: QUEtiapine 50 MG TABLET. PO SCH ×2 (08:19→15:46)
[2017-07-06] MEDS: OXYBUTYNIN CHLORIDE 5 MG TABLET PO SCH (08:19)
[2017-07-06] MEDS: BUDESONIDE 0.5 MG/2 ML NEBU NEB SCH ×2 (10:40→20:28)
[2017-07-06] MEDS: QUEtiapine 25 MG TABLET. PO SCH (13:17)
[2017-07-06 16:17] VITALS: BP 95/56
[2017-07-06] MEDS: ATORVASTATIN CALCIUM 20 MG TABLET PO SCH (19:52)
[2017-07-06] MEDS: QUEtiapine 100 MG TABLET. PO SCH (19:52)
[2017-07-06] MEDS: traZODone 50 MG TABLET. PO SCH (19:52)
--- NOTE | 2017-07-06 20:56 | PDOC ---
Exam Note: Hernandez Note: Please also refer to the separate dictated note~for this date of service dictated separately.~Patient seen individually. Discussed the patient with Nursing staff reviewed the chart.~Reviewed interim history and current functioning. Reviewed vital signs,~Labs/ Radiology~and current medications noted below. Continue current treatment with the changes noted in the dictated addendum note Assessment: Vital Signs: Vital Signs Date Time Temp Pulse Resp B/P (MAP) Pulse Ox O2 Delivery O2 Flow Rate FiO2 07/06/17 20:33 Room Air 07/06/17 20:30 93 07/06/17 16:17 97.9 64 18 95/56 (69) I&O Intake and Output 07/06/17 07:00 Intake Total 360 ml Balance 360 ml Intake Oral 360 ml # Voids 1 # Bowel Movements 1 Labs: Laboratory Tests Test 07/06/17 07:20 Glucose (Fingerstick) 96 mg/dL (70-99) Current Medications: Meds: Current Medications Acetaminophen (Tylenol) 650 mg PRN Q6HRS PRN PO PAIN / TEMP Last administered on 06/23/17at 18:14; Start 06/04/17 at 15:00 Multi-Ingredient Ointment (Analgesic [place]) 1 any PRN QID PRN TP MUSCLE PAIN; Start 06/04/17 at 15:00 Al Hydroxide/Mg Hydroxide (Mylanta Plus Xs) 15 ml PRN AFTMEALHC PRN PO DYSPEPSIA Last administered on 06/14/17at 10:05; Start 06/04/17 at 15:00 Magnesium Hydroxide (Milk Of Magnesia) 2,400 mg PRN QHS PRN PO CONSTIPATION Last administered on 06/11/17at 20:27; Start 06/04/17 at 15:00 Nicotine (Nicoderm Cq 21mg) 1 patch DAILY TD ; Start 06/05/17 at 09:00; Stop at 09:00; Status DC Olanzapine (ZyPREXA ZYDIS) 2.5 mg PRN Q2HR PRN PO ANXIETY / AGITATION Last administered on 06/16/17at 23:24; Start 06/04/17 at 15:30; Stop 06/17/17 at 18:20 ; Status DC Influenza Virus Vaccine Quadrival (Fluarix Quad [id number] Syringe) 0.5 ml ONCE ONCE VAX IM Last administered on 06/05/17at 11:21; Start 06/04/17 at 15:30; Stop 06/04/17 at 15:36; Status DC Amlodipine Besylate (Norvasc) 5 mg DAILY PO Last administered on 07/04/17at 10: 18; Start 06/05/17 at 09:00; Stop 07/04/17 at 16:35; Status DC Aspirin (Sivakumar Aspirin) 325 mg DAILY PO Last administered on 07/06/17 08:17; Start 06/05/17 at 09:00 Nicotine (Nicoderm Cq 21mg) 1 patch PRN DAILY PRN TD NICOTINE W/D SYMPTOMS; Start 06/05/17 at 01:00; Stop 06/10/17 at 19:12; Status DC Tamsulosin HCl (Flomax) 0.4 mg DAILY PO Last administered on 07/06/17at 08:16; Start 06/05/17 at 09:00 Non-Formulary Medication 2.5 mg PRN Q12HR PRN NEB WHEEZING; Start 06/05/17 at 01:00; Status UNV Atorvastatin Calcium (Lipitor) 80 mg QHS PO Last administered on 07/06/17at 19: 52; Start 06/05/17 at 21:00 Non-Formulary Medication 1 puff BID IH ; Start 06/05/17 at 09:00; Status UNV Non-Formulary Medication 1 each DAILY PO ; Start 06/05/17 at 09:00; Stop at 09:00; Status DC Pantoprazole Sodium (Protonix) 40 mg DAILYAC PO Last administered on 07/06/17at 08:17; Start 06/05/17 at 07:30 Oxybutynin Chloride (Ditropan) 5 mg DAILY PO Last administered on 07/06/17at 08: 19; Start 06/05/17 at 09:00 Paroxetine HCl (Paxil) 40 mg DAILY PO Last administered on 06/05/17at 08:51; Start 06/05/17 at 09:00; Stop 06/05/17 at 18:43; Status DC Potassium Chloride (Klor-Con) 30 meq DAILY PO Last administered on 06/16/17at 09 :10; Start 06/05/17 at 09:00; Stop 06/17/17 at 10:10; Status DC Lisinopril (Prinivil) 20 mg DAILY PO Last administered on 07/04/17 10:18; Start 06/05/17 at 09:00; Stop 07/04/17 at 16:35; Status DC Linagliptin (Tradjenta) 5 mg DAILY PO Last administered on 07/06/17at 08:16; Start 06/05/17 at 09:00 Verapamil HCl (Calan Sr) 120 mg DAILY PO Last administered on 07/06/17at 08:18; Start 06/05/17 at 09:00 Dextrose 12.5 gm PRN Q15MIN PRN IV hypoglycemia; Start 06/05/17 at 01:00 Glucose (Insta-Glucose) 15 gm PRN Q15MIN PRN PO LOW BLOOD SUGAR; Start at 01:00 Albuterol Sulfate (Ventolin) 2.5 mg PRN Q12HR PRN NEB WHEEZING; Start 06/05/17 at 01:45 Budesonide (Pulmicort) 0.5 mg RTBID NEB Last administered on 07/06/17at 20:28; Start 06/05/17 at 08:00 Albuterol Sulfate (Ventolin) 2.5 mg RTQID NEB Last administered on 07/06/17at 20 :28; Start 06/05/17 at 08:00 Memantine (Namenda) 5 mg BID PO Last administered on 06/14/17at 07:45; Start at 09:00; Stop 06/14/17 at 11:28; Status DC Donepezil HCl (Aricept) 5 mg BID PO Last administered on 06/14/17at 07:45; Start 06/05/17 at 09:00; Stop 06/14/17 at 11:28; Status DC Vitamin D (Vitamin D3) 50,000 unit WEEKLY PO Last administered on 07/03/17at 08: 26; Start 06/05/17 at 20:00 Cyanocobalamin (Vitamin B-12) 1,000 mcg WEEKLY IM Last administered on at 09:00; Start 06/06/17 at 09:00; Stop 07/04/17 at 10:15; Status DC Quetiapine Fumarate (SEROquel) 25 mg QHS PO Last administered on 06/05/17at 20: 03; Start 06/05/17 at 21:00; Stop 06/06/17 at 18:42; Status DC Sertraline HCl (Zoloft) 50 mg DAILY PO Last administered on 06/20/17 08:09; Start 06/06/17 at 09:00; Stop 06/20/17 at 14:20; Status DC Quetiapine Fumarate (SEROquel) 50 mg QHS PO Last administered on 06/12/17at 20:09 ; Start 06/06/17 at 21:00; Stop 06/13/17 at 18:45; Status DC Trazodone HCl (Desyrel) 50 mg QHS PO Last administered on 07/06/17 19:52; Start 06/08/17 at 21:00 Trazodone HCl (Desyrel) 50 mg PRN QHS PRN PO INSOMNIA Last administered on 07/04at 20:36; Start 06/08/17 at 18:45 Divalproex Sodium (Depakote Sprinkles) 125 mg TID@0900,1300,1700 PO Last administered on 06/11/17 16:48; Start 06/09/17 at 09:00; Stop 06/11/17 at 18:15; Status DC Nicotine (Nicoderm Cq 14mg) 1 patch DAILY TD Last administered on 07/06/17 08: 19; Start 06/11/17 at 09:00 Nicotine (Nicoderm Cq 14mg) 1 patch ONCE ONCE TD Last administered on 19:57; Start 06/10/17 at 19:15; Stop 06/10/17 at 19:26; Status DC Divalproex Sodium (Depakote Sprinkles) 250 mg TID@0900,1300,1700 PO Last administered on 06/14/17at 07:44; Start 06/12/17 at 09:00; Stop 06/14/17 at 11:28; Status DC Quetiapine Fumarate (SEROquel) 75 mg QHS PO Last administered on 07/01/17 19: 14; Start 06/13/17 at 21:00; Stop 07/02/17 at 16:58; Status DC Divalproex Sodium (Depakote Sprinkles) 375 mg TID@0900,1300,1700 PO Last administered on 06/17/17 17:07; Start 06/14/17 at 13:00; Stop 06/17/17 at 18:20 ; Status DC Donepezil HCl (Aricept) 10 mg BID PO Last administered on 07/06/17 19:52; Start 06/14/17 at 21:00 Memantine (Namenda) 10 mg BID PO Last administered on 07/06/17 19:52; Start at 21:00 Quetiapine Fumarate (SEROquel) 12.5 mg BID@0900,1300 PO Last administered on 12:30; Start 06/14/17 at 13:00; Stop 06/15/17 at 18:55; Status DC Quetiapine Fumarate (SEROquel) 25 mg BID@0900,1300 PO Last administered on 06/29 14:53; Start 06/16/17 at 09:00; Stop 06/29/17 at 17:50; Status DC Divalproex Sodium (Depakote Sprinkles) 500 mg TID@0900,1300,1700 PO Last administered on 06/21/17 08:11; Start 06/18/17 at 09:00; Stop 06/21/17 at 10:46 ; Status DC Olanzapine (ZyPREXA ZYDIS) 5 mg PRN Q2HR PRN PO ANXIETY / AGITATION Last administered on 07/04/17 20:06; Start 06/17/17 at 18:30 Hydroxyzine Pamoate (Vistaril) 25 mg PRN Q2HR PRN PO AGITATION/AGGRESSION Last administered on 06/23/17at 19:38; Start 06/17/17 at 19:15 Sertraline HCl (Zoloft) 75 mg DAILY PO Last administered on 07/06/17 08:17; Start 06/21/17 at 09:00 Divalproex Sodium (Depakote Sprinkles) 500 mg BID@0900,1300 PO Last administered on 07/06/17 13:17; Start 06/21/17 at 13:00 Divalproex Sodium (Depakote Sprinkles) 750 mg DAILY@1700 PO Last administered on 07/06/17 16:54; Start 06/21/17 at 17:00 Simethicone (Gas-X) 80 mg PRN AFTMEALHC PRN PO GAS / BLOATING Last administered on 06/27/17at 13:57; Start 06/27/17 at 11:45 Quetiapine Fumarate (SEROquel) 25 mg TID@0900,1300,1500 PO Last administered on 07/02/17at 15:07; Start 06/30/17 at 09:00; Stop 07/02/17 at 16:58; Status DC Quetiapine Fumarate (SEROquel) 100 mg QHS PO Last administered on 07/06/17at 19: 52; Start 07/02/17 at 21:00 Quetiapine Fumarate (SEROquel) 37.5 mg BID@0900,1500 PO Last administered on at 11:24; Start 07/03/17 at 09:00; Stop 07/05/17 at 11:01; Status DC Quetiapine Fumarate (SEROquel) 25 mg 1300 PO Last administered on 07/06/17at 13: 17; Start 07/03/17 at 13:00 Cyanocobalamin (Vitamin B-12) 1,000 mcg QMONTH IM ; Start 07/28/17 at 09:00 Lisinopril (Prinivil) 10 mg DAILY PO Last administered on 07/06/17at 08:18; Start 07/05/17 at 09:00 Quetiapine Fumarate (SEROquel) 50 mg BID@0900,1500 PO Last administered on 07/06at 15:46; Start 07/05/17 at 15:00 Active Scripts Active Reported Albuterol Sulfate Conc Neb Soln (Albuterol Sulfate) 2.5 Mg/0.5 Ml Vial.neb 2.5 Mg NEB PRN Q12HR PRN Namzaric 14 mg-10 mg Capsule (Memantine HCl/Donepezil HCl) 1 Each Cap.spr.24 1 Each PO DAILY [manzaric] Atorvastatin Calcium 80 Mg Tablet 80 Mg PO QHS NICODERM CQ 21mg (Nicotine) 1 Each Patch.td24 1 Patch TD PRN DAILY Omeprazole 20 Mg Tablet.dr 20 Mg PO DAILY Verapamil Er (Verapamil Hcl) 240 Mg Cap24h.pel 120 Mg PO DAILY Tamsulosin Hcl 0.4 Mg Cap.er.24h 0.4 Mg PO DAILY Onglyza (Saxagliptin Hcl) 5 Mg Tablet 2.5 Mg PO DAILY Ramipril 10 Mg Capsule 10 Mg PO DAILY Potassium Chloride 10 Meq Tablet.er 30 Meq PO DAILY Paroxetine Hcl 40 Mg Tablet 40 Mg PO DAILY Oxybutynin Chloride Er (Oxybutynin Chloride) 5 Mg Tab.er.24 5 Mg PO DAILY Advair 250-50 Diskus (Fluticasone/Salmeterol) 1 Each Disk.w.dev 1 Puff IH BID Aspirin 325 Mg Tablet 325 Mg PO Amlodipine Besylate 5 Mg Tablet 5 Mg PO DAILY I have reviewed the current psychotropics carefully including drug interactions. Risk benefit ratio favors no change other than as noted in my dictated progress note. Diagnosis: Problems: (1) Major neurocognitive disorder, due to vascular disease, with behavioral disturbance, mild (2) Impulse control disorder (3) Depression (4) Delusion (5) Anxiety disorder (6) Behavior problem BRAYAN GARNETT MD Jul 06, 2017 20:56
[2017-07-06] MEDS: traZODone 50 MG TABLET. PO PRN (23:25)
--- NOTE | 2017-07-06 23:54 | PN ---
DATE: 07/04/2017 PSYCHIATRIC PROGRESS NOTE This late entry 07/04/2017 covers elements not covered in my initial note of 07/04/2017. SUBJECTIVE: Met with the patient in evening of 07/04/2017. Overall, the patient remains quite confused, was in bed until 10 a.m., not aggressive. Around 2:30 p.m., he was belching loudly and one of the other patients got aggressive against him since he would not stop the belching, perhaps unable to do so. They had to be , staff intervened and the patient was getting aggressive, but then seemed to calm down and forget about the whole incident due to his memory deficits. His BP has been low, on orthostatics, Dr. Madsen discontinued the Norvasc, reduced the verapamil. The platelet count is low at 126. We will monitor. REVIEW OF SYSTEMS: No CV, , pulmonary, eye, ENT system symptoms on review. Reliability is poor. MENTAL STATUS EXAM: Oriented to himself. Insight, judgment, recent and remote memory, attention, concentration, fund of knowledge is poor, consistent with his diagnoses mentioned in my initial note. PLAN: Continue current psychotropics with the changes noted above. MAN Lacho GARNETT MD DR: LEROY/juliane JOB#: [id number] / [id number]
--- NOTE | 2017-07-07 01:15 | PN ---
DATE: 07/05/2017 This is a late entry for 07/05/2017 and covers the elements not covered in my initial note of 07/05/2017. SUBJECTIVE: I met with the patient in the evening of 07/05/2017 and seen individually in the evening. Appetite 90%, sleeping average 7 hours, slept 7-3/4 hours previous evening, more compliant with medications, assessment, still spends much time in his room. Talks in made-up language per nursing report. He has poor social skills, burping loudly on the unit, which instigates some of the other patients. Gets agitated intermittently with staff. REVIEW OF SYSTEMS: No CV, , pulmonary, eye, ENT system symptoms on review. Reliability poor. MENTAL STATUS EXAM: Oriented to himself. Insight, judgment, recent and remote memory, attention, concentration, fund of knowledge poor, consistent with his diagnosis mentioned in my initial note. IMPRESSION: Major neurocognitive disorder, Alzheimer, vascular with depression, delusion, behavioral disturbance. PLAN: Seroquel is 37.5 mg b.i.d. We will increase to 50 mg b.i.d. Continue Rest unchanged per initial note. Valproic acid level therapeutic at 54. MAN Lacho GARNETT MD DR: LEROY/juliane JOB#: [id number] / [id number]
[2017-07-07 05:54] VITALS: BP 100/53
[2017-07-07] MEDS: ALBUTEROL SULFATE 2.5 MG/3 ML NEBU. NEB SCH ×4 (06:01→20:44)
[2017-07-07] MEDS: PANTOPRAZOLE 40 MG TABLET. PO SCH (07:44)
[2017-07-07] MEDS: LISINOPRIL 10 MG TABLET PO SCH (07:44)
[2017-07-07] MEDS: DONEPEZIL HCL 10 MG TABLET PO SCH ×2 (07:44→19:25)
[2017-07-07] MEDS: NICOTINE 14MG PATCH. TD SCH (07:44)
[2017-07-07] MEDS: DIVALPROEX 125 MG CAP.SPRINK PO SCH ×3 (07:45→16:18)
[2017-07-07] MEDS: SERTRALINE 50 MG TABLET. PO SCH (07:45)
[2017-07-07] MEDS: VERAPAMIL SR 120 MG TABLET.ER. PO SCH (07:45)
[2017-07-07] MEDS: OXYBUTYNIN CHLORIDE 5 MG TABLET PO SCH (07:47)
[2017-07-07] MEDS: ASPIRIN 325 MG TABLET PO SCH (07:47)
[2017-07-07] MEDS: TAMSULOSIN 0.4 MG CAP.ER.24H. PO SCH (07:47)
[2017-07-07] MEDS: LINAGLIPTIN 5 MG TABLET PO SCH (07:47)
[2017-07-07] MEDS: QUEtiapine 50 MG TABLET. PO SCH ×2 (07:47→16:18)
[2017-07-07] MEDS: MEMANTINE 10 MG TABLET. PO SCH ×2 (07:47→19:26)
[2017-07-07] MEDS: BUDESONIDE 0.5 MG/2 ML NEBU NEB SCH ×2 (08:00→20:44)
[2017-07-07 08:07] LABS: BASO # 0.1 x10^3/uL (0.0-0.2); BASO % 1 % (0-3); EOS # 0.5 x10^3/uL (0.0-0.7); EOS % 6 % (0-3); HEMATOCRIT 42.5 % (39.0-53.0); LYMPH # 2.3 x10^3/uL (1.0-4.8); LYMPH % 28 % (24-48); MEAN CORPUSCULAR HEMOGLOBIN 28 pg (25-35); MEAN CORPUSCULAR HGB CONC 33 g/dL (31-37); MEAN CORPUSCULAR VOLUME 86 fL (79-100); MONO # 0.8 x10^3/uL (0.0-1.1); MONO % 10 % (0-9); NEUT # 4.6 x10^3uL (1.8-7.7); NEUT % 55 % (31-73); PLATELET COUNT 125 x10^3/uL (140-400); RED BLOOD COUNT 4.92 x10^6/uL (4.30-5.70); WHITE BLOOD COUNT 8.3 x10^3/uL (4.0-11.0)
[2017-07-07 08:19] LABS: ALBUMIN 3.1 g/dL (3.4-5.0); ALBUMIN/GLOBULIN RATIO 0.8 (1.0-1.7); CALCIUM 8.9 mg/dL (8.5-10.1); CREATININE 1.4 mg/dL (0.7-1.3); GFR 50.7; POTASSIUM 4.6 mmol/L (3.5-5.1); TOTAL BILIRUBIN 0.2 mg/dL (0.2-1.0); TOTAL PROTEIN 6.8 g/dL (6.4-8.2)
[2017-07-07] MEDS: QUEtiapine 25 MG TABLET. PO SCH (12:25)
[2017-07-07] MEDS: hydrOXYzine PAMOATE 25 MG CAPSULE PO PRN ×2 (13:21→22:36)
[2017-07-07 15:46] VITALS: BP 106/56
[2017-07-07] MEDS: ATORVASTATIN CALCIUM 20 MG TABLET PO SCH (19:25)
[2017-07-07] MEDS: QUEtiapine 100 MG TABLET. PO SCH (19:25)
[2017-07-07] MEDS: traZODone 50 MG TABLET. PO SCH (19:26)
[2017-07-07] MEDS: traZODone 50 MG TABLET. PO PRN (22:36)
--- NOTE | 2017-07-07 22:47 | PDOC ---
Exam Note: Hernandez Note: Please also refer to the separate dictated note~for this date of service dictated separately.~Patient seen individually. Discussed the patient with Nursing staff reviewed the chart.~Reviewed interim history and current functioning. Reviewed vital signs,~Labs/ Radiology~and current medications noted below. Continue current treatment with the changes noted in the dictated addendum note Assessment: Vital Signs: Vital Signs Date Time Temp Pulse Resp B/P (MAP) Pulse Ox O2 Delivery O2 Flow Rate FiO2 07/07/17 20:45 95 Room Air 07/07/17 15:46 98.4 66 16 106/56 (73) I&O Intake and Output 07/07/17 07:00 Intake Total 1440 ml Balance 1440 ml Intake Oral 1440 ml # Voids 1 Labs: Laboratory Tests Test 07/07/17 07:01 07/07/17 07:57 Glucose (Fingerstick) 104 mg/dL (70-99) H White Blood Count 8.3 x10^3/uL (4.0-11.0) Red Blood Count 4.92 x10^6/uL (4.30-5.70) Hemoglobin 14.0 g/dL (13.0-17.5) Hematocrit 42.5 % (39.0-53.0) Mean Corpuscular Volume 86 fL (79-100) Mean Corpuscular Hemoglobin 28 pg (25-35) Mean Corpuscular Hemoglobin Concent 33 g/dL (31-37) Red Cell Distribution Width 15.0 % (11.5-14.5) H Platelet Count 125 x10^3/uL (140-400) L Neutrophils (%) (Auto) 55 % (31-73) Lymphocytes (%) (Auto) 28 % (24-48) Monocytes (%) (Auto) 10 % (0-9) H Eosinophils (%) (Auto) 6 % (0-3) H Basophils (%) (Auto) 1 % (0-3) Neutrophils # (Auto) 4.6 x10^3uL (1.8-7.7) Lymphocytes # (Auto) 2.3 x10^3/uL (1.0-4.8) Monocytes # (Auto) 0.8 x10^3/uL (0.0-1.1) Eosinophils # (Auto) 0.5 x10^3/uL (0.0-0.7) Basophils # (Auto) 0.1 x10^3/uL (0.0-0.2) Sodium Level 145 mmol/L (136-145) Potassium Level 4.6 mmol/L (3.5-5.1) Chloride Level 107 mmol/L (98-107) Carbon Dioxide Level 34 mmol/L (21-32) H Anion Gap 4 (6-14) L Blood Urea Nitrogen 32 mg/dL (8-26) H Creatinine 1.4 mg/dL (0.7-1.3) H Estimated GFR (Cockcroft-Gault) 50.7 BUN/Creatinine Ratio 23 (6-20) H Glucose Level 114 mg/dL (70-99) H Calcium Level 8.9 mg/dL (8.5-10.1) Total Bilirubin 0.2 mg/dL (0.2-1.0) Aspartate Amino Transferase (AST) 14 U/L (15-37) L Alanine Aminotransferase (ALT) 22 U/L (16-63) Alkaline Phosphatase 83 U/L (46-116) Total Protein 6.8 g/dL (6.4-8.2) Albumin 3.1 g/dL (3.4-5.0) L Albumin/Globulin Ratio 0.8 (1.0-1.7) L Current Medications: Meds: Current Medications Acetaminophen (Tylenol) 650 mg PRN Q6HRS PRN PO PAIN / TEMP Last administered on 06/23/17at 18:14; Start 06/04/17 at 15:00 Multi-Ingredient Ointment (Analgesic [place]) 1 any PRN QID PRN TP MUSCLE PAIN; Start 06/04/17 at 15:00 Al Hydroxide/Mg Hydroxide (Mylanta Plus Xs) 15 ml PRN AFTMEALHC PRN PO DYSPEPSIA Last administered on 06/14/17at 10:05; Start 06/04/17 at 15:00 Magnesium Hydroxide (Milk Of Magnesia) 2,400 mg PRN QHS PRN PO CONSTIPATION Last administered on 06/11/17at 20:27; Start 06/04/17 at 15:00 Nicotine (Nicoderm Cq 21mg) 1 patch DAILY TD ; Start 06/05/17 at 09:00; Stop at 09:00; Status DC Olanzapine (ZyPREXA ZYDIS) 2.5 mg PRN Q2HR PRN PO ANXIETY / AGITATION Last administered on 06/16/17at 23:24; Start 06/04/17 at 15:30; Stop 06/17/17 at 18:20 ; Status DC Influenza Virus Vaccine Quadrival (Fluarix Quad [id number] Syringe) 0.5 ml ONCE ONCE VAX IM Last administered on 06/05/17at 11:21; Start 06/04/17 at 15:30; Stop 06/04/17 at 15:36; Status DC Amlodipine Besylate (Norvasc) 5 mg DAILY PO Last administered on 07/04/17at 10: 18; Start 06/05/17 at 09:00; Stop 07/04/17 at 16:35; Status DC Aspirin (Sivakumar Aspirin) 325 mg DAILY PO Last administered on 07/07/17at 07:47; Start 06/05/17 at 09:00 Nicotine (Nicoderm Cq 21mg) 1 patch PRN DAILY PRN TD NICOTINE W/D SYMPTOMS; Start 06/05/17 at 01:00; Stop 06/10/17 at 19:12; Status DC Tamsulosin HCl (Flomax) 0.4 mg DAILY PO Last administered on 07/07/17at 07:47; Start 06/05/17 at 09:00 Non-Formulary Medication 2.5 mg PRN Q12HR PRN NEB WHEEZING; Start 06/05/17 at 01:00; Status UNV Atorvastatin Calcium (Lipitor) 80 mg QHS PO Last administered on 07/07/17at 19: 25; Start 06/05/17 at 21:00 Non-Formulary Medication 1 puff BID IH ; Start 06/05/17 at 09:00; Status UNV Non-Formulary Medication 1 each DAILY PO ; Start 06/05/17 at 09:00; Stop at 09:00; Status DC Pantoprazole Sodium (Protonix) 40 mg DAILYAC PO Last administered on 07/07/17at 07:44; Start 06/05/17 at 07:30 Oxybutynin Chloride (Ditropan) 5 mg DAILY PO Last administered on 07/07/17at 07: 47; Start 06/05/17 at 09:00 Paroxetine HCl (Paxil) 40 mg DAILY PO Last administered on 06/05/17at 08:51; Start 06/05/17 at 09:00; Stop 06/05/17 at 18:43; Status DC Potassium Chloride (Klor-Con) 30 meq DAILY PO Last administered on 06/16/17at 09 :10; Start 06/05/17 at 09:00; Stop 06/17/17 at 10:10; Status DC Lisinopril (Prinivil) 20 mg DAILY PO Last administered on 07/04/17at 10:18; Start 06/05/17 at 09:00; Stop 07/04/17 at 16:35; Status DC Linagliptin (Tradjenta) 5 mg DAILY PO Last administered on 07/07/17 07:47; Start 06/05/17 at 09:00 Verapamil HCl (Calan Sr) 120 mg DAILY PO Last administered on 07/07/17at 07:45; Start 06/05/17 at 09:00 Dextrose 12.5 gm PRN Q15MIN PRN IV hypoglycemia; Start 06/05/17 at 01:00 Glucose (Insta-Glucose) 15 gm PRN Q15MIN PRN PO LOW BLOOD SUGAR; Start at 01:00 Albuterol Sulfate (Ventolin) 2.5 mg PRN Q12HR PRN NEB WHEEZING; Start 06/05/17 at 01:45 Budesonide (Pulmicort) 0.5 mg RTBID NEB Last administered on 07/07/17at 20:44; Start 06/05/17 at 08:00 Albuterol Sulfate (Ventolin) 2.5 mg RTQID NEB Last administered on 07/07/17at 20 :44; Start 06/05/17 at 08:00 Memantine (Namenda) 5 mg BID PO Last administered on 06/14/17 07:45; Start at 09:00; Stop 06/14/17 at 11:28; Status DC Donepezil HCl (Aricept) 5 mg BID PO Last administered on 06/14/17 07:45; Start 06/05/17 at 09:00; Stop 06/14/17 at 11:28; Status DC Vitamin D (Vitamin D3) 50,000 unit WEEKLY PO Last administered on 07/03/17at 08: 26; Start 06/05/17 at 20:00 Cyanocobalamin (Vitamin B-12) 1,000 mcg WEEKLY IM Last administered on at 09:00; Start 06/06/17 at 09:00; Stop 07/04/17 at 10:15; Status DC Quetiapine Fumarate (SEROquel) 25 mg QHS PO Last administered on 06/05/17at 20: 03; Start 06/05/17 at 21:00; Stop 06/06/17 at 18:42; Status DC Sertraline HCl (Zoloft) 50 mg DAILY PO Last administered on 06/20/17at 08:09; Start 06/06/17 at 09:00; Stop 06/20/17 at 14:20; Status DC Quetiapine Fumarate (SEROquel) 50 mg QHS PO Last administered on 06/12/17at 20:09 ; Start 06/06/17 at 21:00; Stop 06/13/17 at 18:45; Status DC Trazodone HCl (Desyrel) 50 mg QHS PO Last administered on 07/07/17at 19:26; Start 06/08/17 at 21:00 Trazodone HCl (Desyrel) 50 mg PRN QHS PRN PO INSOMNIA Last administered on 07/07at 22:36; Start 06/08/17 at 18:45 Divalproex Sodium (Depakote Sprinkles) 125 mg TID@0900,1300,1700 PO Last administered on 06/11/17at 16:48; Start 06/09/17 at 09:00; Stop 06/11/17 at 18:15; Status DC Nicotine (Nicoderm Cq 14mg) 1 patch DAILY TD Last administered on 07/07/17at 07: 44; Start 06/11/17 at 09:00 Nicotine (Nicoderm Cq 14mg) 1 patch ONCE ONCE TD Last administered on at 19:57; Start 06/10/17 at 19:15; Stop 06/10/17 at 19:26; Status DC Divalproex Sodium (Depakote Sprinkles) 250 mg TID@0900,1300,1700 PO Last administered on 06/14/17at 07:44; Start 06/12/17 at 09:00; Stop 06/14/17 at 11:28; Status DC Quetiapine Fumarate (SEROquel) 75 mg QHS PO Last administered on 07/01/17 19: 14; Start 06/13/17 at 21:00; Stop 07/02/17 at 16:58; Status DC Divalproex Sodium (Depakote Sprinkles) 375 mg TID@0900,1300,1700 PO Last administered on 06/17/17at 17:07; Start 06/14/17 at 13:00; Stop 06/17/17 at 18:20 ; Status DC Donepezil HCl (Aricept) 10 mg BID PO Last administered on 07/07/17 19:25; Start 06/14/17 at 21:00 Memantine (Namenda) 10 mg BID PO Last administered on 07/07/17 19:26; Start at 21:00 Quetiapine Fumarate (SEROquel) 12.5 mg BID@0900,1300 PO Last administered on 06/15/17at 12:30; Start 06/14/17 at 13:00; Stop 06/15/17 at 18:55; Status DC Quetiapine Fumarate (SEROquel) 25 mg BID@0900,1300 PO Last administered on 06/29at 14:53; Start 06/16/17 at 09:00; Stop 06/29/17 at 17:50; Status DC Divalproex Sodium (Depakote Sprinkles) 500 mg TID@0900,1300,1700 PO Last administered on 06/21/17at 08:11; Start 06/18/17 at 09:00; Stop 06/21/17 at 10:46 ; Status DC Olanzapine (ZyPREXA ZYDIS) 5 mg PRN Q2HR PRN PO ANXIETY / AGITATION Last administered on 07/04/17at 20:06; Start 06/17/17 at 18:30 Hydroxyzine Pamoate (Vistaril) 25 mg PRN Q2HR PRN PO AGITATION/AGGRESSION Last administered on 07/07/17at 22:36; Start 06/17/17 at 19:15 Sertraline HCl (Zoloft) 75 mg DAILY PO Last administered on 07/07/17at 07:45; Start 06/21/17 at 09:00 Divalproex Sodium (Depakote Sprinkles) 500 mg BID@0900,1300 PO Last administered on 07/07/17at 12:25; Start 06/21/17 at 13:00 Divalproex Sodium (Depakote Sprinkles) 750 mg DAILY@1700 PO Last administered on 07/07/17at 16:18; Start 06/21/17 at 17:00 Simethicone (Gas-X) 80 mg PRN AFTMEALHC PRN PO GAS / BLOATING Last administered on 06/27/17at 13:57; Start 06/27/17 at 11:45 Quetiapine Fumarate (SEROquel) 25 mg TID@0900,1300,1500 PO Last administered on 07/02/17at 15:07; Start 06/30/17 at 09:00; Stop 07/02/17 at 16:58; Status DC Quetiapine Fumarate (SEROquel) 100 mg QHS PO Last administered on 07/07/17at 19: 25; Start 07/02/17 at 21:00 Quetiapine Fumarate (SEROquel) 37.5 mg BID@0900,1500 PO Last administered on at 11:24; Start 07/03/17 at 09:00; Stop 07/05/17 at 11:01; Status DC Quetiapine Fumarate (SEROquel) 25 mg 1300 PO Last administered on 07/07/17at 12: 25; Start 07/03/17 at 13:00 Cyanocobalamin (Vitamin B-12) 1,000 mcg QMONTH IM ; Start 07/28/17 at 09:00 Lisinopril (Prinivil) 10 mg DAILY PO Last administered on 07/07/17at 07:44; Start 07/05/17 at 09:00 Quetiapine Fumarate (SEROquel) 50 mg BID@0900,1500 PO Last administered on 07/07at 16:18; Start 07/05/17 at 15:00 Active Scripts Active Reported Albuterol Sulfate Conc Neb Soln (Albuterol Sulfate) 2.5 Mg/0.5 Ml Vial.neb 2.5 Mg NEB PRN Q12HR PRN Namzaric 14 mg-10 mg Capsule (Memantine HCl/Donepezil HCl) 1 Each Cap.spr.24 1 Each PO DAILY [manzaric] Atorvastatin Calcium 80 Mg Tablet 80 Mg PO QHS NICODERM CQ 21mg (Nicotine) 1 Each Patch.td24 1 Patch TD PRN DAILY Omeprazole 20 Mg Tablet.dr 20 Mg PO DAILY Verapamil Er (Verapamil Hcl) 240 Mg Cap24h.pel 120 Mg PO DAILY Tamsulosin Hcl 0.4 Mg Cap.er.24h 0.4 Mg PO DAILY Onglyza (Saxagliptin Hcl) 5 Mg Tablet 2.5 Mg PO DAILY Ramipril 10 Mg Capsule 10 Mg PO DAILY Potassium Chloride 10 Meq Tablet.er 30 Meq PO DAILY Paroxetine Hcl 40 Mg Tablet 40 Mg PO DAILY Oxybutynin Chloride Er (Oxybutynin Chloride) 5 Mg Tab.er.24 5 Mg PO DAILY Advair 250-50 Diskus (Fluticasone/Salmeterol) 1 Each Disk.w.dev 1 Puff IH BID Aspirin 325 Mg Tablet 325 Mg PO Amlodipine Besylate 5 Mg Tablet 5 Mg PO DAILY I have reviewed the current psychotropics carefully including drug interactions. Risk benefit ratio favors no change other than as noted in my dictated progress note. Diagnosis: Problems: (1) Major neurocognitive disorder, due to vascular disease, with behavioral disturbance, mild (2) Impulse control disorder (3) Depression (4) Delusion (5) Anxiety disorder (6) Behavior problem BRAYAN GARNETT MD Jul 07, 2017 22:47
[2017-07-08] MEDS: BUDESONIDE 0.5 MG/2 ML NEBU NEB SCH ×2 (05:44→20:42)
[2017-07-08] MEDS: ALBUTEROL SULFATE 2.5 MG/3 ML NEBU. NEB SCH ×4 (05:45→20:42)
[2017-07-08 05:57] VITALS: BP 138/58
[2017-07-08] MEDS: NICOTINE 14MG PATCH. TD SCH (07:27)
[2017-07-08] MEDS: QUEtiapine 50 MG TABLET. PO SCH ×2 (07:28→15:00)
[2017-07-08] MEDS: DIVALPROEX 125 MG CAP.SPRINK PO SCH ×3 (07:28→17:36)
[2017-07-08] MEDS: MEMANTINE 10 MG TABLET. PO SCH ×2 (07:28→19:34)
[2017-07-08] MEDS: SERTRALINE 50 MG TABLET. PO SCH (07:28)
[2017-07-08] MEDS: VERAPAMIL SR 120 MG TABLET.ER. PO SCH (07:29)
[2017-07-08] MEDS: DONEPEZIL HCL 10 MG TABLET PO SCH ×2 (07:29→19:34)
[2017-07-08] MEDS: LINAGLIPTIN 5 MG TABLET PO SCH (07:29)
[2017-07-08] MEDS: TAMSULOSIN 0.4 MG CAP.ER.24H. PO SCH (07:29)
[2017-07-08] MEDS: PANTOPRAZOLE 40 MG TABLET. PO SCH (07:29)
[2017-07-08] MEDS: LISINOPRIL 10 MG TABLET PO SCH (07:30)
[2017-07-08] MEDS: OXYBUTYNIN CHLORIDE 5 MG TABLET PO SCH (07:30)
[2017-07-08] MEDS: ASPIRIN 325 MG TABLET PO SCH (07:30)
[2017-07-08] MEDS: QUEtiapine 25 MG TABLET. PO SCH (13:00)
[2017-07-08 15:25] VITALS: BP 91/48
--- NOTE | 2017-07-08 16:38 | PN ---
DATE: 07/06/2017 This late entry 07/06/2017 covers elements not covered in my initial note 07/06/2017. Met with the patient in the evening of 07/06/2017. The patient is quite withdrawn in the evening, somewhat drowsy during the day, not aggressive, confused. REVIEW OF SYSTEMS: No CV, , pulmonary, eye, ENT system symptoms on review. Reliability poor. MENTAL STATUS EXAM: Oriented to himself. Insight, judgment, recent and remote memory, attention, concentration, fund of knowledge poor, consistent with his diagnosis mentioned in my initial note. PLAN: Continue current psychotropics. Adjust as clinically indicated. MAN Lacho GARNETT MD DR: LEROY/juliane JOB#: [id number] / [id number]
[2017-07-08 17:32] VITALS: BP 121/65
[2017-07-08] MEDS: QUEtiapine 100 MG TABLET. PO SCH (19:33)
[2017-07-08] MEDS: ATORVASTATIN CALCIUM 20 MG TABLET PO SCH (19:33)
[2017-07-08] MEDS: traZODone 50 MG TABLET. PO SCH (19:34)
--- NOTE | 2017-07-08 21:57 | PDOC ---
Exam Note: Hernandez Note: Please also refer to the separate dictated note~for this date of service dictated separately.~Patient seen individually. Discussed the patient with Nursing staff reviewed the chart.~Reviewed interim history and current functioning. Reviewed vital signs,~Labs/ Radiology~and current medications noted below. Continue current treatment with the changes noted in the dictated addendum note Assessment: Vital Signs: Vital Signs Date Time Temp Pulse Resp B/P (MAP) Pulse Ox O2 Delivery O2 Flow Rate FiO2 07/08/17 20:45 Room Air 07/08/17 20:40 98 07/08/17 17:32 121/65 (83) 07/08/17 15:25 97.0 61 17 I&O Intake and Output 07/08/17 07:00 Intake Total 1560 ml Balance 1560 ml Intake Oral 1560 ml # Voids 1 Labs: Laboratory Tests Test 07/08/17 07:26 Glucose (Fingerstick) 97 mg/dL (70-99) Current Medications: Meds: Current Medications Acetaminophen (Tylenol) 650 mg PRN Q6HRS PRN PO PAIN / TEMP Last administered on 06/23/17at 18:14; Start 06/04/17 at 15:00 Multi-Ingredient Ointment (Analgesic [place]) 1 any PRN QID PRN TP MUSCLE PAIN; Start 06/04/17 at 15:00 Al Hydroxide/Mg Hydroxide (Mylanta Plus Xs) 15 ml PRN AFTMEALHC PRN PO DYSPEPSIA Last administered on 06/14/17at 10:05; Start 06/04/17 at 15:00 Magnesium Hydroxide (Milk Of Magnesia) 2,400 mg PRN QHS PRN PO CONSTIPATION Last administered on 06/11/17at 20:27; Start 06/04/17 at 15:00 Nicotine (Nicoderm Cq 21mg) 1 patch DAILY TD ; Start 06/05/17 at 09:00; Stop at 09:00; Status DC Olanzapine (ZyPREXA ZYDIS) 2.5 mg PRN Q2HR PRN PO ANXIETY / AGITATION Last administered on 06/16/17at 23:24; Start 06/04/17 at 15:30; Stop 06/17/17 at 18:20 ; Status DC Influenza Virus Vaccine Quadrival (Fluarix Quad 0237-1354 Syringe) 0.5 ml ONCE ONCE VAX IM Last administered on 06/05/17at 11:21; Start 06/04/17 at 15:30; Stop 06/04/17 at 15:36; Status DC Amlodipine Besylate (Norvasc) 5 mg DAILY PO Last administered on 07/04/17at 10: 18; Start 06/05/17 at 09:00; Stop 07/04/17 at 16:35; Status DC Aspirin (Sivakumar Aspirin) 325 mg DAILY PO Last administered on 07/08/17at 07:30; Start 06/05/17 at 09:00 Nicotine (Nicoderm Cq 21mg) 1 patch PRN DAILY PRN TD NICOTINE W/D SYMPTOMS; Start 06/05/17 at 01:00; Stop 06/10/17 at 19:12; Status DC Tamsulosin HCl (Flomax) 0.4 mg DAILY PO Last administered on 07/08/17at 07:29; Start 06/05/17 at 09:00 Non-Formulary Medication 2.5 mg PRN Q12HR PRN NEB WHEEZING; Start 06/05/17 at 01:00; Status UNV Atorvastatin Calcium (Lipitor) 80 mg QHS PO Last administered on 07/08/17at 19:33 ; Start 06/05/17 at 21:00 Non-Formulary Medication 1 puff BID IH ; Start 06/05/17 at 09:00; Status UNV Non-Formulary Medication 1 each DAILY PO ; Start 06/05/17 at 09:00; Stop at 09:00; Status DC Pantoprazole Sodium (Protonix) 40 mg DAILYAC PO Last administered on 07/08/17at 07:29; Start 06/05/17 at 07:30 Oxybutynin Chloride (Ditropan) 5 mg DAILY PO Last administered on 07/08/17at 07: 30; Start 06/05/17 at 09:00 Paroxetine HCl (Paxil) 40 mg DAILY PO Last administered on 06/05/17at 08:51; Start 06/05/17 at 09:00; Stop 06/05/17 at 18:43; Status DC Potassium Chloride (Klor-Con) 30 meq DAILY PO Last administered on 06/16/17at 09 :10; Start 06/05/17 at 09:00; Stop 06/17/17 at 10:10; Status DC Lisinopril (Prinivil) 20 mg DAILY PO Last administered on 07/04/17at 10:18; Start 06/05/17 at 09:00; Stop 07/04/17 at 16:35; Status DC Linagliptin (Tradjenta) 5 mg DAILY PO Last administered on 07/08/17 07:29; Start 06/05/17 at 09:00 Verapamil HCl (Calan Sr) 120 mg DAILY PO Last administered on 07/08/17at 07:29; Start 06/05/17 at 09:00 Dextrose 12.5 gm PRN Q15MIN PRN IV hypoglycemia; Start 06/05/17 at 01:00 Glucose (Insta-Glucose) 15 gm PRN Q15MIN PRN PO LOW BLOOD SUGAR; Start at 01:00 Albuterol Sulfate (Ventolin) 2.5 mg PRN Q12HR PRN NEB WHEEZING; Start 06/05/17 at 01:45 Budesonide (Pulmicort) 0.5 mg RTBID NEB Last administered on 07/08/17at 20:42; Start 06/05/17 at 08:00 Albuterol Sulfate (Ventolin) 2.5 mg RTQID NEB Last administered on 07/08/17at 20: 42; Start 06/05/17 at 08:00 Memantine (Namenda) 5 mg BID PO Last administered on 06/14/17at 07:45; Start at 09:00; Stop 06/14/17 at 11:28; Status DC Donepezil HCl (Aricept) 5 mg BID PO Last administered on 06/14/17at 07:45; Start 06/05/17 at 09:00; Stop 06/14/17 at 11:28; Status DC Vitamin D (Vitamin D3) 50,000 unit WEEKLY PO Last administered on 07/03/17at 08: 26; Start 06/05/17 at 20:00 Cyanocobalamin (Vitamin B-12) 1,000 mcg WEEKLY IM Last administered on at 09:00; Start 06/06/17 at 09:00; Stop 07/04/17 at 10:15; Status DC Quetiapine Fumarate (SEROquel) 25 mg QHS PO Last administered on 06/05/17at 20: 03; Start 06/05/17 at 21:00; Stop 06/06/17 at 18:42; Status DC Sertraline HCl (Zoloft) 50 mg DAILY PO Last administered on 06/20/17 08:09; Start 06/06/17 at 09:00; Stop 06/20/17 at 14:20; Status DC Quetiapine Fumarate (SEROquel) 50 mg QHS PO Last administered on 06/12/17at 20:09 ; Start 06/06/17 at 21:00; Stop 06/13/17 at 18:45; Status DC Trazodone HCl (Desyrel) 50 mg QHS PO Last administered on 07/08/17 19:34; Start 06/08/17 at 21:00 Trazodone HCl (Desyrel) 50 mg PRN QHS PRN PO INSOMNIA Last administered on 07/07at 22:36; Start 06/08/17 at 18:45 Divalproex Sodium (Depakote Sprinkles) 125 mg TID@0900,1300,1700 PO Last administered on 06/11/17 16:48; Start 06/09/17 at 09:00; Stop 06/11/17 at 18:15; Status DC Nicotine (Nicoderm Cq 14mg) 1 patch DAILY TD Last administered on 07/08/17 07: 27; Start 06/11/17 at 09:00 Nicotine (Nicoderm Cq 14mg) 1 patch ONCE ONCE TD Last administered on 19:57; Start 06/10/17 at 19:15; Stop 06/10/17 at 19:26; Status DC Divalproex Sodium (Depakote Sprinkles) 250 mg TID@0900,1300,1700 PO Last administered on 06/14/17at 07:44; Start 06/12/17 at 09:00; Stop 06/14/17 at 11:28; Status DC Quetiapine Fumarate (SEROquel) 75 mg QHS PO Last administered on 07/01/17at 19: 14; Start 06/13/17 at 21:00; Stop 07/02/17 at 16:58; Status DC Divalproex Sodium (Depakote Sprinkles) 375 mg TID@0900,1300,1700 PO Last administered on 06/17/17 17:07; Start 06/14/17 at 13:00; Stop 06/17/17 at 18:20 ; Status DC Donepezil HCl (Aricept) 10 mg BID PO Last administered on 07/08/17 19:34; Start 06/14/17 at 21:00 Memantine (Namenda) 10 mg BID PO Last administered on 07/08/17 19:34; Start 06/14/17 at 21:00 Quetiapine Fumarate (SEROquel) 12.5 mg BID@0900,1300 PO Last administered on 12:30; Start 06/14/17 at 13:00; Stop 06/15/17 at 18:55; Status DC Quetiapine Fumarate (SEROquel) 25 mg BID@0900,1300 PO Last administered on 06/29 14:53; Start 06/16/17 at 09:00; Stop 06/29/17 at 17:50; Status DC Divalproex Sodium (Depakote Sprinkles) 500 mg TID@0900,1300,1700 PO Last administered on 06/21/17 08:11; Start 06/18/17 at 09:00; Stop 06/21/17 at 10:46 ; Status DC Olanzapine (ZyPREXA ZYDIS) 5 mg PRN Q2HR PRN PO ANXIETY / AGITATION Last administered on 07/04/17 20:06; Start 06/17/17 at 18:30 Hydroxyzine Pamoate (Vistaril) 25 mg PRN Q2HR PRN PO AGITATION/AGGRESSION Last administered on 07/07/17 22:36; Start 06/17/17 at 19:15 Sertraline HCl (Zoloft) 75 mg DAILY PO Last administered on 07/08/17 07:28; Start 06/21/17 at 09:00 Divalproex Sodium (Depakote Sprinkles) 500 mg BID@0900,1300 PO Last administered on 07/08/17 07:28; Start 06/21/17 at 13:00 Divalproex Sodium (Depakote Sprinkles) 750 mg DAILY@1700 PO Last administered on 07/08/17 17:36; Start 06/21/17 at 17:00 Simethicone (Gas-X) 80 mg PRN AFTMEALHC PRN PO GAS / BLOATING Last administered on 06/27/17at 13:57; Start 06/27/17 at 11:45 Quetiapine Fumarate (SEROquel) 25 mg TID@0900,1300,1500 PO Last administered on 07/02/17at 15:07; Start 06/30/17 at 09:00; Stop 07/02/17 at 16:58; Status DC Quetiapine Fumarate (SEROquel) 100 mg QHS PO Last administered on 07/08/17at 19: 33; Start 07/02/17 at 21:00 Quetiapine Fumarate (SEROquel) 37.5 mg BID@0900,1500 PO Last administered on at 11:24; Start 07/03/17 at 09:00; Stop 07/05/17 at 11:01; Status DC Quetiapine Fumarate (SEROquel) 25 mg 1300 PO Last administered on 07/07/17at 12: 25; Start 07/03/17 at 13:00 Cyanocobalamin (Vitamin B-12) 1,000 mcg QMONTH IM ; Start 07/28/17 at 09:00 Lisinopril (Prinivil) 10 mg DAILY PO Last administered on 07/08/17at 07:30; Start 07/05/17 at 09:00 Quetiapine Fumarate (SEROquel) 50 mg BID@0900,1500 PO Last administered on at 07:28; Start 07/05/17 at 15:00 Active Scripts Active Reported Albuterol Sulfate Conc Neb Soln (Albuterol Sulfate) 2.5 Mg/0.5 Ml Vial.neb 2.5 Mg NEB PRN Q12HR PRN Namzaric 14 mg-10 mg Capsule (Memantine HCl/Donepezil HCl) 1 Each Cap.spr.24 1 Each PO DAILY [manzaric] Atorvastatin Calcium 80 Mg Tablet 80 Mg PO QHS NICODERM CQ 21mg (Nicotine) 1 Each Patch.td24 1 Patch TD PRN DAILY Omeprazole 20 Mg Tablet.dr 20 Mg PO DAILY Verapamil Er (Verapamil Hcl) 240 Mg Cap24h.pel 120 Mg PO DAILY Tamsulosin Hcl 0.4 Mg Cap.er.24h 0.4 Mg PO DAILY Onglyza (Saxagliptin Hcl) 5 Mg Tablet 2.5 Mg PO DAILY Ramipril 10 Mg Capsule 10 Mg PO DAILY Potassium Chloride 10 Meq Tablet.er 30 Meq PO DAILY Paroxetine Hcl 40 Mg Tablet 40 Mg PO DAILY Oxybutynin Chloride Er (Oxybutynin Chloride) 5 Mg Tab.er.24 5 Mg PO DAILY Advair 250-50 Diskus (Fluticasone/Salmeterol) 1 Each Disk.w.dev 1 Puff IH BID Aspirin 325 Mg Tablet 325 Mg PO Amlodipine Besylate 5 Mg Tablet 5 Mg PO DAILY I have reviewed the current psychotropics carefully including drug interactions. Risk benefit ratio favors no change other than as noted in my dictated progress note. Diagnosis: Problems: (1) Major neurocognitive disorder, due to vascular disease, with behavioral disturbance, mild (2) Impulse control disorder (3) Depression (4) Delusion (5) Anxiety disorder (6) Behavior problem BRAYAN GARNETT MD Jul 08, 2017 21:57
[2017-07-09] MEDS: ALBUTEROL SULFATE 2.5 MG/3 ML NEBU. NEB SCH ×4 (05:53→20:00)
[2017-07-09 06:17] VITALS: BP 142/69
[2017-07-09] MEDS: DIVALPROEX 125 MG CAP.SPRINK PO SCH ×3 (08:26→16:59)
[2017-07-09] MEDS: PANTOPRAZOLE 40 MG TABLET. PO SCH (08:27)
[2017-07-09] MEDS: OXYBUTYNIN CHLORIDE 5 MG TABLET PO SCH (08:27)
[2017-07-09] MEDS: LINAGLIPTIN 5 MG TABLET PO SCH (08:27)
[2017-07-09] MEDS: DONEPEZIL HCL 10 MG TABLET PO SCH ×2 (08:27→19:27)
[2017-07-09] MEDS: ASPIRIN 325 MG TABLET PO SCH (08:27)
[2017-07-09] MEDS: TAMSULOSIN 0.4 MG CAP.ER.24H. PO SCH (08:28)
[2017-07-09] MEDS: LISINOPRIL 10 MG TABLET PO SCH (08:28)
[2017-07-09] MEDS: QUEtiapine 50 MG TABLET. PO SCH ×2 (08:28→15:00)
[2017-07-09] MEDS: SERTRALINE 50 MG TABLET. PO SCH (08:28)
[2017-07-09] MEDS: MEMANTINE 10 MG TABLET. PO SCH ×2 (08:31→19:27)
[2017-07-09] MEDS: NICOTINE 14MG PATCH. TD SCH (08:31)
[2017-07-09] MEDS: VERAPAMIL SR 120 MG TABLET.ER. PO SCH (09:00)
[2017-07-09] MEDS: SIMETHICONE 80 MG TAB.CHEW PO PRN (10:44)
[2017-07-09 11:03] VITALS: BP 101/47
[2017-07-09] MEDS: BUDESONIDE 0.5 MG/2 ML NEBU NEB SCH ×2 (11:12→20:00)
[2017-07-09] MEDS: QUEtiapine 25 MG TABLET. PO SCH (13:21)
--- NOTE | 2017-07-09 15:51 | PN ---
DATE: 07/07/2017 This is a late entry 07/07/2017 covers elements not covered in my initial note 07/07/2017. Met with the patient in the evening of 07/07/2017. The patient slept 6 hours previous evening. Agitated, the previous evening and somewhat withdrawn at other times, somewhat sedative with Seroquel at night, but then yelling during the day in his room of 07/07/2017. Processed this with him, but he tends to forget but when this was addressed, he does state he intends to control his impulsivity. REVIEW OF SYSTEMS: No CV, , pulmonary, eye, ENT system symptoms on review. MENTAL STATUS EXAM: Oriented to himself. Insight, judgment, recent and remote memory, attention, concentration, fund of knowledge poor, consistent with his diagnosis mentioned in my initial note. IMPRESSION: Major neurocognitive disorder, Alzheimer, vascular with depression, delusion, behavioral disturbance. Rest unchanged. PLAN: Continue psychotropics mentioned in my initial note. We will monitor for sedation from Seroquel rather than reducing it. Given his symptoms and getting closer to discharge, I prefer not to reduce anything at this stage. MAN Lacho GARNETT MD DR: LEROY/juliane JOB#: [id number] / [id number]
[2017-07-09 15:52] VITALS: BP 104/53
[2017-07-09] MEDS: ATORVASTATIN CALCIUM 20 MG TABLET PO SCH (19:26)
[2017-07-09] MEDS: traZODone 50 MG TABLET. PO SCH (19:27)
[2017-07-09] MEDS: QUEtiapine 100 MG TABLET. PO SCH (19:27)
--- NOTE | 2017-07-09 20:57 | PDOC ---
Exam Note: Hernandez Note: Please also refer to the separate dictated note~for this date of service dictated separately.~Patient seen individually. Discussed the patient with Nursing staff reviewed the chart.~Reviewed interim history and current functioning. Reviewed vital signs,~Labs/ Radiology~and current medications noted below. Continue current treatment with the changes noted in the dictated addendum note Assessment: Vital Signs: Vital Signs Date Time Temp Pulse Resp B/P (MAP) Pulse Ox O2 Delivery O2 Flow Rate FiO2 07/09/17 16:27 98 Room Air 07/09/17 15:52 97.3 78 18 104/53 (70) I&O Intake and Output 07/09/17 07:00 Intake Total 1200 ml Balance 1200 ml Intake Oral 1200 ml # Voids 1 Labs: Laboratory Tests Test 07/09/17 07:16 Glucose (Fingerstick) 101 mg/dL (70-99) H Current Medications: Meds: Current Medications Acetaminophen (Tylenol) 650 mg PRN Q6HRS PRN PO PAIN / TEMP Last administered on 06/23/17at 18:14; Start 06/04/17 at 15:00 Multi-Ingredient Ointment (Analgesic [place]) 1 any PRN QID PRN TP MUSCLE PAIN; Start 06/04/17 at 15:00 Al Hydroxide/Mg Hydroxide (Mylanta Plus Xs) 15 ml PRN AFTMEALHC PRN PO DYSPEPSIA Last administered on 06/14/17at 10:05; Start 06/04/17 at 15:00 Magnesium Hydroxide (Milk Of Magnesia) 2,400 mg PRN QHS PRN PO CONSTIPATION Last administered on 06/11/17at 20:27; Start 06/04/17 at 15:00 Nicotine (Nicoderm Cq 21mg) 1 patch DAILY TD ; Start 06/05/17 at 09:00; Stop at 09:00; Status DC Olanzapine (ZyPREXA ZYDIS) 2.5 mg PRN Q2HR PRN PO ANXIETY / AGITATION Last administered on 06/16/17at 23:24; Start 06/04/17 at 15:30; Stop 06/17/17 at 18:20 ; Status DC Influenza Virus Vaccine Quadrival (Fluarix Quad [id number] Syringe) 0.5 ml ONCE ONCE VAX IM Last administered on 06/05/17at 11:21; Start 06/04/17 at 15:30; Stop 06/04/17 at 15:36; Status DC Amlodipine Besylate (Norvasc) 5 mg DAILY PO Last administered on 07/04/17at 10: 18; Start 06/05/17 at 09:00; Stop 07/04/17 at 16:35; Status DC Aspirin (Sivakumar Aspirin) 325 mg DAILY PO Last administered on 07/09/17 08:27; Start 06/05/17 at 09:00 Nicotine (Nicoderm Cq 21mg) 1 patch PRN DAILY PRN TD NICOTINE W/D SYMPTOMS; Start 06/05/17 at 01:00; Stop 06/10/17 at 19:12; Status DC Tamsulosin HCl (Flomax) 0.4 mg DAILY PO Last administered on 07/09/17at 08:28; Start 06/05/17 at 09:00 Non-Formulary Medication 2.5 mg PRN Q12HR PRN NEB WHEEZING; Start 06/05/17 at 01:00; Status UNV Atorvastatin Calcium (Lipitor) 80 mg QHS PO Last administered on 07/09/17at 19:26 ; Start 06/05/17 at 21:00 Non-Formulary Medication 1 puff BID IH ; Start 06/05/17 at 09:00; Status UNV Non-Formulary Medication 1 each DAILY PO ; Start 06/05/17 at 09:00; Stop at 09:00; Status DC Pantoprazole Sodium (Protonix) 40 mg DAILYAC PO Last administered on 07/09/17 08:27; Start 06/05/17 at 07:30 Oxybutynin Chloride (Ditropan) 5 mg DAILY PO Last administered on 07/09/17at 08: 27; Start 06/05/17 at 09:00 Paroxetine HCl (Paxil) 40 mg DAILY PO Last administered on 06/05/17at 08:51; Start 06/05/17 at 09:00; Stop 06/05/17 at 18:43; Status DC Potassium Chloride (Klor-Con) 30 meq DAILY PO Last administered on 06/16/17at 09 :10; Start 06/05/17 at 09:00; Stop 06/17/17 at 10:10; Status DC Lisinopril (Prinivil) 20 mg DAILY PO Last administered on 07/04/17at 10:18; Start 06/05/17 at 09:00; Stop 07/04/17 at 16:35; Status DC Linagliptin (Tradjenta) 5 mg DAILY PO Last administered on 07/09/17 08:27; Start 06/05/17 at 09:00 Verapamil HCl (Calan Sr) 120 mg DAILY PO Last administered on 07/08/17at 07:29; Start 06/05/17 at 09:00; Stop 07/09/17 at 17:28; Status DC Dextrose 12.5 gm PRN Q15MIN PRN IV hypoglycemia; Start 06/05/17 at 01:00 Glucose (Insta-Glucose) 15 gm PRN Q15MIN PRN PO LOW BLOOD SUGAR; Start at 01:00 Albuterol Sulfate (Ventolin) 2.5 mg PRN Q12HR PRN NEB WHEEZING; Start 06/05/17 at 01:45 Budesonide (Pulmicort) 0.5 mg RTBID NEB Last administered on 07/09/17at 11:12; Start 06/05/17 at 08:00 Albuterol Sulfate (Ventolin) 2.5 mg RTQID NEB Last administered on 07/09/17at 16: 27; Start 06/05/17 at 08:00 Memantine (Namenda) 5 mg BID PO Last administered on 06/14/17at 07:45; Start at 09:00; Stop 06/14/17 at 11:28; Status DC Donepezil HCl (Aricept) 5 mg BID PO Last administered on 06/14/17at 07:45; Start 06/05/17 at 09:00; Stop 06/14/17 at 11:28; Status DC Vitamin D (Vitamin D3) 50,000 unit WEEKLY PO Last administered on 07/03/17at 08: 26; Start 06/05/17 at 20:00 Cyanocobalamin (Vitamin B-12) 1,000 mcg WEEKLY IM Last administered on at 09:00; Start 06/06/17 at 09:00; Stop 07/04/17 at 10:15; Status DC Quetiapine Fumarate (SEROquel) 25 mg QHS PO Last administered on 06/05/17at 20: 03; Start 06/05/17 at 21:00; Stop 06/06/17 at 18:42; Status DC Sertraline HCl (Zoloft) 50 mg DAILY PO Last administered on 06/20/17 08:09; Start 06/06/17 at 09:00; Stop 06/20/17 at 14:20; Status DC Quetiapine Fumarate (SEROquel) 50 mg QHS PO Last administered on 06/12/17 20:09 ; Start 06/06/17 at 21:00; Stop 06/13/17 at 18:45; Status DC Trazodone HCl (Desyrel) 50 mg QHS PO Last administered on 07/09/17 19:27; Start 06/08/17 at 21:00 Trazodone HCl (Desyrel) 50 mg PRN QHS PRN PO INSOMNIA Last administered on 07/07 22:36; Start 06/08/17 at 18:45 Divalproex Sodium (Depakote Sprinkles) 125 mg TID@0900,1300,1700 PO Last administered on 06/11/17 16:48; Start 06/09/17 at 09:00; Stop 06/11/17 at 18:15; Status DC Nicotine (Nicoderm Cq 14mg) 1 patch DAILY TD Last administered on 07/09/17 08: 31; Start 06/11/17 at 09:00 Nicotine (Nicoderm Cq 14mg) 1 patch ONCE ONCE TD Last administered on 19:57; Start 06/10/17 at 19:15; Stop 06/10/17 at 19:26; Status DC Divalproex Sodium (Depakote Sprinkles) 250 mg TID@0900,1300,1700 PO Last administered on 06/14/17 07:44; Start 06/12/17 at 09:00; Stop 06/14/17 at 11:28; Status DC Quetiapine Fumarate (SEROquel) 75 mg QHS PO Last administered on 07/01/17 19: 14; Start 06/13/17 at 21:00; Stop 07/02/17 at 16:58; Status DC Divalproex Sodium (Depakote Sprinkles) 375 mg TID@0900,1300,1700 PO Last administered on 06/17/17 17:07; Start 06/14/17 at 13:00; Stop 06/17/17 at 18:20 ; Status DC Donepezil HCl (Aricept) 10 mg BID PO Last administered on 07/09/17 19:27; Start 06/14/17 at 21:00 Memantine (Namenda) 10 mg BID PO Last administered on 07/09/17 19:27; Start 06/14/17 at 21:00 Quetiapine Fumarate (SEROquel) 12.5 mg BID@0900,1300 PO Last administered on 12:30; Start 06/14/17 at 13:00; Stop 06/15/17 at 18:55; Status DC Quetiapine Fumarate (SEROquel) 25 mg BID@0900,1300 PO Last administered on 06/29 14:53; Start 06/16/17 at 09:00; Stop 06/29/17 at 17:50; Status DC Divalproex Sodium (Depakote Sprinkles) 500 mg TID@0900,1300,1700 PO Last administered on 06/21/17 08:11; Start 06/18/17 at 09:00; Stop 06/21/17 at 10:46 ; Status DC Olanzapine (ZyPREXA ZYDIS) 5 mg PRN Q2HR PRN PO ANXIETY / AGITATION Last administered on 07/04/17 20:06; Start 06/17/17 at 18:30 Hydroxyzine Pamoate (Vistaril) 25 mg PRN Q2HR PRN PO AGITATION/AGGRESSION Last administered on 07/07/17 22:36; Start 06/17/17 at 19:15 Sertraline HCl (Zoloft) 75 mg DAILY PO Last administered on 07/09/17 08:28; Start 06/21/17 at 09:00 Divalproex Sodium (Depakote Sprinkles) 500 mg BID@0900,1300 PO Last administered on 07/09/17 13:21; Start 06/21/17 at 13:00 Divalproex Sodium (Depakote Sprinkles) 750 mg DAILY@1700 PO Last administered on 07/09/17 16:59; Start 06/21/17 at 17:00 Simethicone (Gas-X) 80 mg PRN AFTMEALHC PRN PO GAS / BLOATING Last administered on 07/09/17at 10:44; Start 06/27/17 at 11:45 Quetiapine Fumarate (SEROquel) 25 mg TID@0900,1300,1500 PO Last administered on 07/02/17at 15:07; Start 06/30/17 at 09:00; Stop 07/02/17 at 16:58; Status DC Quetiapine Fumarate (SEROquel) 100 mg QHS PO Last administered on 07/09/17at 19: 27; Start 07/02/17 at 21:00 Quetiapine Fumarate (SEROquel) 37.5 mg BID@0900,1500 PO Last administered on at 11:24; Start 07/03/17 at 09:00; Stop 07/05/17 at 11:01; Status DC Quetiapine Fumarate (SEROquel) 25 mg 1300 PO Last administered on 07/09/17at 13: 21; Start 07/03/17 at 13:00 Cyanocobalamin (Vitamin B-12) 1,000 mcg QMONTH IM ; Start 07/28/17 at 09:00 Lisinopril (Prinivil) 10 mg DAILY PO Last administered on 07/09/17at 08:28; Start 07/05/17 at 09:00; Stop 07/09/17 at 17:26; Status DC Quetiapine Fumarate (SEROquel) 50 mg BID@0900,1500 PO Last administered on at 15:00; Start 07/05/17 at 15:00 Lisinopril (Prinivil) 5 mg DAILY PO ; Start 07/10/17 at 09:00 Amlodipine Besylate (Norvasc) 5 mg DAILY PO ; Start 07/10/17 at 09:00 Active Scripts Active Reported Albuterol Sulfate Conc Neb Soln (Albuterol Sulfate) 2.5 Mg/0.5 Ml Vial.neb 2.5 Mg NEB PRN Q12HR PRN Namzaric 14 mg-10 mg Capsule (Memantine HCl/Donepezil HCl) 1 Each Cap.spr.24 1 Each PO DAILY [manzaric] Atorvastatin Calcium 80 Mg Tablet 80 Mg PO QHS NICODERM CQ 21mg (Nicotine) 1 Each Patch.td24 1 Patch TD PRN DAILY Omeprazole 20 Mg Tablet.dr 20 Mg PO DAILY Verapamil Er (Verapamil Hcl) 240 Mg Cap24h.pel 120 Mg PO DAILY Tamsulosin Hcl 0.4 Mg Cap.er.24h 0.4 Mg PO DAILY Onglyza (Saxagliptin Hcl) 5 Mg Tablet 2.5 Mg PO DAILY Ramipril 10 Mg Capsule 10 Mg PO DAILY Potassium Chloride 10 Meq Tablet.er 30 Meq PO DAILY Paroxetine Hcl 40 Mg Tablet 40 Mg PO DAILY Oxybutynin Chloride Er (Oxybutynin Chloride) 5 Mg Tab.er.24 5 Mg PO DAILY Advair 250-50 Diskus (Fluticasone/Salmeterol) 1 Each Disk.w.dev 1 Puff IH BID Aspirin 325 Mg Tablet 325 Mg PO Amlodipine Besylate 5 Mg Tablet 5 Mg PO DAILY I have reviewed the current psychotropics carefully including drug interactions. Risk benefit ratio favors no change other than as noted in my dictated progress note. Diagnosis: Problems: (1) Major neurocognitive disorder, due to vascular disease, with behavioral disturbance, mild (2) Impulse control disorder (3) Depression (4) Delusion (5) Anxiety disorder (6) Behavior problem BRAYAN GARNETT MD Jul 09, 2017 20:57
[2017-07-10] MEDS ORDERED: ACET325T9 PO (00:44)
[2017-07-10] MEDS ORDERED: BUDE0.5A3 IH (00:45)
[2017-07-10] MEDS ORDERED: CHOL500021 PO (00:46)
[2017-07-10] MEDS ORDERED: CYAN10002 IM (00:47)
[2017-07-10] MEDS ORDERED: DEXT31GE5 PO (00:48)
[2017-07-10] MEDS ORDERED: DIVA125C PO ×2 (00:50)
[2017-07-10] MEDS ORDERED: LISI-338 PO (00:51)
[2017-07-10] MEDS ORDERED: MAGN2400 PO (00:52)
[2017-07-10] MEDS ORDERED: MAG-70 PO (00:52)
[2017-07-10] MEDS ORDERED: NICO1PAT25 TD (00:53)
[2017-07-10] MEDS ORDERED: METH29OI TP (00:53)
[2017-07-10] MEDS ORDERED: OLAN5TAB7 PO (00:58)
[2017-07-10] MEDS ORDERED: QUET100T4 PO (00:58)
[2017-07-10] MEDS ORDERED: QUET25TA5 PO (00:59)
[2017-07-10] MEDS ORDERED: QUET50TA5 PO (01:00)
[2017-07-10] MEDS ORDERED: SERT50TA PO (01:03)
[2017-07-10] MEDS ORDERED: SIME80TA14 PO (01:04)
[2017-07-10] MEDS ORDERED: HYDR25CA75 PO (01:04)
[2017-07-10] MEDS ORDERED: TRAZ50TA15 PO ×2 (01:05)
--- NOTE | 2017-07-10 03:14 | PN ---
DATE: 07/08/2017 PSYCHIATRIC PROGRESS NOTE This is a late entry for 07/08/2016, covers elements not covered in my initial note of 07/08/2016. SUBJECTIVE: I met with the patient the evening of 07/08/2017. The patient's BP is somewhat low. Seroquel was held by nursing staff. I have them check with Dr. Madsen to see if the nifedipine needs to be reduced further since the Seroquel really does help with impulse control, anger, aggression, which is what he came here for initially. If it is not to be, we will go ahead and reduce the Seroquel. REVIEW OF SYSTEMS: No CV, , pulmonary, eye, ENT system symptoms on review. Reliability poor. MENTAL STATUS EXAM: Oriented to himself. Insight, judgment, recent and remote memory, attention, concentration, fund of knowledge poor, consistent with his diagnosis mentioned in my initial note. IMPRESSION: Major neurocognitive disorder, Alzheimer, vascular with delusion, depression, behavioral disturbance. Rest unchanged. PLAN: Continue psychotropics mentioned in my initial note. Valproic acid level 54, it was adjusted. We will repeat labs level to reach a higher therapeutic level. MAN Lacho GARNETT MD DR: LEROY/juliane JOB#: [id number] / [id number]
[2017-07-10] MEDS: BUDESONIDE 0.5 MG/2 ML NEBU NEB SCH ×2 (05:52→10:11)
[2017-07-10] MEDS: ALBUTEROL SULFATE 2.5 MG/3 ML NEBU. NEB SCH ×2 (05:52→10:11)
[2017-07-10 06:00] VITALS: BP 104/54
[2017-07-10] MEDS: ASPIRIN 325 MG TABLET PO SCH (08:29)
[2017-07-10] MEDS: PANTOPRAZOLE 40 MG TABLET. PO SCH (08:29)
[2017-07-10] MEDS: CHOLECALCIFEROL (VITAMIN D3) 50,000 UNIT CAPSULE PO SCH (08:29)
[2017-07-10] MEDS: DIVALPROEX 125 MG CAP.SPRINK PO SCH (08:30)
[2017-07-10] MEDS: MEMANTINE 10 MG TABLET. PO SCH (08:30)
[2017-07-10] MEDS: OXYBUTYNIN CHLORIDE 5 MG TABLET PO SCH (08:30)
[2017-07-10] MEDS: DONEPEZIL HCL 10 MG TABLET PO SCH (08:30)
[2017-07-10] MEDS: TAMSULOSIN 0.4 MG CAP.ER.24H. PO SCH (08:30)
[2017-07-10] MEDS: LINAGLIPTIN 5 MG TABLET PO SCH (08:30)
[2017-07-10] MEDS: QUEtiapine 50 MG TABLET. PO SCH (08:30)
[2017-07-10] MEDS: SERTRALINE 50 MG TABLET. PO SCH (08:31)
[2017-07-10] MEDS: NICOTINE 14MG PATCH. TD SCH (08:31)
[2017-07-10 09:00] VITALS: BP 104/54
[2017-07-10] MEDS ORDERED: LISINOPRIL 5 MG TABLET. PO SCH (09:00)
[2017-07-10] MEDS ORDERED: amLODIPine BESYLATE 5 MG TABLET PO SCH (09:00)
--- NOTE | 2017-07-10 18:36 | PDOC ---
Exam Note: Hernandez Note: Please also refer to the separate dictated note~for this date of service dictated separately.~Patient seen individually. Discussed the patient with Nursing staff reviewed the chart.~Reviewed interim history and current functioning. Reviewed vital signs,~Labs/ Radiology~and current medications noted below. Continue current treatment with the changes noted in the dictated addendum note Assessment: Vital Signs: Vital Signs Date Time Temp Pulse Resp B/P (MAP) Pulse Ox O2 Delivery O2 Flow Rate FiO2 07/10/17 10:11 91 Room Air 07/10/17 09:00 58 104/54 07/10/17 06:00 97.8 20 I&O Intake and Output 07/10/17 07:00 Intake Total 1680 ml Balance 1680 ml Intake Oral 1680 ml # Voids 1 # Bowel Movements 1 Labs: Laboratory Tests Test 07/10/17 07:50 Glucose (Fingerstick) 80 mg/dL (70-99) Current Medications: Meds: Current Medications Acetaminophen (Tylenol) 650 mg PRN Q6HRS PRN PO PAIN / TEMP Last administered on 06/23/17at 18:14; Start 06/04/17 at 15:00; Stop 07/10/17 at 11:35; Status DC Multi-Ingredient Ointment (Analgesic Keeling) 1 libby PRN QID PRN TP MUSCLE PAIN; Start 06/04/17 at 15:00; Stop 07/10/17 at 11:35; Status DC Al Hydroxide/Mg Hydroxide (Mylanta Plus Xs) 15 ml PRN AFTMEALHC PRN PO DYSPEPSIA Last administered on 06/14/17at 10:05; Start 06/04/17 at 15:00; Stop 07/10/17 at 11:35; Status DC Magnesium Hydroxide (Milk Of Magnesia) 2,400 mg PRN QHS PRN PO CONSTIPATION Last administered on 06/11/17at 20:27; Start 06/04/17 at 15:00; Stop 07/10/17 at 11 :35; Status DC Nicotine (Nicoderm Cq 21mg) 1 patch DAILY TD ; Start 06/05/17 at 09:00; Stop at 09:00; Status DC Olanzapine (ZyPREXA ZYDIS) 2.5 mg PRN Q2HR PRN PO ANXIETY / AGITATION Last administered on 06/16/17at 23:24; Start 06/04/17 at 15:30; Stop 06/17/17 at 18:20 ; Status DC Influenza Virus Vaccine Quadrival (Fluarix Quad [id number] Syringe) 0.5 ml ONCE ONCE VAX IM Last administered on 06/05/17at 11:21; Start 06/04/17 at 15:30; Stop 06/04/17 at 15:36; Status DC Amlodipine Besylate (Norvasc) 5 mg DAILY PO Last administered on 07/04/17at 10: 18; Start 06/05/17 at 09:00; Stop 07/04/17 at 16:35; Status DC Aspirin (Sivakumar Aspirin) 325 mg DAILY PO Last administered on 07/10/17 08:29; Start 06/05/17 at 09:00; Stop 07/10/17 at 11:35; Status DC Nicotine (Nicoderm Cq 21mg) 1 patch PRN DAILY PRN TD NICOTINE W/D SYMPTOMS; Start 06/05/17 at 01:00; Stop 06/10/17 at 19:12; Status DC Tamsulosin HCl (Flomax) 0.4 mg DAILY PO Last administered on 07/10/17 08:30; Start 06/05/17 at 09:00; Stop 07/10/17 at 11:35; Status DC Non-Formulary Medication 2.5 mg PRN Q12HR PRN NEB WHEEZING; Start 06/05/17 at 01:00; Status UNV Atorvastatin Calcium (Lipitor) 80 mg QHS PO Last administered on 07/09/17 19:26 ; Start 06/05/17 at 21:00; Stop 07/10/17 at 11:35; Status DC Non-Formulary Medication 1 puff BID IH ; Start 06/05/17 at 09:00; Status UNV Non-Formulary Medication 1 each DAILY PO ; Start 06/05/17 at 09:00; Stop at 09:00; Status DC Pantoprazole Sodium (Protonix) 40 mg DAILYAC PO Last administered on 07/10/17at 08:29; Start 06/05/17 at 07:30; Stop 07/10/17 at 11:35; Status DC Oxybutynin Chloride (Ditropan) 5 mg DAILY PO Last administered on 07/10/17at 08: 30; Start 06/05/17 at 09:00; Stop 07/10/17 at 11:35; Status DC Paroxetine HCl (Paxil) 40 mg DAILY PO Last administered on 06/05/17at 08:51; Start 06/05/17 at 09:00; Stop 06/05/17 at 18:43; Status DC Potassium Chloride (Klor-Con) 30 meq DAILY PO Last administered on 06/16/17at 09 :10; Start 06/05/17 at 09:00; Stop 06/17/17 at 10:10; Status DC Lisinopril (Prinivil) 20 mg DAILY PO Last administered on 07/04/17at 10:18; Start 06/05/17 at 09:00; Stop 07/04/17 at 16:35; Status DC Linagliptin (Tradjenta) 5 mg DAILY PO Last administered on 07/10/17at 08:30; Start 06/05/17 at 09:00; Stop 07/10/17 at 11:35; Status DC Verapamil HCl (Calan Sr) 120 mg DAILY PO Last administered on 07/08/17at 07:29; Start 06/05/17 at 09:00; Stop 07/09/17 at 17:28; Status DC Dextrose 12.5 gm PRN Q15MIN PRN IV hypoglycemia; Start 06/05/17 at 01:00; Stop 07/10/17 at 11:35; Status DC Glucose (Insta-Glucose) 15 gm PRN Q15MIN PRN PO LOW BLOOD SUGAR; Start at 01:00; Stop 07/10/17 at 11:35; Status DC Albuterol Sulfate (Ventolin) 2.5 mg PRN Q12HR PRN NEB WHEEZING; Start 06/05/17 at 01:45; Stop 07/10/17 at 11:35; Status DC Budesonide (Pulmicort) 0.5 mg RTBID NEB Last administered on 07/10/17at 10:11; Start 06/05/17 at 08:00; Stop 07/10/17 at 11:35; Status DC Albuterol Sulfate (Ventolin) 2.5 mg RTQID NEB Last administered on 07/10/17at 10: 11; Start 06/05/17 at 08:00; Stop 07/10/17 at 11:35; Status DC Memantine (Namenda) 5 mg BID PO Last administered on 06/14/17 07:45; Start at 09:00; Stop 06/14/17 at 11:28; Status DC Donepezil HCl (Aricept) 5 mg BID PO Last administered on 06/14/17 07:45; Start 06/05/17 at 09:00; Stop 06/14/17 at 11:28; Status DC Vitamin D (Vitamin D3) 50,000 unit WEEKLY PO Last administered on 07/10/17at 08: 29; Start 06/05/17 at 20:00; Stop 07/10/17 at 11:35; Status DC Cyanocobalamin (Vitamin B-12) 1,000 mcg WEEKLY IM Last administered on 09:00; Start 06/06/17 at 09:00; Stop 07/04/17 at 10:15; Status DC Quetiapine Fumarate (SEROquel) 25 mg QHS PO Last administered on 06/05/17at 20: 03; Start 06/05/17 at 21:00; Stop 06/06/17 at 18:42; Status DC Sertraline HCl (Zoloft) 50 mg DAILY PO Last administered on 06/20/17 08:09; Start 06/06/17 at 09:00; Stop 06/20/17 at 14:20; Status DC Quetiapine Fumarate (SEROquel) 50 mg QHS PO Last administered on 06/12/17 20:09 ; Start 06/06/17 at 21:00; Stop 06/13/17 at 18:45; Status DC Trazodone HCl (Desyrel) 50 mg QHS PO Last administered on 07/09/17 19:27; Start 06/08/17 at 21:00; Stop 07/10/17 at 11:35; Status DC Trazodone HCl (Desyrel) 50 mg PRN QHS PRN PO INSOMNIA Last administered on 07/07at 22:36; Start 06/08/17 at 18:45; Stop 07/10/17 at 11:35; Status DC Divalproex Sodium (Depakote Sprinkles) 125 mg TID@0900,1300,1700 PO Last administered on 06/11/17 16:48; Start 06/09/17 at 09:00; Stop 06/11/17 at 18:15; Status DC Nicotine (Nicoderm Cq 14mg) 1 patch DAILY TD Last administered on 07/10/17 08: 31; Start 06/11/17 at 09:00; Stop 07/10/17 at 11:35; Status DC Nicotine (Nicoderm Cq 14mg) 1 patch ONCE ONCE TD Last administered on 19:57; Start 06/10/17 at 19:15; Stop 06/10/17 at 19:26; Status DC Divalproex Sodium (Depakote Sprinkles) 250 mg TID@0900,1300,1700 PO Last administered on 06/14/17at 07:44; Start 06/12/17 at 09:00; Stop 06/14/17 at 11:28; Status DC Quetiapine Fumarate (SEROquel) 75 mg QHS PO Last administered on 07/01/17 19: 14; Start 06/13/17 at 21:00; Stop 07/02/17 at 16:58; Status DC Divalproex Sodium (Depakote Sprinkles) 375 mg TID@0900,1300,1700 PO Last administered on 06/17/17at 17:07; Start 06/14/17 at 13:00; Stop 06/17/17 at 18:20 ; Status DC Donepezil HCl (Aricept) 10 mg BID PO Last administered on 07/10/17 08:30; Start 06/14/17 at 21:00; Stop 07/10/17 at 11:35; Status DC Memantine (Namenda) 10 mg BID PO Last administered on 07/10/17 08:30; Start 06/14/17 at 21:00; Stop 07/10/17 at 11:35; Status DC Quetiapine Fumarate (SEROquel) 12.5 mg BID@0900,1300 PO Last administered on 06/15/17at 12:30; Start 06/14/17 at 13:00; Stop 06/15/17 at 18:55; Status DC Quetiapine Fumarate (SEROquel) 25 mg BID@0900,1300 PO Last administered on 06/29at 14:53; Start 06/16/17 at 09:00; Stop 06/29/17 at 17:50; Status DC Divalproex Sodium (Depakote Sprinkles) 500 mg TID@0900,1300,1700 PO Last administered on 06/21/17at 08:11; Start 06/18/17 at 09:00; Stop 06/21/17 at 10:46 ; Status DC Olanzapine (ZyPREXA ZYDIS) 5 mg PRN Q2HR PRN PO ANXIETY / AGITATION Last administered on 07/10/17at 08:29; Start 06/17/17 at 18:30; Stop 07/10/17 at 11:35; Status DC Hydroxyzine Pamoate (Vistaril) 25 mg PRN Q2HR PRN PO AGITATION/AGGRESSION Last administered on 07/07/17at 22:36; Start 06/17/17 at 19:15; Stop 07/10/17 at 11:35 ; Status DC Sertraline HCl (Zoloft) 75 mg DAILY PO Last administered on 07/10/17at 08:31; Start 06/21/17 at 09:00; Stop 07/10/17 at 11:35; Status DC Divalproex Sodium (Depakote Sprinkles) 500 mg BID@0900,1300 PO Last administered on 07/10/17at 08:30; Start 06/21/17 at 13:00; Stop 07/10/17 at 11:35; Status DC Divalproex Sodium (Depakote Sprinkles) 750 mg DAILY@1700 PO Last administered on 07/09/17at 16:59; Start 06/21/17 at 17:00; Stop 07/10/17 at 11:35; Status DC Simethicone (Gas-X) 80 mg PRN AFTMEALHC PRN PO GAS / BLOATING Last administered on 07/09/17at 10:44; Start 06/27/17 at 11:45; Stop 07/10/17 at 11:35; Status DC Quetiapine Fumarate (SEROquel) 25 mg TID@0900,1300,1500 PO Last administered on 07/02/17at 15:07; Start 06/30/17 at 09:00; Stop 07/02/17 at 16:58; Status DC Quetiapine Fumarate (SEROquel) 100 mg QHS PO Last administered on 07/09/17at 19: 27; Start 07/02/17 at 21:00; Stop 07/10/17 at 11:35; Status DC Quetiapine Fumarate (SEROquel) 37.5 mg BID@0900,1500 PO Last administered on at 11:24; Start 07/03/17 at 09:00; Stop 07/05/17 at 11:01; Status DC Quetiapine Fumarate (SEROquel) 25 mg 1300 PO Last administered on 07/09/17at 13: 21; Start 07/03/17 at 13:00; Stop 07/10/17 at 11:35; Status DC Cyanocobalamin (Vitamin B-12) 1,000 mcg QMONTH IM ; Start 07/28/17 at 09:00; Stop 07/28/17 at 09:00; Status DC Lisinopril (Prinivil) 10 mg DAILY PO Last administered on 07/09/17at 08:28; Start 07/05/17 at 09:00; Stop 07/09/17 at 17:26; Status DC Quetiapine Fumarate (SEROquel) 50 mg BID@0900,1500 PO Last administered on at 08:30; Start 07/05/17 at 15:00; Stop 07/10/17 at 11:35; Status DC Lisinopril (Prinivil) 5 mg DAILY PO ; Start 07/10/17 at 09:00; Stop 07/10/17 at 11 :35; Status DC Amlodipine Besylate (Norvasc) 5 mg DAILY PO ; Start 07/10/17 at 09:00; Stop at 11:35; Status DC Active Scripts Active Reported Trazodone Hcl 50 Mg Tablet 50 Mg PO PRN QHS PRN Trazodone Hcl 50 Mg Tablet 50 Mg PO QHS Hydroxyzine Pamoate 25 Mg Capsule 25 Mg PO PRN Q2HR PRN Simethicone 80 Mg Tab.chew 80 Mg PO PRN AFTMEALHC PRN Zoloft (Sertraline Hcl) 50 Mg Tablet 75 Mg PO DAILY Seroquel (Quetiapine Fumarate) 50 Mg Tablet 50 Mg PO BID @0900/1500 Seroquel (Quetiapine Fumarate) 25 Mg Tablet 25 Mg PO DAILY @1300 Seroquel (Quetiapine Fumarate) 100 Mg Tablet 100 Mg PO QHS Olanzapine Odt (Olanzapine) 5 Mg Tab.rapdis 5 Mg PO PRN Q2HR PRN NICODERM CQ 14mg (Nicotine) 1 Each Patch.td24 1 Patch TD DAILY Analgesic Keeling (Methyl Salicylate/Menthol) 28 Gm Oint...g. 1 Libby TP PRN QID PRN Milk Of Magnesia (Magnesium Hydroxide) 2,400 Mg/10 Ml Oral.susp 2,400 Mg PO PRN QHS PRN Antacid Suspension (Mag Hydrox/Al Hydrox/Simeth) 355 Ml Oral.susp 15 Ml PO PRN AFTMEALHC PRN Lisinopril 5 Mg Tablet 5 Mg PO DAILY Depakote Sprinkle (Divalproex Sodium) 125 Mg Cap.sprink 750 Mg PO DAILY @1700 Depakote Sprinkle (Divalproex Sodium) 125 Mg Cap.sprink 500 Mg PO BID @0900/1300 Insta-Glucose Gel (Dextrose/Dextrin/Maltose) 31 Gm Gel..gram. 15 Gm PO PRN Q15MIN PRN Cyanocobalamin Injection (Cyanocobalamin (Vitamin B-12)) 1,000 Mcg/1 Ml Vial 1, 000 Mcg IM QMONTH D3-50 (Cholecalciferol (Vitamin D3)) 50,000 Unit Capsule 50,000 Unit PO WEEKLY Weekly on Tuesdays Pulmicort (Budesonide) 0.5 Mg/2 Ml Ampul.neb 0.5 Mg IH BID Tylenol (Acetaminophen) 325 Mg Tablet 650 Mg PO PRN Q6HRS PRN MDD 4000mg Albuterol Sulfate Conc Neb Soln (Albuterol Sulfate) 2.5 Mg/0.5 Ml Vial.neb 2.5 Mg NEB PRN Q12HR PRN Namzaric 14 mg-10 mg Capsule (Memantine HCl/Donepezil HCl) 1 Each Cap.spr.24 1 Each PO DAILY Atorvastatin Calcium 80 Mg Tablet 80 Mg PO QHS Omeprazole 20 Mg Tablet.dr 20 Mg PO DAILY Tamsulosin Hcl 0.4 Mg Cap.er.24h 0.4 Mg PO DAILY Onglyza (Saxagliptin Hcl) 5 Mg Tablet 2.5 Mg PO DAILY Oxybutynin Chloride Er (Oxybutynin Chloride) 5 Mg Tab.er.24 5 Mg PO DAILY Advair 250-50 Diskus (Fluticasone/Salmeterol) 1 Each Disk.w.dev 1 Puff IH BID Aspirin 325 Mg Tablet 325 Mg PO DAILY Amlodipine Besylate 5 Mg Tablet 5 Mg PO DAILY I have reviewed the current psychotropics carefully including drug interactions. Risk benefit ratio favors no change other than as noted in my dictated progress note. Diagnosis: Problems: (1) Behavior problem (2) Anxiety disorder (3) Delusion (4) Depression (5) Impulse control disorder (6) Major neurocognitive disorder, due to vascular disease, with behavioral disturbance, mild BRAYAN GARNETT MD Jul 10, 2017 18:36
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
[2017-07-28] MEDS ORDERED: CYANOCOBALAMIN (VITAMIN B-12) 1,000 MCG/ML VIAL IM SCH (09:00)
== END 2017-07-10 11:00 | DRG 884 ==
LOC: GEROPSY 19:21
PROVIDERS: ADMIT Psychiatry & Neurology Psychiatry; ATTEND Psychiatry & Neurology Psychiatry
DX: F01.51 Vascular dementia, unspecified severity, with behavioral disturbance (principal); G30.9 Alzheimer's disease, unspecified; J44.9 Chronic obstructive pulmonary disease, unspecified; F02.81 Dementia in other diseases classified elsewhere, unspecified severity, with behavioral disturbance; E11.9 Type 2 diabetes mellitus without complications; E78.5 Hyperlipidemia, unspecified; E53.8 Deficiency of other specified B group vitamins; F32.9 Major depressive disorder, single episode, unspecified; G47.00 Insomnia, unspecified; I10 Essential (primary) hypertension; F63.9 Impulse disorder, unspecified; N32.81 Overactive bladder; F41.9 Anxiety disorder, unspecified; K21.9 Gastro-esophageal reflux disease without esophagitis; N40.1 Benign prostatic hyperplasia with lower urinary tract symptoms; Z79.899 Other long term (current) drug therapy; Z86.73 Personal history of transient ischemic attack (TIA), and cerebral infarction without residual deficits; Z91.041 Radiographic dye allergy status; I25.2 Old myocardial infarction; Z79.82 Long term (current) use of aspirin; Z90.49 Acquired absence of other specified parts of digestive tract; Z90.89 Acquired absence of other organs; Z91.14 Patient's other noncompliance with medication regimen
CPT/HCPCS: 36415; 76536; 80053; 80061; 80164; 81001; 82306; 82607; 82947; 83036; 83540; 83550; 83735; 84436; 84439; 84443; 84480; 84481; 85025; 86593; 90686; 93005; 94640; J3420; J7613; J7626; Q0177